=== PATIENT | male | born 1960 | race Caucasian/White ===

== ENCOUNTER 2022-05-08 17:37 | Outpatient (CLI) | payer BC, SELFPAY ==
[2022-05-08 18:30] LABS: Appearance Urine Clear (Clear); Bilirubin Urine Negative (Negative); Blood Urine Negative (Negative); Color Urine Yellow (Yellow); Glucose Urine Negative (Negative); Ketones Urine Negative (Negative); Leukocyte Esterase Urine 1+ (Negative); Nitrite Urine Negative (Negative); Protein Urine Trace (Negative); Specific Gravity Urine 1.025 (1.000-1.030); Urobilinogen Urine 0.2 (0.2-1.0)
[2022-05-08 18:32] LABS: RBC Urine 0-2 (0-2)
[2022-05-08 21:34] LABS: Creatinine Urine 243.5 mg/dL
[2022-05-08 21:37] LABS: Microalbumin Creatinine Ratio 20 mg/g (0-30); Microalbumin Urine 5 mg/dL
[2022-05-08 22:01] LABS: PSA Screen* 1.21 ng/mL (0.10-4.00)
== END 2022-05-08 17:38 | disposition home or self-care (01) ==
PROVIDERS: PCP Family Medicine; Visit Provider Family Medicine
DX: Z00.00 Encounter for general adult medical examination without abnormal findings (principal); R39.15 Urgency of urination; E11.9 Type 2 diabetes mellitus without complications; E78.00 Pure hypercholesterolemia, unspecified; G43.909 Migraine, unspecified, not intractable, without status migrainosus; Z12.5 Encounter for screening for malignant neoplasm of prostate; M54.50 Low back pain, unspecified
CPT/HCPCS: 81003; 81015; 82043; 82570; 84153; 87086

== ENCOUNTER 2022-09-26 08:36 | Outpatient (CLI) | payer BC, SELFPAY ==
--- OUTSIDE RECORDS SUMMARY | 2022-09-27 14:38 | XMS_ITS | Encounter Summary ---
:1960 Author Organization [facility] Address [address] [place] [address] Care Team Providers Name Role Phone Unavailable Primary Care Provider Unavailable Encounter Details Date Type Department Care Team Description 08/01/2018 Hospital Encounter Department of Serjio Morel Os teoporosis Laboratory Medicine M.B., B.Ch., B.A.O. and Pathology, [address] [phone] [address] [facility] [place] [address] Social History Tobacco Use Types Packs/Day Years Used Date Smoking Tobacco: Some Days Pipe Cigars Smokeless Tobacco: Never Alcohol Use Standard Drinks/Week Comments No 0 (1 standard drink = 0.6 oz pure alcoho l) Alcohol Habits Answer Date Recorded How often do you have a drink containing alcohol? Never 04/20/2022 How many drinks containing alcohol do you have on a typical Not asked day when you are drinking? How often do you have six or more drinks on one occasion? No t asked Social Isolation Answer Date Recorded In a typical week, how many times do you More than three tera es a week 04/20/2022 talk on the phone with family, friends, or neighbors? How often do you get together with friends Twice a week 04/20/2022 or relatives? How often do you attend yarsanism or Never 2021 taoist services? Do you belong to any clubs or Yes 04/20/2022 organizations such as yarsanism groups, unions, fraternal or athletic groups, or school groups? How often do you attend meetings of the More than 4 times pe r year 04/20/2022 clubs or organizations you belong to? Are you now , , , 04/20/2022 , never or living with a partner? Physical Activity Answer Date Recorded On average, how many days per week do you engage in moderate to 1 day 04/20/2022 strenuous exercise (like walking fast, running, jogging, dancing, swimming, biking, or other activities that cause a light or heavy sweat)? On average, how many minutes do you engage in exercise at th is 30 min 04/20/2022 level? Stress Answer Date Recorded Do you feel stress - tense, restless, nervous, or Only a lit tle 04/20/2022 anxious, or unable to sleep at night because your mind is troubled all the time - these days? Financial Resource Strain Answer Date Recorded How hard is it for you to pay for the very basics like Not h kayla at all 04/20/2022 food, housing, medical care, and heating? Intimate Partner Violence Answer Date Recorded Within the last year, have you been afraid of your partner o r No 04/20/2022 ex-partner? Within the last year, have you been humiliated or emotionall y No 04/20/2022 abused in other ways by your partner or ex-partner? Within the last year, have you been kicked, hit, slapped, or No 04/20/2022 otherwise physically hurt by your partner or ex-partner? Within the last year, have you been raped or forced to have any No 04/20/2022 kind of sexual activity by your partner or ex-partner? Food Insecurity Answer Date Recorded Within the past 12 months, you worried that your food would Never true 04/20/2022 run out before you got money to buy more. Within the past 12 months, the food you bought just didn't N ever true 04/20/2022 last and you didn't have money to get more. Transportation Needs Answer Date Recorded In the past 12 months, has lack of transportation kept you f rom No 04/20/2022 medical appointments or from getting medications? In the past 12 months, has lack of transportation kept you f rom No 04/20/2022 meetings, work, or getting things needed for daily living? Housing Stability Answer Date Recorded In the last 12 months, was there a time when you were not ab le No 04/20/2022 to pay the mortgage or rent on time? In the last 12 months, how many places have you lived? 1 04/20/2022 In the last 12 months, was there a time when you did not hav e a No 04/20/[address] or slept in a senior care (including now)? Sex Assigned at Date Recorded Male 06/24/2018 5:24 PM CDT documented as of this encounter Medications at Time of Discharge Medication Sig Dispensed Refills Start Date End Date atorvastatin (LIPITOR) 20 Take 0.5 tablets by 0 0 10/31/2016 mg tablet mouth daily. BUDESONIDE (RHINOCORT Rhinocort 0 02/21/2017 ALLERGY NASAL) celecoxib (CeleBREX) 200 Take 1 capsule by 0 10/22 mg capsule mouth daily. CIALIS 20 mg tablet 0 09/25/2017 clotrimazole-betamethason 0 05/23/2018 e (LOTRISONE) 1-0.05 % lotion divalproex (DEPAKOTE) 250 Take 1 tablet by 0 10/23 mg EC tablet mouth at bedtime. Take a bedtime/Migraine headaches DOCOSAHEXANOIC ACID/EPA Take 1 capsule by 0 11/18 (FISH OIL ORAL) mouth daily. DULoxetine (CYMBALTA) 30 Take 1 capsule ([address] capsule mg total) by mouth daily. fexofenadine Take 1 tablet by 0 06/30/2010 (for_ALLEGRA) 180 mg mouth daily. tablet gabapentin Take 1 tablet (600 270 tablet 3 12/31/2017 (for_NEURONTIN) 600 mg mg total) by mouth tablet 3 (three) times a day. montelukast (SINGULAIR) Take 1 tablet by 0 2016 10 mg tablet mouth every evening. multivitamin tablet Take 1 capsule by 0 0 mouth daily. pantoprazole (PROTONIX) Take 1 tablet by 0 2016 40 mg EC tablet mouth daily. propranolol (for_INDERAL 0 10/24/2017 LA) 80 mg 24 hr capsule SUMAtriptan (IMITREX) 100 Take 1 tablet by 0 10/23 mg tablet mouth once as needed. Take 1 tablet once for migraine headache, may repeat in one hour if needed. tiZANidine (for_ZANAFLEX) Take 1 tablet by 0 09/21 4 mg tablet mouth as needed. teriparatide (FORTEO) 20 Inject 0.08 mL (20 2.4 mL 11 02/201806/26/2019 mcg/dose - 600 mcg/2.4 mL mcg total) under injection the skin daily. teriparatide (FORTEO) 20 Inject 0.08 mL (20 2.4 mL 11 07/08/2019 mcg/dose - 600 mcg/2.4 mL mcg total) under injection the skin daily. ginseng 250 mg capsule Take by mouth 0 12/21/2017 06/21/2022 daily. vitamin E 400 unit Take 1 capsule by 0 11/18/2009 06/21/2022 capsule mouth daily. documented as of this encounter Plan of Treatment Not on filedocumented as of this encounter Procedures Procedure Name Priority Date/Time Associated Diagnosis Comme nts CALCIUM, TOT, S/P Routine 08/13/2018 3:35 PM Osteoporosis Resu lts for this CDT procedure are i n the results section. documented in this encounter Results Calcium, Total (08/13/2018 3:35 PM CDT) P athologist Signature Calcium, 9.7 8.8 - 10.2 08/15/2018 [facility] Total, S mg/dL 11:54 AM CDT LABORATORIES - [facility] Specimen Anatomical Collection Method Collection Time Receive d Time (Source) Location / / Volume Laterality Blood (Blood, 08/13/2018 3:35 PM 08/15/20 18 Venous) CDT 10:35 AM CDT Resulting Agency Comment Mailed In Specimen Serjio Currie, B.Gustabo., B.A.O. LAB BLOOD ADD-ON Performing Organization Address City/State/ZIP Code Phon e Number [facility] - [address] [place], [place] [address] [facility] documented in this encounter Visit Diagnoses Diagnosis Osteoporosis documented in this encounter
--- OUTSIDE RECORDS SUMMARY | 2022-09-27 14:38 | XMS_ITS | Encounter Summary ---
:1960 Author Organization [facility] Address [address] [place] [address] Care Team Providers Name Role Phone Unavailable Primary Care Provider Unavailable Encounter Details Date Type Department Care Team Description 04/20/2022 Ancillary Procedure Department of Neurology Social History Tobacco Use Types Packs/Day Years [...] or relatives? How often do you attend confucianist or Never 2021 catholic services? Do you belong to any clubs or Yes 04/20/2022 organizations such as confucianist groups, unions, fraternal or athletic groups, or [...] place to sleep or slept in a halfway (including now)? Education Answer Date Recorded What is the highest level of school Bachelor's degree (e.g., BA, AB, 04/20/2022 you have completed or the highest BS) degree you have received? Sex Assigned at Date Recorded Male 06/24/2018 5:24 PM CDT documented as of this encounter Plan of Treatment Not on filedocumented as of this encounter Procedures Procedure Name Priority Date/Time Associated Diagnosis Comme nts NEUROLOGY IMAGE Routine 04/20/2022 9:15 AM Result s for this EXAM CDT procedure are i n the results section. documented in this encounter Results Video-Full body-Neurology Image Exam (04/20/2022 9:15 AM CDT) Specimen (Source) Anatomical Collection Method Collection Time Re ceived Time Location / / Volume Laterality 04/20/2022 9:12 AM CDT Narrative [facility] - 04/20/2022 9:15 AM CDT This order has been created and auto-finalized to support the import of images acquired without order. The clini hilda documentation to support these images can be found on the encounter carlton t produced images. Provider Not In System IMG NON RAD IMAGING PROCEDUR ES Performing Organization Address City/State/ZIP Code Phon e Number [facility] NA documented in this encounter Visit Diagnoses Not on filedocumented in this encounter
--- OUTSIDE RECORDS SUMMARY | 2022-09-27 14:38 | XMS_ITS | Encounter Summary ---
:1960 Author Organization [facility] Address [address] [place] [address] Care Team Providers Name Role Phone Unavailable [...] or relatives? How often do you attend zoroastrian or Never 2021 sikh services? Do you belong to any clubs or Yes 04/20/2022 organizations such as zoroastrian groups, unions, fraternal or athletic groups, or [...] place to sleep or slept in a [facility] (including now)? Education Answer Date Recorded What [...] Diagnosis Comme nts NEUROLOGY IMAGE Routine 04/20/2022 9:34 AM Result s for this EXAM CDT procedure are i n the results section. documented in this encounter Results Video-Full body-Neurology Image Exam (04/20/2022 9:34 AM CDT) Specimen (Source) Anatomical Collection Method Collection Time Re ceived Time Location / / Volume Laterality 04/20/2022 9:31 AM CDT Narrative [facility] - 04/20/2022 9:34 AM CDT This order has been created [...]
--- OUTSIDE RECORDS SUMMARY | 2022-09-27 14:38 | XMS_ITS | Encounter Summary ---
:1960 Author Organization [facility] Address [address] [place] [address] Care Team Providers Name Role Phone Unavailable Primary Care Provider Unavailable Reason for Visit Reason Comments Ref. for P.T. Encounter Details Date Type Department Care Team Description 07/19/2022 Clinical Communication Department of Fernando Camargo Ref. for P.T. [place]rology [place] M[facility]P.H[facility] [address] [facility] [address] [place] [phone] Social History Tobacco Use Types Packs/Day Years [...] or relatives? How often do you attend samaritan or Never 2021 hoahaoism services? Do you belong to any clubs or Yes 04/20/2022 organizations such as samaritan groups, unions, fraternal or athletic groups, or [...] place to sleep or slept in a alf (including now)? Education Answer Date Recorded What is the highest level of school Bachelor's degree (e.g., BA, AB, 04/20/2022 you have completed or the highest BS) degree you have received? Sex Assigned at Date Recorded Male 06/24/2018 5:24 PM CDT documented as of this encounter Miscellaneous Notes Telephone Encounter - Ximena Cee, L.P.N. - 07/19/2022 2:35 PM CDT Ref. For PT. Faxed to [facility]. documented in this encounter Plan of Treatment Not on filedocumented as of this encounter Visit Diagnoses Not on filedocumented in this encounter
--- OUTSIDE RECORDS SUMMARY | 2022-09-27 14:38 | XMS_ITS | Encounter Summary ---
:1960 Author Organization [facility] Address [address] [place] [address] Care Team Providers Name Role Phone Unavailable Primary Care Provider Unavailable Reason for Referral Physical Therapy (Routine) - Authorized Specialty Diagnoses / Procedures Referred By Contact Refer red To Contact Diagnoses Abnormal Gait Non Orthopedic Fernando Camargo M.D., External, Referring M.P.H. Provider [address] [place] [address] Referral ID Status Reason Start Expiration Visits Visits Date Date Requested Authorized [id number] Authorized Service not 07/18/2022 07/18/2023 1 1 available at any [facility] site Reason for Visit Reason Comments Peripheral Neuropathy Follow up Outpatient (Routine) - Closed Specialty Diagnoses / Procedures Referred By Contact Refer red To Contact Neurology Fernando Camargo M.D ., M.P.H. [facility] [address] [place] [address] Referral ID Status Reason Start Date Expiration Date Visits Requ ested Visits Authorized [id number] Closed 04/20/2022 04/20/2023 1 1 Encounter Details Date Type Department Care Team Description 07/18/2022 Office Visit Department of Fernando Camargo Abnormal G ait Non Neurology in [place], M.P.H. Orthopedic (Primary Dx) [place], [place] [address] [place] [phone] Social History Tobacco Use Types Packs/Day Years Used Date Smoking Tobacco: Some Days Pipe Cigars Smokeless Tobacco: Never Tobacco Cessation: Ready to Quit: Not As ked; Counseling Given: Not Answered Alcohol Use Standard Drinks/Week Comments No 0 [...] or relatives? How often do you attend temple or Never 2021 tenriism services? Do you belong to any clubs or Yes 04/20/2022 organizations such as temple groups, unions, fraternal or athletic groups, or [...] place to sleep or slept in a residential (including now)? Education Answer Date Recorded What is the highest level of school Bachelor's degree (e.g., BA, AB, 04/20/2022 you have completed or the highest BS) degree you have received? Sex Assigned at Date Recorded Male 06/24/2018 5:24 PM CDT documented as of this encounter Last Filed Vital Signs Vital Sign Reading Time Taken Comments Blood Pressure 131/77 07/18/2022 3:13 PM CDT Pulse 59 07/18/2022 3:13 PM CDT Temperature - - Respiratory Rate - - Oxygen Saturation - - Inhaled Oxygen Concentration - - Weight 82.2 kg (181 lb 3.5 oz) 07/18/2022 3:13 PM CDT Height - - Body Mass Index 28.61 04/20/2022 8:32 AM CDT documented in this encounter Progress Notes Fernando Camargo M.D., M.P.H. - 07/18/2022 3:15 PM CDT Images from the original note were not included. CASSIDY Castellanos returns today for followup on his gait problems. His repeat EMG is consistent with that from 2018 and shows a right L5 chronic radiculopathy. I explained to him that that does not exceed Raoul difficulties have with walking. A we spent some time reviewing the anatomy of his nerve root dysfuncti on. The interested reader is directed to the video of his difficulty walking under the imaging section. REVIEW OF SYSTEMS No visits with results within 6 Month(s) from this visit. Latest known visit with results is: Hospital Outpatient Visit on 08/01/2018 Component Date Value Ref Range Status Calcium, Total, S 08/13/2018 9.7 8.8 - 10.2 mg/dL Final Narrative & Impression 21-Jun-2022 Electromyography Final Report Study Number: 2 EMG Tow Truck Dispatcher: Dell May Referred by: Fernando CAMARGO ([phone] or [phone]) Referred for: rule out PN Referral Code: 200 RX: 335 SUMMARY: Prior to starting the procedure, the patient's identity was verified, pertinent available records were reviewed, the nature of the procedure was explained, the appropriate sites of the exam were confirmed directly with the patient, and a pre-procedure pause was performed for final verification of all of the above. Nerve conduction studies in the right lower extremity revealed normal peroneal and tibial motor responses. Sural sensory response was normal. Needle EMG of the right lower extremity revealed high amplitude long duration motor units in L5 innervated muscles. No fibrillation potentials were seen. CLINICAL INTERPRETATION: Abnormal study. The electrodiagnostic evidence remains most consistent with a chronic right L5 radiculopathy without evidence of ongoing denervation on this study. There is no electrodiagnostic evidence of a large fiber peripheral neuropathy on this study. Since the 2017 study there has been interval reinnervation of the L5 myotome. Katy May () OBJECTIVE BP 131/77 (BP Location: Left arm, Patient Position: Sitting, Cuff Size: Regular) Pulse (!) 59 Wt82.2 kg BMI 28.61 kg/m?? Physical Exam COGNITION: Alert and oriented x 4. CRANIAL NERVES: bisque kiln drawer II-XII intact and symmetric. GAIT: While walking in and out. ASSESSMENT / PLAN #1 Abnormal Gait Non Orthopedic I have recommended gait and balance therapy for this patient and we will arrange for this. I do not think a chronic L5 radiculopathy explains his gait difficulties. I shared that with him. - External referral PT (non-[place]) Other orders - Neurology office visit (clinic) I personally spent over half of a total 25 minutes in counseling and discussion with the patient andcoordination of care as described above. documented in this encounter Plan of Treatment Not on filedocumented as of this encounter Visit Diagnoses Diagnosis Abnormal Gait Non Orthopedic - Primary documented in this encounter
--- OUTSIDE RECORDS SUMMARY | 2022-09-27 14:38 | XMS_ITS | Encounter Summary ---
:1960 Author Organization [facility] Address [address] [place] [address] Care Team Providers Name Role Phone Unavailable Primary Care Provider Unavailable Reason for Referral Outpatient (Routine) - Closed Specialty Diagnoses / Procedures Referred By Contact Refer red To Contact Neurology Fernando Camargo M.D ., M.P.H. [facility] [place] [address], [place] [address] Referral ID Status Reason Start Date Expiration Date Visits Requ ested Visits Authorized [id number] Closed 04/20/2022 04/20/2023 1 1 Outpatient (Routine) - Closed Specialty Diagnoses / Procedures Referred By Contact Refer red To Contact Diagnoses Neuropathy Fernando Camargo M.D., M.P.H. [facility] Region Procedures EMG [address], [place] [address] Referral ID Status Reason Start Date Expiration Date Visits Requ ested Visits Authorized [id number] Closed 04/20/2022 04/20/2023 1 1 Reason for Visit Reason Comments Imbalance Ref. Dakota Sanders [facility] Appointment Request (Routine) - Closed Specialty Diagnoses / Procedures Referred By Contact Refer red To Contact Neurology Referral ID Status Reason Start Date Expiration Date Visits Requ ested Visits Authorized [id number] Closed 02/28/2022 02/28/2023 1 Encounter Details Date Type Department Care Team Description 04/20/2022 Office Visit Department of Fernando Camargo, Neuropathy (Primary Dx); Neurology in [facility] [place], [place] [address] [place] [address] [place] [id number] Social History Tobacco Use Types Packs/Day Years [...] or relatives? How often do you attend mandaen or Never 2021 roman catholic services? Do you belong to any clubs or Yes 04/20/2022 organizations such as mandaen groups, unions, fraternal or athletic groups, or [...] minutes do you engage in exercise at is 30 min 04/20/2022 level? Stress Answer [...] place to sleep or slept in a chcf (including now)? Education Answer Date Recorded What is the highest level of school Bachelor's degree (e.g., BA, AB, 04/20/2022 you have completed or the highest BS) degree you have received? Sex Assigned at Date Recorded Male 06/24/2018 5:24 PM CDT documented as of this encounter Last Filed Vital Signs Vital Sign Reading Time Taken Comments Blood Pressure 113/66 04/20/2022 8:32 AM CDT Pulse 60 04/20/2022 8:32 AM CDT Temperature - - Respiratory Rate - - Oxygen Saturation - - Inhaled Oxygen Concentration - - Weight 80.3 kg (177 lb 0.5 oz) 04/20/2022 8:32 AM CDT Height 169.5 cm (5' 6.73) 04/20/2022 8:32 AM CDT Body Mass Index 27.95 04/20/2022 8:32 AM CDT documented in this encounter Consult Notes Fernando Camargo M.D., M.P.H. - 04/20/2022 8:45 AM CDT Images from the original note were not included. SUBJECTIVE CHIEF COMPLAINT / REASON FOR VISIT Emanuel Mcmahan is a 61 y.o. male who presents for evaluation of Imbalance (Ref. Dakota Law MD- [facility]). HISTORY OF PRESENT ILLNESS Patient has apparently referred to me for difficulty with gait and balance. He has a long and complicated history of back pain and leg pain. He also has apparently had difficulty walking with a fall recently. He has seen PMNR here and the health system, Dr. Lugo and the interested reader is directed to his notes. He also had some epidural steroid injections by Dr. Mcgee and Ani. He seems to have had a physical therapy for gait and balance and this has not been helpful. He has an EMG from 2018which shows only an old right L5 radiculopathy and no evidence of myopathy nor peripheral neuropathy. At today's visit he complains of not been able to walk well although he said he had a ???light?? fall when he was trying to run across the yd a few weeks ago. He does have some arthritic changes in his lumbar sacral spine and descriptions in the chart of neurogenic claudication but I did not elicit similar history at today's visit. He has not had any bowel or bladder changes. He is not very clear about whether he has weakness or not. He says he sometimes veers to the left when walking. EMG Roller Shop Utility Worker: Tamia Carpenter [phone] or [phone] Referred by: Susan Anton ([phone]) Referred for: Radiculopathy Lumbar 5 R~Pain Low Back (LBP) Referral Code: 330 335 SUMMARY: Prior to starting the procedure, the patient's identity was verified, pertinent available records were reviewed, the nature of the procedure was explained, the appropriate sites of the exam were confirmed directly with the patient, and a pre-procedure pause was performed for final verification of all of the above. Right-sided nerve conduction studies were normal. Needle examination showed long duration motor unit potentials in right L5 innervated muscles with mild fibrillation potentials. Left lower limb muscles and right upper limb muscles tested were normal. CLINICAL INTERPRETATION: There is EMG evidence for a chronic, active right L5 radiculopathy. There is no EMG evidence for a myopathic process affecting limb muscles or a left L5 radiculopathy. Mitchell Carpenter (127 or [phone])/[facility] NERVE CONDUCTIONS Temperature: upper: 33.1, lower: 29.4 ?C Record Rep Normal Normal Distal Normal F-Wave F-Wave Nerve Type Site Stim Side Amp Amp CV CV Lat Lat Lat Est ext digitorum Peroneal motor brevis R 6.0 (> 2.0) 48 (> 41) 5.1 (< 6.6) 0.0 abductor Tibial motor hallucis R 7.7 (> 4.0) 42 (> 40) 4.0 (< 6.1) 53.1 59.1 Sural sensory ankle R 19 (> 6.0) (> 40) 3.8 (< 4.5) abd digiti Ulnar motor minimi R 8.2 (> 6.0) 60 (> 51) 2.2 (< 3.6) 29.6 25.5 Median sensory index R 29 (> 15.0) 56 (> 56) 3.1 (< 3.6) NEEDLE EMG Ins Spont MUP Recruitment Duration Amplitude Phases Muscle Side Act Fib Fasc Normal Activ Reduced Rapid Long Short High Low % Turns First dorsal interosseous R Normal 0 0 Normal Deltoid R Normal 0 0 Normal Triceps brachii R Normal 0 0 Normal Tensor fasciae latae R Increased +/- 0 + + Iliopsoas R Normal 0 0 Normal Vastus medialis R Normal 0 0 Normal Gastrocnemius (Medial head) R Normal 0 0 Normal Tibialis anterior R Increased ++ 0 + +/- Tibialis anterior L Normal 0 0 Normal Past Medical History: Diagnosis Date ??? BenignProstatic Hyperplasia Localized 15+ years ago ??? Gallbladder Disorder 2014 ??? Gastroesophageal Reflux Disease NOS 15+ years ago ??? Hyperlipidemia 20+ year ago ??? Hypertension NOS 2016 ??? Migraine Headache 15+ years ago ??? Osteopenia May 2018 Past Surgical History: Procedure Laterality Date ??? GALLBLADDER SURGERY 2014 ??? PROSTATE SURGERY 15+ years ago ??? VASECTOMY 1985 MEDICATIONS: Current Outpatient Medications: ??? amitriptyline (ELAVIL) 10 mg tablet, at bedtime., Disp: , Rfl: ??? amLODIPine (NORVASC) 5 mg tablet, daily., Disp: , Rfl: ??? atorvastatin (LIPITOR) 20 mg tablet, Take 0.5 tablets by mouth daily., Disp: , Rfl: ??? busPIRone (BUSPAR) 7.5 mg tablet, Take 7.5 mg by mouth 2 (two) times a day., Disp: , Rfl: ??? calcium carbonate-vitamin D3 (Calcium 600 with Vitamin D3) 600 mg-10 mcg (400 unit) tablet,chewable, Chew daily., Disp: , Rfl: ??? divalproex (DEPAKOTE) 250 mg EC tablet, Take 1 tablet by mouth at bedtime. Take a bedtime/Migraine headaches, Disp: , Rfl: ??? DOCOSAHEXANOIC ACID/EPA (FISH OIL ORAL), Take 1 capsule by mouth daily., Disp: , Rfl: ??? DULoxetine (CYMBALTA) [address] capsule, Take 1 capsule (30 mg total) by mouth daily., Disp: 90 capsule, Rfl: 3 ??? fexofenadine (for_ALLEGRA) 180 mg tablet, Take 1 tablet by mouth daily., Disp: , Rfl: ??? gabapentin (NEURONTIN) 400 mg capsule, 2 (two) times a day., Disp: , Rfl: ??? metFORMIN XR (GLUCOPHAGE-XR) 500 mg 24 hr tablet, daily., Disp: , Rfl: ??? montelukast (SINGULAIR) 10 mg tablet, Take 1 tablet by mouth every evening., Disp: , Rfl: ??? multivitamin tablet, Take 1 capsule by mouth daily., Disp: , Rfl: ??? omega 3-gos-eut-fish oil 1,000 mg (120 mg-180 mg) capsule, Take 1 capsule by mouth 2 (two) timesa day., Disp: , Rfl: ??? pantoprazole (PROTONIX) 40 mg EC tablet, Take 1 tablet by mouth daily., Disp: , Rfl: ??? propranoloL (INDERAL LA) 60 mg 24 hr capsule, daily., Disp: , Rfl: ??? sildenafiL (VIAGRA) 100 mg tablet, TK 1 T PO D PRN, Disp: , Rfl: ??? SUMAtriptan (IMITREX) 100 mg tablet, Take 1 tablet by mouth once as needed. Take 1 tablet once for migraine headache, may repeat in one hour if needed., Disp: , Rfl: ??? tiZANidine (for_ZANAFLEX) 4 mg tablet, Take 1 tablet by mouth as needed., Disp: , Rfl: ??? BUDESONIDE (RHINOCORT ALLERGY NASAL), Rhinocort, Disp: , Rfl: ??? celecoxib (CeleBREX) 200 mg capsule, Take 1 capsule by mouth daily., Disp: , Rfl: ??? CIALIS 20 mg tablet, , Disp: , Rfl: ??? clotrimazole-betamethasone (LOTRISONE) 1-0.05 % lotion, , Disp: , Rfl: ??? gabapentin (for_NEURONTIN) 600 mg tablet, Take 1 tablet (600 mg total) by mouth 3 (three) times a day. (Patient taking differently: Take 600 mg by mouth 2 (two) times a day. Tablet in half ), Disp:270 tablet, Rfl: 3 ??? ginseng 250 mg capsule, Take by mouth daily., Disp: , Rfl: ??? propranolol (for_INDERAL LA) 80 mg 24 hr capsule, , Disp: , Rfl: ??? vitamin E 400 unit capsule, Take 1 capsule by mouth daily., Disp: , Rfl: ALLERGY: Allergies Allergen Reactions ??? Animal Dander Other (see comments) ??? House Dust Mite Other (see comments) ??? Mold Other (see comments) Family History Problem Relation Age of Onset ??? Heart attack Father ??? Coronary artery disease Father ??? Hyperlipidemia Father ??? Sleep apnea Father ??? Lung cancer Mother ??? Hyperlipidemia Mother Social History Socioeconomic History ??? Marital status: Single Spouse name: Not on file ??? Number of children: Not on file ??? Years of education: Not on file ??? Highest education level: Bachelor's degree (e.g., BA, AB, BS) Occupational History ??? Not on file Tobacco Use ??? Smoking status: Current Some Day Smoker Types: Cigars, Pipe ??? Smokeless tobacco: Never Used Substance and Sexual Activity ??? Alcohol use: No ??? Drug use: No ??? Sexual activity: Yes Partners: Female control/protection: Vasectomy Other Topics Concern ??? Not on file Social History Narrative ??? Not on file Social Determinants of Health Financial Resource Strain: Low Risk ??? Difficulty of Paying Living Expenses: Not hard at all Food Insecurity: No Food Insecurity ??? Worried About Running Out of Food in the Last Year: Never true ??? Ran Out of Food in the Last Year: Never true Transportation Needs: No Transportation Needs ??? Lack of Transportation (Medical): No ??? Lack of Transportation (Non-Medical): No Physical Activity: Insufficiently Active ??? Days of Exercise per Week: 1 day ??? Minutes of Exercise per Session: 30 min Stress: No Stress Concern Present ??? Feeling of Stress : Only a little Social Connections: Moderately Integrated ??? Frequency of Communication with Friends and Family: More than three times a week ??? Frequency of Social Gatherings with Friends and Family: Twice a week ??? Attends Religion Services: Never ??? Active Member of Clubs or Organizations: Yes ??? Attends Club or Organization Meetings: More than 4 times per year ??? Marital Status: Intimate Partner Violence: Not At Risk ??? Fear of Current or Ex-Partner: No ??? Emotionally Abused: No ??? Physically Abused: No ??? Sexually Abused: No Housing Stability: Low Risk ??? Unable to Pay for Housing in the Last Year: No ??? Number of Places Lived in the Last Year: 1 ??? Unstable Housing in the Last Year: No @ OBJECTIVE Vitals: 04/20/22 0832 BP: 113/66 BP Location: Left arm Patient Position: Sitting Cuff Size: Regular Pulse: 60 Weight: 80.3 kg Height: 169.5 cm PHYSICAL EXAM COGNITION: Alert and oriented x 4. CRANIAL NERVES: plumber supervisor II-XII intact and symmetric. MOTOR: Full strength throughout the upper and lower extremities bilaterally both proximally and distally. Normal tone. No pronator drift. No tremor. REFLEXES: Normal and symmetric at the biceps, triceps, brachioradialis, knees, and ankles. SENSORY: normal sensation to touch, decreased vibratory sensation in both great toes minus two but the apparently preserved position sense in both great toes. CEREBELLAR: ARMs-normal GAIT: astasia abasia ASSESSMENT / PLAN Impression: Encounter Diagnoses Name Primary? 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 The gait and standing with the eyes closed have exaggerated movements most consistent with Astasia abasia. I'm Going to get an EMG to evaluate apparent peripheral neuropathy. He has had physical therapy previously without benefit to his walking I anticipate that he may need more specialized therapy. I will see him back after his EMG. I personally spent 45 minutes in care of the patient today. Time includes both non face to face and face to face patient care. Fernando Camargo M.D., M.P.H. documented in this encounter Plan of Treatment Scheduled Referrals Name Type Priority Associated Diagnoses Order S [facility] Neurology office Outpatient Referral Routine Expe cted: visit (clinic) 07/21/2022 (Approximate), Expires: 07/21/2023 documented as of this encounter Results EMG (06/21/2022 3:18 PM CDT) Specimen (Source) Anatomical Collection Method Collection Time Re ceived Time Location / / Volume Laterality 06/21/2022 3:45 PM CDT Narrative [facility] EMG - 06/21/2022 3:50 PM CDT Table formatting from the original result was not included. 21-Jun-2022 ? Electromyo graphy ? Final Report Study Number: [id number] EMG Roller [employer] Utility Worker: Dell May Referred by: Fernando CAMARGO (127 or [phone]) Referred for: rule out PN Referral Code: ?200 RX: 335 SUMMARY: Prior to starting the procedure , the patient's identity was verified, pertinent available records were reviewed, the nature of the procedure was explained, the appropriate sites of the exam were confirmed directly with the pa tient, and a pre-procedure pause was performed for final verification of all of the above. ?? Nerve conduction studies in the right lo wer extremity revealed normal peroneal and tibial allie r responses. ??Sural sensory response was normal. ??Needle EMG of the right lower extremity reveale d high amplitude long duration motor units in L5 innervated muscles. ??No fibrillation po tentials were seen. CLINICAL INTERPRETATION: Abnormal study. ??The electrodiagnostic evidence remains most consistent with a chronic right L5 radiculopathy wi thout evidence of ongoing denervation on this study. ?? There is no electrodiagnostic evidence o f a large fiber peripheral neuropathy on this study. ?? Since the 2018 study there has been inte rval reinnervation of the L5 myotome. Katy May () NERVE CONDUCTIONS ??Record Rep ?? Normal ??Normal Distal Normal F-Wave F-Wave Temp Nerve Type Site Stim Side Amp Amp CV CV Lat Lat Lat Est (??C) Fibular Motor EDB ??R 3.8 (> 2.0) 43 (> 41) 4.2 (< 6.6) ?? 32.4 Tibial Motor AH ??R 8.2 (> 4.0) 43 (> 40 ) 3.5 (< 6.1) ?? 31.7 Sural Sensory Ankle ??R 12 (> 0.0) 47 (> 40) 3.3 (< 4.5) ?? 32.6 NEEDLE EMG ??Ins Spont MUP ??Recruitment Duration Amplitude Phases Muscle Side Act Fib Fasc Normal Activ Re duced Rapid Long Short High Low % Turns Gluteus medius R NL 0 0 ----- ?+ ??+ ? Vastus medialis R NL 0 0 NL ? Gastrocnemius (medial head) R NL 0 0 NL ? Tibialis anterior R NL 0 0 ----- ?+ ??+ ?? + Peroneus tertius R NL 0 0 ----- ?+ ? ?+ ?? + This interpretation has been electron ically signed: Dell May MD at 06/21/2022 3:49:40 PM CDT Fernando Camargo M.D., M.P.H. NEUROLOGY ORDERABLES Performing Organization Address City/State/ZIP Code Phon e Number [facility] documented in this encounter Visit Diagnoses Diagnosis Neuropathy - Primary Astasia Abasia Neuropathy documented in this encounter
--- OUTSIDE RECORDS SUMMARY | 2022-09-27 14:38 | XMS_ITS | Encounter Summary ---
:1960 Author Organization [facility] Address [address] [place] [address] Care Team Providers Name Role Phone Unavailable Primary Care Provider Unavailable Reason for Visit Reason Comments Emg Peripheral Neuropathy Right leg Outpatient (Routine) - Closed Specialty Diagnoses / Procedures Referred By Contact Refer red To Contact Diagnoses Neuropathy Fernando Camargo M.D., M.P.H. [facility] Region Procedures EMG [address] [place] [address] Referral ID Status Reason Start Date Expiration Date Visits Requ ested Visits Authorized [id number] Closed 04/20/2022 04/20/2023 1 1 Encounter Details Date Type Department Care Team Description 06/21/2022 Diagnostic Department of Neurology in [facility] tejal Pichardo, Neuropathy [place], [place] [address] [place] [address] [place] [address] [phone] (Wo rk) Social History Tobacco Use Types Packs/Day Years [...] or relatives? How often do you attend worship or Never 2021 congregation services? Do you belong to any clubs or Yes 04/20/2022 organizations such as worship groups, unions, fraternal or athletic groups, or [...] slept in a senior care (including now)? Education Answer Date Recorded What [...] Name Priority Date/Time Associated Diagnosis Comme nts EMG Routine 06/21/2022 3:18 PM Neuropathy Results f or this CDT procedure are i n the results section . documented in this encounter Results EMG (06/21/2022 3:18 PM CDT) Specimen (Source) Anatomical Collection Method Collection Time Re ceived Time Location / / Volume Laterality 06/21/2022 3:45 PM CDT Narrative [facility] - 06/21/2022 3:50 PM CDT Table formatting from the original result was not included. 21-Jun-2022 ? Electromyo graphy ? Final Report Study Number: 2 EMG Remediation Consultant: Dell May Referred by: eFrnando CAMARGO (127 or [phone]) Referred for: rule out PN Referral Code: [...] in this encounter Visit Diagnoses Diagnosis Neuropathy documented in this encounter
--- OUTSIDE RECORDS SUMMARY | 2022-09-27 14:38 | XMS_ITS | Clinical Summary ---
:1960 Author Organization [facility] Address [address] [place] [address] Care Team Providers Name Role Phone Unavailable Primary Care Provider Unavailable Source Comments Patient records contain information from all sites at [facility]. For routine questions regarding patient records, call [phone] during business hours, M-F 8:00 AM - 5:00 PM Central Time. Record requests for emergency care only can be directed to [phone] at any time.[facility] Allergies Active Allergy Reactions Severity Noted Date Comments Animal Dander Other (see comments) 12/21/2017 House Dust Mite Other (see comments) 12/21/2017 Mold Other (see comments) 12/21/2017 Medications Medication Sig Dispensed Refills Start Date End Date Status atorvastatin (LIPITOR) Take 0.5 tablets 0 10/31/2016 Active 20 mg tablet by mouth daily. BUDESONIDE (RHINOCORT Rhinocort 0 02/21/2017 Active ALLERGY NASAL) celecoxib (CeleBREX) Take 1 capsule by 0 11/09/2016 Active 200 mg capsule mouth daily. divalproex (DEPAKOTE) Take 1 tablet by 0 11/18/2009 Active 250 mg EC tablet mouth at bedtime. Take a bedtime/Migraine headaches fexofenadine Take 1 tablet by 0 06/30/2010 Active (for_ALLEGRA) 180 mg mouth daily. tablet montelukast Take 1 tablet by 0 10/31/2016 Active (SINGULAIR) 10 mg mouth every tablet evening. multivitamin tablet Take 1 capsule by 0 11/18/2009 Active mouth daily. DOCOSAHEXANOIC Take 1 capsule by 0 11/18/2009 Active ACID/EPA (FISH OIL mouth daily. ORAL) pantoprazole Take 1 tablet by 0 11/09/2016 Active (PROTONIX) 40 mg EC mouth daily. tablet SUMAtriptan (IMITREX) Take 1 tablet by 0 11/18/2009 Active 100 mg tablet mouth once as needed. Take 1 tablet once for migraine headache, may repeat in one hour if needed. tiZANidine Take 1 tablet by 0 10/01/2015 A ctive (for_ZANAFLEX) 4 mg mouth as needed. tablet propranolol 0 10/24/2017 Active (for_INDERAL LA) 80 mg 24 hr capsule CIALIS 20 mg tablet 0 09/25/2017 Active gabapentin Take 1 tablet 270 tablet 3 12/31/2017 Act meka (for_NEURONTIN) 600 mg (600 mg total) by tablet mouth 3 (three) times a day. Additional Information Patient taking differently: 600 mg oral 2 times daily, Tablet in half, Reported on 06/26/2018 DULoxetine (CYMBALTA) 30 mg Take 1 capsule (30 mg 90 capsule 3 02/05/[address] capsule total) by mouth daily. clotrimazole-betamethasone 0 05/23/2018 Active (LOTRISONE) 1-0.05 % lotion amitriptyline (ELAVIL) 10 mg at bedtime. 0 Active tablet amLODIPine (NORVASC) 5 mg daily. 0 04/19/2022 Active tablet busPIRone (BUSPAR) 7.5 mg Take 7.5 mg by mouth 2 0 Active tablet (two) times a day. metFORMIN XR (GLUCOPHAGE-XR) daily. 0 03/15/2022 Active 500 mg 24 hr tablet sildenafiL (VIAGRA) 100 mg TK 1 T PO D PRN 0 020 Active tablet omega 0-mzw-bgt-fish oil Take 1 capsule by mouth 0 Active 1,000 mg (120 mg-180 mg) 2 (two) times a day. capsule gabapentin (NEURONTIN) 400 mg 2 (two) times a day. 0 03/29/2022 Active capsule propranoloL (INDERAL LA) 60 daily. 0 Active mg 24 hr capsule calcium carbonate-vitamin D3 Chew daily. 0 Active (Calcium 600 with Vitamin D3) 600 mg-10 mcg (400 unit) tablet,chewable Active Problems No known active problems Encounters Date Type Specialty Care Team Description 07/19/2022 Clinical Communication Neurology Fernando Camargo R ef. for PMarie Sharma, M.P.H. 07/18/2022 Office Visit Neurology Fernando Camargo, Mayte Patel M.D., M.P.H. Orthopedic (Makayla Jeffrey) from Last 3 Months Immunizations Name Administration Dates Next Due Influenza, Unspecified 08/05/2015 Tdap 08/04/2013, 06/15/2003 Family History Medical History Relation Name Comments Coronary artery disease Father Pawel Heart attack Father Pawel Hyperlipidemia Father Pawel Sleep apnea Father Pawel Hyperlipidemia Mother Lisa Mcmahan Lung cancer Mother Lisa Mcmahan Relation Name Status Comments Father Pawel Mother Lisa Mcmahan Social History Tobacco Use Types Packs/Day Years [...] or relatives? How often do you attend cheondoism or Never 2021 synagogue services? Do you belong to any clubs or Yes 04/20/2022 organizations such as cheondoism groups, unions, fraternal or athletic groups, or [...] Date Recorded Male 06/24/2018 5:24 PM CDT Last Filed Vital Signs Vital Sign Reading Time Taken Comments Blood Pressure 131/77 07/18/2022 3:13 PM CDT Pulse 59 07/18/2022 3:13 PM CDT Temperature - - Respiratory Rate 20 05/24/2016 2:08 PM CDT Oxygen Saturation - - Inhaled Oxygen Concentration - - Weight 82.2 kg (181 lb 3.5 oz) 07/18/2022 3:13 PM CDT Height 169.5 cm (5' 6.73) 04/20/2022 8:32 AM CDT Body Mass Index 28.61 04/20/2022 8:32 AM CDT Plan of Treatment Health Maintenance Due Date Last Done Comments CT Colonography 1960 Cologuard 1960 FIT 1960 HIV Screening 1960 Hepatitis C Screening 1960 Tobacco Cessation counseling 1960 Zoster Vaccines (1 of 2) 2008 Lipid (Cholesterol) Screening 09/30/2020 09/30/2015, 2012, 02/01/2012 Colonoscopy 01/17/2021 01/17/2011 Colorectal Cancer Screening 01/17/2021 COVID-19 Vaccine (3 - Booster for 04/01/2021 02/04/2021, Moderna series) Depression Screening (Annual 10/22/2021 PHQ-2) Fasting Glucose for Diabetes 02/07/2022 02/07/2019, 015, Screening 08/01/2013, Additional history exists Influenza Vaccine (#1) 2022 08/29/2021, 08/05/2015, 10/03/2001, Additional history exists Pneumococcal vaccine (0-64 years) 01/19/2023 01/19/2022 (2 - PCV) DTaP,Tdap,and Td Vaccines (3 - Td 08/04/2023 08/04/2013, or Tdap) Insurance Payer Benefit Plan / Subscriber ID Effective Dates Phone Addre ss Type Group [employer] [place] [id number] 2016-Husam [phone] [address] [facility] [address] [place] [address] Advance Directives For more information, please contact: [phone] Documents on File Type Date Recorded 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 See document viewer.
--- OUTSIDE RECORDS SUMMARY | 2022-09-27 14:38 | XMS_ITS | Encounter Summary ---
:1960 Author Organization [facility] Address [address] [place] [address] Care Team Providers Name Role Phone Unavailable Primary Care Provider Unavailable Encounter Details Date Type Department Care Team Description 02/21/2022 Clinical Communication Department of Neurology Fernando Camargo, in [facility] elena Sharma, M.P.H. [address] [place] [address] [address], [place] [phone] Social History Tobacco Use Types Packs/Day Years [...] or relatives? How often do you attend roman catholic or Never 2021 temple services? Do you belong to any clubs or Yes 04/20/2022 organizations such as roman catholic groups, unions, fraternal or athletic groups, or school groups? How often do you attend meetings of the More than 4 times r year 04/20/2022 clubs or organizations you [...] place to sleep or slept in a nursing home (including now)? Sex Assigned at Date Recorded Male 06/24/2018 5:24 PM CDT documented as of this encounter Miscellaneous Notes Telephone Encounter - Ximena Cee L.P.N. - 03/01/2022 8:30 AM CDT Patient has been scheduled on 04/20/22. Telephone Encounter - Ximena Cee L.P.N. - 02/21/2022 11:56 AM CDT Instructed patient that I would place call to [facility] Medical records for more information from Dr. Law. Received referral only for imbalance. Telephone Encounter - Lindsey Martinez - 02/21/2022 11:06 AM CDT Reason for Communication: Patient called cause he said he dropped off a referral from Dr. Law [facility] on Sunday to see Dr. Camargo in Neurology and was asking when he might have a call back for an appointment Current Can Nursing/Provider leave a detailed message?: yes Did the patient refuse triage through Nurse line? (for symptom based concerns): na Action Needed: please advise if Dr. Camargo received the referral and the status for being contacted an appointment Name of Medication (if relevant): Please send all scheduling replies to scheduling pool. documented in this encounter Plan of Treatment Not on filedocumented as of this encounter Visit Diagnoses Not on filedocumented in this encounter
--- OUTSIDE RECORDS SUMMARY | 2022-09-27 14:39 | XMS_ITS | Encounter Summary ---
:1960 Author Organization [facility] Address [address] [place] [address] Care Team Providers Name Role Phone Unavailable Primary Care Provider Unavailable Reason for Visit Reason Onset Date Comments Prior Auth 11/09/2017 Encounter Details Date Type Department Care Team Description 11/09/2017 [facility], [facility], in [address] [phone] Social History Tobacco Use Types Packs/Day Years Used Date Smoking Tobacco: Never Smokeless Tobacco: Never Alcohol Habits Answer Date Recorded How often [...] or relatives? How often do you attend congregational or Never 2021 advent services? Do you belong to any clubs or Yes 04/20/2022 organizations such as congregational groups, unions, fraternal or athletic groups, or [...] place to sleep or slept in a penitentiary (including now)? Sex Assigned at Date Recorded Male 06/24/2018 5:24 PM CDT documented as of this encounter Miscellaneous Notes Telephone Encounter - Steffany Hwang - 11/11/2017 8:34 AM CST Referral sent [employer] documented in this encounter Plan of Treatment Not on filedocumented as of this encounter Visit Diagnoses Not on filedocumented in this encounter
--- OUTSIDE RECORDS SUMMARY | 2022-09-27 14:39 | XMS_ITS | Encounter Summary ---
:1960 Author Organization [facility] Address [address] [place] [address] Care Team Providers Name Role Phone Unavailable Primary Care Provider Unavailable Reason for Visit Reason Onset Date Comments [facility] switch pharmacies 07/05/2018 Encounter Details Date Type Department Care Team Description 07/05/2018 Clinical Communication Division of [facility] Endocrinology in [facility] [place], [place] [address] [facility] [id number] [place] [phone] Social History Tobacco Use Types Packs/Day Years [...] or relatives? How often do you attend pentecostalism or Never 2021 jew services? Do you belong to any clubs or Yes 04/20/2022 organizations such as pentecostalism groups, unions, fraternal or athletic groups, or school groups? How often do you attend meetings of the More than 4 times pe year 04/20/2022 clubs or organizations you belong [...] place to sleep or slept in a care home (including now)? Sex Assigned at Date Recorded Male 06/24/2018 5:24 PM CDT documented as of this encounter Miscellaneous Notes Telephone Encounter - Madhu Vyas M.D. - 07/08/2018 8:04 AM CDT Escript sent to [facility] Telephone Encounter - Melodie Faye - 07/05/2018 9:08 AM CDT Requesting refills for the following prescriptions-- Did the request come from a pharmacy or the patient? Pharmacy (patient had called yesterday letting us know the request was coming) Name of the pharmacy: [facility], [address] [place], [place] [id number] Preferred Pharmacy Correct in EPIC (yes or no): Yes, but [facility] needs to go to pharmacy above due toinsurance Medication(s) requested: Forteo (see 06/26 script) Last quantity issued: 2.4 mL pen Patient's Endocrine provider is: Dr. Madhu Vyas This is not a request for a refill. This is a request to send the Forteo prescription to another pharmacy. Patient's insurance is requesting that all specialty pharmacy medications be sent to [facility]. Patient had been in contact with [facility] to transfer the prescription, but [facility] wants a new script sent directly to them. Thank you, Melodie (medical records secretary float) documented in this encounter Plan of Treatment Not on filedocumented as of this encounter Visit Diagnoses Not on filedocumented in this encounter
--- OUTSIDE RECORDS SUMMARY | 2022-09-27 14:39 | XMS_ITS | Encounter Summary ---
:1960 Author Organization [facility] Address [address] [place] [address] Care Team Providers Name Role Phone Unavailable Primary Care Provider Unavailable Encounter Details Date Type Department Care Team Description 11/13/2016 Hospital Encounter HX [facility] Earl Culver M.D. [address] [place] [address], [address] [place] [address] (Wo rk) Social History Tobacco Use Types Packs/Day Years Used Date Smoking Tobacco: Never Alcohol Habits Answer Date Recorded [...] or relatives? How often do you attend hoahaoism or Never 2021 scientologist services? Do you belong to any clubs or Yes 04/20/2022 organizations such as hoahaoism groups, unions, fraternal or athletic groups, or [...] place to sleep or slept in a usp (including now)? Sex Assigned at Date Recorded Male 06/24/2018 5:24 PM CDT documented as of this encounter Last Filed Vital Signs Vital Sign Reading Time Taken Comments Blood Pressure 144/92 11/13/2016 10:01 AM PACKAGE WINDER Pulse - - Temperature - - Respiratory Rate - - Oxygen Saturation - - Inhaled Oxygen Concentration - - Weight 81.4 kg (179 lb 9 oz) 11/13/2016 9:13 AM PACKAGE WINDER Height 170 cm (5' 6.93) 11/13/2016 10:01 AM PACKAGE WINDER Body Mass Index 28.18 11/13/2016 9:13 AM PACKAGE WINDER documented in this encounter Medications at Time of Discharge Medication Sig Dispensed Refills Start Date End Date atorvastatin (LIPITOR) 20 Take 0.5 tablets by 0 0 10/31/2016 mg tablet mouth daily. celecoxib (CeleBREX) 200 Take 1 capsule by 0 10/22 mg capsule mouth daily. divalproex (DEPAKOTE) 250 Take 1 tablet by 0 10/23 mg EC tablet mouth at bedtime. Take a bedtime/Migraine headaches DOCOSAHEXANOIC ACID/EPA Take 1 capsule by 0 11/18 (FISH OIL ORAL) mouth daily. fexofenadine Take 1 tablet by 0 06/30/2010 (for_ALLEGRA) 180 mg mouth daily. tablet montelukast (SINGULAIR) Take 1 tablet by 0 2016 10 mg tablet mouth every evening. multivitamin tablet Take 1 capsule by 0 0 mouth daily. pantoprazole (PROTONIX) Take 1 tablet by 0 2016 40 mg EC tablet mouth daily. SUMAtriptan (IMITREX) 100 Take 1 tablet by 0 10/23 mg tablet mouth once as needed. Take 1 tablet once for migraine headache, may repeat in one hour if needed. tiZANidine (for_ZANAFLEX) Take 1 tablet by 0 09/21 4 mg tablet mouth as needed. vitamin E 400 unit Take 1 capsule by 0 11/18/2009 06/21/2022 capsule mouth daily. documented as of this encounter Progress Notes Edison Culver M.D. - 11/13/2016 9:04 AM CST [id number] CHIEF COMPLAINT/REASON FOR VISIT Follow up low back and right greater than left lower extremity pain and paresthesias. HISTORY OF PRESENT ILLNESS Mr. Mcmahan returns today in followup. 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 He had an MRI performed of his lumbar spine on November 08, 2016, in [place] and I reviewed the images with him in detail. Significant findings include that there is a transitional lumbosacral segment which appears to be a partially lumbarized S1. I will use the numbering system that the radiologist used for interpreting the MRI. At L5-S1 there addy posterior broad-based annular tear and disc herniation which results in impingement of both S1 nerve roots centrally with moderate central canal stenosis. There is a large lateral disc herniation to both neural foramina resulting in severe stenosis on the right with L5 ganglionic impingement on the right. There is moderate facet arthropathy and grade 1 anterolisthesis of L5 on S1. At L4-L5 there addy disc herniation resulting in impingement on the exiting left L4 nerve root. Mr. Mcmahan's symptoms have not changed since I saw him just previous to the imaging studies. PHYSICAL EXAMINATION None performed today. IMPRESSION/REPORT/PLAN 1. Chronic low back and right greater than left lower extremity pain and paresthesias. 2. Lumbar spinal stenosis. 3. Right L5 radiculopathy. 4. Lumbar spondylosis. 5. Migraine headaches. 6. Hypertension. Mr. Mcmahan's symptoms, previous examination and imaging all would correlate with a right L5 radiculopathy as being the cause of his symptoms. He does have moderate canal stenosis at L5-S1 as well as severe foraminal stenosis on the right at L5-S1. PLAN: 1. We spent several minutes today discussing various options for treatment for Mr. Mcmahan. I am going to place him on gabapentin 300 mg at bedtime progressing to a goal of 600 mg 3 times daily and went through the side effects of this medication in detail today. 2. I am going have Mr. Mcmahan initiate physical therapy and gave him a detailed prescription for this today. We will work on a comprehensive program including a core strength and stability program. 3. Depending on how Mr. Mcmahan is progressing we did discuss proceeding with a right L5 transforaminalepidural corticosteroid injection versus potentially having him meet with a spine surgeon. 4. I will see Mr. Mcmahan in 6 weeks to assess his progress or sooner if he notes any worsening or worrisome symptoms which we went over in detail today. Mr. Mcmahan voiced agreement and understanding of this plan. 5. Mr. Mcmahan did have a slightly elevated blood pressure today which has been persistent, he says, for the past several months. He has moved to [place] and will be seeing a primary care physician there soon and so will be addressing that with them at that time. Total time 25 minutes, counseling and coordination of care time greater than 15 minutes. Edison Culver M.D./gama Electronically Signed By: EDISON CULVER MD On: 11/14/2016 10:26 AM Modified by and Electronically Signed by: EDISON CULVER MD On: 11/14/2016 10:26 AM Source: [facility] MHSDOLBEYNONRADSYS Document Id: [id number] AGE WINDER documented in this encounter Miscellaneous Notes Miscellaneous - Daron Baker L.P.N. - 11/13/2016 10:01 AM CST Ambulatory Vitals Height Weight Ambulatory Vitals Height Weight Entered On: 11/13/2016 10:01 PACKAGE WINDER Performed On: 11/13/2016 10:01 PACKAGE WINDER by DARON BAKER LPN Vitals/Ht/Wt Systolic Blood Pressure : 144 mmHg (HI) Diastolic Blood Pressure : 92 mmHg (>HHI) NIBP Mean : 109 mmHg BP Location : Left upper extremity Blood Pressure Cuff Size : Regular Height : 170 cm(Converted to: 5 ft 7 inch(es), 67 inch(es)) DARON BAKER LPN - 11/13/2016 10:01 PACKAGE WINDER Source: [facility] POWERCHART Document Id: [id number] PACKAGE WINDER!6 AGE WINDER Miscellaneous - Edison Culver M.D. - 11/13/2016 9:53 AM CST Ambulatory Patient Summary [facility] [address] [place] [id number] Visit Information Name: EMANUEL MCMAHAN [facility] Number: [id number] Current Date: 11/13/2016 09:53:42 Physicians Attending Provider: EDISON CULVER MD Primary Care Provider: GOOD LOPEZ MD EMANUEL MCMAHAN has been given the following list of follow-up instructions, medication list, and patient education materials: Follow-up Instructions Your Medications Here is a list of your medications. It is important to take your medications as directed. Use a pillbox or chart to help remind you to take your medications. Please let your doctor or nurse know if you have problems taking your medications. Medication/Strength How to Take Indications/Special Instructions/Comments/Notes for Patient Medication Changes/Routing atorvastatin (Lipitor 20 mg oral tablet) 0.5 Tablet(s), Oral, once a day Hyperlipidemia. due for appt celecoxib (CeleBREX 200 mg oral capsule) 1 cap, Oral, once a day Patient due for yearly physical prior to further refills. divalproex sodium (Depakote 250 mg oral delayed release tablet) 1 Tablet(s), Oral, once a day Migraine Headaches. Taken at bedtime fexofenadine (fexofenadine 180 mg oral tablet) 1 Tablet(s), Oral, once a day hcl gabapentin (gabapentin 300 mg oral capsule) 1 cap, Oral, once a day (at bedtime) As directed to a goal of 600 mg po tid New Routed to [place] [address] [place], [place] [id number] montelukast (Singulair 10 mg oral tablet) 1 Tablet(s), Oral, every evening Asthma, seasonal allergies due for appt multivitamin (multivitamin) 1 cap, Oral, once a day omega-3 polyunsaturated fatty acids (Fish Oil oral capsule) 1 cap, Oral, once a day pantoprazole (Protonix 40 mg oral delayed release tablet) 1 Tablet(s), Oral, once a day Patient due for yearly physical prior to further refills. sumatriptan (Imitrex 100 mg oral tablet) 1 Tablet(s), Oral, once as needed for Migraine headache repeat after one hour if needed tiZANidine (tiZANidine 4 mg oral tablet) 1 Tablet(s), Oral, as needed Back spasm vitamin E (vitamin E 400 intl units oral capsule) 1 cap, Oral, once a day Stop Taking the Following Medications: Medication list as of 11-13-16 09:53 Attention: If you have any medications at home that are not on this list, DO NOT take them until youcontact your provider for clarification. Give a copy of your medication list to your primary care provider. Update your medication list any time medications or doses are changed and carry your medication list at all times in case of emergency. Electronically Signed By: EDISON CULVER MD Signed On:13-NOV-2016 09:53:07 Your Allergies & Intolerances Substance Reaction Symptoms Category Comments No Known Allergies Drug Your Problem List Problem Status Onset Comments Seasonal allergic rhinitis Active 08/04/2013 GERD [Gastroesophageal reflux disease] Active 08/04/2013 Hyperlipidemia NOS Active 08/04/2013 Pain Knee NOS Active Sprain Knee Medial Collateral Ligament (MCL) Subsequent L Active Your Upcoming Appointments Date Time Location Provider No Appointments found Attention: Contact your local Clinic if further appointment detail needed. Consider Using Patient Online Services Patient Online Services is a secure online and Mobile application that lets you: ?? View lab and test results ?? View portions of your medical record including clinical notes, immunizations and discharge summaries ?? Request an appointment or medication refill ?? Review your appointment schedule ?? Send secure messages to your care team Its easy to create an account if you dont have one. Go to [email or web address] and click on Create Your Account. Then, follow the directions to complete the online form. Youll be asked for your [facility] number which you can find at the top of this document. Your Goals/Additional instructions: Source: [facility] POWERCHART Document Id: [id number] AGE WINDER Miscellaneous - Edison Culver M.D. - 11/13/2016 9:53 AM CST Ambulatory Discharge Medication List [address] [id number] Visit Information Name: EMANUEL MCMAHAN [facility] Number: [id number] Current Date: 11/13/2016 09:53:41 Attending Provider: EDISON CULVER MD Primary Care Provider: GOOD LOPEZ MD EMANUEL MCMAHAN has been given the following list of medications: Your Medications It is important to take your medications as directed. Use a pill box or chart to help remind you to take your medications. Please let your doctor or nurse know if you have problems taking your medications. Medication/Strength How to Take Indications/Special Instructions/Comments/Notes for Patient Medication Changes/Routing atorvastatin (Lipitor 20 mg oral tablet) 0.5 Tablet(s), Oral, once a day Hyperlipidemia. due for appt celecoxib (CeleBREX 200 mg oral capsule) 1 cap, Oral, once a day Patient due for yearly physical prior to further refills. divalproex sodium (Depakote 250 mg oral delayed release tablet) 1 Tablet(s), Oral, once a day Migraine Headaches. Taken at bedtime fexofenadine (fexofenadine 180 mg oral tablet) 1 Tablet(s), Oral, once a day hcl gabapentin (gabapentin 300 mg oral capsule) 1 cap, Oral, once a day (at bedtime) As directed to a goal of 600 mg po tid New Routed to [address] [phone] montelukast (Singulair 10 mg oral tablet) 1 Tablet(s), Oral, every evening Asthma, seasonal allergies due for appt multivitamin (multivitamin) 1 cap, Oral, once a day omega-3 polyunsaturated fatty acids (Fish Oil oral capsule) 1 cap, Oral, once a day pantoprazole (Protonix 40 mg oral delayed release tablet) 1 Tablet(s), Oral, once a day Patient due for yearly physical prior to further refills. sumatriptan (Imitrex 100 mg oral tablet) 1 Tablet(s), Oral, once as needed for Migraine headache repeat after one hour if needed tiZANidine (tiZANidine 4 mg oral tablet) 1 Tablet(s), Oral, as needed Back spasm vitamin E (vitamin E 400 intl units oral capsule) 1 cap, Oral, once a day Stop Taking the Following Medications: Medication list as of 11-13-16 09:53 Attention: If you have any medications at home that are not on this list, DO NOT take them until youcontact your provider for clarification. Give a copy of your medication list to your primary care provider. Update your medication list any time medications or doses are changed and carry your medication list at all times in case of emergency. Electronically Signed By: EDISON CULVER MD Signed On:13-NOV-2016 09:53:07 Additional Information: Source: [facility] POWERCHART Document Id: [id number] AGE WINDER Miscellaneous - Daron Baker L.P.N. - 11/13/2016 9:13 AM CST Adult Window Shade Ring Coverer Intake/History Adult Window Shade Ring Coverer Intake/History Entered On: 11/13/2016 9:14 PACKAGE WINDER Performed On: 11/13/2016 9:13 PACKAGE WINDER by DARON BAKER LPN Intake Systolic Blood Pressure : 136 mmHg Diastolic Blood Pressure : 98 mmHg (>HHI) NIBP Mean : 111 mmHg BP Location : Left upper extremity Blood Pressure Cuff Size : Regular Height : 170 cm(Converted to: 5 ft 7 inch(es), 67 inch(es)) Actual Weight : 81.45 kg(Converted to: 179 lb 9 oz) Dosing Weight Clinic : 81.45 kg Clinic BSA : 1.96 Body Mass Index : 28.18 kg/m2 DARON BAKER LPN - 11/13/2016 9:13 PACKAGE WINDER General Info Information Given By : Patient Languages : Setswana Is Patient Female and 13-50 no hysterectomy : No DARON BAKER LPN - 11/13/2016 9:13 PACKAGE WINDER Subjective Pain Symptoms : No DARON BAKER LPN - 11/13/2016 9:13 PACKAGE WINDER Dependent Habits Exposure to Tobacco Smoke : Other: never Smoking Status : Never smoker Tobacco 2A : No Tobacco Use/Currently Using : No Tobacco Use/Last 30 Days : No Tobacco Use/Last 12 months : No Tobacco Last Use/Year : 1979 DARON BAKER WAQAS - 11/13/2016 9:13 PACKAGE WINDER Caffeine Use Grid Caffeine Use : Current Type : Soft drinks DARON BAKER WAQAS - 11/13/2016 9:13 PACKAGE WINDER Source: [facility] VTM Document Id: [id number] PACKAGE WINDER!28 AGE WINDER Miscellaneous - Gissel Boyd C.M.A. - 11/09/2016 11:31 AM CST Lucila - re route rxs Document Contains Addenda Addendum by SUMANTH MANLEY RN on November 09, 2016 12:31:28 PACKAGE WINDER Resent to ES. Message sent to [facility] asking them to cancel scripts they had. From: GISSEL BOYD ([facility] Nurse) To: SUMANTH MANLEY RN; Sent: 11/09/2016 11:31:55 PACKAGE WINDER Subject: Lucila - re route rxs Protonix and Celebrex need to be sent to [facility] not [facility]. Please re-route when able. THanks! Source: [facility] VTM Document Id: [id number] Electronically signed by [facility] Sling Operator [id number] at 04/03/2017 3:07 AM CDT documented in this encounter Plan of Treatment Not on filedocumented as of this encounter Visit Diagnoses Not on filedocumented in this encounter
--- OUTSIDE RECORDS SUMMARY | 2022-09-27 14:39 | XMS_ITS | Encounter Summary ---
:[address] [facility] Address [address] [place] [address] Care Team Providers Name Role Phone Unavailable Primary Care Provider Unavailable Encounter Details Date Type Department Care Team Description 05/07/2018 Hospital Encounter Department of Tanner Rizo History Of Laboratory Medicine Edith Sheriff Other Diseases Of in [address] Male Genital Organs [place], [place] [address] [address] [place], [place] [phone] (Work) [phone] Social History Tobacco Use Types Packs/Day Years Used Date Smoking Tobacco: Some Days Smokeless Tobacco: Never Alcohol Habits Answer Date [...] or relatives? How often do you attend yarsani or Never 2021 restorationist services? Do you belong to any clubs or Yes 04/20/2022 organizations such as yarsani groups, unions, fraternal or athletic groups, or [...] place to sleep or slept in a assisted (including now)? Sex Assigned at Date Recorded [...] daily. CIALIS 20 mg tablet 0 09/25/2017 divalproex (DEPAKOTE) 250 Take 1 tablet by [...] 09/21 4 mg tablet mouth as needed. divalproex (for_DEPAKOTE 0 10/24/2017 06/26/2018 ER) 500 mg 24 hr tablet DULoxetine (for_CYMBALTA) 0 09/25/2017 06/26/[address] capsule ginseng 250 mg capsule Take by mouth 0 12/21/2017 06/21/2022 daily. propranolol (for_INDERAL) Take 1 tablet by 0 04/201706/26/2018 60 mg tablet mouth 2 (two) times a day. tiZANidine (for_ZANAFLEX) 0 10/26/2017 06/26/2018 4 mg capsule VIAGRA 100 mg tablet 0 10/25/201702/2018 vitamin E 400 unit Take 1 capsule by 0 11/18/2009 06/21/2022 capsule mouth daily. documented as of this encounter Plan of Treatment Not on filedocumented as of this encounter Procedures Procedure Name Priority Date/Time Associated Diagnosis Comme nts TESTOSTERONE, TOTAL Routine 05/07/2018 3:59 PM Personal Histor y Of Results for this BY MASS CDT Other Diseases Of procedure are in SPECROMETRY, S Male Genital Organs the re sults section. PROSTATE-SPECIFIC Routine 05/07/2018 3:59 PM Personal History Of Results for this AG (PSA) CDT Other Diseases Of procedure are in DIAGNOSTIC, S Male Genital Organs the res ults section. documented in this encounter Results Testosterone, Total (05/07/2018 3:59 PM CDT) P athologist Signature Testosterone, 419 240 - 950 05/08/2018 ED [facility] Total by Mass ng/dL 11:08 PM CDT [facility] Spectrometry, [facility] Serum Comment: ----ADDITIONAL INFORMATION---- Testing performed by Liquid Chromatograp hy-Tandem Mass Spectrometry (LC-MS/MS). This test was developed and its performa nce characteristics determined by [facility] in a manner consistent with CLIA requirements. This test has not been cleared or approved by the [place] d and Drug Administration. Specimen Anatomical Collection Method Collection Time Receive d Time (Source) Location / / Volume Laterality Blood (Blood, 05/07/2018 3:59 PM 05/08/20 6:39 Venous) CDT AM CDT Tanner Rizo M.D. LAB BLOOD NON ADD-ON Performing Organization Address City/State/ZIP Code Phon e Number ED [facility] [address] [place], [place] [address] [facility] PSA (Prostate-Specific Antigen), Diagnostic (05/07/2018 3:59 PM CDT) P athologist Signature Prostate-Specif 3.5 <=3.5 05/07/2018 ED [facility] ic Ag ng/mL 5:29 PM CDT [facility] Comment: Biotin has been identified by the harish gaston as a potential interfering substance. ??Higher concentr ations of biotin may be found in multivitamins, hair/nail supple ments, and workout supplements. ??If the result does not [facility] clinical observations, repeat testing after patient refrains fr om the use of supplements for at least 12 hours. ----ADDITIONAL INFORMATION---- The testing method is an electrochemilum inescence assay manufactured by [employer] and performed on the Modular or Jossy system . Values obtained with different assay met hods or kits may be different and cannot be used inte rchangeably. Test results cannot be interpreted as ab solute evidence for the presence or absence of malignant disease. Specimen Anatomical Collection Method Collection Time Receive d Time (Source) Location / / Volume Laterality Blood (Blood, 05/07/2018 3:59 PM 05/07/20 18 4:01 Venous) CDT PM CDT Tanner Rizo M.D. LAB BLOOD ADD-ON Performing Organization Address City/State/ZIP Code Phon e Number [facility] [phone] [place] [address] LAB documented in this encounter Visit Diagnoses Diagnosis Personal History Of Other Diseases Of Ma le Genital Organs documented in this encounter
--- OUTSIDE RECORDS SUMMARY | 2022-09-27 14:39 | XMS_ITS | Encounter Summary ---
:[address] [facility] Address [address] [place] [address] Care Team Providers Name Role Phone Unavailable Primary Care Provider Unavailable Encounter Details Date Type Department Care Team Description 06/12/2017 Hospital Encounter HX [facility] PMTR Earl Culver M.D. [address] [place] [address], [address] [place] [address] (Wo rk) Social History Tobacco [...] or relatives? How often do you attend anabaptist or Never 2021 yazidism services? Do you belong to any clubs or Yes 04/20/2022 organizations such as anabaptist groups, unions, fraternal or athletic groups, or [...] or slept in a alf (including now)? Sex Assigned at Date Recorded Male 06/24/2018 5:24 PM CDT documented as of this encounter Last Filed Vital Signs Vital Sign Reading Time Taken Comments Blood Pressure 124/84 06/12/2017 4:15 PM CDT Pulse - - Temperature - - Respiratory Rate - - Oxygen Saturation - - Inhaled Oxygen Concentration - - Weight 83.7 kg (184 lb 10.2 oz) 06/12/2017 4:15 PM CDT Height 170 cm (5' 6.93) 06/12/2017 4:15 PM CDT Body Mass Index 28.98 06/12/2017 4:15 PM CDT documented in this encounter Medications at Time [...] 09/21 4 mg tablet mouth as needed. DULoxetine (CYMBALTA) 30 Take 1 capsule by 0 05/2302/05/[address] capsule mouth daily. gabapentin Take 1 tablet by 0 04/03/2017 12/29/19 18 (for_NEURONTIN) 600 mg mouth 3 (three) tablet times a day. propranolol (for_INDERAL) Take 1 tablet by 0 /04/201706/26/2018 60 mg tablet mouth 2 (two) times a day. vitamin E 400 unit Take 1 capsule by 0 11/18/2009 06/21/2022 capsule mouth daily. documented as of this encounter Progress Notes Edison Culver M.D. - 06/12/2017 3:58 PM CDT [id number] CHIEF COMPLAINT/REASON FOR VISIT Follow up low back pain and right greater than left lower extremity pain and paresthesias. HISTORY OF PRESENT ILLNESS Mr. Mcmahan returns today. He reports that overall he feels he has made good progress over the past month. He has been having decreased pain especially in his right lower extremity which he is very pleased with. He is able to ride his motorcycle up to [place] as well as take a trip to [place] without an exacerbation of his symptoms, which typically would cause a lot of discomfort for him so he is very pleased with that. He has found the Cymbalta 60 mg to be effective but he is noticing that it is causingsome issues with some sexual side effects primarily consisting of decreased sensation and so he mentioned the possibility of decreasing that, which I think is reasonable. He denies any new symptoms such as focal weakness in his lower extremities, change in bowel or bladder habits, or fevers or chills. PHYSICAL EXAMINATION GENERAL: A pleasant 57-year-old male in no acute distress. MUSCULOSKELETAL/SPINE: Preserved lumbar spine range of motion today. There is mild tenderness to palpation of the left greater than right lower lumbar paraspinals. STRENGTH: All major muscle groups of the bilateral lower extremities have normal and symmetric muscle strength, bulk and tone. IMPRESSION/REPORT/PLAN 1. Chronic low back and right greater than left lower extremity pain and paresthesias. 2. Lumbar spinal stenosis. 3. Right L5 radiculopathy. 4. Lumbar spondylosis. 5. Migraine headaches. Overall, Mr. Mcmahan has made very good progress with significant improvement in his pain including much less pain now into his right lower extremity. PLAN: 1. I am going to decrease Mr. Mcmahan's Cymbalta to 30 mg daily. He will continue his gabapentin 300 mg3 times daily. 2. Mr. Mcmahan will continue the exercises he was shown independently in physical therapy which he has found to be helpful. 3. Mr. Mcmahan will be in contact with me if he has any worsening or worrisome symptoms which we went over in detail today. Otherwise if he does not have any new symptoms I will plan on seeing him in 6 months to assess his progress with the use of Cymbalta and gabapentin. Mr. Mcmahan voiced agreement and understanding with this plan. Total time 30 minutes, counseling and coordination of care time greater than 15 minutes. Edison Culver M.D./gama Electronically Signed By: EDISON CULVER MD On: 06/13/2017 11:19 AM Modified by and Electronically Signed by: EDISON CULVER MD On: 06/13/2017 11:19 AM Source: [facility] MHSDOLBEYNONRADSYS Document Id: [id number] documented in this encounter Miscellaneous Notes Miscellaneous - Edison Culver M.D. - 06/12/2017 4:40 PM CDT Ambulatory Patient Summary [address] [id number] Visit Information Name: MUNAEMANUEL [facility] Number: [id number] Current Date: 06/12/2017 16:40:39 Physicians Attending Provider: EDISON CULVER MD Primary Care Provider: PCP, OLE GALLOUS NOLVIA has been given the following list of [...] once a day Hyperlipidemia. due for appt budesonide nasal (Rhinocort) celecoxib (CeleBREX 200 mg oral capsule) 1 cap, Oral, once a day Patient due for yearly physical prior to further refills. divalproex sodium (Depakote 250 mg oral delayed release tablet) 1 Tablet(s), Oral, once a day Migraine Headaches. Taken at bedtime DULoxetine (Cymbalta 30 mg oral delayed release capsule) 1 cap, Oral, once a day This is a CHANGE Routed to [address] [place] [address] fexofenadine (fexofenadine 180 mg oral tablet) 1 Tablet(s), Oral, once a day hcl *gabapentin (gabapentin 600 mg oral tablet) 1 Tablet(s), Oral, three times a day montelukast (Singulair 10 mg oral tablet) 1 Tablet(s), Oral, every evening Asthma, seasonal allergies due for appt multivitamin (multivitamin) 1 cap, Oral, once a day omega-3 polyunsaturated fatty acids (Fish Oil oral capsule) 1 cap, Oral, once a day pantoprazole (Protonix 40 mg oral delayed release tablet) 1 Tablet(s), Oral, once a day Patient due for yearly physical prior to further refills. propranolol (propranolol 60 mg oral tablet) 1 Tablet(s), Oral, two times a day sumatriptan (Imitrex 100 mg oral tablet) 1 Tablet(s), Oral, once as needed for Migraine headache repeat after one hour if needed tiZANidine (tiZANidine 4 mg oral tablet) 1 Tablet(s), Oral, as needed Back spasm vitamin E (vitamin E 400 intl units oral capsule) 1 cap, Oral, once a day * You have let us know that you are not taking this medication as listed. Please talk with your primary care provider or the health care provider who prescribed the medication as soon as possible. Stop Taking the Following Medications: Medication list as of 06-12-17 16:40 Attention: If you have any medications at [...] Electronically Signed By: EDISON CULVER MD Signed On:12-JUN-2017 16:40:02 Your Allergies & Intolerances Substance Reaction Symptoms [...] if you dont have one. Go to [email or web address] and click on Create Your Account. Then, follow the directions to complete the online form. Youll be asked for your [facility] number which you can find at the top of this document. Your Goals/Additional instructions: Source: [facility] POWERCHART Document Id: [id number] Miscellaneous - Edison Culver M.D. - 06/12/2017 4:40 PM CDT Ambulatory Discharge Medication List [address] [id number] Visit Information Name: EMANUEL MCMAHAN [facility] Number: [id number] Current Date: 06/12/2017 16:40:37 Attending Provider: EDISON CULVER MD Primary Care Provider: PCP, EMANUEL GALLO has been given the following list of [...] once a day Hyperlipidemia. due for appt budesonide nasal (Rhinocort) celecoxib (CeleBREX 200 mg oral capsule) 1 cap, Oral, once a day Patient due for yearly physical prior to further refills. divalproex sodium (Depakote 250 mg oral delayed release tablet) 1 Tablet(s), Oral, once a day Migraine Headaches. Taken at bedtime DULoxetine (Cymbalta 30 mg oral delayed release capsule) 1 cap, Oral, once a day This is a CHANGE Routed to [address] [address] fexofenadine (fexofenadine 180 mg oral tablet) 1 Tablet(s), Oral, once a day hcl *gabapentin (gabapentin 600 mg oral tablet) 1 Tablet(s), Oral, three times a day montelukast (Singulair 10 mg oral tablet) 1 Tablet(s), Oral, every evening Asthma, seasonal allergies due for appt multivitamin (multivitamin) 1 cap, Oral, once a day omega-3 polyunsaturated fatty acids (Fish Oil oral capsule) 1 cap, Oral, once a day pantoprazole (Protonix 40 mg oral delayed release tablet) 1 Tablet(s), Oral, once a day Patient due for yearly physical prior to further refills. propranolol (propranolol 60 mg oral tablet) 1 Tablet(s), Oral, two times a day sumatriptan (Imitrex 100 mg oral tablet) 1 Tablet(s), Oral, once as needed for Migraine headache repeat after one hour if needed tiZANidine (tiZANidine 4 mg oral tablet) 1 Tablet(s), Oral, as needed Back spasm vitamin E (vitamin E 400 intl units oral capsule) 1 cap, Oral, once a day * You have let us know that you are not taking this medication as listed. Please talk with your primary care provider or the health care provider who prescribed the medication as soon as possible. Stop Taking the Following Medications: Medication list as of 06-12-17 16:40 Attention: If you have any medications at [...] Electronically Signed By: EDISON CULVER MD Signed On:12-JUN-2017 16:40:02 Additional Information: [facility] Document Id: [id number] Miscellaneous - Halie Baker L.P.N. - 06/12/2017 4:15 PM CDT Adult Pocket Closer Intake/History Adult Pocket Closer Intake/History Entered On: 06/12/2017 16:16 CDT Performed On: 06/12/2017 16:15 CDT by HALIE BAKER LPN Intake Systolic Blood Pressure : 124 mmHg Diastolic Blood Pressure : 84 mmHg NIBP Mean : 97 mmHg BP Location : Left upper extremity Blood Pressure Cuff Size : Regular Height : 170 cm(Converted to: 5 ft 7 inch(es), 67 inch(es)) Actual Weight : 83.75 kg(Converted to: 184 lb 10 oz) Dosing Weight Clinic : 83.75 kg Clinic BSA : 1.99 Body Mass Index : 28.98 kg/m2 HALIE BAKER LPN - 06/12/2017 16:15 CDT General Info Information Given By : Patient Languages : Sao Tomean Is Patient Female and 13-50 no hysterectomy : No HALIE BAKER LPN - 06/12/2017 16:15 CDT Subjective Pain Symptoms : No HALIE BAKER LPN - 06/12/2017 16:15 CDT Dependent Habits Exposure to Tobacco Smoke : Other: never Smoking Status : Never smoker Tobacco 2A : No Tobacco Use/Currently Using : No Tobacco Use/Last 30 Days : No Tobacco Use/Last 12 months : No Tobacco Last Use/Year : 1979 HALIE BAKER LPN - 06/12/2017 16:15 CDT Caffeine Use Grid Caffeine Use : Current Type : Soft drinks HALIE BAKER LPN - 06/12/2017 16:15 CDT [facility] Document Id: [id number] CDT!30 documented in this encounter Plan of Treatment Not on filedocumented as of this encounter Visit Diagnoses Not on filedocumented in this encounter
--- OUTSIDE RECORDS SUMMARY | 2022-09-27 14:39 | XMS_ITS | Encounter Summary ---
:1960 Author Organization [facility] Address [address] [place] [address] Care Team Providers Name Role Phone Unavailable Primary Care Provider Unavailable Encounter Details Date Type Department Care Team Description 06/12/2018 Documentation Department of Orthopedic Joe Cuenca[facility] [place] [address] [place] [address] Social History Tobacco Use Types Packs/Day Years [...] or relatives? How often do you attend methodist or Never 2021 evangelical services? Do you belong to any clubs or Yes 04/20/2022 organizations such as methodist groups, unions, fraternal or athletic groups, or [...] for the very basics like Not h kyala at all 04/20/2022 food, housing, medical care, [...] place to sleep or slept in a custodial (including now)? Sex Assigned at Date Recorded Male 06/24/2018 5:24 PM CDT documented as of this encounter Progress Notes Joe Cuenca M.D. - 06/12/2018 3:59 PM CDT Mr. Mcmahan is a 57-year-old gentleman who was seen in consultation on December 21, 2017, by Dr. Olivares for lumbar back pain with right greater than left leg pain. At the visit, he was also noted to have an unusual gait pattern, and we obtained MRIs of the cervical, thoracic, and lumbar spine. MRI of the C-spine did demonstrate multilevel spondylosis with some cervical spinal canal stenosis. There was no abnormal cord signal found. The patient also did undergo an EMG which demonstrated chronic active L5 radiculopathy. In addition, a bone scan was performed. The lowest T-score was found at the L1 region at -2.5. He has continued to have some increasing back pain and pain in his leg. At this point, I have spokenwith the patient and ordered consultation with endocrinology. He would need to be on Forteo for at least 6 weeks prior to any surgical intervention. He would also likely need to be on Forteo for 1-2 years thereafter. Have also ordered a CT lumbar spine with pedicle morphologies. He will contact us after these appointments have been done and go from there. He was appreciative of the phone call. documented in this encounter Plan of Treatment Not on filedocumented as of this encounter Visit Diagnoses Not on filedocumented in this encounter
--- OUTSIDE RECORDS SUMMARY | 2022-09-27 14:39 | XMS_ITS | Encounter Summary ---
:1960 Author Organization [facility] Address [address] [place] [address] Care Team Providers Name Role Phone Unavailable Primary Care Provider Unavailable Encounter Details Date Type Department Care Team Description 06/26/2018 Hospital Encounter Department of Serjio Morel Os teoporosis Laboratory Medicine M.B., B.Ch., B.A.O. and Pathology, [address] [address] [address] [facility] [place] [address] Social History Tobacco Use Types [...] or relatives? How often do you attend buddhist or Never 2021 synagogue services? Do you belong to any clubs or Yes 04/20/2022 organizations such as buddhist groups, unions, fraternal or athletic groups, or [...] Name Priority Date/Time Associated Diagnosis Comme nts PARATHYROID HORMONE Routine 06/26/2018 3:13 PM Osteoporosis Re sults for this (PTH), S CDT procedure are i n the results section. documented in this encounter Results Parathyroid Hormone (PTH) (06/26/2018 3:13 PM CDT) [facility] gist Method Time Signature Parathyroid 40 15 - 65 06/26/2018 [facility] Hormone (PTH), S pg/mL 4:18 PM CDT LABORATORIE S - [facility] Specimen Anatomical Collection Method Collection Time Receive d Time (Source) Location / / Volume Laterality Blood (Blood, 06/26/2018 3:13 PM 06/26/20 18 3:35 Venous) CDT PM CDT Serjio Currie, B.Ch., B.A.O. LAB BLOOD ADD-ON Performing Organization Address City/State/ZIP Code Phon e Number [facility]ORATORIES - [address] [place], [place] [address] [facility] documented in this encounter Visit Diagnoses Diagnosis Osteoporosis documented in this encounter
--- OUTSIDE RECORDS SUMMARY | 2022-09-27 14:39 | XMS_ITS | Encounter Summary ---
:[address] [facility] Address [address] [place] [address] Care Team Providers Name Role Phone Unavailable Primary Care Provider Unavailable Reason for Visit Reason Comments Communication Encounter Details Date Type Department Care Team Description 11/13/2017 Clinical Communication Department of Pradeep Culver, Communication Internal Medicine in [place], [place] [address] [facility] [address] [place] [phone] Social History Tobacco Use Types Packs/Day Years [...] or relatives? How often do you attend yazidism or Never 2021 judaism services? Do you belong to any clubs or Yes 04/20/2022 organizations such as yazidism groups, unions, fraternal or athletic groups, or [...] or slept in a chcf (including now)? Sex Assigned at Date Recorded Male 06/24/2018 5:24 PM CDT documented as of this encounter Miscellaneous Notes Telephone Encounter - Halie Blackburn L.PMikN. - 11/13/2017 10:42 AM [facility] Left message to notify patient that waiting on insurance approval. ER [facility] Telephone Encounter - Anny Bishop - 11/13/2017 10:07 AM CST Amaris nixon from [facility]. States patient showed up today for an MRI, but they have not yet received the order for this. Please fax to [phone] [facility] documented in this encounter Plan of Treatment Not on filedocumented as of this encounter Visit Diagnoses Not on filedocumented in this encounter
--- OUTSIDE RECORDS SUMMARY | 2022-09-27 14:39 | XMS_ITS | Encounter Summary ---
:1960 Author Organization [facility] Address [address] [place] [address] Care Team Providers Name Role Phone Unavailable Primary Care Provider Unavailable Encounter Details Date Type Department Care Team Description 06/26/2018 Orders Only Division of Endocrinology in [facility] Madhu rosas M.D. [place], [place] [address] [facility] [address] [place] [address] [phone] (Wo rk) Social History Tobacco Use Types [...] or relatives? How often do you attend baptism or Never 2021 yazidism services? Do you belong to any clubs or Yes 04/20/2022 organizations such as baptism groups, unions, fraternal or athletic groups, or [...] place to sleep or slept in a fdc (including now)? Sex Assigned at Date Recorded Male 06/24/2018 5:24 PM CDT documented as of this encounter Plan of Treatment Not on filedocumented as of this encounter Visit Diagnoses Not on filedocumented in this encounter
--- OUTSIDE RECORDS SUMMARY | 2022-09-27 14:39 | XMS_ITS | Encounter Summary ---
:1960 Author Organization [facility] Address [address] [place] [address] Care Team Providers Name Role Phone Unavailable Primary Care Provider Unavailable Encounter Details Date Type Department Care Team Description 10/30/2016 Hospital Encounter HX [facility] Earl Culver M.D. [address] [place] [address], [address] [place] [address] (Wo rk) Social History Tobacco [...] or relatives? How often do you attend confucianism or Never 2021 anglican services? Do you belong to any clubs or Yes 04/20/2022 organizations such as confucianism groups, unions, fraternal or athletic groups, or [...] place to sleep or slept in a retirement (including now)? Sex Assigned at Date Recorded Male 06/24/2018 5:24 PM CDT documented as of this encounter Last Filed Vital Signs Vital Sign Reading Time Taken Comments Blood Pressure 138/94 10/30/2016 9:03 AM SENIOR TERADATA DEVELOPER Pulse - - Temperature - - Respiratory Rate - - Oxygen Saturation - - Inhaled Oxygen Concentration - - Weight 81.4 kg (179 lb 9 oz) 10/30/2016 8:17 AM SENIOR TERADATA DEVELOPER Height 170 cm (5' 6.93) 10/30/2016 9:03 AM SENIOR TERADATA DEVELOPER Body Mass Index 28.18 10/30/2016 8:17 AM SENIOR TERADATA DEVELOPER documented in this encounter Medications at Time of Discharge Medication Sig Dispensed Refills Start Date End Date divalproex (DEPAKOTE) 250 Take 1 tablet by 0 10/23 mg EC tablet mouth at bedtime. Take a bedtime/Migraine headaches DOCOSAHEXANOIC ACID/EPA Take 1 capsule by 0 11/18 (FISH OIL ORAL) mouth daily. fexofenadine Take 1 tablet by 0 06/30/2010 (for_ALLEGRA) 180 mg mouth daily. tablet multivitamin tablet Take 1 capsule by 0 0 mouth daily. SUMAtriptan (IMITREX) 100 Take 1 [...] mouth daily. documented as of this encounter Consult Notes Edison Culver M.D. - 10/30/2016 8:02 AM CST [id number] CHIEF COMPLAINT/REASON FOR VISIT Low back and right greater than left lower extremity pain and paresthesias. REFERRAL SOURCE Darrius Camargo MD. HISTORY OF PRESENT ILLNESS Mr. Mcmahan is a very pleasant 56-year-old male with a past medical history significant for migraine headaches who has had low back pain for at least the past 10 years as well as right lower extremity pain for the past 5 years, both of which have been progressively worsening over the past year. He describes pain that is located across his low back. He describes this as an achy discomfort. He then describes a throbbing achy discomfort that occurs in the right greater than left gluteal region and then pain that will radiate into the posterior and posterolateral right thigh and posterior right lateral leg to just above the ankle. He then can experience numbness throughout the toes of the right foot. He can experience similar symptoms in the left lower extremity although it is much less intense and muchless frequent than the right lower extremity. He rates this pain at its worst as a 7 out of 10, its best as a 2 out of 10. He would estimate that 70% of the pain is in his low back and 30% in his lowerextremities. He denies any focal weakness in his lower extremities but just reports that his legs feel weaker to him overall secondary to the pain. He denies any change in bowel or bladder habits, fevers or chills, or recent unintentional weight loss. Positions that tend to exacerbate the pain includebending forward and lifting. The best position performed tends to be walking but only if he does notwalk for an extended period of time. He typically has the most pain the first thing when awakening from sleep as well as after a day when he has been sitting for a prolonged period of time. He has had imaging studies performed previously in [place] which I do not have for review. He has also had 2 EMGs performed. I do have Dr. Camargo's report of those EMGs which show bilateral L4-L5 radiculopathies, although I do not have the actual EMG to review. Mr. Mcmahan has been involved in physical therapy most recently approximately 1 year ago in [place], which he did find to be helpful. He still uses a lumbar traction unit at home that provides him short-term benefit. He has also tried heat as well as massage therapy and [facility] day [facility]. He typically takes a hot shower which will help relieve his pain. He also uses Celebrex 200 mg daily as well as tizanidine 4 mg typically 2 to 3 times daily as needed for muscle spasms. MEDICATIONS Reviewed as per EMR on medication list tab on 10/30/2016. ALLERGIES No known medication allergies. PAST MEDICAL/SURGICAL HISTORY Reviewed as on diagnosis problem tab in the EMR 10/30/2016. SOCIAL HISTORY Mr. Mcmahan lives in [place]. 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 He does not use any tobacco products other than smoking a cigar very occasionally. 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 FAMILY HISTORY There is no family history of any neurological or spinal disorders in Mr. Mcmahan's family. PHYSICAL EXAMINATION GENERAL: Pleasant 56-year-old male in no acute distress. NEUROLOGICAL: Oriented to person, place and time. Appropriate mood and affect. GAIT: Normal meño and stride. Toe and heel walking are normal. STRENGTH: All major muscle groups of the bilateral upper and lower extremities have normal and symmetric muscle strength, bulk and tone. REFLEXES: Bilateral upper and lower extremity muscle stretch reflexes are physiologic and symmetric.Plantar responses downgoing bilaterally. SENSATION: Normal light touch sensation through upper and lower extremities. STRAIGHT LEG RAISE: Straight leg raise on the right causes reproduction of his right lower extremitypain at approximately 50 degrees. Straight leg raise on the left is negative. MUSCULOSKELETAL: Spine: -1 lumbar flexion. Preserved lumbar extension. PALPATION: There is tenderness to palpation of the right lower lumbar paraspinals. IMPRESSION/REPORT/PLAN 1. Chronic low back and primarily right lower extremity pain and paresthesias. 2. Lumbar spondylosis. 3. Migraine headaches. Mr. Mcmahan has a normal neurologic examination today. The symptoms he is experiencing in his right lower extremity are suspicious for a right L5 radiculopathy. This pain has been progressively worsening for him and is affecting him on a daily basis. PLAN: 1. With the length of time this pain has persisted for Mr. Mcmahan we are going to proceed with imagingof his lumbar spine including x-rays as well as an MRI of his lumbar spine. 2. We did discuss potential options depending on Mr. Mcmahan's imaging studies including the possibility of having him return to physical therapy, starting a neuromodulating medication, potentially proceeding with an epidural corticosteroid injection and even a potential surgical referral, but will discus s all this in greater detail after I have had a chance to review Mr. Mcmahan's imaging studies with him. Mr. Mcmahan knows to be in contact with me prior to that time if he notes any worsening or worrisome symptoms which we went over in detail today. Mr. Mcmahan voiced agreement and understanding with this plan. Edison Culver M.D./gama cc: Darrius Camargo M.D. [facility] in [address] [address] Electronically Signed By: EDISON CULVER MD On: 10/31/2016 08:41 AM Modified by and Electronically Signed by: EDISON CULVER MD On: 10/31/2016 08:41 AM Source: [facility] MHSDOLBEYNONRADSYS Document Id: [id number] OR TERADATA DEVELOPER documented in this encounter Miscellaneous Notes Miscellaneous - Daron Baker L.P.N. - 10/30/2016 9:04 AM CST *General Message Document Contains Addenda Addendum by DARON BAKER LPN on November 02, 2016 11:01:53 SENIOR TERADATA DEVELOPER Order faxed Addendum by ASTER NOBLE on November 02, 2016 10:41:46 SENIOR TERADATA DEVELOPER From: ASTER NOBLE ([facility]) To: Physical Medicine and Rehabilitation Staff; Sent: 11/02/2016 10:41:46 SENIOR TERADATA DEVELOPER Subject: RE: *General Message No auth needed for MRI of L-spine From: DARON BAKER LPN ( Physical Medicine and Rehabilitation Staff) To: [facility]; Sent: 10/30/2016 09:04:06 SENIOR TERADATA DEVELOPER Subject: *General Message Patient Referred to Provider or Facility: _[facility] Ordering Provider: Emmanuel AppointmentDate (if known): _ Imaging Service Ordered: (list CPT code or body part to be scanned) L spine_ _ W/Contrast _x W/O Contrast _ W/O Contrast followed by with _ _ CT/CTA _x MRI _ MRA _ PET _Nuclear Cardiology Study _ Other: (list): _ Diagnosis (CPT code if Known): _ Injury Related _ Yes _x No If yes, date and type of injury: _ Source: [facility] [employer] Document Id: [id number] Miscellaneous - Daron Baker L.P.N. - 10/30/2016 9:03 AM CST Ambulatory Vitals Height Weight Ambulatory Vitals Height Weight Entered On: 10/30/2016 9:03 SENIOR TERADATA DEVELOPER Performed On: 10/30/2016 9:03 SENIOR TERADATA DEVELOPER by DARON BAKER LPN Vitals/Ht/Wt Systolic Blood Pressure : 138 mmHg Diastolic Blood Pressure : 94 mmHg (>HHI) NIBP Mean : 109 mmHg BP Location : Left upper extremity Blood Pressure Cuff Size : Regular Height : 170 cm(Converted to: 5 ft 7 inch(es), 67 inch(es)) DARON BAKER LPN - 10/30/2016 9:03 SENIOR TERADATA DEVELOPER Source: [facility] [employer] Document Id: [id number] SENIOR TERADATA DEVELOPER!8 OR TERADATA DEVELOPER Miscellaneous - Edison Culver M.D. - 10/30/2016 8:46 AM CST Ambulatory Patient Summary [facility] [address] [place] [id number] Visit Information Name: MUNA EMANUEL NOLVIA [facility] Number: [id number] Current Date: 10/30/2016 08:46:26 Physicians Attending Provider: EDISON CULVER MD Primary [...] 0.5 Tablet(s), Oral, once a day Hyperlipidemia. celecoxib (CeleBREX 200 mg oral capsule) 1 cap, Oral, once a day Patient due for yearly physical prior to further refills. divalproex sodium (Depakote 250 mg oral delayed release tablet) 1 Tablet(s), Oral, once a day Migraine Headaches. Taken at bedtime fexofenadine (fexofenadine 180 mg oral tablet) 1 Tablet(s), Oral, once a day hcl montelukast (Singulair 10 mg oral tablet) 1 Tablet(s), Oral, every evening Asthma, seasonal allergies multivitamin (multivitamin) 1 cap, Oral, once a [...] the Following Medications: Medication list as of 10-30-16 08:46 Attention: If you have any medications at [...] Electronically Signed By: EDISON CULVER MD Signed On:30-OCT-2016 08:46:07 Your Allergies & Intolerances Substance Reaction Symptoms [...] if you dont have one. Go to [email or web address] and click on Create Your Account. Then, follow the directions to complete the online form. Youll be asked for your [facility] number which you can find at the top of this document. Your Goals/Additional instructions: Source: [facility] POWERCHART Document Id: [id number] OR TERADATA DEVELOPER Miscellaneous - Edison Culver M.D. - 10/30/2016 8:46 AM CST Ambulatory Discharge Medication List [address] [id number] Visit Information Name: EMANUEL MCMAHAN [facility] Number: [id number] Current Date: 10/30/2016 08:46:25 Attending Provider: EDISON CULVER MD Primary Care [...] 0.5 Tablet(s), Oral, once a day Hyperlipidemia. celecoxib (CeleBREX 200 mg oral capsule) 1 cap, Oral, once a day Patient due for yearly physical prior to further refills. divalproex sodium (Depakote 250 mg oral delayed release tablet) 1 Tablet(s), Oral, once a day Migraine Headaches. Taken at bedtime fexofenadine (fexofenadine 180 mg oral tablet) 1 Tablet(s), Oral, once a day hcl montelukast (Singulair 10 mg oral tablet) 1 Tablet(s), Oral, every evening Asthma, seasonal allergies multivitamin (multivitamin) 1 cap, Oral, once a [...] the Following Medications: Medication list as of 10-30-16 08:46 Attention: If you have any medications at [...] Electronically Signed By: EDISON CULVER MD Signed On:30-OCT-2016 08:46:07 Additional Information: Source: [facility] POWERCHART Document Id: [id number] OR TERADATA DEVELOPER Miscellaneous - Daron Baker LMikP.N. - 10/30/2016 8:17 AM CST Adult Mailing Specialist Intake/History Adult Mailing Specialist Intake/History Entered On: 10/30/2016 8:19 SENIOR TERADATA DEVELOPER Performed On: 10/30/2016 8:17 SENIOR TERADATA DEVELOPER by DARON BAKER LPN Intake Systolic Blood Pressure : 146 mmHg (HI) Diastolic Blood Pressure : 92 mmHg (>HHI) NIBP Mean : 110 mmHg BP Location : Left upper extremity Blood Pressure Cuff Size : Regular Height : 170 cm(Converted to: 5 ft 7 inch(es), 67 inch(es)) Actual Weight : 81.45 kg(Converted to: 179 lb 9 oz) Dosing Weight Clinic : 81.45 kg Clinic BSA : 1.96 Body Mass Index : 28.18 kg/m2 DARON BAKER WAQAS - 10/30/2016 8:17 SENIOR TERADATA DEVELOPER General Info Information Given By : Patient Languages : Ghanaian Is Patient Female and 13-50 no hysterectomy : No DARON BAKERЮлия ALAN - 10/30/2016 8:17 SENIOR TERADATA DEVELOPER Subjective Pain Symptoms : No DARON BAKER WAQAS - 10/30/2016 8:17 SENIOR TERADATA DEVELOPER Dependent Habits Exposure to Tobacco Smoke : Other: never Smoking Status : Former smoker Tobacco 2A : Yes Tobacco Use/Currently Using : No Tobacco Use/Last 30 Days : No Tobacco Use/Last 12 months : No Tobacco Last Use/Year : 1979 DARON BAKERЮлия ALAN - 10/30/2016 8:17 SENIOR TERADATA DEVELOPER Caffeine Use Grid Caffeine Use : Current Type : Soft drinks DARON BAKERЮлия ALAN - 10/30/2016 8:17 SENIOR TERADATA DEVELOPER Source: [employer] Document Id: [id number] SENIOR TERADATA DEVELOPER!30 OR TERADATA DEVELOPER documented in this encounter Plan of Treatment Not on filedocumented as of this encounter Procedures Procedure Name Priority Date/Time Associated Diagnosis Comme nts DX LUMBAR SPINE 2-3 Routine 10/30/2016 8:57 AM Re sults for this VIEWS SENIOR TERADATA DEVELOPER procedure are i n the results section. documented in this encounter Results DX Lumbar Spine 2-3 Views (10/30/2016 8:57 AM SENIOR TERADATA DEVELOPER) Anatomical Region Laterality Modality Lumbar Spine N/A Radiographic Imaging Specimen (Source) Anatomical Collection Method Collection Time Re ceived Time Location / / Volume Laterality 10/30/2016 8:57 AM SENIOR TERADATA DEVELOPER Addenda Addendum by Provider, Edith Parker 10/30/2016 8:57 AM SENIOR TERADATA DEVELOPER RAD^^^OW XR Lumbar Spine 2 or 3 views 10/30/2016 08:57:29 Impressions 10/30/2016 9:17 AM SENIOR TERADATA DEVELOPER 1. ??Scattered degenerative changes of t he lumbar spine, both hips. Narrative 10/30/2016 9:17 AM SENIOR TERADATA DEVELOPER EXAM: ??XR Lumbar Spine 2 or 3 views. DEMOGRAPHICS: ??56 years Male. INDICATION: ??low back pain. ??Not other griffith specified. COMPARISON: FINDINGS: ??6 lumbar type vertebral bodi es. Slight mid lumbar curve convex left. Spina bifida occulta of the L6 type vert ebral body level. Mild/moderate facet arthropathy mid and lower lumbar spine respectively. Multilevel disc desiccation more pronoun cristina at the L5 and L6 type vertebral body levels. Degenerative changes both partially visu alized hips (more pronounced on the left). Postop changes prior cholecystectomy. Scattered arterial calcifications. Procedure Note Vignesh Driver M.D. / ProviderShan M.D. - 04/09/2017 EXAM: XR Lumbar Spine 2 or 3 views. DEMOGRAPHICS: 56 years Male. INDICATION: low back pain. Not otherwise specified. COMPARISON: FINDINGS: 6 lumbar type vertebral bodies . Slight mid lumbar curve convex left. Spina bifida occulta of the L6 type vert ebral body level. Mild/moderate facet arthropathy mid and lower lumbar spine respectively. Multilevel disc desiccation more pronoun cristina at the L5 and L6 type vertebral body levels. Degenerative changes both partially visu alized hips (more pronounced on the left). Postop changes prior cholecystectomy. Scattered arterial calcifications. IMPRESSION: 1. Scattered degenerative changes of the lumbar spine, both hips. Ruthie Yin(R)(CT), RMikTMik(R) IMG DIAGNOSTIC IMAG ING PROCEDURES documented in this encounter Visit Diagnoses Not on filedocumented in this encounter
--- OUTSIDE RECORDS SUMMARY | 2022-09-27 14:39 | XMS_ITS | Encounter Summary ---
:1960 Author Organization [facility] Address [address] [place] [address] Care Team Providers Name Role Phone Unavailable Primary Care Provider Unavailable Reason for Referral MRI/CAT/PET Scan (Routine) - Closed Specialty Diagnoses / Procedures Referred By Contact Refer red To Contact Radiology Diagnoses Pain Low Back Unspecified Adelina Olivares M.D. [facility] Procedures CT Lumbar Spine without IV Contrast MD CT LUMBAR SPINE WO CNTRST HC CT LUMBAR SPINE WO CNTRST MD CT LUMBAR SPINE WO CNTRST [address] [place], [place] [phone] Referral ID Status Reason Start Date Expiration Date Visits Requ ested Visits Authorized [id number] Closed 06/12/2018 06/12/2019 1 1 Reason for Visit MRI/CAT/PET Scan (Routine) - Closed Specialty Diagnoses / Procedures Referred By Contact Refer red To Contact Radiology Diagnoses Pain Low Back Unspecified Adelina Olivares M.D. [facility] Procedures CT Lumbar Spine without IV Contrast MD CT LUMBAR SPINE WO CNTRST HC CT LUMBAR SPINE WO CNTRST MD CT LUMBAR SPINE WO CNTRST [address] [place] [address] Referral ID Status Reason Start Date Expiration Date Visits Requ ested Visits Authorized [id number] Closed 06/12/2018 06/12/2019 1 1 Encounter Details Date Type Department Care Team Description 06/26/2018 Hospital Encounter Department of Radiology, Kristi Olivares, Pain Low Back Shakir Rucker in [place], [place] [address] [facility] [address] [place] [phone] Social History Tobacco Use Types Packs/Day Years [...] or relatives? How often do you attend moravian or Never 2021 anabaptist services? Do you belong to any clubs or Yes 04/20/2022 organizations such as moravian groups, unions, fraternal or athletic groups, or [...] place to sleep or slept in a detention (including now)? Sex Assigned at Date Recorded [...] 09/21 4 mg tablet mouth as needed. ginseng 250 mg capsule Take by mouth 0 12/21/2017 06/21/2022 daily. vitamin E 400 unit Take 1 capsule by 0 11/18/2009 06/21/2022 capsule mouth daily. documented as of this encounter Plan of Treatment Not on filedocumented as of this encounter Procedures Procedure Name Priority Date/Time Associated Comments Diagnosis CT LUMBAR SPINE RAD - Routine 06/26/2018 10:24 Pain Low Back Result s for this WITHOUT IV (most inpatients AM CDT procedure a re in CONTRAST and all the results outpatients) section. documented in this encounter Results CT Lumbar Spine without IV Contrast (06/26/2018 10:24 AM CDT) Anatomical Region Laterality Modality Lumbar Spine, Neuroradiology RST LOS N/A Com puted Tomography Specimen (Source) Anatomical Collection Method Collection Time Re ceived Time Location / / Volume Laterality 06/26/2018 11:08 AM CDT Impressions 06/26/2018 11:19 AM CDT IMPRESSION: 1. 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 2. Degenerative changes at the L5-transi tional segment result in moderate central canal stenosis, narrowing of the neural foramen bilaterally, right greater than left, and narrowing of the lateral recesses. Narrative 06/26/2018 11:19 AM CDT EXAM: CT LUMBAR SPINE WITHOUT IV CONTRAST including pedicle morphology reformatted images COMPARISON: MRI of the lumbar spine 2017. Plain film of the lumbar spine 12/21/2017. FINDINGS: Transitional lumbosacral segme nt with 5 lumbar type vertebral bodies plus partial lumbarization of S1. Modera te central canal stenosis at L5-transitional segment caused by a broa d-based disc protrusion, hypertrophy of the facet joints, and thickening of the ligamentum flavum. These changes also result in lateral recess stenosis bilate rally and narrowing of the neural foramina, right greater than left. Sligh t degenerative anterior subluxation of L5 with respect to the transitional segm ent. Gas within the L5-transitional facet joints bilaterally, right greater than left. No appreciable change between the standing radiograph and the recumben t CT scan. Congenitally narrow central canal. No other areas of significant yesi nosis. Procedure Note Sheri Salinas M.D. - 06/26/2018F ormatting of this note might be different from the original. EXAM: CT LUMBAR SPINE WITHOUT IV CONTRAS T including pedicle morphology reformatted images COMPARISON: MRI of the lumbar spine 2017. Plain film of the lumbar spine 12/21/2017. FINDINGS: Transitional lumbosacral segme nt with 5 lumbar type vertebral bodies plus partial lumbarization of S1. Modera te central canal stenosis at L5-transitional segment caused by a broa d-based disc protrusion, hypertrophy of the facet joints, and thickening of the ligamentum flavum. These changes also result in lateral recess stenosis bilate rally and narrowing of the neural foramina, right greater than left. Sligh t degenerative anterior subluxation of L5 with respect to the transitional segm ent. Gas within the L5-transitional facet joints bilaterally, right greater than left. No appreciable change between the standing radiograph and the recumben t CT scan. Congenitally narrow central canal. No other areas of significant yesi nosis. IMPRESSION: 1. 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 2. Degenerative changes at the L5-transi tional segment result in moderate central canal stenosis, narrowing of the neural foramen bilaterally, right greater than left, and narrowing of the lateral recesses. Adelina SANCHES CT PROCEDURES documented in this encounter Visit Diagnoses Diagnosis Pain Low Back Unspecified documented in this encounter
--- OUTSIDE RECORDS SUMMARY | 2022-09-27 14:39 | XMS_ITS | Encounter Summary ---
:1960 Author Organization [facility] Address [address] [place] [address] Care Team Providers Name Role Phone Unavailable Primary Care Provider Unavailable Reason for Visit Reason Comments Med Refill Encounter Details Date Type Department Care Team Description 12/28/2017 Refill Department of Physical Medicine Pradeep Culver M.D. [facility] in [address] [place], [place] [address] [place] [address] [place] [address] [phone] Social History Tobacco Use Types Packs/Day Years [...] do you attend mandaen or Never 2021 faith services? Do you belong to any clubs [...] to sleep or slept in a senior living (including now)? Sex Assigned at Date Recorded Male 06/24/2018 5:24 PM CDT documented as of this encounter Plan of Treatment Not on filedocumented as of this encounter Visit Diagnoses Not on filedocumented in this encounter
--- OUTSIDE RECORDS SUMMARY | 2022-09-27 14:39 | XMS_ITS | Encounter Summary ---
:1960 Author Organization [facility] Address [address] [place] [address] Care Team Providers Name Role Phone Unavailable Primary Care Provider Unavailable Encounter Details Date Type Department Care Team Description 12/26/2016 Hospital Encounter HX [facility] Earl Culver M.D. [address] [place] [address], [address] [place] [address] (Wo rk) Social History Tobacco [...] or relatives? How often do you attend voodoo or Never 2021 tenriism services? Do you belong to any clubs or Yes 04/20/2022 organizations such as voodoo groups, unions, fraternal or athletic groups, or [...] Sign Reading Time Taken Comments Blood Pressure 124/72 12/26/2016 8:34 AM [employer]ISTANT COUNTY ENG[employer] Pulse - - Temperature - - Respiratory Rate - - Oxygen Saturation - - Inhaled Oxygen Concentration - - Weight 83 kg (182 lb 14 oz) 12/26/2016 8:34 AM [employer]ANT COUNTY ENGINEER Height 170 cm (5' 6.93) 12/26/2016 8:34 AM [employer]ANT COUNTY [employer]ER Body Mass Index 28.7 12/26/2016 8:34 AM [employer]ANT COUNTY ENGINEER documented in this encounter Medications at Time [...] 09/21 4 mg tablet mouth as needed. propranolol (for_INDERAL) Take 1 tablet by 0 03/0 04/201706/26/2018 60 mg tablet mouth 2 (two) times a day. vitamin E 400 unit Take 1 capsule by 0 11/18/2009 06/21/2022 capsule mouth daily. documented as of this encounter Progress Notes Edison Culver M.D. - 12/26/2016 8:00 AM CST [id number] CHIEF COMPLAINT/REASON FOR VISIT Follow up low back and right greater than left lower extremity pain and paresthesias. HISTORY OF PRESENT ILLNESS Mr. Mcmahan returns today in followup. Since I last saw him he initiated gabapentin and is currently using that 600 mg 3 times daily. He finds that to be helpful for his symptoms. He is not having any side effects that he has noticed with the gabapentin. In addition to working in physical therapy at [facility] in [place] he feels the combination of gabapentin and physical therapy has improved his symptoms at least 30%. He reports that he has also been cautious of what he has been doing including trying to avoid any significant lifting and bending and he gives an example of trying to avoid lifting 40 pounds bags of solar salt which can exacerbate his symptoms. He continues to describe most of his pain as being located in the right lower extremity but with pain in the right side of his low back aswell. The pain is in the exact same distribution as previously. He does feel that the paresthesias are occurring less frequently which he is pleased with. PHYSICAL EXAMINATION GENERAL: Pleasant 56-year-old male in no acute distress. GAIT: Nonantalgic. MUSCULOSKELETAL: Spine: -1 lumbar flexion. There is tenderness to palpation of the right lower lumbar paraspinals. NEUROLOGIC: Strength:All major muscle groups of the bilateral upper and lower extremities have normal and symmetric muscle strength, bulk and tone. IMPRESSION/REPORT/PLAN 1. Chronic low back and right greater than left lower extremity pain and paresthesias. 2. Lumbar spinal stenosis. 3. Right L5 radiculopathy. 4. Lumbar spondylosis. 5. Migraine headaches. Mr. Mcmahan's symptoms, examination, and imaging all would again correlate with a right L5 radiculopathy as being the cause of his symptoms. PLAN: 1. I am going to have Mr. Mcmahan continue to advance his current program in physical therapy as he hasbeen making progress and we will start to decrease the frequency of the sessions for the next several visits. 2. Mr. Mcmahan will continue to use his gabapentin 600 mg 3 times daily. 3. We did discuss the possibility of proceeding with a right L5 transforaminal epidural corticosteroid injection. As Mr. Mcmahan has been making progress we are going to defer that currently and see how things continue to progress with what is mentioned above. 4. I will plan on seeing Mr. Mcmahan in 2 months to assess his progress or sooner if he notes any worsening or worrisome symptoms which we went over in detail today. Mr. Mcmahan voiced agreement and understanding with this plan. Total time 25 minutes, counseling and coordination of care time greater than 15 minutes. Edison Culver M.D./gama Electronically Signed By: EDISON CULVER MD On: 12/28/2016 10:49 AM Modified by and Electronically Signed by: EDISON CULVER MD On: 12/28/2016 10:49 AM Source: [facility] MHSDOLBEYNONRADSYS Document Id: [id number] [employer] documented in this encounter Miscellaneous Notes Miscellaneous - Edison Culver M.D. - 12/26/2016 9:06 AM CST Ambulatory Patient Summary [facility] [address] [place] [id number] Visit Information Name: MUNA EMANUEL DE SOUZA [facility] Number: [id number] Current Date: 12/26/2016 09:06:24 Physicians Attending Provider: EDISON CULVER MD Primary Care Provider: PCP, UNASSIGNED - OW EMANUEL MCMAHAN has been given the following [...] Oral, once a day hcl gabapentin (gabapentin 600 mg oral tablet) 1 Tablet(s), Oral, three times a day New Routed to [facility] [address] [place], [place] [id number] montelukast (Singulair 10 mg oral tablet) 1 [...] the Following Medications: Medication list as of 12-26-16 09:06 Attention: If you have any medications at [...] Electronically Signed By: EDISON CULVER MD Signed On:26-DEC-2016 09:05:54 Your Allergies & Intolerances Substance Reaction Symptoms [...] if you dont have one. Go to [email or web address] and click on Create Your Account. Then, follow the directions to complete the online form. Youll be asked for your [facility] number which you can find at the top of this document. Your Goals/Additional instructions: Source: [facility] POWERCHART Document Id: [id number] [employer] Miscellaneous - Edison Culver M.D. - 12/26/2016 9:06 AM CST Ambulatory Discharge Medication List [address] [id number] Visit Information Name: EMANUEL MCMAHAN [facility] Number: [id number] Current Date: 12/26/2016 09:06:23 Attending Provider: EDISON CULVER MD Primary Care Provider: PCP, UNASSIGNED - OW EMANUEL MCMAHAN has been given the following [...] Oral, once a day hcl gabapentin (gabapentin 600 mg oral tablet) 1 Tablet(s), Oral, three times a day New Routed to [facility] [address] [place], [place] [id number] montelukast (Singulair 10 mg oral tablet) 1 [...] the Following Medications: Medication list as of 12-26-16 09:06 Attention: If you have any medications at [...] Electronically Signed By: EDISON CULVER MD Signed On:26-DEC-2016 09:05:54 Additional Information: Source: [facility] POWERCHART Document Id: [id number] [employer] Miscellaneous - Damaris Umana L.P.N. 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 Intake/History Adult Cake Froster Intake/History Entered On: 12/26/2016 8:37 [employer] COUNTY [employer]ER Performed On: 12/26/2016 8:34 [employer] COUNTY ENG[employer] by DAMARIS UMANA LPN Intake Systolic Blood Pressure : 124 mmHg Diastolic Blood Pressure : 72 mmHg NIBP Mean : 89 mmHg BP Location : Left upper extremity Blood Pressure Cuff Size : Regular Height : 170 cm(Converted to: 5 ft 7 inch(es), 67 inch(es)) Actual Weight : 82.95 kg(Converted to: 182 lb 14 oz) Dosing Weight Clinic : 82.95 kg Clinic BSA : 1.98 Body Mass Index : 28.7 kg/m2 DAMARIS UMANA LPN - 12/26/2016 8:34 [employer]ISTANT COUNTY ENG[employer]ER General Info Information Given By : Patient Languages : Greek Is Patient Female and 13-50 no hysterectomy : DAMARIS Fernandez LPN - 12/26/2016 8:34 [employer] COUNTY [employer] Subjective Pain Symptoms : DAMARIS Fernandez LPN - 12/26/2016 8:34 [employer] Dependent Habits Exposure to Tobacco Smoke : Other: never Smoking Status : Never smoker Tobacco 2A : No Tobacco Use/Currently Using : No Tobacco Use/Last 30 Days : No Tobacco Use/Last 12 months : No Tobacco Last Use/Year : 1979 DAMARIS UMANA LPN - 12/26/2016 8:34 [employer] COUNTY [employer]ER Caffeine Use Grid Caffeine Use : Current Type : Soft drinks DAMARIS UMANA LPN - 12/26/2016 8:34 ASSISTANT COUNTY ENGINEER Source: [facility] POWERCHART Document Id: [id number] ASSISTANT COUNTY ENGINEER!30 [employer] documented in this encounter Plan of Treatment Not on filedocumented as of this encounter Visit Diagnoses Not on filedocumented in this encounter
--- OUTSIDE RECORDS SUMMARY | 2022-09-27 14:39 | XMS_ITS | Encounter Summary ---
:1960 Author Organization [facility] Address [address] [place] [address] Care Team Providers Name Role Phone Unavailable Primary Care Provider Unavailable Reason for Visit Reason Onset Date Comments Prior Auth 11/13/2017 [facility] is wondering if they needed a prior authorization for th e patient? Please call and let them know. [phone] Encounter Details Date Type Department Care Team Description 11/13/2017 [facility] ([facility], is wonderi ng if they in [place], needed a prior [place] authorization for the [address] patient? Please call [place], [place] and let them k now. [phone] Social History Tobacco Use Types Packs/Day Years [...] or relatives? How often do you attend gnosticism or Never 2021 mormonism services? Do you belong to any clubs or Yes 04/20/2022 organizations such as gnosticism groups, unions, fraternal or athletic groups, or [...] this encounter Miscellaneous Notes Telephone Encounter - Karen Ocampo - 11/13/2017 1:33 PM DATA POWER CONSULTANT [facility] is wondering if they needed a prior authorization for the patient? Please call and let them know. [phone] POWER CONSULTANT documented in this encounter Plan of Treatment Not on filedocumented as of this encounter Visit Diagnoses Not on filedocumented in this encounter
--- OUTSIDE RECORDS SUMMARY | 2022-09-27 14:39 | XMS_ITS | Encounter Summary ---
:1960 Author Organization [facility] Address [address] [place] [id number] Care Team Providers Name Role Phone Unavailable Primary Care Provider Unavailable Reason for Visit Outpatient (Routine) - Closed Specialty Diagnoses / Referred By Contact Referred To Contact Procedures Reproductive Diagnoses Osteoporosis Adelina Olivares M.D. [facility] Endocrinology and [address] [place] [address] Infertility / [place], [place] Endocrinology [phone] Referral ID Status Reason Start Date Expiration Date Visits Requ ested Visits Authorized [id number] Closed 06/12/2018 06/12/2019 1 1 Encounter Details Date Type Department Care Team Description 06/26/2018 Comprehensive Visit Division of Adelina Olivares M.D. [address] [place] [address] [phone] Osteoporosis Endocrinology in Madhu Vyas M.D. [address] [place] [address] [phone] [place], [place] Serjio Morel M.B., B.Ch., B.A.O. [address] [place] [address] [place] [phone] Social History Tobacco Use Types Packs/Day Years [...] or relatives? How often do you attend catholic or Never 2021 yazidi services? Do you belong to any clubs or Yes 04/20/2022 organizations such as catholic groups, unions, fraternal or athletic groups, [...] place to sleep or slept in a correction (including now)? Sex Assigned at Date Recorded Male 06/24/2018 5:24 PM CDT documented as of this encounter Last Filed Vital Signs Vital Sign Reading Time Taken Comments Blood Pressure 139/84 06/26/2018 1:17 PM CDT Pulse 57 06/26/2018 1:17 PM CDT Temperature - - Respiratory Rate - - Oxygen Saturation - - Inhaled Oxygen Concentration - - Weight 82.9 kg (182 lb 12.2 oz) 06/26/2018 1:13 PM CDT Height 170.2 cm (5' 7.01) 06/26/2018 1:13 PM CDT Body Mass Index 28.62 06/26/2018 1:13 PM CDT documented in this encounter Consult Notes Serjio Morel M.B., B.Ch., JL - 06/26/2018 1:30 PM CDT Endocrinology [facility] New Consultation Note Chief Complaint: Osteopenia HISTORY OF PRESENT ILLNESS Emanuel Mcmahan is a 58 y.o. year old male with history of osteopenia, back pain secondary to multilevel spondylosis with some cervical spinal canal and chronic active L5 radiculopathy, being evaluatedby orthopedics, found to have osteopenia on recent BMD scan. Mr. Mcmahan has been suffering from back pain for many years. He states he has failed physical therapy and other treatments such as steroid injections, pain medication, etc. He is now pursing the opition of lumbar spine fusion surgery. In this work up a BMD scan was done which showed T score of -2.3 at lumbar spine. He has been followed by Dr. Adelina Olivares in the Department of Orthopedic Surgery with plans for surgery in about 6 weeks. The patient was advised that he would need Forteo for 6 weeks prior to surgical intervention. He likely would need to be on Forteo for 1 to 2 years after this. In regards to his bone health history, he denies any history of clinical fractures. He admits to a history of a rib fracture after a fall off a ladder about 15 years ago. He has a history of intermittent use of steroids for allergies, however he reports it is very brief and infrequent. He smokes cigars on weekends. He doesn't drink any alcohol. He has never been on anti epileptic drugs. He denies anyfamily history of osteoporosis. Unfortunately, he doesn't have good sources of dietary or vitamin D intake. He doesn't drink milk, except an occasional glass of chocolate milk and he avoids leafy green vegetables. He is not on any supplementation. He does have a history of GERD for which he is on PPI. He denies history of kidney stones. He has not had dental work done recently. He has minimal activity. He does admit to doing some yard work. He doesn't do any exercise. He feelssteady on his feet and denies any balance issues. PAST MEDICAL HISTORY Past Medical History: Diagnosis Date ??? BenignProstatic Hyperplasia Localized 15+ years ago ??? Gallbladder Disorder 2014 ??? Gastroesophageal Reflux Disease NOS 15+ years ago ??? Hyperlipidemia 20+ year ago ??? Hypertension NOS 2016 ??? Migraine Headache 15+ years ago ??? Osteopenia May 2018 ALLERGIES Allergies Allergen Reactions ??? Animal Dander Other (see comments) ??? House Dust Mite Other (see comments) ??? Mold Other (see comments) MEDICATIONS Current Outpatient Prescriptions Medication Sig Dispense Refill ??? atorvastatin (LIPITOR) 20 mg tablet Take 0.5 tablets by mouth daily. ??? celecoxib (CeleBREX) 200 mg capsule Take 1 capsule by mouth daily. ??? CIALIS 20 mg tablet ??? clotrimazole-betamethasone (LOTRISONE) 1-0.05 % lotion ??? divalproex (DEPAKOTE) 250 mg EC tablet Take 1 tablet by mouth at bedtime. Take a bedtime/Migraine headaches ??? DOCOSAHEXANOIC ACID/EPA (FISH OIL ORAL) Take 1 capsule by mouth daily. ??? DULoxetine (CYMBALTA) [address] capsule Take 1 capsule (30 mg total) by mouth daily. 90 capsule 3 ??? fexofenadine (for_ALLEGRA) 180 mg tablet Take 1 tablet by mouth daily. ??? gabapentin (for_NEURONTIN) 600 mg tablet Take 1 tablet (600 mg total) by mouth 3 (three) times aday. (Patient taking differently: Take 600 mg by mouth 2 (two) times a day. Tablet in half ) 270 tablet 3 ??? ginseng 250 mg capsule Take by mouth daily. ??? montelukast (SINGULAIR) 10 mg tablet Take 1 tablet by mouth every evening. ??? multivitamin tablet Take 1 capsule by mouth daily. ??? pantoprazole (PROTONIX) 40 mg EC tablet Take 1 tablet by mouth daily. ??? propranolol (for_INDERAL LA) 80 mg 24 hr capsule ??? SUMAtriptan (IMITREX) 100 mg tablet Take 1 tablet by mouth once as needed. Take 1 tablet once for migraine headache, may repeat in one hour if needed. ??? tiZANidine (for_ZANAFLEX) 4 mg tablet Take 1 tablet by mouth as needed. ??? vitamin E 400 unit capsule Take 1 capsule by mouth daily. ??? BUDESONIDE (RHINOCORT ALLERGY NASAL) Rhinocort No current facility-administered medications for this visit. SOCIAL HISTORY Mr. Mcmahan lives in [place], [place]. He is a current smoker of cigars daily. He doesn't drink any alcohol. He works in [employer]. FAMILY HISTORY Family History Problem Relation Age of Onset ??? Heart attack Father ??? Coronary artery disease Father ??? Hyperlipidemia Father ??? Sleep apnea Father ??? Lung cancer Mother ??? Hyperlipidemia Mother REVIEW OF SYSTEMS 10 point ROS completed and negative unless otherwise stated in HPI. PHYSICAL EXAM Blood Pressure: 139/84 (06/26/2018 1:17 PM) Pulse Rate: 57 (06/26/2018 1:17 PM) BMI (Calculated): 28.6 kg/m?? (06/26/2018 1:13 PM) Height: 170.2 cm (06/26/2018 1:13 PM) Weight: 82.9 kg (06/26/2018 1:13 PM) Physical Examination General: Alert and oriented. No acute distress. HEENT: Conjunctiva normal. No oral lesions. Teeth in good repair. Neck: No lymphadenopathy. Thyroid: Without goiter or nodularity. Vascular: Without carotid bruit. Lungs: Clear to auscultation. Heart: Regular rate and rhythm without click or murmur. Abdomen: Nontender and nondistended. Bowel sounds active. Without palpable hepatosplenomegaly. Spine: Spine is upright posture. Spine is nontender to palpation and percussion. Musculoskeletal: Muscle mass appropriate for age and gender. 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 Neuro: Balance normal. Able to walk on toes and stand on one foot without imbalance. Deep tendon reflexes equal and symmetric. Skin: Non cushingoid in appearance. No worrisome lesions. Psych: Normal mood, affect and mental status. LABS Lab Results Component Value Date NA 142 09/30/2015 K 4.4 09/30/2015 CL 102 09/30/2015 CREATININE 0.92 06/26/2018 EGFR >90 06/26/2018 BUN 14 09/30/2015 ANIONGAP 11 09/30/2015 GLUCOSE 94 08/01/2013 CALCIUM 9.4 06/26/2018 Lab Results Component Value Date HGBA1C 5.9 08/01/2013 CHOL 174 09/30/2015 HDL 29 (L) 09/30/2015 LDLCALC 107 09/30/2015 TRIG 189 (H) 09/30/2015 TTLCHOLHDLRT 6.6 08/01/2013 IMAGING 21-Dec-2017 11:01:00 Exam: NM BMD Spine and/or Hip(s) Indications: Pain Low Back (LBP);Radiculopathy Lumbar 5 R ORIGINAL REPORT - 21-Dec-2017 13:08:00 NM BMD Spine and/or Hip(s): EXAM: NM BMD Spine and/or Hip(s) IMPRESSION: Osteopenia FINDINGS: Based on the bone density results, and on the patient's answers to the Fracture Risk Assessment questionnaire (please refer to appropriate image stored in the BMD study in [employer]), the calculated ten year probability of fracture is: Major Osteoporotic: 4.4% Hip Fracture: 0.2% Degenerative changes are present which may spuriously elevate the spine BMD measurement. Left Hip [single scan]: Femur Neck: BMD = 1.053 g/cm (sq) T-score = -0.1 Z-score = 0.7 Total Hip: BMD = 1.086 g/cm (sq) T-score = -0.1 Z-score = 0.3 Right Hip [single scan]: Femur Neck: BMD = 1.070 g/cm (sq) T-score = 0.0 Z-score = 0.8 Total Hip: BMD = 1.051 g/cm (sq) T-score = -0.3 Z-score = 0.0 Lumbar Spine [single scan]: L1: BMD = 0.859 g/cm (sq), T-score =-2.5, Z-score =-2.4 L2: BMD = 0.997 g/cm (sq), T-score =-2.1, Z-score =-1.9 Total Lumbar Spine: BMD = 0.927 g/cm (sq) T-score = -2.3 Z-score = -2.2 Trabecular Bone Scores: L1 : TBS = 1.248 L2 : TBS = 1.258 L3 : TBS = 1.189 L4 : TBS = 1.259 L1-L2 : TBS = 1.253 L1-L3 (L2) : TBS = 1.218 L2-L3 : TBS = 1.224 L1-L3 : TBS = 1.232 L1-L4 (L2,L3): TBS = 1.253 L2-L4 (L3) : TBS = 1.259 L1-L4 (L3) : TBS = 1.255 L3-L4 : TBS = 1.224 L1-L4 (L2) : TBS = 1.232 L2-L4 : TBS = 1.235 L1-L4 : TBS = 1.238 Please note: A more comprehensive DXA report, including images and graphs, is available in [employer]. In the absence of other causes of low BMD or demonstrated skeletal fragility, osteoporosis may be diagnosed in post-menopausal women when the T-score is at or below -2.5 as defined by the WHO. Osteopenia is present at T-scores between -1 and -2.5 and normal BMD when T-score is at or above -1.0. The diagnosis in pre-menopausal women and men can be based on low bone mass or evidence of skeletal fragility in the appropriate clinical setting. ASSESSMENT AND PLAN #1 Osteopenia We discussed with Mr. Mcmahan his BMD scan results and counseled him on the diagnosis of osteopenia. Wediscussed lifestyle and diet measures and recommended calcium citrate and vitamin-D supplementation. Current laboratory studies show normal serum calcium, phosphorus, albumin, and creatinine. Serum 25-hydroxy vitamin D was excellent at 30 ng/mL on December 21, 2017, (optimal 20 to 50). His FRAX score is 4.4% risk of major osteoporotic fracture, and 0.2% risk of hip fracture. We explained that under normal circumstances, this would not be a threshold for pharmacological treatment. However, as spinal surgery is planned within 6 weeks, we explained the rationale for increasing bonemineral density which has been shown to improve healing outcomes. Thus we discussed treatment with Forteo for the upcoming 6 weeks and to continue after surgery for up to 2 years. We will check a baseline PTH prior to initiating treatment. He currently has no contraindications for Forteo and his serum calcium is normal. If PTH is normal, we will send a prescription of Forteo to specialty pharmacy to assess for insurance coverage. I will follow up with him in 1 year at which point he will have a repeat BMD scan done and we can re-assess treatment. In the meantime, I have recommended repeat calcium in 1 month after starting treatment to ensure it remains stable which can be done my mail order labs. We have answered all the questions Emanuel Mcmahan had. Dr. Vyas agrees with the assessment and plan. Orders Placed This Encounter Procedures ??? BMD Bone Density Spine Hips ??? Parathyroid Hormone (PTH) ??? Calcium, Total ??? Endocrinology office visit (clinic) Rosey Cerna, B.Ch., [facility] Endocrinology Fellow Madhu Vyas M.D. - 06/26/2018 12:00 AM CDT SUBJECTIVE REASON FOR CONSULT This is a supervisory note for Dr. Serjio Soto, the Internal Medicine resident. This very pleasant 58-year-old male is referred for evaluation and management of moderate osteopenia, with a prior history of a rib fracture. HISTORY OF PRESENT ILLNESS The patient anticipates undergoing a lumbar spine fusion surgery with Dr. Adelina Olivares in the Department of Orthopedic Surgery in about 6 weeks. The patient has had a long-standing low back pain with more recent worsening with bilateral lower extremity pain, right greater than left, with symptoms involving his right buttock, with radiation to the posterior thigh down to the level of the knee/calf, andthen a deep ache into his right foot and ankle and right big toe. Physical Therapy, epidural steroidinjection, and neuropathic pain medication including gabapentin did not work for him. The patient also takes Tylenol and ibuprofen. His symptoms have been present for about 10 years, but worsening over the past 2 years. The patient saw Dr. Adelina Olivares on December 21, 2017, and was advised that he had likely L5 radiculopathy with a combination of back and leg pain, with possible spasticity and upper motor neuron findings, as well as iliopsoas weakness. The patient was advised that he would need Forteo for 6 weeks prior tosurgical intervention. He likely would need to be on Forteo for 1 to 2 years after surgery. The patient has no contraindications to Forteo therapy. No previous history of radiation therapy, active cancer or cancer likely to recur, Paget's disease of bone, hypercalcemia, or increased alkaline phosphatase level. The patient's current laboratory studies show normal serum calcium, phosphorus, albumin, and creatinine. His serum 25-hydroxyvitamin D was excellent at 30 ng/mL (optimal, 20 to 50) on December 21, 2017. His serum parathyroid hormone level is normal at 40 pg/mL (normal, 15 to 65). The patient is advised to consider Forteo 20 mcg by subcutaneous injection once a day for up to two years. A [facility] prescription is sent this afternoon given his parathyroid hormone level. He is advised to maintain total daily calcium intake of 1000 mg of elemental calcium, with vitamin Dintake of at least 600 International Units each day. He plans to use calcium citrate, given that he currently takes Protonix for gastric acid suppression. Dietary calcium intake is estimated at 500 to 600 mg of elemental calcium. Calcium citrate 600 mg one tablet each day would be sufficient for his bone density purposes. He is advised to continue to use care in situations likely to provoke falls. He will be cautious when lifting more than 15 to 20 pounds. Walking for exercise 3 to 4 days each week for 30 to 45 minutes each day should help protect his skeletal integrity. His bone density test should normally be rechecked in one year. Advised him I would be happy to see him back in one year with his results. These issues were discussed in detail with the patient, his girlfriend, and Dr. Teddy Soto, and a variety of questions answered during his office visit today. I reviewed Dr. Teddy Soto's note dated June 26, 2018, and agree with his findings and recommendations. CT CT Job ID: [id number] documented in this encounter Plan of Treatment Not on filedocumented as of this encounter Results Calcium, Total (08/13/2018 3:35 PM CDT) athologist Signature Calcium, 9.7 8.8 - 10.2 08/15/2018 [facility] Total, S mg/dL 11:54 AM CDT LABORATORIES - [facility] Specimen Anatomical Collection Method Collection Time Receive d Time (Source) Location / / Volume Laterality Blood (Blood, 08/13/2018 3:35 PM 08/15/20 18 Venous) CDT 10:35 AM CDT Resulting Agency Comment Mailed In Specimen Wendy DukesCh., B.A.O. LAB BLOOD ADD-ON Performing Organization Address City/[facility] Phon e Number [facility] LABORATORIES - [address] [place], [place] [address] [facility] Parathyroid Hormone (PTH) (06/26/2018 3:13 PM CDT) Patholo gist Method Time Signature Parathyroid 40 15 - 65 06/26/2018 [facility] Hormone (PTH), S pg/mL 4:18 PM CDT LABORATORIE S - [facility] Specimen Anatomical Collection Method Collection Time Receive d Time (Source) Location / / Volume Laterality Blood (Blood, 06/26/2018 3:13 PM 06/26/20 18 3:35 Venous) CDT PM CDT Wendy DukesCh., B.A.O. LAB BLOOD ADD-ON Performing Organization Address City/State/[facility] Code Phon e Number [facility] LABORATORIES - [address] [place], [place] [address] [facility] documented in this encounter Visit Diagnoses Diagnosis Osteoporosis documented in this encounter
--- OUTSIDE RECORDS SUMMARY | 2022-09-27 14:39 | XMS_ITS | Encounter Summary ---
:1960 Author Organization [facility] Address [address] [place] [address] Care Team Providers Name Role Phone Unavailable Primary Care Provider Unavailable Reason for Referral MRI/CAT/PET Scan (Routine) - Closed Specialty Diagnoses / Procedures Referred By Contact Refer red To Contact Radiology Diagnoses Pain Low Back Unspecified Adelina Olivares M.D. [facility] Procedures CT Lumbar Spine without IV Contrast NE CT LUMBAR SPINE WO CNTRST HC CT LUMBAR SPINE WO CNTRST NE CT LUMBAR SPINE WO CNTRST [address] [place] [phone] Referral ID Status Reason Start Date Expiration Date Visits Requ ested Visits Authorized [id number] Closed 06/12/2018 06/12/2019 1 1 utpatient (Routine) - Closed Specialty Diagnoses / Referred By Contact Referred To Contact Procedures Reproductive Diagnoses Osteoporosis Adelina Olivares M.D. [facility] Endocrinology and [address] [facility] Infertility / [place], [place] Endocrinology [phone] Referral ID Status Reason Start Date Expiration Date Visits Requ ested Visits Authorized [id number] Closed 06/12/2018 06/12/2019 1 1 Encounter Details Date Type Department Care Team Description 06/12/2018 Orders Only Department of Joe Cuenca Osteoporosis (Primary Dx); Orthopedic Surgery in [facility] [address] [place] [phone] Social History Tobacco Use Types Packs/Day Years [...] or relatives? How often do you attend tenriism or Never 2021 taoist services? Do you belong to any clubs or Yes 04/20/2022 organizations such as tenriism groups, unions, fraternal or athletic groups, or [...] place to sleep or slept in a mcc (including now)? Sex Assigned at Date Recorded Male 06/24/2018 5:24 PM CDT documented as of this encounter Plan of Treatment Scheduled Referrals Name Type Priority Associated Diagnoses Order S meenakshi Endocrinology - Outpatient Routine Osteoporosis Expected: Osteoporosis / Referral 06/12/2018 metabolic bone (Approximate) , disorders consult Expires: (clinic) 06/12/2021 documented as of this encounter Results Albumin (06/26/2018 10:40 AM CDT) P athologist Signature Albumin, S 4.7 3.5 - 5.0 06/26/2018 [facility] g/dL 11:59 AM CDT LABORATORIES - [facility] Specimen Anatomical Collection Method Collection Time Receive d Time (Source) Location / / Volume Laterality Blood (Blood, 06/26/2018 10:40 06/26/2018 Venous) AM CDT 11:18 AM CDT Adelina Olivares M.D. LAB BLOOD ADD-ON Performing Organization Address City/[facility] Phon e Number [facility] [address] [place] [id number] [facility] 25-Hydroxyvitamin D2 and D3 (06/26/2018 10:40 AM CDT) athologist Signature 25-Hydroxy D2 <4.0 ng/mL 06/28/2018 [facility] 10:29 AM CDT [facility] 25-Hydroxy D3 31 ng/mL 06/28/2018 [facility] 10:29 AM CDT [facility] 25-Hydroxy D 31 ng/mL 06/28/2018 [facility] Total 10:29 AM CDT [facility] Comment: ----REFERENCE VALUE---- 25-HYDROXY D TOTAL (D2+D3) Optimum level s in the healthy population are 20-50, patients with bone disease may benefit from higher levels within this r cindy. ----ADDITIONAL INFORMATION---- This test was developed and its performa nce characteristics determined by [facility] in a manner consistent with CLIA requirements. This test has not been cleared or approved by the [place] d and Drug Administration. Specimen Anatomical Collection Method Collection Time Receive d Time (Source) Location / / Volume Laterality Blood (Blood, 06/26/2018 10:40 06/26/2018 2:42 Venous) AM CDT PM CDT Adelina Olivares M.D. LAB BLOOD ADD-ON Performing Organization Address City/State/ZIP Code Phon e Number [facility] [address] [place], [place] [address] [facility] Calcium, Total (06/26/2018 10:40 AM CDT) P athologist Signature Calcium, 9.4 8.8 - 10.2 06/26/2018 [facility] Total, S mg/dL 11:59 AM CDT LABORATORIES [facility] Specimen Anatomical Collection Method Collection Time Receive d Time (Source) Location / / Volume Laterality Blood (Blood, 06/26/2018 10:40 06/26/2018 Venous) AM CDT 11:18 AM CDT Ahmad Nassr M.D. LAB BLOOD ADD-ON Performing Organization Address City/[facility]/ZIP Code Phon e Number [facility] LABORATORIES - [address] Phosphorus Inorganic (06/26/2018 10:40 AM CDT) Analysis Performed At Path logis Time Signature Phosphorus 3.8 2.5 - 4.5 06/26/2018 [facility] (Inorganic), S mg/dL 11:59 AM CDT LABORATORIES [facility] Specimen Anatomical Collection Method Collection Time Receive d Time (Source) Location / / Volume Laterality Blood (Blood, 06/26/2018 10:40 06/26/2018 Venous) AM CDT 11:18 AM CDT Adelina Olivares M.D. LAB BLOOD ADD-ON Performing Organization Address [facility] Phon e Number [facility] LABORATORIES - [address] Creatinine with Estimated GFR (06/26/2018 10:40 AM CDT) Analysis Performed At [facility] Time Signature Creatinine 0.92 0.74 - 06/26/2018 [facility] 1.35 mg/dL 11:59 AM CDT LABORATORIES [facility] eGFR-Non >90 >=60 06/26/2018 [facility] Black/ mL/min/BSA 11:59 AM CDT LABORATORIES [facility] Comment: ----ADDITIONAL INFORMATION---- Estimated GFR calculated using the 2009 CKD_EPI creatinine equation. eGFR-Black/ >90 >=60 mL/min/BSA 06/26/2018 11:5 9 [facility] Spanish AM CDT LABORATORIES [facility] Comment: ----ADDITIONAL INFORMATION---- Estimated GFR calculated using the 2009 CKD_EPI creatinine equation. Specimen Anatomical Collection Method Collection Time Receive d Time (Source) Location / / Volume Laterality Blood (Blood, 06/26/2018 10:40 06/26/2018 Venous) AM CDT 11:18 AM CDT Adelina Olivares M.D. LAB BLOOD ADD-ON Performing Organization Address City/[facility] Phon e Number [facility] LABORATORIES - [address] Lumbar Spine without IV Contrast (06/26/2018 [...] in this encounter Visit Diagnoses Diagnosis Osteoporosis - Primary Pain Low Back Unspecified Pain Low Back Unspecified documented in this encounter
--- OUTSIDE RECORDS SUMMARY | 2022-09-27 14:39 | XMS_ITS | Encounter Summary ---
:1960 Author Organization [facility] Address [address] [place] [address] Care Team Providers Name Role Phone Unavailable Primary Care Provider Unavailable Reason for Referral Outpatient (Routine) - Closed Specialty Diagnoses / Procedures Referred By Contact Refer red To Contact Orthopedic Surgery Diagnoses Radiculopathy Lumbar Pradeep Culver M.D. [facility] [address] [place], [place] [address] Referral ID Status Reason Start Date Expiration Date Visits Requ ested Visits Authorized [id number] Closed 12/24/2017 06/22/2018 1 1 Scheduling Instructions Please schedule with Dr. Olivares. [place] IMPLEMENTATION MANAGER Encounter Details Date Type Department Care Team Description 12/04/2017 Orders Only Department of Physical Pradeep Culver, Radiculopathy Lumbar Medicine and Edith (Primary Dx) Rehabilitation in [address] [place] [address] [address] [place] [phone] Social History Tobacco Use Types Packs/Day Years [...] or relatives? How often do you attend christian or Never 2021 bahai services? Do you belong to any clubs or Yes 04/20/2022 organizations such as christian groups, unions, fraternal or athletic groups, or [...] or slept in a [facility] (including now)? Sex Assigned at Date Recorded Male 06/24/2018 5:24 PM CDT documented as of this encounter Miscellaneous Notes Telephone Encounter - Pradeep Culver M.D. - 12/04/2017 12:00 AM CST I spoke to Mr. Mcmahan on the phone today following the MRI that he had performed of his lumbar spine. The MRI results overall are very similar to the study from November 08, 2016. Significant findings include at L5-S1 there is moderate to marked facet arthropathy with 3 mm degenerative L5 anterolisthesisand this in combination with circumferential disc bulge with slight extrusion superiorly into the right neural foramen results in marked right and moderate left foraminal stenosis. There is also markedright and moderate left subarticular recess stenosis with right greater than left S1 nerve root compression. There is moderate to marked central canal stenosis and a right facet joint effusion. At L4-L5 there is a left foraminal disc protrusion which results in mild to moderate left foraminal stenosis. I discussed my findings in detail with Mr. Mcmahan. I do feel that his symptoms again correlate very well with a right L5 radiculopathy which would be consistent with his imaging findings. He has been involved in a comprehensive program including physical therapy, right L5 transforaminal epidural corticos teroid injections and trial of neuromodulating medications. With his persistent symptoms, I am goingto refer him to Orthopedic Spine surgery for their opinion as to whether he would be a surgical candidate at this point. Mr. Mcmahan voiced agreement this plan. Job ID: [id number] [place] IMPLEMENTATION MANAGER documented in this encounter Plan of Treatment Not on filedocumented as of this encounter Visit Diagnoses Diagnosis Radiculopathy Lumbar - Primary documented in this encounter
--- OUTSIDE RECORDS SUMMARY | 2022-09-27 14:39 | XMS_ITS | Encounter Summary ---
:1960 Author Organization [facility] Address [address] [place] [address] Care Team Providers Name Role Phone Unavailable Primary Care Provider Unavailable Encounter Details Date Type Department Care Team Description 10/02/2017 Abstract Department of Family Medicine, Provider, Historical [facility], in [place], [place] [address] [place] [address] [facility] [phone] Social History Tobacco Use Types Packs/Day Years [...] or relatives? How often do you attend scientologist or Never 2021 christian services? Do you belong to any clubs or Yes 04/20/2022 organizations such as scientologist groups, unions, fraternal or athletic groups, or [...]
--- OUTSIDE RECORDS SUMMARY | 2022-09-27 14:39 | XMS_ITS | Encounter Summary ---
:1960 Author Organization [facility] Address [address] [place] [address] Care Team Providers Name Role Phone Unavailable Primary Care Provider Unavailable Reason for Visit Reason Comments Back Pain follow up Encounter Details Date Type Department Care Team Description 11/08/2017 Office Visit Department of Physical Pradeep Culver, Radiculopathy Lumbar Fifth Right (Primary Dx); Medicine and M.D. Pain Low Back; Rehabilitation in [address] [facility], Steno sis Spinal Lumbar With Neurogenic Claudication [place], [place] [address] [place] [phone] Social History Tobacco Use Types Packs/Day Years [...] do you attend confucianism or Never 2021 christian services? Do you [...] Sign Reading Time Taken Comments Blood Pressure 138/88 11/08/2017 4:40 PM RN SANE Pulse - - Temperature - - Respiratory Rate - - Oxygen Saturation - - Inhaled Oxygen Concentration - - Weight 82.8 kg (182 lb 8.7 oz) 11/08/2017 4:40 PM RN SANE Height - - Body Mass Index 28.65 06/12/2017 4:15 PM CDT documented in this encounter Progress Notes Pradeep Culver M.D. - 11/08/2017 12:00 AM CST SUBJECTIVE CHIEF COMPLAINT/REASON FOR VISIT Follow up low back and right greater than left lower extremity pain and paresthesias. HISTORY OF PRESENT ILLNESS Mr. Mcmahan returns today. Unfortunately, he has not had much progress since I saw him on June 12. He reports that, if anything, he is actually having more pain in his right lower extremity as of late. This typically involves pain that is in his low back, although that has improved somewhat, but the right lower extremity pain is still very limiting for him. The pain radiates into the right gluteal region, right posterior lateral thigh and posterior lateral leg to the level of the ankle. Sometimes, the worst pain is from the lateral leg to the ankle, but at other times, it can be present lateral inthe posterior lateral thigh. He describes paresthesias that can occur in the same distribution. He de nies any focal weakness in his lower extremities, change in bowel or bladder habits, fevers or chills. OBJECTIVE PHYSICAL EXAMINATION General: Pleasant 57-year-old male in no acute distress. Spine: -1 lumbar extension. There is tenderness to palpation over the right lower lumbar paraspinals. Strength: All major muscle groups of the bilateral upper and lower extremities have normal and symmetric muscle strength, bulk and tone. Lower Extremities: Straight leg raise on the right causes reproduction of his symptoms in the right lower extremity at approximately 45 degrees. ASSESSMENT / PLAN 1. Chronic low back and right greater than left lower extremity pain and paresthesias. 2. Lumbar spinal stenosis. 3. Right L5 radiculopathy. 4. Lumbar spondylosis. 5. Migraine headaches. Unfortunately, Mr. Mcmahan has continued to have pain that has been more pronounced as of late into theright lower extremity which would be in primarily in an L5 distribution. PLAN: 1. With Mr. Mcmahan's persistent symptoms that are limiting for him, we will proceed with an MRI of thelumbar spine. This is in anticipation of him likely meeting with a spine surgeon with his persistentsymptoms despite a variety of different interventions to this point. We as well potentially discussed the possibility of repeating the right L5 transforaminal epidural corticosteroid injection as well,but Mr. Mcmahan is most interested at the current time in potentially meeting with a surgeon, which I think is reasonable. 2. I will plan on contacting Mr. Mcmahan following the lumbar spine MRI. He knows to be in contact withus prior to that time if he notes any worsening or worrisome symptoms, which we went over in detail today. Mr. Mcmahan voiced agreement and understanding with this plan. Job ID: [id number] SANE documented in this encounter Plan of Treatment Not on filedocumented as of this encounter Visit Diagnoses Diagnosis Radiculopathy Lumbar Fifth Right - Prima ry Pain Low Back Unspecified Stenosis Spinal Lumbar With Neurogenic C laudication documented in this encounter
--- OUTSIDE RECORDS SUMMARY | 2022-09-27 14:39 | XMS_ITS | Encounter Summary ---
:1960 Author Organization [facility] Address [address] [place] [address] Care Team Providers Name Role Phone Unavailable Primary Care Provider Unavailable Encounter Details Date Type Department Care Team Description 04/03/2017 Hospital Encounter HX [facility] Earl Culver M.D. [address] [place] [address], [address] [place] [address] (Wo rk) Social History Tobacco [...] do you attend hoahaoism or Never 2021 judaism services? Do you [...] place to sleep or slept in a longterm (including now)? Sex Assigned at Date Recorded Male 06/24/2018 5:24 PM CDT documented as of this encounter Last Filed Vital Signs Vital Sign Reading Time Taken Comments Blood Pressure 132/84 04/03/2017 3:44 PM CDT Pulse - - Temperature - - Respiratory Rate - - Oxygen Saturation - - Inhaled Oxygen Concentration - - Weight 83.7 kg (184 lb 10.2 oz) 04/03/2017 3:44 PM CDT Height 170 cm (5' 6.93) 04/03/2017 3:44 PM CDT Body Mass Index 28.98 04/03/2017 3:44 PM CDT documented in this encounter Medications [...] 09/21 4 mg tablet mouth as needed. gabapentin Take 1 tablet by 0 04/03/2017 12/29/19 18 (for_NEURONTIN) 600 mg mouth 3 (three) tablet times a day. propranolol (for_INDERAL) Take 1 tablet by 0 04/201706/26/2018 60 mg tablet mouth 2 (two) times a day. vitamin E 400 unit Take 1 capsule by 0 11/18/2009 06/21/2022 capsule mouth daily. documented as of this encounter Progress Notes Edison Culver M.D. - 04/03/2017 3:27 PM CDT [id number] CHIEF COMPLAINT/REASON FOR VISIT Follow up low back pain and right greater than left lower extremity pain and paresthesias. HISTORY OF PRESENT ILLNESS Mr. Mcmahan returns today in followup. He did have a right L5 transforaminal epidural corticosteroid injection performed on February 27, 2017. He reports he did feel this was helpful for him but he has been continuing to have pain primarily in his lower extremities again primarily in the posterior lateral thigh and posterior lateral leg in the right and left lower extremities. He actually reports that more recently the pain has been more pronounced on the left. He rates it today is a 3 out of 10. He would describe 50% of the pain is in his low back and 50% in his bilateral lower extremities. He denies any new symptoms such as focal weakness in his lower extremities. He continues to use his gabapentin 600 mg 3 times daily but he is not sure how effective that is at this point. PHYSICAL EXAMINATION GENERAL: Pleasant 56-year-old male in no acute distress. GAIT: Nonantalgic. MUSCULOSKELETAL: Spine: -1 lumbar flexion. Preserved lumbar extension. There is mild tenderness to palpation over the bilateral low lumbar paraspinals. NEUROLOGIC: Straight leg raise on the left causes a pulling sensation in the left posterior thigh atapproximately 45 degrees without any reproduction of his left calf pain. IMPRESSION/REPORT/PLAN 1. Chronic low back and right greater than left lower extremity pain and paresthesias. 2. Lumbar spinal stenosis. 3. Right L5 radiculopathy. 4. Lumbar spondylosis. 5. Migraine headaches. This is a difficult situation for Mr. Mcmahan. He is having intermittent symptoms radiating to the bilateral lower extremities. The right L5 transforaminal epidural corticosteroid injection did help the symptoms he was experiencing in his right lower extremity to a mild extent. PLAN: 1. Mr. Mcmahan will continue to perform the exercises he was shown independently in physical therapy. 2. I am going have him decrease his gabapentin slowly over the course of the next week to 300 mg 3 times daily as he is not sure that is helpful for him at this point. 3. I am going to initiate Cymbalta 30 mg daily and, after 1 month, he will increase that to 60 mg daily. We went over the side effects of this medication in detail today. 4. I will plan on seeing Mr. Mcmahan in 2 months to assess his progress. If he has not improved at thattime we will likely have him meet with a spine surgeon to obtain their opinion as to whether or not there they feel he would be a candidate for operative intervention. Mr. Mcmahan knows to be in contact with me prior to that time if he notes any worsening symptoms which we went over in detail today. He voiced agreement and understanding with this plan. Total time 25 minutes, counseling and coordination of care time greater than 15 minutes. Edison Culver M.D./gama Electronically Signed By: EDISON CULVER MD On: 04/10/2017 04:42 PM Modified by and Electronically Signed by: EDISON CULVER MD On: 04/10/2017 04:42 PM Source: [facility] MHSDOLBEYNONRADSYS Document Id: [id number] documented in this encounter Miscellaneous Notes Miscellaneous - Edison Culver M.D. - 04/03/2017 4:04 PM CDT Ambulatory Patient Summary [address] [id number] Visit Information Name: MUNAEMANUEL [facility] Number: [id number] Current Date: 04/03/2017 16:04:58 Physicians Attending Provider: EDISON CULVER MD Primary Care Provider: PCP, ELSEWHERE MUNA EMANUEL DE SOUZA has been given the following list of [...] capsule) 1 cap, Oral, once a day New Routed to [address] [id number] fexofenadine (fexofenadine 180 mg oral tablet) 1 [...] the Following Medications: Medication list as of 04-03-17 16:04 Attention: If you have any medications at [...] Electronically Signed By: EDISON CULVER MD Signed On:03-APR-2017 16:04:20 Your Allergies & Intolerances Substance Reaction Symptoms [...] if you dont have one. Go to [email or web address] and click on Create Your Account. Then, follow the directions to complete the online form. Youll be asked for your [facility] number which you can find at the top of this document. Your Goals/Additional instructions: Source: [facility] POWERCHART Document Id: [id number] Miscellaneous - Edison Culver M.D. - 04/03/2017 4:04 PM CDT Ambulatory Discharge Medication List [address] [id number] Visit Information Name: EMANUEL MCMAHAN [facility] Number: [id number] Current Date: 04/03/2017 16:04:57 Attending Provider: EDISON CULVER MD Primary Care [...] capsule) 1 cap, Oral, once a day New Routed to [address] [id number] fexofenadine (fexofenadine 180 mg oral tablet) 1 [...] the Following Medications: Medication list as of 04-03-17 16:04 Attention: If you have any medications at [...] Electronically Signed By: EDISON CULVER MD Signed On:03-APR-2017 16:04:20 Additional Information: Source: [facility] [employer] Document Id: [id number] Miscellaneous - Halie Baker L.PMikN. - 04/03/2017 3:44 PM CDT Adult Crab Butcher Intake/History Adult Crab [place]cher Intake/History Entered On: 04/03/2017 15:45 CDT Performed On: 04/03/2017 15:44 CDT by HALIE BAKER LPN Intake Systolic Blood Pressure : 132 mmHg Diastolic Blood Pressure : 84 mmHg NIBP Mean : 100 mmHg BP Location : Left upper extremity Blood Pressure Cuff Size : Regular Height : 170 cm(Converted to: 5 ft 7 inch(es), 67 inch(es)) Actual Weight : 83.75 kg(Converted to: 184 lb 10 oz) Dosing Weight Clinic : 83.75 kg Clinic BSA : 1.99 Body Mass Index : 28.98 kg/m2 HALIE BAKER LPN - 04/03/2017 15:44 CDT General Info Information Given By : Patient Languages : Danish Is Patient Female and 13-50 no hysterectomy : No HALIE BAKER LPN - 04/03/2017 15:44 CDT Subjective Pain Symptoms : No HALIE BAKER LPN - 04/03/2017 15:44 CDT Dependent Habits Exposure to Tobacco Smoke : Other: never Smoking Status : Never smoker Tobacco 2A : No Tobacco Use/Currently Using : No Tobacco Use/Last 30 Days : No Tobacco Use/Last 12 months : No Tobacco Last Use/Year : 1979 HALIE BAKER LPN - 04/03/2017 15:44 CDT Caffeine Use Grid Caffeine Use : Current Type : Soft drinks HALIE BAKER LPN - 04/03/2017 15:44 CDT Source: [facility] [employer] Document Id: [id number] CDT!30 documented in this encounter Plan of Treatment Not on filedocumented as of this encounter Visit Diagnoses Not on filedocumented in this encounter
--- OUTSIDE RECORDS SUMMARY | 2022-09-27 14:39 | XMS_ITS | Encounter Summary ---
:1960 Author Organization [facility] Address [address] [place] [address] Care Team Providers Name Role Phone Unavailable Primary Care Provider Unavailable Encounter Details Date Type Department Care Team Description 02/21/2017 Hospital Encounter HX [facility] Earl Culver M.D. [address] [place] [address], [address] [place] [address] (Wo rk) Social History Tobacco [...] or relatives? How often do you attend muslim or Never 2021 restorationist services? Do you belong to any clubs or Yes 04/20/2022 organizations such as muslim groups, unions, fraternal or athletic groups, or [...] place to sleep or slept in a jail (including now)? Sex Assigned at Date Recorded Male 06/24/2018 5:24 PM CDT documented as of this encounter Last Filed Vital Signs Vital Sign Reading Time Taken Comments Blood Pressure 128/88 02/21/2017 4:41 PM CDT Pulse - - Temperature - - Respiratory Rate - - Oxygen Saturation - - Inhaled Oxygen Concentration - - Weight 83.8 kg (184 lb 13.7 oz) 02/21/2017 4:41 PM CDT Height 170 cm (5' 6.93) 02/21/2017 4:41 PM CDT Body Mass Index 29.01 02/21/2017 4:41 PM CDT documented in this encounter Medications [...] encounter Progress Notes Edison Culver M.D. - 02/21/2017 3:29 PM CDT [id number] CHIEF COMPLAINT/REASON FOR VISIT Follow up low back and right greater than left lower extremity pain and paresthesias. HISTORY OF PRESENT ILLNESS Mr. Mcmahan returns today in followup. Unfortunately he has not noted significant improvement in his symptoms following initiation of gabapentin 600 mg 3 times daily as well as being involved in physical therapy. He reports his symptoms are very similar to when I saw him previously. He again describes pain that is located across his low back pain and primarily paresthesias but pain as well that will radiate into the right greater than left lower extremity primarily in an L5 distribution. He denies any new symptoms or change in his bowel bladder habits, fevers or chills, or recent unintentional weight loss. PHYSICAL EXAMINATION GENERAL: Pleasant 56-year-old male in no acute distress. MUSCULOSKELETAL: Spine: -1 lumbar flexion. There is tenderness to palpation of the right greater than left lower lumbar paraspinals. IMPRESSION/REPORT/PLAN 1. Chronic low back and right greater than left lower extremity pain and paresthesias. 2. Lumbar spinal stenosis. 3. Right L5 radiculopathy. 4. Lumbar spondylosis. 5. Migraine headaches. PLAN: 1. With Mr. Mcmahan's persistent symptoms now despite a variety of interventions, we are going to proceed with a right L5 transforaminal epidural corticosteroid injection. 2. Mr. Mcmahan will continue to use gabapentin 600 mg 3 times daily. 3. Mr. Mcmahan will continue with the exercises he was shown independently in physical therapy. 4. I will plan on seeing Mr. Mcmahan in 6 weeks to assess his progress or sooner if he notes any worsening or worrisome symptoms which we went over in detail today. Edison Culver M.D./gama Electronically Signed By: EDISON CULVER MD On: 03/06/2017 11:35 AM Modified by and Electronically Signed by: EDISON CULVER MD On: 03/06/2017 11:35 AM Source: [facility] MHSDOLBEYNONRADSYS Document Id: [id number] documented in this encounter Miscellaneous Notes Miscellaneous - Edison Cuvler M.D. - 02/21/2017 5:20 PM CDT Ambulatory Patient Summary [address] [id number] Visit Information Name: MUNAEMANUEL [facility] Number: [id number] Current Date: 02/21/2017 17:20:40 Physicians Attending Provider: EDISON CULVER MD Primary [...] for yearly physical prior to further refills. predniSONE (predniSONE 20 mg oral tablet) 1 Tablet(s), Oral, once a day for 10 days propranolol (propranolol 60 mg oral tablet) 1 [...] the Following Medications: Medication list as of 02-21-17 17:20 Attention: If you have any medications at [...] Electronically Signed By: EDISON CULVER MD Signed On:21-FEB-2017 17:20:23 Your Allergies & Intolerances Substance Reaction Symptoms Category Comments No Known Allergies Drug Your Problem List Problem Status Onset Comments Seasonal allergic rhinitis Active 08/04/2013 GERD [Gastroesophageal reflux disease] Active 08/04/2013 Hyperlipidemia NOS Active 08/04/2013 Pain Knee NOS Active Sprain Knee Medial Collateral Ligament (MCL) Subsequent L Active Your Upcoming Appointments Date Time Location Provider 04/03/2017 15:30 [facility] PM&R Edison Culver MD Attention: Contact your local Clinic if further [...] if you dont have one. Go to [email or web address] and click on Create Your Account. Then, follow the directions to complete the online form. Youll be asked for your [facility] number which you can find at the top of this document. Your Goals/Additional instructions: Source: [facility] POWERCHART Document Id: [id number] Miscellaneous - Edison Culver M.D. - 02/21/2017 5:20 PM CDT Ambulatory Discharge Medication List [address] [id number] Visit Information Name: EMANUEL MCMAHAN [facility] Number: [id number] Current Date: 02/21/2017 17:20:39 Attending Provider: EDISON CULVER MD Primary Care [...] for yearly physical prior to further refills. predniSONE (predniSONE 20 mg oral tablet) 1 Tablet(s), Oral, once a day for 10 days propranolol (propranolol 60 mg oral tablet) 1 [...] the Following Medications: Medication list as of 02-21-17 17:20 Attention: If you have any medications at [...] Electronically Signed By: EDISON CULVER MD Signed On:21-FEB-2017 17:20:23 Additional Information: Source: [facility] POWERCHART Document Id: [id number] Miscellaneous - Halie Baker L.P.N. - 02/21/2017 5:[address] Culver Document Contains Addenda Addendum by HALIE BAKER LPN on February 22, 2017 11:59:58 CDT Order faxed Addendum by ASTER NOBLE on February 22, 2017 09:22:19 CDT From: ASTER NOBLE ([facility] Hospital Administrator/Radiology [facility]) To: Physical Medicine and Rehabilitation Staff; Sent: 02/22/2017 09:22:19 CDT Subject: RE: Dr. Culver No auth needed for outpatient From: HALIE BAKER LPN ( Physical Medicine and Rehabilitation Staff) To: [facility] Hospital Administrator/Radiology [facility]; Sent: 02/21/2017 17:10:32 CDT Subject: Dr. Culver Patient Referred to Provider or Facility: _CDI Ordering Provider: Emmanuel Appointment Date (if known): _ Imaging Service Ordered: (list CPT code or body part to be scanned) _ _ W/ Contrast _ W/O Contrast _ W/O Contrast followed by with _ _ CT/CTA _ MRI _ MRA _ PET _Nuclear Cardiology Study _x Other: (list): _Right L5 transforaminal injection. Diagnosis (CPT code if Known): _ Injury Related _ Yes _x NoIf yes, date and type of injury: _ Source: [facility] POWERCHART Document Id: [id number] Electronically signed by Conversion, [facility] Telephone Operator [id number] at 04/03/2017 4:22 AM CDT Miscellaneous - Halie Baker L.PMikNMik - 02/21/2017 4:41 PM CDT Adult University Professor Intake/History Adult University Professor Intake/History Entered On: 02/21/2017 16:42 CDT Performed On: 02/21/2017 16:41 CDT by HALIE BAKER LPN Intake Systolic Blood Pressure : 128 mmHg Diastolic Blood Pressure : 88 mmHg NIBP Mean : 101 mmHg BP Location : Left upper extremity Blood Pressure Cuff Size : Regular Height : 170 cm(Converted to: 5 ft 7 inch(es), 67 inch(es)) Actual Weight : 83.85 kg(Converted to: 184 lb 14 oz) Dosing Weight Clinic : 83.85 kg Clinic BSA : 1.99 Body Mass Index : 29.01 kg/m2 HALIE BAKER LPN - 02/21/2017 16:41 CDT General Info Information Given By : Patient Languages : Surinamese Is Patient Female and 13-50 no hysterectomy : No HALIE BAKER LPN - 02/21/2017 16:41 CDT Subjective Pain Symptoms : No HALIE BAKER LPN - 02/21/2017 16:41 CDT Dependent Habits Exposure to Tobacco Smoke : Other: never Smoking Status : Never smoker Tobacco 2A : No Tobacco Use/Currently Using : No Tobacco Use/Last 30 Days : No Tobacco Use/Last 12 months : No Tobacco Last Use/Year : 1979 HALIE BAKER LPN - 02/21/2017 16:41 CDT Caffeine Use Grid Caffeine Use : Current Type : Soft drinks HALIE BAKER LPN - 02/21/2017 16:41 CDT [facility] Document Id: [id number] CDT!30 documented in this encounter Plan of Treatment Not on filedocumented as of this encounter Visit Diagnoses Not on filedocumented in this encounter
--- OUTSIDE RECORDS SUMMARY | 2022-09-27 14:39 | XMS_ITS | Encounter Summary ---
:1960 Author Organization [facility] Address [address] [place] [address] Care Team Providers Name Role Phone Unavailable Primary Care Provider Unavailable Encounter Details Date Type Department Care Team Description 06/25/2018 Orders Only Division of Endocrinology in [facility] [place], [place] [address] [place] [address] Social History Tobacco Use Types Packs/Day Years [...] or relatives? How often do you attend lutheran or Never 2021 jewish services? Do you belong to any clubs or Yes 04/20/2022 organizations such as lutheran groups, unions, fraternal or athletic groups, or [...]
--- OUTSIDE RECORDS SUMMARY | 2022-09-27 14:39 | XMS_ITS | Encounter Summary ---
:[address] [facility] Address [address] [place] [address] Care Team Providers Name Role Phone Unavailable Primary Care Provider Unavailable Encounter Details Date Type Department Care Team Description 07/08/2018 Orders Only Division of Endocrinology in [facility] Madhu rosas M.D. [place], [place] [address] [facility] [address] [place] [id number] [phone] (Wo rk) Social History Tobacco Use Types [...] do you attend muslim or Never 2021 alevism services? Do you belong to any clubs [...] place to sleep or slept in a skilled nursing (including now)? Sex Assigned at Date Recorded Male 06/24/2018 5:24 PM CDT documented as of this encounter Plan of Treatment Not on filedocumented as of this encounter Visit Diagnoses Not on filedocumented in this encounter
--- OUTSIDE RECORDS SUMMARY | 2022-09-27 14:39 | XMS_ITS | Encounter Summary ---
:1960 Author Organization [facility] Address [address] [place] [address] Care Team Providers Name Role Phone Unavailable Primary Care Provider Unavailable Reason for Visit Reason Comments Med Refill Encounter Details Date Type Department Care Team Description 02/05/2018 Refill Department of Physical Medicine Pradeep Culver M.D. Med Refill and Rehabilitation in [address] [place], [place] [address] [place] [address] [place] [address] [phone] Social History Tobacco Use Types Packs/Day Years [...] or relatives? How often do you attend uatsdin or Never 2021 catholic services? Do you belong to any clubs or Yes 04/20/2022 organizations such as uatsdin groups, unions, fraternal or athletic groups, or [...]
--- OUTSIDE RECORDS SUMMARY | 2022-09-27 14:40 | XMS_ITS | Encounter Summary ---
:[address] [facility] Address [address] [place] [address] Care Team Providers Name Role Phone Unavailable Primary Care Provider Unavailable Encounter Details Date Type Department Care Team Description 10/01/2015 Hospital Encounter HX [facility] Arjun Rice M.D. [address] [place] [address] (Wo rk) Social History Tobacco Use Types Packs/Day Years Used Date Smoking Tobacco: Never Assessed Alcohol Habits Answer Date Recorded How often [...] or relatives? How often do you attend pentecostal or Never 2021 sabianist services? Do you belong to any clubs or Yes 04/20/2022 organizations such as pentecostal groups, unions, fraternal or athletic groups, or [...] place to sleep or slept in a prison (including now)? Sex Assigned at Date Recorded Male 06/24/2018 5:24 PM CDT documented as of this encounter Last Filed Vital Signs Vital Sign Reading Time Taken Comments Blood Pressure 132/88 10/01/2015 3:53 PM RES HABILITATION ASSISTANT Pulse 80 10/01/2015 3:48 PM RES HABILITATION ASSISTANT Temperature - - Respiratory Rate 16 10/01/2015 3:48 PM RES HABILITATION ASSISTANT Oxygen Saturation - - Inhaled Oxygen Concentration - - Weight 78.5 kg (173 lb 1 oz) 10/01/2015 3:48 PM RES HABILITATION ASSISTANT Height 170 cm (5' 6.93) 10/01/2015 3:48 PM RES HABILITATION ASSISTANT Body Mass Index 27.16 10/01/2015 3:48 PM RES HABILITATION ASSISTANT documented in this encounter Medications at Time [...] mouth daily. documented as of this encounter H&P Notes Arjun Lopez M.D. - 10/01/2015 3:42 PM CST [id number] CHIEF COMPLAINT/REASON FOR VISIT This 55-year-old gentleman in for a physical and followup on his medical issues and need of refills.It has been about a year since our last visit. He is offering a couple of concerns. One is some changes to his toenails he wants looked at. PAST MEDICAL/SURGICAL HISTORY Mild reactive airway disease with seasonal/environmental allergies. Reflux disease on proton pump inhibitor. Joint and hip pain. Celecoxib. Hyperlipidemia on statin. Benign prostatic hyperplasia followed by urology. Mild erectile dysfunction. Migraine headaches, followed by neurology. MEDICATIONS Celecoxib 200 mg daily. Depakote 250 mg. Fexofenadine 180 mg daily. Fish oil. Sumatriptan as need be for headaches. Atorvastatin 10 mg daily. Multivitamins. Pantoprazole 40 mg daily. Montelukast 10 mg daily. Zanaflex, which is new, 4 mg as need be for back pain. Vitamin E. ALLERGIES No drug allergies. SOCIAL HISTORY He is , currently with a significant other. Enjoys riding motorcycle. Works for [employer]. Nonsmoker. He gets minimal exercise due to leg discomfort and weakness. His diet is horrible. FAMILY HISTORY Father had a heart attack and hyperlipidemia. Mother has lung cancer. SYSTEMS REVIEW No trouble with seizures. Does have occasional headaches. He is feeling that his blood pressure has been a bit higher. His headaches are better. No trouble with speech, hearing, swallowing. No chest pain, shortness of breath. Has occasional heartburn if he misses his proton pump inhibitor. No trouble bowel with function. Appears stream is doing relatively well. Occasional numbness to his fingers. Sleep is doing well. Mood is tough during the winter months. PREVENTATIVE: Colonoscopy was December 2010. He has a 10 year followup due in 2020. Flu shot was received at work. Tetanus diphtheria acellular pertussis was given July 2013. VITAL SIGNS Blood pressure 144/90, repeat was 132/88, pulse 80, respirations 16, temperature 36.2, weight 78.5 kg, height 170 cm. BMI of 27.2 kg/m2. PHYSICAL EXAMINATION GENERAL: He is in no acute distress. NECK: Without adenopathy or supraclavicular adenopathy. Thyroid is not enlarged. CHEST: Clear to auscultation without wheeze or crackles. CARDIOVASCULAR: Regular rate and rhythm without murmurs, rubs or gallops. Radial pulse, dorsalis pedis pulse present ands strong bilaterally. EXTREMITIES: Without pretibial edema. SKIN: Warm and dry. He has multiple tattoos. MENTAL STATUS: Alert and orient x3. Mood is congruent and appropriate. Excellent normal affect. IMPRESSION/REPORT/PLAN 1. Chronic joint pain. He has been doing very well with the celecoxib. We talked about coming off ofthis, as it is certainly exacerbating his reflux. He finds relief only with celecoxib, ibuprofen or naproxen. Not really any good relief with acetaminophen. 2. Reflux disease. We will continue proton pump inhibitor. If we can get him off the anti-inflammatories, this will certainly help his reflux symptoms. 3. Hyperlipidemia. Cholesterol came back at 174 with an LDL of 107. These numbers are great. We can just recheck them annually. 4. Other screening, blood sugar came back at 97, pointing away from diabetes. We will just follow this annually and as need be. Triglycerides are a bit elevated at which points him at-risk, so encouraged eating healthful foods and staying active to prevent developing diabetes. 5. Mood. His mood is doing well. Does have some seasonal affective components. I think using a 10,000 lux light box may be of benefit for him. He will consider this option. 6. Elevated blood pressure. He has had some high blood pressure in the past. It is currently in a good range. I think we will take a watch and wait attitude. We should make sure he is getting less [id number] mg of sodium in his diet on a daily basis. This end of anticipated 7. Seasonal allergies. We will continue with the montelukast. Arjun Lopez M.D., M.P.H./pos Electronically Signed By: ARJUN LOPEZ MD On: 10/06/2015 09:19 AM Source: [facility] MHSDOLBEYNONRADSYS Document Id: [id number] HABILITATION ASSISTANT documented in this encounter Miscellaneous Notes Miscellaneous - Arjun Lopez M.D. - 10/01/2015 4:26 PM CST Ambulatory Patient Summary [address] [place] [id number] Visit Information Name: EMANUEL MCMAHAN [facility] Number: [id number] Current Date: 10/01/2015 16:26:06 Physicians Attending Provider: ARJUN LOPEZ MD Primary Care Provider: ARJUN LOPEZ MD EMANUEL MCMAHAN NOLVIA has been given the following list [...] 0.5 Tablet(s), Oral, once a day Hyperlipidemia. This is a CHANGE Routed to [address] [address] celecoxib (Celebrex 200 mg oral capsule) 1 cap, Oral, once a day Osteoarthritis Routed to [address] [address] divalproex sodium (Depakote 250 mg oral delayed release tablet) 1 Tablet(s), Oral, once a day Migraine Headaches. Taken at bedtime fexofenadine (fexofenadine 180 mg oral tablet) 1 Tablet(s), Oral, once a day hcl montelukast (Singulair 10 mg oral tablet) 1 Tablet(s), Oral, every evening Asthma, seasonal allergies This is a CHANGE Routed to [address] [address] multivitamin (multivitamin) 1 cap, Oral, once a day omega-3 polyunsaturated fatty acids (Fish Oil oral capsule) 1 cap, Oral, once a day pantoprazole (Protonix 40 mg oral enteric coated tablet) 1 Tablet(s), Oral, once a day GERD Routed to [address] [address] sumatriptan (Imitrex 100 mg oral tablet) 1 Tablet(s), Oral, once as needed for Migraine headache repeat after one hour if needed tiZANidine (tiZANidine 4 mg oral tablet) 1 Tablet(s), Oral, as needed Back spasm This is a CHANGE vitamin E (vitamin E 400 intl units oral capsule) 1 cap, Oral, once a day Stop Taking the Following Medications: Medication list as of 10-01-15 16:26 Attention: If you have any medications at home that are not on this list, DO NOT take them until youcontact your provider for clarification. Give a copy of your medication list to your primary care provider. Update your medication list any time medications or doses are changed and carry your medication list at all times in case of emergency. Electronically Signed By: ARJUN LOPEZ MD Signed On:01-OCT-2015 16:13:32 Your Allergies & Intolerances Substance Reaction Symptoms Category Comments No Known Allergies Drug Your Problem List Problem Status Onset Comments Seasonal allergic rhinitis Active 08/04/2013 GERD [Gastroesophageal reflux disease] Active 08/04/2013 Hyperlipidemia NOS Active 08/04/2013 Your Upcoming Appointments Date Time Location Provider [...] if you dont have one. Go to [email or web address] and click on Create Your Account. Then, follow the directions to complete the online form. Youll be asked for your [facility] number which you can find at the top of this document. Your Goals/Additional instructions: -Watch your salt intake, the goal being less than 2,000 mg daily. Consider a light for Seasonal Affective Disorder, 10,000 lux is the power that is needed. Source: [facility] POWERCHART Document Id: [id number] HABILITATION ASSISTANT Miscellaneous - Arjun Lopez M.D. - 10/01/2015 4:26 PM CST Ambulatory Discharge Medication List [facility] [address] [place] [address] [place] [id number] Visit Information Name: EMANUEL MCMAHAN [facility] Number: [id number] Visit Date: 10/01/2015 16:26:04 Attending Provider: ARJUN LOPEZ MD Primary Care Provider: ARJUN LOPEZ MD EMANUEL MCMAHAN has been given [...] 0.5 Tablet(s), Oral, once a day Hyperlipidemia. This is a CHANGE Routed to [address] [address] celecoxib (Celebrex 200 mg oral capsule) 1 cap, Oral, once a day Osteoarthritis Routed to [address] [address] divalproex sodium (Depakote 250 mg oral delayed release tablet) 1 Tablet(s), Oral, once a day Migraine Headaches. Taken at bedtime fexofenadine (fexofenadine 180 mg oral tablet) 1 Tablet(s), Oral, once a day hcl montelukast (Singulair 10 mg oral tablet) 1 Tablet(s), Oral, every evening Asthma, seasonal allergies This is a CHANGE Routed to [address] [address] multivitamin (multivitamin) 1 cap, Oral, once a day omega-3 polyunsaturated fatty acids (Fish Oil oral capsule) 1 cap, Oral, once a day pantoprazole (Protonix 40 mg oral enteric coated tablet) 1 Tablet(s), Oral, once a day GERD Routed to [address] [address] sumatriptan (Imitrex 100 mg oral tablet) 1 Tablet(s), Oral, once as needed for Migraine headache repeat after one hour if needed tiZANidine (tiZANidine 4 mg oral tablet) 1 Tablet(s), Oral, as needed Back spasm This is a CHANGE vitamin E (vitamin E 400 intl units oral capsule) 1 cap, Oral, once a day Stop Taking the Following Medications: Medication list as of 10-01-15 16:26 Attention: If you have any medications at home that are not on this list, DO NOT take them until youcontact your provider for clarification. Give a copy of your medication list to your primary care provider. Update your medication list any time medications or doses are changed and carry your medication list at all times in case of emergency. Electronically Signed By: ARJUN LOPEZ MD Signed On:01-OCT-2015 16:13:32 Additional Information: Source: [facility] fflap Document Id: [id number] HABILITATION ASSISTANT Miscellaneous - Maricruz Fernandez, L.P.N. - 10/01/2015 3:53 PM CST Quality Measures Quality Measures Entered On: 10/01/2015 15:55 RES HABILITATION ASSISTANT Performed On: 10/01/2015 15:53 RES HABILITATION ASSISTANT by MARICRUZ FERNANDEZ LPN BP/Tobacco/Misc Systolic Blood Pressure : 132 mmHg Diastolic Blood Pressure : 88 mmHg MARICRUZ FERNANDEZ LPN - 10/01/2015 15:53 RES HABILITATION ASSISTANT Source: [facility] fflap Document Id: [id number] RES HABILITATION ASSISTANT!4 HABILITATION ASSISTANT Miscellaneous - Maricruz Fernandez L.P.N. - 10/01/2015 3:48 PM CST Adult Camouflage Specialist Intake/History Adult Camouflage Specialist Intake/History Entered On: 10/01/2015 15:53 RES HABILITATION ASSISTANT Performed On: 10/01/2015 15:48 RES HABILITATION ASSISTANT by MARICRUZ FERNANDEZ LPN Intake Chief Complaint : Med Check/Refills Ambulatory Intake Additional Information : Labs done yesterday Temperature Core : 36.2 DegC(Converted to: 97.2 DegF) (LOW) Peripheral Pulse Rate : 80 /min Respiratory Rate : 16 /min Heart Rhythm : Regular Systolic Blood Pressure : 144 mmHg (HI) Diastolic Blood Pressure : 90 mmHg (HI) NIBP Mean : 108 mmHg BP Location : Right upper extremity Blood Pressure Cuff Size : Regular Oxygen Therapy : Room air Height : 170 cm(Converted to: 5 ft 7 inch(es), 67 inch(es)) Actual Weight : 78.5 kg(Converted to: 173 lb 1 oz) Weight Source : Standing scale Dosing Weight Clinic : 78.5 kg Clinic BSA : 1.93 Body Mass Index : 27.16 kg/m2 MARICRUZ FERNANDEZ [facility] 10/01/2015 15:48 RES HABILITATION ASSISTANT General Info Information Given By : Patient Preferred Communication Mode : Verbal Languages : [place] Is Patient Female and 13-50 no hysterectomy : No MARICRUZ FERNANDEZ [facility] 10/01/2015 15:48 RES HABILITATION ASSISTANT Subjective Pain Symptoms : Yes MARICRUZ FERNANDEZ [facility] - 10/01/2015 15:48 RES HABILITATION ASSISTANT Pain Scale Pain Scale Verbal 0-10 : Open MARICRUZ FERNANDEZ [facility] 10/01/2015 15:48 RES HABILITATION ASSISTANT Pain Pain Assessment Grid Pain 1 Pain 2 Pain 3 Location : Shoulder Lower back Hip Laterality : Left Bilateral Right Intensity : 3 4 5 MARICRUZ FERNANDEZ [facility] - 10/01/2015 15:48 RES HABILITATION ASSISTANT MARICRUZ FERNANDEZ [facility] 10/01/2015 15:48 RES HABILITATION ASSISTANT MARICRUZ FERNANDEZ [facility] 10/01/2015 15:48 RES HABILITATION ASSISTANT Dependent Habits Exposure to Tobacco Smoke : Other: never Smoking Status : Never smoker Tobacco 2A : No Alcohol Use : No MARICRUZ FERNANDEZ [facility] 10/01/2015 15:48 RES HABILITATION ASSISTANT Caffeine Use Grid Caffeine Use : Current Type : Soft drinks MARICRUZ FERNANDEZ [facility] 10/01/2015 15:48 RES HABILITATION ASSISTANT Source: [employer] POWERCHART Document Id: [id number] RES HABILITATION ASSISTANT!52 HABILITATION ASSISTANT documented in this encounter Plan of Treatment Not on filedocumented as of this encounter Visit Diagnoses Not on filedocumented in this encounter
--- OUTSIDE RECORDS SUMMARY | 2022-09-27 14:40 | XMS_ITS | Encounter Summary ---
:1960 Author Organization [facility] Address [address] [place] [address] Care Team Providers Name Role Phone Unavailable Primary Care Provider Unavailable Encounter Details Date Type Department Care Team Description 08/04/2013 Hospital Encounter HX [facility] Arjun Rice M.D. [address] [place] [address] (Wo rk) Social History Tobacco Use Types [...] or relatives? How often do you attend protestant or Never 2021 judaism services? Do you belong to any clubs or Yes 04/20/2022 organizations such as protestant groups, unions, fraternal or athletic groups, or [...] Sign Reading Time Taken Comments Blood Pressure 132/96 08/04/2013 3:55 PM CDT Pulse 76 08/04/2013 3:50 PM CDT Temperature - - Respiratory Rate 16 08/04/2013 3:50 PM CDT Oxygen Saturation - - Inhaled Oxygen Concentration - - Weight 79.7 kg (175 lb 11.3 oz) 08/04/2013 3:50 PM CDT Height 170 cm (5' 6.93) 08/04/2013 3:50 PM CDT Body Mass Index 27.58 08/04/2013 3:50 PM CDT documented in this encounter Medications [...] may repeat in one hour if needed. vitamin E 400 unit Take 1 capsule by 0 11/18/2009 06/21/2022 capsule mouth daily. documented as of this encounter H&P Notes Arjun Lopez M.D. - 08/04/2013 3:39 PM CDT [id number] HISTORY OF PRESENT ILLNESS A 53-year-old gentleman in for followup on his routine issues. It has been more than a year since she was last seen. He has been doing relatively well. His allergies have been under relatively good control with his medications; does need refill. PAST MEDICAL/SURGICAL HISTORY Benign prostatic hyperplasia followed by Dr. Rizo, following routine testosterone and PSA levels, migraines followed by Neurology, seasonal and environmental allergies, reflux disease, myalgias with joint pain from arthritis, hyperlipidemia. MEDICATIONS Montelukast 10 mg (Singulair) daily. Atorvastatin 10 mg daily. Celecoxib 200 mg daily. Pantoprazole 40 mg daily. Fexofenadine 180 mg daily. Vitamin E. Fish oil. Multivitamins. Sumatriptan as need be. Depakote 250 mg daily. ALLERGIES No known drug allergies. SYSTEMS REVIEW No other issue as far as headaches, vision, hearing, speech, swallowing. No chest pain, shortness ofbreath. No heartburn, except when he stops taking medications. No belly pain, back pain, trouble with bowels or bladder. No numbness or tingling. 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 Gets very little exercise. Tries to eat good healthful foods. Has occasional wheezing but no realshortness of breath. When his allergies act up, he has a lot of watery eyes, notices a lot of throatissues with harvest time and other times throughout the season. PREVENTIVE: He gets a flu shot at work. He had a colonoscopy in 2010; this will be due in 2020. He is due for a tetanus booster. VITAL SIGNS Blood pressure 136/86, repeat was 140/88, pulse 76, respirations 16, temperature 36.6, weight 79.7 kg. PHYSICAL EXAMINATION GENERAL: He is in no acute distress. NECK: Without adenopathy. CHEST: Clear to auscultation without wheeze or crackles. CARDIOVASCULAR: Regular rhythm without murmurs, rubs or gallops. ABDOMEN: Soft. EXTREMITIES: Without edema. Radial pulse present and strong. IMPRESSION/REPORT/PLAN 1. Seasonal allergies. Looks like things are doing very well. We will continue the montelukast and the [id number] fexofenadine. He has not had real relief with inhalers. Will just continue with the oral medications. 2. Hyperlipidemia. Cholesterol was looked at on the showing his total cholesterol was slightly at 223 with LDL 135, triglycerides are 270. Continue the low-dose statin for the time being. Recheck this in a year. 3. Other screening. Looked his blood sugar which came back at 94 with an A1c at 5.9%. Will just check this annually. 4. Osteoarthritis. Refilled the celecoxib for the year. He appears to be doing well. 5. Elevated blood pressure. His pressure is a bit behind today, unclear as to why. He has had good numbers in the past. I would like to have him follow back up and recheck blood pressure in about a week and bring his cuff with him. If this is elevated, we may need to do a different medication. He was boosted with the tetanus diphtheria acellular pertussis today. Arjun Lopez M.D., M.P.H./pos Electronically Signed By: ARJUN LOPEZ MD On: 08/15/2013 04:56 PM Source: [facility] [id number] Document Id: [id number] documented in this encounter Miscellaneous Notes Miscellaneous - Arjun Lopez M.D. - 08/04/2013 4:24 PM CDT Ambulatory Patient Summary [address] [address] Visit Information Name: EMANUEL MCMAHAN [facility] Number: [id number] Current Date: 08/04/2013 16:24:45 Physicians Attending Provider: ARJUN LOPEZ MD Primary Care Provider: ARJUN LOPEZ MD Your Medications Here is a list of your medications. It is important to take your medications as directed. Use a pillbox or chart to help remind you to take your medications. Please let your doctor or nurse know if you have problems taking your medications. Medication/Strength Dose Route Frequency Indications/Special Instructions/Comments/Notes montelukast (Singulair 10 mg oral tablet) 1 tab(s) Oral every evening Asthma, seasonal allergies atorvastatin (Lipitor 20 mg oral tablet) 10 mg Oral once a day Hyperlipidemia. celecoxib (Celebrex 200 mg oral capsule) 200 mg Oral once a day Osteoarthritis pantoprazole (Protonix 40 mg oral enteric coated tablet) 40 mg Oral once a day GERD fexofenadine (fexofenadine 180 mg oral tablet) 180 mg Oral once a day hcl vitamin E (vitamin E 400 intl units oral capsule) 400 IntU Oral once a day omega-3 polyunsaturated fatty acids (Fish Oil oral capsule) 1 cap(s) Oral once a day multivitamin (multivitamin) 1 cap(s) Oral once a day sumatriptan (Imitrex 100 mg oral tablet) 1 tab(s) Oral once as needed for Migraine headache repeat after one hour if needed divalproex sodium (Depakote 250 mg oral delayed release tablet) 250 mg Oral once a day taken at bedtime Attention: If you have any medications at home that are not on this list, DO NOT take them until youcontact your provider for clarification. Your Allergies & Intolerances Substance Reaction Symptoms Category Comments No Known Allergies Drug Your Problem List Problem Status Onset Comments No Problems found Your Upcoming Appointments Date Time Location Reason Provider No Appointments found Your Goals/Additional instructions: -Stop back in a week or so and have your blood pressure checked again. The goal is to see it less than 140/85. Bring your cuff with you. Source: [facility] POWERCHART Document Id: [id number] Miscellaneous - Arjun Lopez M.D. - 08/04/2013 4:24 PM CDT Ambulatory Depart Summary [address] [address] Visit Information Name: EMANUEL MCMAHAN [facility] Number: [id number] Visit Date: 08/04/2013 16:24:44 Attending Provider: ARJUN LOPEZ MD Primary Care Provider: ARJUN LOPEZ MD EMANUEL MCMAHAN has been given the following list of medications: Your Medications It is important to take your medications as directed. Use a pill box or chart to help remind you to take your medications. Please let your doctor or nurse know if you have problems taking your medications. Medication/Strength Dose Route Frequency Indications/Special Instructions/Comments/Notes montelukast (Singulair 10 mg oral tablet) 1 tab(s) Oral every evening Asthma, seasonal allergies atorvastatin (Lipitor 20 mg oral tablet) 10 mg Oral once a day Hyperlipidemia. celecoxib (Celebrex 200 mg oral capsule) 200 mg Oral once a day Osteoarthritis pantoprazole (Protonix 40 mg oral enteric coated tablet) 40 mg Oral once a day GERD fexofenadine (fexofenadine 180 mg oral tablet) 180 mg Oral once a day hcl vitamin E (vitamin E 400 intl units oral capsule) 400 IntU Oral once a day omega-3 polyunsaturated fatty acids (Fish Oil oral capsule) 1 cap(s) Oral once a day multivitamin (multivitamin) 1 cap(s) Oral once a day sumatriptan (Imitrex 100 mg oral tablet) 1 tab(s) Oral once as needed for Migraine headache repeat after one hour if needed divalproex sodium (Depakote 250 mg oral delayed release tablet) 250 mg Oral once a day taken at bedtime Attention: If you have any medications at home that are not on this list, DO NOT take them until youcontact your provider for clarification. Additional Information: Source: [facility] POWERCHART Document Id: [id number] Miscellaneous - Pam Gardiner, L.P.N. - 08/04/2013 4:19 PM CDT Health Assessment Health Assessment Entered On: 08/04/2013 16:20 CDT Performed On: 08/04/2013 16:19 CDT by PAM GARDINER LPN Health Assessment Complete Health Assessment Complete or Modified : Annual Health Assessment Annual Health Assessment Completed : Yes PAM GARDINER LPN - 08/04/2013 16:19 CDT Nutrition Nutrition Risk Factors by History Adult : None PAM GARDINER LPN - 08/04/2013 16:19 CDT Functional Current Daily Living Assistance : None PAM GARDINER LPN - 08/04/2013 16:19 CDT Dependent Habits Tobacco Use/Currently Using : No Exposure to Tobacco Smoke : Other: never Smoking Status : Never smoker PAM GARDINER LPN - 08/04/2013 16:19 CDT Tobacco Use Grid Last Use : never PAM GARDINER LPN - 08/04/2013 16:19 CDT Caffeine Use Grid Caffeine Use : Current Type : Soft drinks PAM GARDINER LPN - 08/04/2013 16:19 CDT Psychosocial Domestic Abuse Concerns : None PAM GARDINER LPN - 08/04/2013 16:19 CDT Advance Directive Advanced Directives : Yes PAM GARDINER LPN - 08/04/2013 16:19 CDT Educ Needs Learning Style Preference Adult Grid Patient : Printed materials, Verbal explanation Family : None PAM GARDINER LPN - 08/04/2013 16:19 CDT Source: [employer] Document Id: [id number] CDT!27 Miscellaneous - Pam Gardiner L.P.N. - 08/04/2013 3:55 PM CDT Quality Measures Quality Measures Entered On: 08/04/2013 15:57 CDT Performed On: 08/04/2013 15:55 CDT by PAM GARDINER LPN BP/Tobacco/Misc Systolic Blood Pressure : 132 mmHg Diastolic Blood Pressure : 96 mmHg (>HHI) PAM GARDINER LPN - 08/04/2013 15:55 CDT Source: [employer] Document Id: [id number] CDT!4 Miscellaneous - Pam Gardiner L.P.N. - 08/04/2013 3:50 PM CDT Adult Trailer Assembler Intake/History Adult Trailer Assembler Intake/History Entered On: 08/04/2013 15:55 CDT Performed On: 08/04/2013 15:50 CDT by PAM GARDINER LPN Intake Chief Complaint : f/u lab results med refills Temperature Core : 36.6 DegC(Converted to: 97.9 DegF) Peripheral Pulse Rate : 76 /min Respiratory Rate : 16 /min Systolic Blood Pressure : 136 mmHg Diastolic Blood Pressure : 96 mmHg (>HHI) NIBP Mean : 109 mmHg BP Location : Right upper extremity Height : 170 cm(Converted to: 5 ft 7 inch(es), 66.93 inch(es)) Actual Weight : 79.7 kg(Converted to: 175 lb 11 oz) Dosing Weight Clinic : 79.7 kg Clinic BSA : 1.94 Body Mass Index : 27.58 kg/m2 PAM GARDINER [facility] 08/04/2013 15:50 CDT General Info Information Given By : Patient Languages : Mohawk PAM GARDINER [facility] 08/04/2013 15:50 CDT Subjective Pain Symptoms : Yes PAM GARDINER [facility] 08/04/2013 15:50 CDT Pain Pain Assessment Grid Pain 1 Location : Shoulder (Comment: spasms like [PAM GARDINER [facility] - 08/04/2013 15:50 CDT] ) Laterality : Right PAM GARDINER [facility] 08/04/2013 15:50 CDT Dependent Habits Tobacco Use/Currently Using : No Exposure to Tobacco Smoke : Other: never Smoking Status : Never smoker PAM GARDINER [facility] 08/04/2013 15:50 CDT Tobacco Use Grid Last Use : never PAM GARDINER [facility] 08/04/2013 15:50 CDT Caffeine Use Grid Caffeine Use : Current Type : Soft drinks PAM GARDINER [facility] 08/04/2013 15:50 CDT Source: [employer] Document Id: [id number] CDT!36 documented in this encounter Plan of Treatment Not on filedocumented as of this encounter Visit Diagnoses Not on filedocumented in this encounter
--- OUTSIDE RECORDS SUMMARY | 2022-09-27 14:40 | XMS_ITS | Encounter Summary ---
:1960 Author Organization [facility] Address [address] [place] [address] Care Team Providers Name Role Phone Unavailable Primary Care Provider Unavailable Encounter Details Date Type Department Care Team Description 11/18/2015 Hospital Encounter [facility]X [facility] Arjun Rice M.D. [address] [place] [address] (Wo rk) Social History Tobacco Use Types [...] do you attend samaritan or Never 2021 baptist services? Do you belong to any clubs [...] place to sleep or slept in a intermediate (including now)? Sex Assigned at Date Recorded Male 06/24/2018 5:24 PM CDT documented as of this encounter Last Filed Vital Signs Vital Sign Reading Time Taken Comments Blood Pressure 130/80 11/18/2015 3:36 PM COREMAKER SUPERVISOR Pulse 72 11/18/2015 3:36 PM COREMAKER SUPERVISOR Temperature - - Respiratory Rate 20 11/18/2015 3:36 PM COREMAKER SUPERVISOR Oxygen Saturation - - Inhaled Oxygen Concentration - - Weight 79.2 kg (174 lb 9.7 oz) 11/18/2015 3:36 PM COREMAKER SUPERVISOR Height 170 cm (5' 6.93) 11/18/2015 3:36 PM COREMAKER SUPERVISOR Body Mass Index 27.4 11/18/2015 3:36 PM COREMAKER SUPERVISOR documented in this encounter Medications at Time [...] documented as of this encounter Progress Notes Arjun Lopez M.D. - 11/18/2015 3:27 PM CST [id number] CHIEF COMPLAINT/REASON FOR VISIT This is a 55-year-old gentleman for followup on his knee pain. HISTORY OF PRESENT ILLNESS At work on November 01, had a valgus stress injury to the left knee. Sudden pain at that time. He wasseen the next day over in [place]. At that time, he had negative radiographs. Pain has been waxing and waning, a little bit better. He has been icing and using ibuprofen. He did take 1 dose of oxycodone which did give him some relief. He is about 50% better. He has been walking without difficulty. Itis hard to go up and down stairs. Does get somewhat stiff if he sits for too long. Notes occasional clicking in some walking. 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 He does notice that if he does push with his foot on the medial aspect that valgus type stress does give him increasedpain at the medial aspect of the knee, he has been wearing a brace. PAST MEDICAL/SURGICAL HISTORY PAST/ONGOING MEDICAL ISSUES: Reactive airway disease. Reflux disease. Hyperlipidemia. Joint pains. Benign prostatic hyperplasia followed by urology. Migraine headaches. MEDICATIONS CURRENT MEDICATIONS Celecoxib 200 mg daily. Depakote 250 mg daily for his headaches. Fexofenadine 180 mg daily. Imitrex as need be. Atorvastatin 10 mg daily. Multivitamins. Pantoprazole 40 mg daily. Singulair 10 mg daily. Tizanidine 4 mg as need be. Vitamin E. ALLERGIES No drug allergies. VITAL SIGNS Blood pressure 130/80, pulse 72, respirations 20, temperature 35.9, weight 79.2 kg. PHYSICAL EXAMINATION GENERAL: He is in no acute distress but walking is uncomfortable for him. EXTREMITIES: Very tender to the medial aspect of the left knee. There is some obvious swelling. Ligaments are difficult to assess because of spasm. Patellae is non-ballotable. Ligaments appear to be intact although he has a lot of spasm. Decreased range of motion. He has good flexion and extension of the knee. Dorsalis pedis pulse present and strong bilaterally. IMPRESSION/REPORT/PLAN Medial joint space pain after fall. He has continued to have pain. Things have improved but not as much as I would like to see him. I think the next step is he probably has a meniscal tear versus a medial collateral ligament strain. We should follow up with an MRI. We will talk about this once MRI is completed. Work restrictions were amended for him for another 2 weeks. Arjun Lopez M.D., M.P.H./pos Electronically Signed By: ARJUN LOPEZ MD On: 11/26/2015 09:37 AM Modified by and Electronically Signed by: ARJUN LOPEZ MD On: 11/26/2015 09:37 AM Source: [facility] [employer] Document Id: [id number] MAKER SUPERVISOR documented in this encounter Miscellaneous Notes Miscellaneous - Jocelynn Alexander L.P.NMik - 11/18/2015 4:10 PM CST MRI Screening Questionnaire MRI Screening Questionnaire Entered On: 11/18/2015 16:12 COREMAKER SUPERVISOR Performed On: 11/18/2015 16:10 COREMAKER SUPERVISOR by JOCELYNN ALEXANDER LPN MRI Questionnaire Previous MRI, CT, or X-rays Done : Yes JOCELYNN ALEXANDER LPN - 11/18/2015 16:10 COREMAKER SUPERVISOR MRI Cannot be Done Grid Automated Internal Cardiac Defibrillator : No Brain aneurysm clips : No Cochlear implant : No History of pacemaker : No Implants with a magnet : No Internal electrodes/wires : No Neurostimulator/Biostimulator : No [place] makenna catheter : No JOCELYNN ALEXANDER LPN - 11/18/2015 16:10 COREMAKER SUPERVISOR Patient Weight > 350 lbs : No JOCELYNN ALEXANDER LPN - 11/18/2015 16:10 COREMAKER SUPERVISOR MRI Risk Factors Grid Patient is greater than 69 years old : No Diabetes (document medication) : No History of Kidney/Liver Transplant : No History of Renal Disease : No Hypertension : No Receiving Dialysis : No JOCELYNN ALEXANDER LPN - 11/18/2015 16:10 COREMAKER SUPERVISOR Creatinine/GFR Results Completed : No JOCELYNN ALEXANDER LPN - 11/18/2015 16:10 COREMAKER SUPERVISOR MRI Implants, Devices, Conditions Grid Aneurysm clip : No Control Implants (IUD, diaphragm) : No Intravascular Coil, Filter or Stent : No Drug Infusion Pump : No External Pain Control Device : No Intravascular Catheter/Port : No Magnetic/Elec/Mech Activated Implant : No Prosthesis/Metal Implanted Surgical : Yes (Comment: gallbladder 2014 [JOCELYNN ALEXANDER LPN - 11/18/2015 16:10 COREMAKER SUPERVISOR] ) Metal Fragments in Body : No Bullets/BB's/Shrapnel in Body : No Tattoos/Perm Make-Up/Body Jewelry : Yes Hearing Aids/Dentures/Partial Plates : No History of cancer : No Eye Surgery/Implant : No Inner Ear Surgery/Implant : No Transdermal Med or EKG Patches : No Shunt : No Penile Implant : No Breast Tissue Orthotic Practitioner/Implant : No : No (document number of weeks in Comment) : No Surgery : No JOCELYNN ALEXANDER LPN - 11/18/2015 16:10 COREMAKER SUPERVISOR Claustrophobic : No Pain/Unable to Lay Still : Yes Metal In or Removed from Eyes Ever : No Form Completed : Yes Education Materials Provided : Yes JOCELYNN ALEXANDER LPN - 11/18/2015 16:10 COREMAKER SUPERVISOR Source: [facility] [employer] Document Id: [id number] COREMAKER SUPERVISOR!49 MAKER SUPERVISOR Arjun Quezada M.D. - 11/18/2015 4:08 PM CST Work Excuse 18 November 2015 EMANUEL MCMAHAN [id number] [address] [phone] Dear EMANUEL MCMAHAN, You were examined in my office on: 18 November 2015 Date of injury: 01 November 2015 Employer: [employer] Reason for work excuse: Medical Illness ( _ ) Yes ( x ) No Injury ( x ) Yes ( _ ) No Is excused from all work: ( _ ) Yes ( x ) No Has work limitations: No lifting greater than 20 pounds No work while kneeling on ground Limit amount of stair work Limitations apply until: 2 weeks Return to Work date: 19 November 2015 Sincerely, ARJUN LOPEZ [address] [place] [id number] Electronic Signature Electronically Signed By: ARJUN LOPEZ MD On: 18 November 2015 This document has images extracted. Source: [facility] [employer] Document Id: [id number] Arjun Quezada M.D. - 11/18/2015 4:03 PM CST Ambulatory Patient Summary [address] [place] [id number] Visit Information Name: EMANUEL MCMAHAN [facility] Number: [id number] Current Date: 11/18/2015 16:03:56 Physicians Attending Provider: ARJUN LOPEZ MD Primary [...] Tablet(s), Oral, once a day Hyperlipidemia. celecoxib (Celebrex 200 mg oral capsule) 1 cap, Oral, once a day Osteoarthritis divalproex sodium (Depakote 250 mg oral delayed [...] 1 Tablet(s), Oral, once a day GERD sumatriptan (Imitrex 100 mg oral tablet) 1 Tablet(s), Oral, once as needed for Migraine headache repeat after one hour if needed tiZANidine (tiZANidine 4 mg oral tablet) 1 Tablet(s), Oral, as needed Back spasm vitamin E (vitamin E 400 intl units oral capsule) 1 cap, Oral, once a day Stop Taking the Following Medications: Medication list as of 11-18-15 16:03 Attention: If you have any medications at [...] Electronically Signed By: ARJUN LOPEZ MD Signed On:18-NOV-2015 16:03:44 Your Allergies & Intolerances Substance Reaction Symptoms [...] if you dont have one. Go to [email or web address] and click on Create Your Account. Then, follow the directions to complete the online form. Youll be asked for your [facility] number which you can find at the top of this document. Your Goals/Additional instructions: Source: [facility] POWERCHART Document Id: [id number] MAKER SUPERVISOR Miscellaneous - Arjun Lopez M.D. - 11/18/2015 4:03 PM CST Ambulatory Discharge Medication List [facility] [address] [place] [id number] Visit Information Name: EMANUEL MCMAHAN [facility] Number: [id number] Visit Date: 11/18/2015 16:03:55 Attending Provider: ARJUN LOPEZ MD Primary Care [...] Tablet(s), Oral, once a day Hyperlipidemia. celecoxib (Celebrex 200 mg oral capsule) 1 cap, Oral, once a day Osteoarthritis divalproex sodium (Depakote 250 mg oral delayed [...] 1 Tablet(s), Oral, once a day GERD sumatriptan (Imitrex 100 mg oral tablet) 1 Tablet(s), Oral, once as needed for Migraine headache repeat after one hour if needed tiZANidine (tiZANidine 4 mg oral tablet) 1 Tablet(s), Oral, as needed Back spasm vitamin E (vitamin E 400 intl units oral capsule) 1 cap, Oral, once a day Stop Taking the Following Medications: Medication list as of 11-18-15 16:03 Attention: If you have any medications at [...] Electronically Signed By: ARJUN LOPEZ MD Signed On:18-NOV-2015 16:03:44 Additional Information: Source: [facility] POWERCHART Document Id: [id number] MAKER SUPERVISOR Miscellaneous - Jocelynn Alexander L.P.N. - 11/18/2015 3:36 PM CST Adult Barber Intake/History Adult Barber Intake/History Entered On: 11/18/2015 15:38 COREMAKER SUPERVISOR Performed On: 11/18/2015 15:36 COREMAKER SUPERVISOR by JOCELYNN ALEXANDER LPN Intake Chief Complaint : pain in left knee//WC injury date 11/01/15 Temperature Core : 35.9 DegC(Converted to: 96.6 DegF) (LOW) Peripheral Pulse Rate : 72 /min Respiratory Rate : 20 /min Systolic Blood Pressure : 130 mmHg Diastolic Blood Pressure : 80 mmHg NIBP Mean : 97 mmHg Height : 170 cm(Converted to: 5 ft 7 inch(es), 67 inch(es)) Actual Weight : 79.2 kg(Converted to: 174 lb 10 oz) Dosing Weight Clinic : 79.2 kg Clinic BSA : 1.93 Body Mass Index : 27.4 kg/m2 JOCELYNN ALEXANDER LPN - 11/18/2015 15:36 COREMAKER SUPERVISOR General Info Languages : Estonian Is Patient Female and 13-50 no hysterectomy : No JOCELYNN ALEXANDER LPN - 11/18/2015 15:36 COREMAKER SUPERVISOR Subjective Pain Symptoms : Yes Injury : Work related JOCELYNN ALEXANDER LPN - 11/18/2015 15:36 COREMAKER SUPERVISOR Pain Scale Pain Scale Verbal 0-10 : Open JOCELYNN ALEXANDER LPN - 11/18/2015 15:36 COREMAKER SUPERVISOR Pain Pain Assessment Grid Pain 1 Location : Knee Laterality : Left Intensity : 4 JOCELYNN ALEXANDER LPN - 11/18/2015 15:36 COREMAKER SUPERVISOR Dependent Habits Exposure to Tobacco Smoke : Other: never Smoking Status : Never smoker Tobacco 2A : No Tobacco Use/Currently Using : No Tobacco Use/Last 30 Days : No Tobacco Use/Last 12 months : No JOCELYNN ALEXANDER LPN - 11/18/2015 15:36 COREMAKER SUPERVISOR Caffeine Use Grid Caffeine Use : Current Type : Soft drinks JOCELYNN ALEXANDER LPN - 11/18/2015 15:36 COREMAKER SUPERVISOR Source: [employer] POWERCHART Document Id: [id number] COREMAKER SUPERVISOR!39 MAKER SUPERVISOR Miscellaneous - Jocelynn Alexander L.P.N. - 11/18/2015 3:34 PM CST Health Assessment Health Assessment Entered On: 11/18/2015 15:35 COREMAKER SUPERVISOR Performed On: 11/18/2015 15:34 COREMAKER SUPERVISOR by JOCELYNN ALEXANDER LPN Health Assessment Complete Health Assessment Complete or Modified : Annual Health Assessment Annual Health Assessment Completed : Yes JOCELYNN ALEXANDER [facility] - 11/18/2015 15:34 COREMAKER SUPERVISOR Nutrition Nutrition Risk Factors by History Adult : None JOCELYNN ALEXANDER [facility] 11/18/2015 15:34 COREMAKER SUPERVISOR Functional Current Daily Living Assistance : None JOCELYNN ALEXANDER [facility] 11/18/2015 15:34 COREMAKER SUPERVISOR Dependent Habits Exposure to Tobacco Smoke : Other: never Smoking Status : Never smoker Tobacco 2A : No Tobacco Use/Currently Using : No Tobacco Use/Last 30 Days : No Tobacco Use/Last 12 months : No JOCELYNN ALEXANDER [facility] 11/18/2015 15:34 COREMAKER SUPERVISOR Caffeine Use Grid Caffeine Use : Current Type : Soft drinks JOCELYNN ALEXANDER [facility] 11/18/2015 15:34 COREMAKER SUPERVISOR Alcohol Use : No JOCELYNN ALEXANDER [facility] 11/18/2015 15:34 COREMAKER SUPERVISOR Psychosocial Domestic Abuse Concerns : None Behavioral Health Screen/Safety Assmt : No Taoist Preference : Unknown JOCELYNN ALEXANDER [facility] - 11/18/2015 15:34 COREMAKER SUPERVISOR Advance Directive Advanced Directives : No Advance Directive Additional Information : No JOCELYNN ALEXANDER [facility] 11/18/2015 15:34 COREMAKER SUPERVISOR Educ Needs Learning Style Preference Adult Grid Patient : None Family : None JOCELYNN ALEXANDER [facility] - 11/18/2015 15:34 COREMAKER SUPERVISOR Source: [facility] [employer] Document Id: [id number] COREMAKER SUPERVISOR!31 MAKER SUPERVISOR documented in this encounter Plan of Treatment Not on filedocumented as of this encounter Visit Diagnoses Not on filedocumented in this encounter
--- OUTSIDE RECORDS SUMMARY | 2022-09-27 14:40 | XMS_ITS | Encounter Summary ---
:1960 Author Organization [facility] Address [address] [place] [address] Care Team Providers Name Role Phone Unavailable Primary Care Provider Unavailable Encounter Details Date Type Department Care Team Description 04/19/2016 Hospital Encounter HX [facility] Satinder Rizo M.D. [address] [place] [address] (Wo rk) Social History Tobacco Use Types [...] Sign Reading Time Taken Comments Blood Pressure - - Pulse - - Temperature - - Respiratory Rate - - Oxygen Saturation - - Inhaled Oxygen Concentration - - Weight - - Height 170 cm (5' 6.93) 04/19/2016 3:59 PM CDT Body Mass Index - - documented in this encounter Medications at Time [...] mouth daily. documented as of this encounter Miscellaneous Notes Miscellaneous - Conversion, Historical Provider Ser - 04/19/2016 11:59 PM CDT Coding Summary-Paper Based CODING DATE: 04/25/2016 FINAL [facility] STATUS: * Discharged to Home or Self Care PAYOR: [employer] ADMIT DX: REASON FOR VISIT DX: FINAL DX: PRINCIPAL: N52.9 Male erectile dysfunction, unspecified SECONDARY: PROCEDURES DOCTOR NAME DATE NOTE: The code number assigned matches the documented diagnosis and / or procedure in the patient's chart. However, the narrative phrase printed from the coding software may appear abbreviated, or result in slightly different terminology. Coded By: DELLA, JAQUELINE L Date Saved: 04/25/2016 03:04 pm Source: [facility] POWERCHART Document Id: [id number] documented in this encounter Plan of Treatment Not on filedocumented as of this encounter Procedures Procedure Name Priority Date/Time Associated Diagnosis Comme nts TESTOSTERONE, TOTAL Routine 04/19/2016 4:15 PM Re sults for this BY MASS CDT procedure are i n SPECROMETRY, S the results section. PROSTATE-SPECIFIC Routine 04/19/2016 4:15 PM Resu lts for this AG (PSA) CDT procedure are i n DIAGNOSTIC, S the results section. documented in this encounter Results Testosterone, Total (04/19/2016 4:15 PM CDT) athologist Signature Testosterone, 379 240 - 950 POWERCHART Total NGDL Comment: ADDITIONAL INFORMATIO N Testing performed by Liquid Chromatograp hy-Tandem Mass Spectrometry (LC-MS/MS). Test Performed by: [place] [address] Adult Nurse Practitioner: Joni Vasques II, M.D., Ph.D. Specimen (Source) Anatomical Collection Method Collection Time Re ceived Time Location / / Volume Laterality Blood 04/19/2016 4:15 PM CDT Tanner Rizo M.D. LAB BLOOD NON ADD-ON Performing Organization Address City/State/[facility] Code Phon e Number POWERCHART PSA (Prostate-Specific Antigen), Diagnostic (04/19/2016 4:15 PM CDT) athologist Signature Prostate-Specif 1.0 <=3.5 NGML POWERCHART ic Ag Specimen (Source) Anatomical Collection Method Collection Time Re ceived Time Location / / Volume Laterality Blood 04/19/2016 4:15 PM CDT Tanner Rizo M.D. LAB BLOOD ADD-ON Performing Organization Address City/[facility]/ZIP Code Phon e Number POWERCHART documented in this encounter Visit Diagnoses Not on filedocumented in this encounter
--- OUTSIDE RECORDS SUMMARY | 2022-09-27 14:40 | XMS_ITS | Encounter Summary ---
:1960 Author Organization [facility] Address [address] [place] [address] Care Team Providers Name Role Phone Unavailable Primary Care Provider Unavailable Encounter Details Date Type Department Care Team Description 08/01/2013 Hospital Encounter HX [facility] Brett Gaytan M.D. [address] [place] [address] (Wo rk) Social History Tobacco Use Types [...] do you attend confucianist or Never 2021 anabaptism services? Do you belong to any clubs [...] Procedure Name Priority Date/Time Associated Comments Diagnosis LIPID PANEL, S Routine 08/01/2013 4:10 PM Results for this CDT procedure are i n the results section. GLUCOSE, P Routine 08/01/2013 4:10 PM Results f or this CDT procedure are i n the results section. HEMOGLOBIN A1C, B Routine 08/01/2013 4:10 PM Resu lts for this CDT procedure are i n the results section. CREATININE WITH Routine 08/01/2013 4:10 PM Result s for this EGFR, S/P CDT procedure are i n the results section. documented in this encounter Results Creatinine with eGFR (08/01/2013 4:10 PM CDT) P athologist Signature Creatinine 0.8 0.8 - 1.3 POWERCHART MGDL HXeGFR (MDRD) >60.0 >=60.0 POWERCHART Comment: Results are in mL/min/1.73m squared CKD Stage I: GFR > 90 CKD Stage II: GFR 60 to 89 CKD Stage III: GFR 30 to 59 CKD Stage IV: GFR 15 to 29 CKD Stage V: GFR < 15 or Dialysis eGFR Black/ >60 >=60 PO WERCHART Specimen (Source) Anatomical Collection Method Collection Time Re ceived Time Location / / Volume Laterality Blood 08/01/2013 4:10 PM CDT Arjun Gaytan M.D. LAB BLOOD ADD-ON Performing Organization Address City/State/ZIP Code Phon e Number POWERCHART Hemoglobin A1c (08/01/2013 4:10 PM CDT) P athologist Signature Hemoglobin A1c, 5.9 4.0 - 6.0 POWERCHART B Specimen (Source) Anatomical Collection Method Collection Time Re ceived Time Location / / Volume Laterality Blood 08/01/2013 4:10 PM CDT Arjun Gaytan M.D. LAB BLOOD ADD-ON Performing Organization Address City/[facility] Code Phon e Number POWERCHART Glucose (08/01/2013 4:10 PM CDT) P athologist Signature Glucose 94 70 - 139 POWERCHART MGDL Specimen (Source) Anatomical Collection Method Collection Time Re ceived Time Location / / Volume Laterality Blood 08/01/2013 4:10 PM CDT Arjun Gaytan M.D. LAB BLOOD ADD-ON Performing Organization Address City/State/ZIP Code Phon e Number POWERCHART (ABNORMAL) Lipid Panel (08/01/2013 4:10 PM CDT) [facility] gist Method Time Signature Cholesterol, 223.0 (H) 120.0 - POWERCHART Total 200.0 MGDL HX HDL 34 (L) >=40 MGDL POWERCHART Triglycerides 270 (H) 35 - 185 POWERCHART MGDL Calculated LDL 135 (H) 60 - 130 POWERCHART MGDL Total 6.6 POWERCHART Cholesterol/HDL Ratio HXLDL/HDL 4 POWERCHART Specimen (Source) Anatomical Collection Method Collection Time Re ceived Time Location / / Volume Laterality Blood 08/01/2013 4:10 PM CDT Arjun Gaytan M.D. LAB BLOOD ADD-ON Performing Organization Address City/State/ZIP Code Phon e Number POWERCHART documented in this encounter Visit Diagnoses Not on filedocumented in this encounter
--- OUTSIDE RECORDS SUMMARY | 2022-09-27 14:40 | XMS_ITS | Encounter Summary ---
:1960 Author Organization [facility] Address [address] [place] [address] Care Team Providers Name Role Phone Unavailable Primary Care Provider Unavailable Encounter Details Date Type Department Care Team Description 08/12/2013 Hospital Encounter HX [facility] Renato Tejeda M.D . [address] [place] [phone] (Wo rk) Social History Tobacco Use Types [...] or relatives? How often do you attend mu-ism or Never 2021 hindu services? Do you belong to any clubs or Yes 04/20/2022 organizations such as mu-ism groups, unions, fraternal or athletic groups, or [...] Sign Reading Time Taken Comments Blood Pressure 130/88 08/12/2013 4:34 PM CDT Pulse - - Temperature - - Respiratory Rate - - Oxygen Saturation - - Inhaled Oxygen Concentration - - Weight - - Height - - Body Mass Index - - documented in [...] of this encounter Miscellaneous Notes Miscellaneous - Homero Gerard L.P.N. - 08/12/2013 4:34 PM CDT Ambulatory Vitals Height Weight Ambulatory Vitals Height Weight Entered On: 08/12/2013 16:34 CDT Performed On: 08/12/2013 16:34 CDT by HOMERO GERARD LPN Vitals/Ht/Wt Systolic Blood Pressure : 130 mmHg Diastolic Blood Pressure : 88 mmHg NIBP Mean : 102 mmHg BP Location : Right upper extremity Blood Pressure Cuff Size : Regular HOMERO GERARD LPN - 08/12/2013 16:34 CDT [facility] [employer] POWERCHART Document Id: [id number] CDT!7 Miscellaneous - Homero Gerard L.P.N. - 08/12/2013 4:34 PM CDT Ambulatory Vitals Height Weight Ambulatory Vitals Height Weight Entered On: 08/12/2013 16:34 CDT Performed On: 08/12/2013 16:34 CDT by HOMERO GERARD LPN Vitals/Ht/Wt Systolic Blood Pressure : 138 mmHg Diastolic Blood Pressure : 90 mmHg (HI) NIBP Mean : 106 mmHg BP Location : Right upper extremity Blood Pressure Cuff Size : Regular HOMERO GERARD LPN - 08/12/2013 16:34 CDT Source: [employer] Document Id: [id number] CDT!7 Miscellaneous - Homero Gerard L.P.N. - 08/12/2013 4:33 PM CDT Ambulatory Vitals Height Weight Ambulatory Vitals Height Weight Entered On: 08/12/2013 16:33 CDT Performed On: 08/12/2013 16:33 CDT by HOMERO GERARD LPN Vitals/Ht/Wt Systolic Blood Pressure : 132 mmHg Diastolic Blood Pressure : 68 mmHg NIBP Mean : 89 mmHg BP Location : Right upper extremity Blood Pressure Cuff Size : Regular HOMERO GERARD LPN - 08/12/2013 16:33 CDT Source: [employer] Document Id: [id number] CDT!7 Miscellaneous - Homero Gerard L.P.N. - 08/12/2013 4:32 PM CDT Ambulatory Vitals Height Weight Ambulatory Vitals Height Weight Entered On: 08/12/2013 16:32 CDT Performed On: 08/12/2013 16:32 CDT by HOMERO GERARD LPN Vitals/Ht/Wt Systolic Blood Pressure : 142 mmHg (HI) Diastolic Blood Pressure : 90 mmHg (HI) NIBP Mean : 107 mmHg BP Location : Right upper extremity Blood Pressure Cuff Size : Regular HOMERO GERARD LPN - 08/12/2013 16:32 CDT Source: [employer] Document Id: [id number] CDT!7 documented in this encounter Plan of Treatment Not on filedocumented as of this encounter Visit Diagnoses Not on filedocumented in this encounter
--- OUTSIDE RECORDS SUMMARY | 2022-09-27 14:40 | XMS_ITS | Encounter Summary ---
:1960 Author Organization [facility] Address [address] [place] [address] Care Team Providers Name Role Phone Unavailable Primary Care Provider Unavailable Encounter Details Date Type Department Care Team Description 11/02/2015 Hospital Encounter HX [facility] Den Correa M.D. [address] [place] [address] (Wo gilbert) Social History Tobacco Use Types Packs/Day Years [...] or relatives? How often do you attend sabianist or Never 2021 oriental orthodox services? Do you belong to any clubs or Yes 04/20/2022 organizations such as sabianist groups, unions, fraternal or athletic groups, or [...] Sign Reading Time Taken Comments Blood Pressure 120/88 11/02/2015 10:25 AM JAVA SOFTWARE ARCHITECT Pulse 86 11/02/2015 10:25 AM JAVA SOFTWARE ARCHITECT Temperature - - Respiratory Rate 15 11/02/2015 10:25 AM JAVA SOFTWARE ARCHITECT Oxygen Saturation - - Inhaled Oxygen Concentration - - Weight 79.9 kg (176 lb 2.4 oz) 11/02/2015 10:25 AM JAVA SOFTWARE ARCHITECT Height 170 cm (5' 6.93) 11/02/2015 10:25 AM JAVA SOFTWARE ARCHITECT Body Mass Index 27.65 11/02/2015 10:25 AM JAVA SOFTWARE ARCHITECT documented in this encounter Medications at Time [...] documented as of this encounter Progress Notes Florencio Correa M.D. - 11/02/2015 9:40 AM CST [id number] Patient was at work yesterday moving some file cabinets. There were some empty carts and he accidentally stepped on one after losing his balance and his left knee was twisted as it flew out from underneath him. He sort of did the splits. He has not had significant swelling, which surprised him, and nopopping or unusual noises. No history of any knee problems or surgery. He said it is worse going down steps than it is going up steps, but it is uncomfortable doing steps. He does take ibuprofen on occasion and he has been taking that for the pain and swelling. We reviewed his medication. We reviewed his allergies. VITAL SIGNS Per EMR. PHYSICAL EXAMINATION Today, there does appear to be some tenderness mostly of the medial component of his left knee in the medial collateral. There is some mild joint line tenderness. Drawer sign is negative. Darrell's is negative. No significant tenderness with compression of the patella. No laxity is noted of the joint.I feel no unusual masses. DIAGNOSTICS X-ray reveals some fluid but no bony defects. IMPRESSION/REPORT/PLAN Left knee pain secondary to strain. PLAN: Recommended restrictions for the time being. Follow up with his primary in the next week if this seems to worsen or not improve and would consider further evaluation if it continues to bother him. Would use a Neoprene sleeve as a knee brace and continue with the ibuprofen. Could consider physical therapy, as I have had some good success with that. Florencio Correa M.D./gama Electronically Signed By: FLORENCIO CORREA MD On: 11/03/2015 12:22 PM Source: [facility] MHSDOLBEYNONRADSYS Document Id: [id number] SOFTWARE ARCHITECT documented in this encounter Miscellaneous Notes Miscellaneous - Florencio Correa M.D. - 11/02/2015 11:32 AM CST Normal Results Letter 02 November 2015 EMANUEL MCMAHAN [id number] [facility] [id number] Dear EMANUEL MCMAHAN, Seen in clinic today for injury. No repetitive kneeling, squatting, climbing for one week. Sincerely, FLORENCIO CORREA [address] [place] [id number] Electronic Signature Electronically Signed By: FLORENCIO CORREA MD On: 02 November 2015 This document has images extracted. Source: [facility] POWERCHART Document Id: [id number] Electronically signed by Conversion, [facility] Marketing Senior Recruiter [id number] at 03/17/2017 10:59 AM CDT Miscellaneous - Za Lockett L.P.N. - 11/02/2015 10:25 AM CST Adult Early Years Teacher Intake/History Adult Early Years Teacher Intake/History Entered On: 11/02/2015 10:29 JAVA SOFTWARE ARCHITECT Performed On: 11/02/2015 10:25 JAVA SOFTWARE ARCHITECT by ZA LOCKETT INSPECTOR MATERIALS AND PROCESSES Intake Chief Complaint : fell at work yesaterday, twisted left knee, Ambulatory Intake Additional Information : Workers comp Temperature Oral : 36.9 DegC(Converted to: 98.4 DegF) Peripheral Pulse Rate : 86 /min Respiratory Rate : 15 /min Heart Rhythm : Regular Systolic Blood Pressure : 120 mmHg Diastolic Blood Pressure : 88 mmHg NIBP Mean : 99 mmHg BP Location : Right upper extremity Blood Pressure Cuff Size : Large Height : 170 cm(Converted to: 5 ft 7 inch(es), 67 inch(es)) Actual Weight : 79.9 kg(Converted to: 176 lb 2 oz) Dosing Weight Clinic : 79.9 kg Clinic BSA : 1.94 Body Mass Index : 27.65 kg/m2 ZA LOCKETT LPN - 11/02/2015 10:25 JAVA SOFTWARE ARCHITECT General Info Information Given By : Patient Preferred Communication Mode : Verbal Languages : Mohawk Is Patient Female and 13-50 no hysterectomy : No ZA LOCKETT LPN - 11/02/2015 10:25 JAVA SOFTWARE ARCHITECT Subjective Pain Symptoms : Yes ZA LOCKETT LPN - 11/02/2015 10:25 JAVA SOFTWARE ARCHITECT Pain Scale Pain Scale Verbal 0-10 : Open ZA LOCKETT LPN - 11/02/2015 10:25 JAVA SOFTWARE ARCHITECT Pain Pain Assessment Grid Pain 1 Location : Knee Laterality : Left Intensity : 3 ZA LOCKETT LPN - 11/02/2015 10:25 JAVA SOFTWARE ARCHITECT Dependent Habits Exposure to Tobacco Smoke : Other: never Smoking Status : Never smoker Tobacco 2A : No Tobacco Use/Currently Using : No Tobacco Use/Last 30 Days : No Tobacco Use/Last 12 months : No ZA LOCKETT LPN - 11/02/2015 10:25 JAVA SOFTWARE ARCHITECT Caffeine Use Grid Caffeine Use : Current Type : Soft drinks ZA LOCKETT INSPECTOR MATERIALS AND PROCESSES - 11/02/2015 10:25 JAVA SOFTWARE ARCHITECT [facility] POWER[facility] Document Id: [id number] JAVA SOFTWARE ARCHITECT!44 SOFTWARE ARCHITECT documented in this encounter Plan of Treatment Not on filedocumented as of this encounter Procedures Procedure Name Priority Date/Time Associated Diagnosis Comme nts DX KNEE LEFT 3 Routine 11/02/2015 11:09 AM Result s for this VIEWS JAVA SOFTWARE ARCHITECT procedure are i n the results section. documented in this encounter Results DX Knee Left 3 Views (11/02/2015 11:09 AM JAVA SOFTWARE ARCHITECT) Anatomical Region Laterality Modality Lower Extremity, Knee Left Radiographic Imagi ng Specimen (Source) Anatomical Collection Method Collection Time Re ceived Time Location / / Volume Laterality 11/02/2015 11:09 AM JAVA SOFTWARE ARCHITECT Addenda Addendum by Provider, Edith Parker 11/02/2015 11:09 AM JAVA SOFTWARE ARCHITECT RAD^^^OW XR Knee Left 3 views 11/02/2015 11:09:32 Impressions 11/02/2015 11:23 AM JAVA SOFTWARE ARCHITECT ??Left knee joint effusion. Narrative 11/02/2015 11:23 AM JAVA SOFTWARE ARCHITECT EXAM: ??XR Knee Left 3 views AGE: ??55 years old. GENDER: ??Male. INDICATION: ??twisted knee yesterday at work; location of pain not otherwise specified. COMPARISON: ??None. FINDINGS: ??Small left knee joint effusi on/synovitis. No appreciable acute osseous injury of t he left knee. Normal alignment. Normal mineralization. If pain persists consider follow-up imag ing. Procedure Note Vignesh Driver M.D. / Provider, Shan miller M.D. - 02/23/2017 EXAM: XR Knee Left 3 views AGE: [age] years old. GENDER: Male. INDICATION: twisted knee yesterday at wo rk; location of pain not otherwise specified. COMPARISON: None. FINDINGS: Small left knee joint effusion /synovitis. No appreciable acute osseous injury of t he left knee. Normal alignment. Normal mineralization. If pain persists consider follow-up imag ing. IMPRESSION: Left knee joint effusion. Ruthie Yin(R)(CT), R.T.(R) IMG DIAGNOSTIC IMAG ING PROCEDURES documented in this encounter Visit Diagnoses Not on filedocumented in this encounter
--- OUTSIDE RECORDS SUMMARY | 2022-09-27 14:40 | XMS_ITS | Encounter Summary ---
:1960 Author Organization [facility] Address [address] [place] [address] Care Team Providers Name Role Phone Unavailable Primary Care Provider Unavailable Encounter Details Date Type Department Care Team Description 09/04/2016 Hospital Encounter HX [facility] Luigi Cummings P.ALiaCMik [address] [place], [place] [address] (Wo rk) Social History Tobacco Use Types [...] do you attend pentecostal or Never 2021 baptist services? Do you [...] - - Height 170 cm (5' 6.93) 09/04/2016 3:35 PM MOTEL MAID Body Mass Index - - documented in [...] documented as of this encounter Progress Notes Luigi Anders - 09/04/2016 3:29 PM CST [id number] WORKER'S COMPENSATION VISIT Employer: [employer] Date of Injury: 11/01/2015 PRIMARY CARE PROVIDER Arjun Lopez MD CHIEF COMPLAINT/REASON FOR VISIT Followup after physical therapy. HISTORY OF PRESENT ILLNESS Emanuel is a 56-year-old male who presents today for continued followup of a left MCL sprain with date of injury being November 01, 2015. He is currently 10 months out from his ligament injury. Review ofhis MRI shows no other significant findings. No significant arthritis or meniscal injuries. Emanuel reports that he has completed physical therapy and states that he is not sure if it helped or not. He feels that he has more functional ability but still has an achy type pain on the medial aspect of hisknee over the medial femoral condyle. He denies any feelings of instability, any locking, catching or giving out. He states that he feels that around the house and in his garage he does well without carrying heavy loads. He does feel increased pain if he tries to carry too much. He reports that he does not feel a brace would be beneficial as this would be putting pressure on the medial aspect of his knee where is already sore. He has been working with restrictions. He states that at this point he feels that he is ready to try returning without restrictions. Patient denies any fever, chills, night sweats, nausea, or vomiting. PHYSICAL EXAMINATION GENERAL: This is a well-nourished, well-developed, male. He is alert and oriented x3, in no acute distress. He is cooperative and responds appropriately to all questions. MUSCULOSKELETAL: Examination of the left knee reveals minimal tenderness with palpation along the medial collateral ligament and just anterior to this. Reports soreness with valgus stressing. No increased laxity is felt. He demonstrates full range of motion. He is neurovascularly intact distally. Capil dago refill less than 2 seconds. IMPRESSION/REPORT/PLAN Ten months status post left medial collateral ligament sprain. PLAN: Emanuel is doing fairly well. Unfortunately, he continues to report some discomfort. I really have nothing left to offer him other than returning him to full work without restrictions to see how he performs. It is possible that some of the residual pain he has could linger for a while. Other thanthe stiffness that he gets from sitting for a while, I feel he will do well with return to work. We will plan on following up with him on an as-needed basis. All questions were answered to his satisfaction. 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 Total time of the visit 25 minutes, 20 minutes spent on counseling and coordination of care. Luigi Anders P.A.-C./gama Electronically Signed By: LUIGI ANDERS On: 09/06/2016 08:04 AM Source: [facility] MHSDOLBEYNONRADSYS Document Id: [id number] L MAID documented in this encounter Miscellaneous Notes Miscellaneous - Luigi Anders - 09/04/2016 4:45 PM CST Ambulatory Patient Summary [facility] [address] [place], [place] [address], [place] [id number] Visit Information Name: EMANUEL MCMAHAN [facility] Number: [id number] Current Date: 09/04/2016 16:45:26 Physicians Attending Provider: LUIGI ANDERS Primary Care Provider: ARJUN LOPEZ MD EMANUEL [...] the Following Medications: Medication list as of 09-04-16 16:45 Attention: If you have any medications at home that are not on this list, DO NOT take them until youcontact your provider for clarification. Give a copy of your medication list to your primary care provider. Update your medication list any time medications or doses are changed and carry your medication list at all times in case of emergency. Electronically Signed By: LUIGI ANDERS Signed On:04-SEP-2016 16:45:16 Your Allergies & Intolerances Substance Reaction Symptoms Category Comments No Known Allergies Drug Your Problem List Problem Status Onset Comments Seasonal allergic rhinitis Active 08/04/2013 GERD [Gastroesophageal reflux disease] Active 08/04/2013 Hyperlipidemia NOS Active 08/04/2013 Pain Knee NOS Active Sprain Knee Medial Collateral Ligament (MCL) Subsequent L Active Your Upcoming Appointments Date Time Location Provider 10/30/2016 08:30 [facility] Palomo LIN, Pradeep Mon Attention: Contact your local Clinic if further [...] if you dont have one. Go to [email or web address] and click on Create Your Account. Then, follow the directions to complete the online form. Youll be asked for your [facility] number which you can find at the top of this document. Your Goals/Additional instructions: Source: [facility] POWERCHART Document Id: [id number] L MAID Miscellaneous - Luigi Anders - 09/04/2016 4:45 PM CST Ambulatory Discharge Medication List [facility] [address] [place] [phone] Visit Information Name: EMANUEL MCMAHAN [facility] Number: [id number] Current Date: 09/04/2016 16:45:26 Attending Provider: LUIGI ANDERS Primary Care Provider: ARJUN LOPEZ MD EMANUEL [...] the Following Medications: Medication list as of 09-04-16 16:45 Attention: If you have any medications at home that are not on this list, DO NOT take them until youcontact your provider for clarification. Give a copy of your medication list to your primary care provider. Update your medication list any time medications or doses are changed and carry your medication list at all times in case of emergency. Electronically Signed By: LIUGI ANDERS PA Signed On:04-SEP-2016 16:45:16 Additional Information: Source: [employer] Document Id: [id number] L MAID Miscellaneous - Roula Gibson L.P.N. - 09/04/2016 3:35 PM CST Adult Nail Expert Intake/History Adult Nail Expert Intake/History Entered On: 09/04/2016 15:39 MOTEL MAID Performed On: 09/04/2016 15:35 MOTEL MAID by ROULA GIBSON LPN Intake Chief Complaint : here for f/u after PT L knee MCL sprain, W/C [employer] DOI 11-01-15.Physical therapist was suggesting a Brace, patient cant say if PT helped or not. Thinks everything has been done now, what is the next step in care. Height : 170 cm(Converted to: 5 ft 7 inch(es), 67 inch(es)) ROULA GIBSON LPN - 09/04/2016 15:35 MOTEL MAID General Info Information Given By : Patient Preferred Communication Mode : Verbal Languages : Niuean Is Patient Female and 13-50 no hysterectomy : No ROULA GIBSON LPN - 09/04/2016 15:35 MOTEL MAID Subjective Pain Symptoms : Yes ROULA GIBSON LPN - 09/04/2016 15:35 MOTEL MAID Pain Scale Pain Scale Verbal 0-10 : Open ROULA GIBSON LPN - 09/04/2016 15:35 MOTEL MAID Pain Pain Assessment Grid Pain 1 Location : Knee Laterality : Left Intensity : 4 Acceptable Intensity : 2 Time Pattern : Intermittent ROULA GIBSON LPN - 09/04/2016 15:35 MOTEL MAID Dependent Habits Exposure to Tobacco Smoke : Other: never Smoking Status : Never smoker Tobacco 2A : No Tobacco Use/Currently Using : No Tobacco Use/Last 30 Days : No Tobacco Use/Last 12 months : No ROULA GIBSON LPN - 09/04/2016 15:35 MOTEL MAID Caffeine Use Grid Caffeine Use : Current Type : Soft drinks ROULA GIBSON LPN - 09/04/2016 15:35 MOTEL MAID Source: [facility] POWERCHART Document Id: [id number] MOTEL MAID!32 L MAID documented in this encounter Plan of Treatment Not on filedocumented as of this encounter Visit Diagnoses Not on filedocumented in this encounter
--- OUTSIDE RECORDS SUMMARY | 2022-09-27 14:40 | XMS_ITS | Encounter Summary ---
:1960 Author Organization [facility] Address [address] [place] [address] Care Team Providers Name Role Phone Unavailable Primary Care Provider Unavailable Encounter Details Date Type Department Care Team Description 04/15/[address] [facility] Satinder Rizo M.D. [address] [place] [address] (Wo rk) Social History Tobacco [...] or relatives? How often do you attend baptist or Never 2021 samaritan services? Do you belong to any clubs or Yes 04/20/2022 organizations such as baptist groups, unions, fraternal or athletic groups, or [...] - - Height 170 cm (5' 6.93) 04/15/2014 4:04 PM CDT Body Mass Index - - [...] Associated Diagnosis Comme nts TESTOSTERONE, TOTAL Routine 04/15/2014 4:26 PM Re sults for this BY MASS CDT procedure are i n SPECROMETRY, S the results section. PROSTATE-SPECIFIC Routine 04/15/2014 4:26 PM Resu lts for this AG (PSA) CDT procedure are i n DIAGNOSTIC, S the results section. documented in this encounter Results Testosterone, Total (04/15/2014 4:26 PM CDT) P athologist Signature Testosterone, 371 240 - 950 POWERCHART Total NGDL Comment: Testing performed by Liquid Chromatograp hy-Tandem Mass Spectrometry (LC-MS/MS). Test Performed by: [address] [address] [employer]oe [employer] Molder: Jake martinez III, M.D. Specimen Anatomical Collection Method Collection Time Receive d Time (Source) Location / / Volume Laterality Blood 04/15/2014 4:26 PM 4 4:27 CDT PM CDT Tanner Rizo M.D. LAB BLOOD NON ADD-ON Performing Organization Address City/State/ZIP Code Phon e Number POWERCHART PSA (Prostate-Specific Antigen), Diagnostic (04/15/2014 4:26 PM CDT) P athologist Signature Prostate-Specif 1.1 <=3.5 NGML POWERCHART ic Ag Specimen Anatomical Collection Method Collection Time Receive d Time (Source) Location / / Volume Laterality Blood 04/15/2014 4:26 PM 4 4:26 CDT PM CDT Tanner Rizo M.D. LAB BLOOD ADD-ON Performing Organization Address City/State/ZIP Code Phon e Number POWERCHART documented in this encounter Visit Diagnoses Not on filedocumented in this encounter
--- OUTSIDE RECORDS SUMMARY | 2022-09-27 14:40 | XMS_ITS | Encounter Summary ---
:1960 Author Organization [facility] Address [address] [place] [address] Care Team Providers Name Role Phone Unavailable Primary Care Provider Unavailable Encounter Details Date Type Department Care Team Description 09/28/2014 Hospital Encounter HX [facility] Arjun Rice M.D. [address] [place] [address] (Wo rk) Social History Tobacco Use Types [...] or relatives? How often do you attend episcopal or Never 2021 denominational services? Do you belong to any clubs or Yes 04/20/2022 organizations such as episcopal groups, unions, fraternal or athletic groups, or [...] Reading Time Taken Comments Blood Pressure 132/84 09/28/2014 3:18 PM CLINICAL TECH Pulse 64 09/28/2014 3:18 PM CLINICAL TECH Temperature - - Respiratory Rate 20 09/28/2014 3:18 PM CLINICAL TECH Oxygen Saturation - - Inhaled Oxygen Concentration - - Weight 78.7 kg (173 lb 8 oz) 09/28/2014 3:18 PM CLINICAL TECH Height 170 cm (5' 6.93) 09/28/2014 3:18 PM CLINICAL TECH Body Mass Index 27.23 09/28/2014 3:18 PM CLINICAL TECH documented in this encounter Medications at Time [...] encounter Progress Notes Arjun Lopez M.D. - 09/28/2014 3:12 PM CST [id number] CHIEF COMPLAINT/REASON FOR VISIT This 54-year-old gentleman in for followup on his medications. HISTORY OF PRESENT ILLNESS It has been about a year since we last visited. He is doing well. Offering no specific concerns since last year. PAST MEDICAL/SURGICAL HISTORY MEDICAL: Benign prostatic hyperplasia followed by Dr. Rizo of urology. Migraine headaches followed by Dr. Cindy Kelly and Dianna Umanzor. Seasonal and environmental allergies. Reflux disease, on proton pump inhibitor. Myalgias with joint pain. Arthritis. Hyperlipidemia. MEDICATIONS Celecoxib 200 mg daily. Depakote 250 mg daily. Fexofenadine 180 mg daily. Fish oil. Sumatriptan. Atorvastatin 10 mg daily. Multivitamins. Pantoprazole 40 mg daily. Montelukast 10 mg daily. Vitamin E. ALLERGIES No known drug allergies. SOCIAL HISTORY He is staying active working at [employer] in [place]. Enjoys motorcycling. He wishes to feel less stiff. This is his only major issue. SYSTEMS REVIEW No chest pain, shortness of breath. Does have occasional heartburn when he does some foods. No trouble with bowel or bladder function other than occasional constipation. He sleeps well. He does hate murillo, but mood is doing well. Does have a color change in his left leg he wants looked at. VITAL SIGNS Blood pressure 132/84, pulse 84, respirations 20, temperature 36.1, weight 78.7 kg, height 170 cm, BMI of 27.2 kg/m2. PHYSICAL EXAMINATION GENERAL: He is in no acute distress. CHEST: Clear to auscultation. CARDIOVASCULAR: Regular rate and rhythm. EXTREMITIES: Without edema. Radial pulse and dorsalis pedis pulse present and strong bilaterally. There is a hemosiderin patch on the left leg with no obvious skin change around it. IMPRESSION/REPORT/PLAN 1. Hyperlipidemia. His cholesterol looked good last year. He is hoping to postpone until next year to have this test done, which I felt was fine. Will continue with the atorvastatin for the next year. 2. Hypertension. Blood pressure looks good. Will continue with current medications. He hopes to avoid any blood testing. I think we can avoid it until next year, order is in the queue, and will look atthe creatinine, blood sugar, sodium, and potassium at that point. 3. Benign prostatic hypertrophy (BPH). Appreciate Dr. Rizo' involvement. Will continue with his cares. 4. Reflux disease. Will continue with the PPI. 5. Blood pressure. Has been a little elevated in the past. It is actually doing well right now. He will continue to follow this at home. He was also encouraged to cut back on his sodium to see if it will help with his blood pressure. If numbers are rising, will talk further and consider medication change for him. 6. Osteoarthritis. He has a lot of pain at times. We talked about the risks and benefits of the Celebrex, that this has worked better than his other anti- inflammatories. Will continue for the time being. Arjun Lopez M.D., M.P.H./pos Electronically Signed By: ARJUN LOPEZ MD On: 10/03/2014 08:56 AM Source: [facility] MHSDOLBEYNONRADSYS Document Id: [id number] ICAL TECH documented in this encounter Miscellaneous Notes Miscellaneous - Arjun Lopez M.D. - 09/28/2014 3:51 PM CST Ambulatory Patient Summary [address] [id number] Visit Information Name: EMANUEL MCMAHAN [facility] Number: [id number] Current Date: 09/28/2014 15:51:33 Physicians Attending Provider: ARJUN LOPEZ MD Primary [...] 0.5 Tablet(s), Oral, once a day Hyper[facility]. [facility] [address] celecoxib (Celebrex 200 mg oral capsule) 1 cap, Oral, once a day Osteoarthritis This is a CHANGE Routed to [facility] [address] divalproex sodium (Depakote 250 mg oral delayed release tablet) 1 Tablet(s), Oral, once a day taken at bedtime fexofenadine (fexofenadine 180 mg oral tablet) 1 Tablet(s), Oral, once a day hcl montelukast (Singulair 10 mg oral tablet) 1 Tablet(s), Oral, every evening Asthma, seasonal allergies Routed to [address] [address] multivitamin (multivitamin) 1 cap, Oral, once a day omega-3 polyunsaturated fatty acids (Fish Oil oral capsule) 1 cap, Oral, once a day pantoprazole (Protonix 40 mg oral enteric coated tablet) 1 Tablet(s), Oral, once a day GERD This is a CHANGE Routed to [address] [address] sumatriptan (Imitrex 100 mg oral tablet) 1 Tablet(s), Oral, once as needed for Migraine headache repeat after one hour if needed vitamin E (vitamin E 400 intl units oral capsule) 1 cap, Oral, once a day Stop Taking the Following Medications: Medication list as of 09-28-14 15:51 Attention: If you have any medications at [...] Electronically Signed By: ARJUN LOPEZ MD Signed On:28-SEP-2014 15:42:45 Your Allergies & Intolerances Substance Reaction Symptoms Category Comments No Known Allergies Drug Your Problem List Problem Status Onset Comments Seasonal allergic rhinitis Active 08/04/2013 GERD [Gastroesophageal reflux disease] Active 08/04/2013 Hyperlipidemia NOS Active 08/04/2013 Your Upcoming Appointments Date Time Location Provider No Appointments found Attention: Contact your local Clinic if further appointment detail needed. Your Goals/Additional instructions: -Continue to watch your salt intake (goal is less than 2000 mg daily) to help your blood pressure. If you note numbers climbing above 140/90 on a consistent basis, let me know. Have a blood pressure check in 6 months and follow up yearly for the blood work then visit. Source: [facility] POWERCHART Document Id: [id number] ICAL TECH Miscellaneous - Arjun Lopez M.D. - 09/28/2014 3:51 PM CST Ambulatory Discharge Medication List [place] - [address] [id number] Visit Information Name: MUNA EMANUEL NOLVIA [facility] Number: [id number] Visit Date: 09/28/2014 15:51:32 Attending Provider: ARJUN LOPEZ MD Primary Care [...] 0.5 Tablet(s), Oral, once a day Hyperlipidemia. Routed to [address] [address] celecoxib (Celebrex 200 mg oral capsule) 1 cap, Oral, once a day Osteoarthritis This is a CHANGE Routed to [address] [address] divalproex sodium (Depakote 250 mg oral delayed release tablet) 1 Tablet(s), Oral, once a day taken at bedtime fexofenadine (fexofenadine 180 mg oral tablet) 1 Tablet(s), Oral, once a day hcl montelukast (Singulair 10 mg oral tablet) 1 Tablet(s), Oral, every evening Asthma, seasonal allergies Routed to [address] [address] multivitamin (multivitamin) 1 cap, Oral, once a day omega-3 polyunsaturated fatty acids (Fish Oil oral capsule) 1 cap, Oral, once a day pantoprazole (Protonix 40 mg oral enteric coated tablet) 1 Tablet(s), Oral, once a day GERD This is a CHANGE Routed to [address] [id number] sumatriptan (Imitrex 100 mg oral tablet) 1 Tablet(s), Oral, once as needed for Migraine headache repeat after one hour if needed vitamin E (vitamin E 400 intl units oral capsule) 1 cap, Oral, once a day Stop Taking the Following Medications: Medication list as of 09-28-14 15:51 Attention: If you have any medications at [...] Electronically Signed By: ARJUN LOPEZ MD Signed On:28-SEP-2014 15:42:45 Additional Information: Source: [facility] POWERCHART Document Id: [id number] ICAL TECH Miscellaneous - Desiree Calderon, JasonPMikN. - 09/28/2014 3:21 PM CST Health Assessment Health Assessment Entered On: 09/28/2014 15:22 CLINICAL TECH Performed On: 09/28/2014 15:21 CLINICAL TECH by DESIREE CALDERON LPN Health Assessment Complete Health Assessment Complete or Modified : Annual Health Assessment Annual Health Assessment Completed : Yes DESIREE CALDERON LPN - 09/28/2014 15:21 CLINICAL TECH Nutrition Nutrition Risk Factors by History Adult : None DESIREE CALDERON LPN - 09/28/2014 15:21 CLINICAL TECH Functional Current Daily Living Assistance : None DESIREE CALDERON LPN - 09/28/2014 15:21 CLINICAL TECH Dependent Habits Tobacco Use/Currently Using : No Exposure to Tobacco Smoke : Other: never Smoking Status : Never smoker DESIREE CALDERON LPN - 09/28/2014 15:21 CLINICAL TECH Tobacco Use Grid Last Use : never DESIREE CALDERON LPN - 09/28/2014 15:21 CLINICAL TECH Caffeine Use Grid Caffeine Use : Current Type : Soft drinks DESIREE CALDERON SCIENCE EDUCATION PROFESSOR - 09/28/2014 15:21 CLINICAL TECH Psychosocial Domestic Abuse Concerns : None Confucianism Preference : Unknown DESIREE CALDERON LPN - 09/28/2014 15:21 CLINICAL TECH Advance Directive Advanced Directives : Yes Advance Directive Type : Living will Advance Directive Location : Copy placed on paper chart DESIREE CALDERON LPN - 09/28/2014 15:21 CLINICAL TECH Educ Needs Learning Style Preference Adult Grid Patient : None Family : None DESIREE CALDERON LPN - 09/28/2014 15:21 CLINICAL TECH Source: [facility] RecogniaCHART Document Id: [id number] CLINICAL TECH!30 ICAL TECH Miscellaneous - Desiree Calderon L.P.N. - 09/28/2014 3:18 PM CST Adult Decorating Equipment Setter Intake/History Adult Decorating Equipment Setter Intake/History Entered On: 09/28/2014 15:21 CLINICAL TECH Performed On: 09/28/2014 15:18 CLINICAL TECH by DESIREE CALDERON SCIENCE EDUCATION PROFESSOR Intake Chief Complaint : patient is here because he needs refills on medications Temperature Core : 36.1 DegC(Converted to: 97.0 DegF) (LOW) Peripheral Pulse Rate : 64 /min Respiratory Rate : 20 /min Systolic Blood Pressure : 132 mmHg Diastolic Blood Pressure : 84 mmHg NIBP Mean : 100 mmHg BP Location : Left upper extremity Blood Pressure Cuff Size : Regular Oxygen Therapy : Room air Height : 170 cm(Converted to: 5 ft 7 inch(es), 67 inch(es)) Actual Weight : 78.7 kg(Converted to: 173 lb 8 oz) Weight Source : Standing scale Dosing Weight Clinic : 78.7 kg Clinic BSA : 1.93 Body Mass Index : 27.23 kg/m2 DESIREE CALDERON SCIENCE EDUCATION PROFESSOR - 09/28/2014 15:18 CLINICAL TECH General Info Information Given By : Patient Languages : Wolof Is Patient Female and 13-50 no hysterectomy : No DESIREE CALDERON LPN - 09/28/2014 15:18 CLINICAL TECH Subjective Pain Symptoms : Yes DESIREE CALDERON LPN - 09/28/2014 15:18 CLINICAL TECH Pain Pain Assessment Grid Pain 1 Location : Hip Laterality : Right Intensity : 3 DESIREE CALDERON [facility] - 09/28/2014 15:18 CLINICAL TECH Dependent Habits Tobacco Use/Currently Using : No Exposure to Tobacco Smoke : Other: never Smoking Status : Never smoker DESIREE CALDERON [facility] - 09/28/2014 15:18 CLINICAL TECH Tobacco Use Grid Last Use : never DESIREE CALDERON [facility] - 09/28/2014 15:18 CLINICAL TECH Caffeine Use Grid Caffeine Use : Current Type : Soft drinks DESIREE CALDERON [facility] - 09/28/2014 15:18 CLINICAL TECH ID Screen Drug Resistant Organism : No Travel Within Last 21 Days : No DESIREE CALDERON [facility] - 09/28/2014 15:18 CLINICAL TECH [facility] Document Id: [id number] CLINICAL TECH!44 ICAL TECH documented in this encounter Plan of Treatment Not on filedocumented as of this encounter Visit Diagnoses Not on filedocumented in this encounter
--- OUTSIDE RECORDS SUMMARY | 2022-09-27 14:40 | XMS_ITS | Encounter Summary ---
:1960 Author Organization [facility] Address [address] [place] [address] Care Team Providers Name Role Phone Unavailable Primary Care Provider Unavailable Encounter Details Date Type Department Care Team Description 12/07/2015 Hospital Encounter HX [facility] Anabel Loredo P.AMik-C. [address] [place], [place] [phone] (Wo rk) Social History [...] do you attend worship or Never 2021 jehovah's witness services? Do you belong to any clubs [...] place to sleep or slept in a fci (including now)? Sex Assigned at Date Recorded Male 06/24/2018 5:24 PM CDT documented as of this encounter Last Filed Vital Signs Vital Sign Reading Time Taken Comments Blood Pressure - - Pulse - - Temperature - - Respiratory Rate 13 12/07/2015 2:41 PM DIRECT SALES REPRESENTATIVE Oxygen Saturation - - Inhaled Oxygen Concentration - - Weight 79.4 kg (175 lb 0.7 oz) 12/07/2015 2:41 PM DIRECT SALES REPRESENTATIVE Height 170 cm (5' 6.93) 12/07/2015 2:41 PM DIRECT SALES REPRESENTATIVE Body Mass Index 27.47 12/07/2015 2:41 PM DIRECT SALES REPRESENTATIVE documented in this encounter Medications at Time [...] this encounter Miscellaneous Notes Telephone Encounter - Yonny Calderon, CMikMMikA. - 12/08/2015 1:24 PM DIRECT SALES REPRESENTATIVE Work Comp Approval - Ortho Consult Document Contains Addenda Addendum by YONNY CALDERON CMA on 09 December 2015 11:08:49 DIRECT SALES REPRESENTATIVE Patient has scheduled an appointment with Ortho Addendum by YONNY CALDERON CMA on 09 December 2015 10:40:16 DIRECT SALES REPRESENTATIVE Left message for patient to call back From: YONNY CALDERON CMA ( Orthopedic Nurse) To: OW Orthopedic Nurse; ERMIAS ALARCON; Sent: 12/08/2015 13:24:14 DIRECT SALES REPRESENTATIVE Subject: Work Comp Approval - Ortho Consult Work comp approval received via fax today from Jayshree Bey at [facility] for an orthopedics consult forthe knee. A message has been left for the patient to call back. Source: [facility] POWERCHART Document Id: [id number] Electronically signed by Janell [facility] Anatomic Pathology Assistant [id number] at 03/17/2017 8:40 AM CDT Miscellaneous - Yonny Calderon, C.M.A. - 12/07/2015 2:41 PM CST Adult Information Systems Consultant Intake/History Adult Information Systems Consultant Intake/History Entered On: 12/07/2015 14:45 DIRECT SALES REPRESENTATIVE Performed On: 12/07/2015 14:41 DIRECT SALES REPRESENTATIVE by YONNY CALDERON CMA Intake Chief Complaint : WC - Yasmin, DOI - 11/01/[address] Gaytan Referral, MRI done 11/29/15 pain is on the inside of the knee. Stairs, twisting motion causes pain Respiratory Rate : 13 /min (LOW) Height : 170 cm(Converted to: 5 ft 7 inch(es), 67 inch(es)) Actual Weight : 79.4 kg(Converted to: 175 lb 1 oz) Dosing Weight Clinic : 79.4 kg Clinic BSA : 1.94 Body Mass Index : 27.47 kg/m2 YONNY CALDERON CMA - 12/07/2015 14:41 DIRECT SALES REPRESENTATIVE General Info Information Given By : Patient Preferred Communication Mode : Verbal Languages : Estonian Is Patient Female and 13-50 no hysterectomy : No YONNY CALDERON CMA - 12/07/2015 14:41 DIRECT SALES REPRESENTATIVE Subjective Pain Symptoms : Yes YONNY CALDERON CMA - 12/07/2015 14:41 DIRECT SALES REPRESENTATIVE Pain Scale Pain Scale Verbal 0-10 : Open YONNY CALDERON CMA - 12/07/2015 14:41 DIRECT SALES REPRESENTATIVE Pain Pain Assessment Grid Pain 1 Location : Knee Laterality : Left Intensity : 2 YONNY CALDERON CMA - 12/07/2015 14:41 DIRECT SALES REPRESENTATIVE Dependent Habits Exposure to Tobacco Smoke : Other: never Smoking Status : Never smoker Tobacco 2A : No Tobacco Use/Currently Using : No Tobacco Use/Last 30 Days : No Tobacco Use/Last 12 months : No YONNY CALDERON [facility] - 12/07/2015 14:41 DIRECT SALES REPRESENTATIVE Caffeine Use Grid Caffeine Use : Current Type : Soft drinks YONNY CALDERON [facility] - 12/07/2015 14:41 DIRECT SALES REPRESENTATIVE Source: [facility] [employer] Document Id: [id number] DIRECT SALES REPRESENTATIVE!35 CT SALES REPRESENTATIVE documented in this encounter Plan of Treatment Not on filedocumented as of this encounter Visit Diagnoses Not on filedocumented in this encounter
--- OUTSIDE RECORDS SUMMARY | 2022-09-27 14:40 | XMS_ITS | Encounter Summary ---
:1960 Author Organization [facility] Address [address] [place] [address] Care Team Providers Name Role Phone Unavailable Primary Care Provider Unavailable Encounter Details Date Type Department Care Team Description 04/19/2016 Hospital Encounter HX [facility] Luigi Cummings P.ALiaCMik [address] [place], [place] [phone] (Wo rk) Social History [...] or relatives? How often do you attend restoration or Never 2021 sabianist services? Do you belong to any clubs or Yes 04/20/2022 organizations such as restoration groups, unions, fraternal or athletic groups, or [...] Sign Reading Time Taken Comments Blood Pressure 138/82 04/19/2016 1:36 PM CDT Pulse - - Temperature - - Respiratory Rate - - Oxygen Saturation - - Inhaled Oxygen Concentration - - Weight - - Height 170 cm (5' 6.93) 04/19/2016 1:36 PM CDT Body Mass Index - - [...] this encounter Progress Notes Luigi Anders - 04/19/2016 1:30 PM CDT [id number] WORKER'S COMPENSATION VISIT Employer: [employer] Date of Injury: 11/01/2015 PRIMARY CARE PROVIDER Arjun Lopez MD, MPH CHIEF COMPLAINT/REASON FOR VISIT Recheck of a left knee MCL sprain. HISTORY OF PRESENT ILLNESS Emanuel is a 55-year-old male who presents today for continued followup of a left knee sprain. This is a work comp injury. He has been slow to heal and get back to full return to work. We did try a cortisone injection. He states that this felt great for a couple weeks but feels that he is seeing some increased achiness now. He has noticed an increased ability to perform his activities of daily living and denies any significant problems with returning to work. He states that he has been in several different job positions at work without an increase in his knee pain. PHYSICAL EXAMINATION GENERAL: This is a well-nourished, well-developed, male. He is alert and oriented x3. In no acute distress. He is cooperative and responds appropriately to all questions. MUSCULOSKELETAL: Emanuel demonstrates full range of motion of his knee. No pain with valgus stress ofthe knee. He is neurovascularly intact distally. Capillary refill less than 2 seconds. IMPRESSION/REPORT/PLAN Fourteen weeks status post left medial collateral ligament sprain. PLAN: Emanuel has seen improvement in his knee pain. At this point, we will progress his work restrictions. Really the only restrictions at this point are related to kneeling, squatting, and carrying. The patient is in agreement with this. We will plan on seeing him back in approximately 1 month. All questions were answered to his satisfaction. Total time of visit 15 minutes, 10 minutes spent on counseling and coordination of care. Luigi Anders P.A.-C./gama cc: Arjun Lopez M.D., M.P.H. [facility] [place] [place] [address] Electronically Signed By: LUIGI ANDERS PA On: 05/03/2016 01:42 PM Source: [facility] MHSDOLBEYNONRADSYS Document Id: [id number] documented in this encounter Miscellaneous Notes Telephone Encounter - Conversion, Historical Provider Ser - 07/02/2017 1:45 PM CDT *Phone Message- Dr. Culver Document Contains Addenda Addendum by DARON BAKER LPN on July 02, 2017 16:14:25 CDT Called in to [facility] Addendum by DARON BAKER LPN on July 02, 2017 14:15:22 CDT Med called in to [facility] From: ROBIN CALDERON To: Physical Medicine and Rehabilitation Staff; Sent: 07/02/2017 13:45:42 CDT Subject: *Phone Message- Dr. Culver Caller is: (x ) Patient ( ) Mother ( ) Father ( ) Spouse ( ) Daughter ( ) Son ( ) Pharmacy ( ) Other: Physician: Dr. Culver Patient MRN #: Reason for Call: Message: S: Pt called clinic to talk to nurse B: was seen 06/12 was given Duloxetine 30 mg, pharmacy never received rx. Theresa Brown A: R: Please call pt at [phone] Advice/Action: Source used: ( ) Verbalizes understanding of instructions ( ) Instructed to call back if symptoms worsen or do not resolve ( ) Refused to see provider ( ) Appointment Scheduled ( ) OK to leave message on voice mail ( ) Patient told to expect return call: ( ) today ( ) tomorrow ( ) next work day ( ) Patient's email ( ) Patient told physician out of office, will call upon return call on ( ) ( ) Patient told physician out of office, routed to other physician ( ) Other ( ) Call back telephone number ( ) Call back cell phone number ( ) Source: [facility] POWERCHART Document Id: [id number] Telephone Encounter - Conversion, Historical Provider Ser - 05/25/2016 11:10 AM CDT *Phone Message/ Martita Document Contains Addenda Addendum by RAY ROSAS LPN on May 25, 2016 16:38:10 CDT Patient called and paperwork faxed to below number. Addendum by LUIGI ANDERS on May 25, 2016 15:29:38 CDT From: LUIGI ANDERS To: OW Orthopedic Nurse; Sent: 05/25/2016 15:29:38 CDT Subject: RE: *Phone Message/ Martita Completed. Luigi Addendum by RAY ROSAS LPN on May 25, 2016 11:31:22 CDT From: RAY ROSAS LPN ( Orthopedic Nurse) To: LUIGI ANDERS; Sent: 05/25/2016 11:31:22 CDT Subject: FW: *Phone Message/ Martita Return to work slip needs to be corrected in the dispostion area on form. See form. When completed please fax to [phone] attn Shameka Miller at [facility]. Addendum by BETTE GREGORY on May 25, 2016 11:20:36 CDT Patient called back, please call Addendum by RAY ROSAS LPN on May 25, 2016 11:17:36 CDT Left message to call back. From: BETTE GREGORY ([address] Structures Engineer) To: Orthopedic Nurse; Sent: 05/25/2016 11:10:55 CDT Subject: *Phone Message/ Martita Caller is: ( ) Patient ( ) Mother ( ) Father ( ) Spouse ( ) Daughter ( ) Son ( ) Pharmacy ( ) Other: Physician: Patient MRN #: Reason for Call: Message: Work restrictions form is not complete and needs more information. Please call back at [phone] or [phone] Advice/Action: Source used: ( ) Verbalizes understanding of instructions ( ) Instructed to call back if symptoms worsen or do not resolve ( ) Refused to see provider ( ) Appointment Scheduled ( ) OK to leave message on voice mail ( ) Patient told to expect return call: ( ) today ( ) tomorrow ( ) next work day ( ) Patient's email ( ) Patient told physician out of office, will call upon return call on ( ) ( ) Patient told physician out of office, routed to other physician ( ) Other ( ) Call back telephone number ( ) Call back cell phone number ( ) Source: [facility] POWERCHART Document Id: [id number] Miscellaneous - Luigi Anders - 04/19/2016 2:12 PM CDT Ambulatory Discharge Medication List [facility] [address] [place], [place] [address], [place] [id number] Visit Information Name: EMANUEL MCMAHAN [facility] Number: [id number] Visit Date: 04/19/2016 14:12:33 Attending Provider: LUIGI ANDERS Primary Care Provider: [...] the Following Medications: Medication list as of 06-29-16 14:12 Attention: If you have any medications at [...] emergency. Electronically Signed By: LUIGI ANDERS Signed On:19-APR-2016 14:12:31 Additional Information: Source: [facility] POWERCHART Document Id: [id number] Miscellaneous - Luigi Anders - 04/19/2016 2:12 PM CDT Ambulatory Patient Summary [facility] [address] [place] [id number] Visit Information Name: EMANUEL MCMAHAN [facility] Number: [id number] Current Date: 04/19/2016 14:12:34 Physicians Attending Provider: LUIGI ANDERS Primary Care [...] the Following Medications: Medication list as of 04-19-16 14:12 Attention: If you have any medications at [...] emergency. Electronically Signed By: LUIGI ANDERS Signed On:19-APR-2016 14:12:31 Your Allergies & Intolerances Substance Reaction Symptoms [...] if you dont have one. Go to [email or web address] and click on Create Your Account. Then, follow the directions to complete the online form. Youll be asked for your [facility] number which you can find at the top of this document. Your Goals/Additional instructions: Source: [facility] POWERCHART Document Id: [id number] Miscellaneous - Danielle Rojas LMikP.NMik - 04/19/2016 1:36 PM CDT Adult Digital Solution Architect Intake/History Adult Digital Solution Architect Intake/History Entered On: 04/19/2016 13:38 CDT Performed On: 04/19/2016 13:36 CDT by DANIELLE ROJAS CONVERTIBLE SOFA BEDSPRING TESTER Intake Systolic Blood Pressure : 138 mmHg Diastolic Blood Pressure : 82 mmHg NIBP Mean : 101 mmHg BP Location : Right upper extremity Blood Pressure Cuff Size : Regular DANIELLE ROJAS [facility] - 04/19/2016 13:40 CDT Chief Complaint : WC: sprained MCL DOI:11/01/15, 14 weeks post injury, injection on 03/15/2016, helpedfor a little bit but is it achy now Height : 170 cm(Converted to: 5 ft 7 inch(es), 67 inch(es)) DANIELLE ROJAS [facility] - 04/19/2016 13:36 CDT General Info Information Given By : Patient Languages : Bahraini Is Patient Female and 13-50 no hysterectomy : No DANIELLE ROJAS [facility] - 04/19/2016 13:36 CDT Subjective Pain Symptoms : Yes DANIELLE ROJAS [facility] - 04/19/2016 13:36 CDT Pain Scale Pain Scale Verbal 0-10 : Open DANIELLE ROJAS [facility] - 04/19/2016 13:36 CDT Pain Pain Assessment Grid Pain 1 Location : Knee Laterality : Left Intensity : 2 DANIELLE ROJAS [facility] - 04/19/2016 13:36 CDT Dependent Habits Exposure to Tobacco Smoke : Other: never Smoking Status : Never smoker Tobacco 2A : No Tobacco Use/Currently Using : No Tobacco Use/Last 30 Days : No Tobacco Use/Last 12 months : No DANIELLE ROJAS [facility] - 04/19/2016 13:36 CDT Caffeine Use Grid Caffeine Use : Current Type : Soft drinks DANIELLE ROJAS [facility] - 04/19/2016 13:36 CDT Source: [employer] Document Id: [id number] CDT!7 documented in this encounter Plan of Treatment Not on filedocumented as of this encounter Visit Diagnoses Not on filedocumented in this encounter
--- OUTSIDE RECORDS SUMMARY | 2022-09-27 14:40 | XMS_ITS | Encounter Summary ---
:1960 Author Organization [facility] Address [address] [place] [address] Care Team Providers Name Role Phone Unavailable Primary Care Provider Unavailable Encounter Details Date Type Department Care Team Description 03/15/2016 Hospital Encounter HX [facility] Luigi Cummings P.ALiaCMik [address] [place], [place] [phone] (Wo rk) Social History [...] or relatives? How often do you attend buddhism or Never 2021 samaritan services? Do you belong to any clubs or Yes 04/20/2022 organizations such as buddhism groups, unions, fraternal or athletic groups, or [...] place to sleep or slept in a long term (including now)? Sex Assigned at Date Recorded Male 06/24/2018 5:24 PM CDT documented as of this encounter Last Filed Vital Signs Vital Sign Reading Time Taken Comments Blood Pressure 138/84 03/15/2016 2:13 PM CDT Pulse - - Temperature - - Respiratory Rate - - Oxygen Saturation - - Inhaled Oxygen Concentration - - Weight 81.1 kg (178 lb 12.7 oz) 03/15/2016 2:13 PM CDT Height 170 cm (5' 6.93) 03/15/2016 2:13 PM CDT Body Mass Index 28.06 03/15/2016 2:13 PM CDT documented in this encounter Medications [...] this encounter Progress Notes Luigi Anders - 03/15/2016 1:29 PM CDT [id number] WORKER'S COMPENSATION VISIT Employer: [employer] Date of Injury: 11/01/2015 PRIMARY CARE PROVIDER Arjun Lopez MD, MPH CHIEF COMPLAINT/REASON FOR VISIT MCL sprain and medial plica. HISTORY OF PRESENT ILLNESS Mr. Mcmahan is a pleasant 55-year-old male who is continuing to be followed for an MCL sprain which he sustained at work. He was last seen on 03/08/2016 at which time we agreed on a cortisone injection; however, the patient was traveling that weekend by motorcycle and did not want to risk having increased knee pain. Therefore, we deferred the injection until a later date. He is here today for that injection. He states there has been no significant change in his knee pain. He denies any fever, chills, night sweats, nausea, vomiting, lightheadedness, dizziness, chest pain, pressure, diabetes, glaucoma or recent infections. PROCEDURE Safe site universal protocol was used. No less than 2 patient identifiers were used to identify the patient. Patient was able to correctly identify the procedure. The left knee was marked, cleansed with ChloraPrep and a final time- out was taken prior to injection of 8 mL of 1% lidocaine and 9 mg of Celestone using a 21-gauge needle. Patient tolerated the procedure well without any complications. We will plan on following up with him in 1 month for re- evaluation of his knee and hopefully return to work. All questions were answered to the patient's satisfaction. Total time of the visit 15 minutes, 10 minutes spent on counseling and coordination of care. Luigi Anders P.A.-C./gama cc: Arjun Lopez M.D., M.P.H. [facility] [place] [address] Electronically Signed By: LUIGI ANDERS PA On: 03/27/2016 08:13 AM Source: [facility] MHSDOLBEYNONRADSYS Document Id: [id number] documented in this encounter Miscellaneous Notes Miscellaneous - Cindy Rosas L.P.N. - 03/22/2016 3:26 PM CDT *General Message From: CINDY ROSAS LPN ( Orthopedic Nurse) To: Orthopedic Nurse; Sent: 03/22/2016 15:26:11 CDT Subject: *General Message s Courtsey call Left knee cortisone injection B Left knee cortison injection 03/15/2016 A Courtsey call R Left message to call back. Source: [facility] POWERCHART Document Id: [id number] Electronically signed by Janell [facility] Furnace Loader [id number] at 03/17/2017 2:34 PM CDT Miscellaneous - Luigi Anders - 03/15/2016 4:19 PM CDT Ambulatory Patient Summary [facility] [address] [place], [place] [id number] Visit Information Name: EMANUEL MCMAHAN [facility] Number: [id number] Current Date: 03/15/2016 16:19:36 Physicians Attending Provider: LUIGI ANDERS Primary Care [...] the Following Medications: Medication list as of 03-15-16 16:19 Attention: If you have any medications at [...] emergency. Electronically Signed By: LUIGI ANDERS Signed On:15-MAR-2016 16:19:32 Your Allergies & Intolerances Substance Reaction Symptoms Category Comments No Known Allergies Drug Your Problem List Problem Status Onset Comments Seasonal allergic rhinitis Active 08/04/2013 GERD [Gastroesophageal reflux disease] Active 08/04/2013 Hyperlipidemia NOS Active 08/04/2013 Pain Knee NOS Active Sprain Knee Medial Collateral Ligament (MCL) Subsequent L Active Your Upcoming Appointments Date Time Location Provider 04/17/2016 15:30 [facility] Ortho Luigi Finn Attention: Contact your local Clinic if further [...] you dont have one. Go to [email or web address] and click on Create Your Account. Then, follow the directions to complete the online form. Youll be asked for your [facility] number which you can find at the top of this document. Your Goals/Additional instructions: Source: [facility] POWERCHART Document Id: [id number] Miscellaneous - Luigi Anders - 03/15/2016 4:19 PM CDT Ambulatory Discharge Medication List [facility] [address] [place], [place] [address] [place] [id number] Visit Information Name: EMANUEL MCMAHAN [facility] Number: [id number] Visit Date: 03/15/2016 16:19:35 Attending Provider: LUIGI ANDERS Primary Care Provider: [...] the Following Medications: Medication list as of 03-15-16 16:19 Attention: If you have any medications at [...] of emergency. Electronically Signed By: LUIGI ANDERS PA Signed On:15-MAR-2016 16:19:32 Additional Information: Source: [facility] POWERCHART Document Id: [id number] Miscellaneous - Gissel Bello L.PMikNMik - 03/15/2016 2:13 PM CDT Adult Luster Repairer Intake/History Adult Luster Repairer Intake/History Entered On: 03/15/2016 14:17 CDT Performed On: 03/15/2016 14:13 CDT by GISSEL BELLO Intake Chief Complaint : MCL sprain, medial plica, pt want cortisone injection, worker's comp--[employer], DOI 09/01/16, pt reports a pain level of 3/10 Systolic Blood Pressure : 138 mmHg Diastolic Blood Pressure : 84 mmHg NIBP Mean : 102 mmHg BP Location : Left upper extremity Blood Pressure Cuff Size : Large Height : 170 cm(Converted to: 5 ft 7 inch(es), 67 inch(es)) Actual Weight : 81.1 kg(Converted to: 178 lb 13 oz) Weight Source : Standing scale Dosing Weight Clinic : 81.1 kg Clinic BSA : 1.96 Body Mass Index : 28.06 kg/m2 GISSEL BELLO - 03/15/2016 14:13 CDT General Info Information Given By : Patient Languages : Czech Is Patient Female and 13-50 no hysterectomy : No GISSEL BELLO - 03/15/2016 14:13 CDT Subjective Pain Symptoms : Yes GISSEL BELLO - 03/15/2016 14:13 CDT Pain Scale Pain Scale Verbal 0-10 : Open GISSEL BELLO - 03/15/2016 14:13 CDT Pain Pain Assessment Grid Pain 1 Location : Knee Laterality : Left Intensity : 3 GISSEL BELLO - 03/15/2016 14:13 CDT Dependent Habits Exposure to Tobacco Smoke : Other: never Smoking Status : Never smoker Tobacco 2A : No Tobacco Use/Currently Using : No Tobacco Use/Last 30 Days : No Tobacco Use/Last 12 months : No GISSEL BELLO - 03/15/2016 14:13 CDT Caffeine Use Grid Caffeine Use : Current Type : Soft drinks GISSEL BELLO - 03/15/2016 14:13 CDT Source: [employer] Document Id: [id number] CDT!39 documented in this encounter Plan of Treatment Not on filedocumented as of this encounter Visit Diagnoses Not on filedocumented in this encounter
--- OUTSIDE RECORDS SUMMARY | 2022-09-27 14:40 | XMS_ITS | Encounter Summary ---
:1960 Author Organization [facility] Address [address] [place] [address] Care Team Providers Name Role Phone Unavailable Primary Care Provider Unavailable Encounter Details Date Type Department Care Team Description 09/30/2015 Hospital Encounter HX [facility] Brett Gaytan M.D. [address] [place] [address] (Wo rk) Social History Tobacco Use Types [...] or relatives? How often do you attend oriental orthodox or Never 2021 adventism services? Do you belong to any clubs or Yes 04/20/2022 organizations such as oriental orthodox groups, unions, fraternal or athletic groups, or [...] - - Height 170 cm (5' 6.93) 09/30/2015 4:00 PM HEALTH COUNSELOR Body Mass Index - - documented in [...] Miscellaneous - Conversion, Historical Provider Ser - 10/01/2015 6:04 AM HEALTH COUNSELOR Coding Summary-Paper Based CODING DATE: 10/01/2015 FINAL MA [place] [facility] STATUS: * Discharged to Home or Self Care PAYOR: [employer] ADMIT DX: REASON FOR VISIT DX: FINAL DX: PRINCIPAL: E78.5 Hyperlipidemia, unspecified SECONDARY: J30.2 Other seasonal allergic rhinitis M15.9 Polyosteoarthritis, unspecified PROCEDURES DOCTOR NAME DATE NOTE: The code number assigned matches the documented diagnosis and / or procedure in the patient's chart. However, the narrative phrase printed from the coding software may appear abbreviated, or result in slightly different terminology. Coded By: JAQUELINE HULL Date Saved: 10/01/2015 06:04 am Source: [facility] POWERCHART Document Id: [id number] documented in this encounter Plan of Treatment Not on filedocumented as of this encounter Procedures Procedure Name Priority Date/Time Associated Comments Diagnosis LIPID PANEL, S Routine 09/30/2015 4:05 Results fo r this PM HEALTH COUNSELOR procedure are i n the results section. ALANINE AMINOTRANSFERASE Routine 09/30/2015 4:05 Results for this (ALT), S/P PM HEALTH COUNSELOR procedure are i n the results section. BASIC METABOLIC PANEL, Routine 09/30/2015 4:05 Re sults for this S/P PM HEALTH COUNSELOR procedure are i n the results section. documented in this encounter Results ALT (Alanine Aminotransferase) (09/30/2015 4:05 PM HEALTH COUNSELOR) athologist Signature Alanine 46 7 - 55 UL POWERCHART Amniotransferas e, LD Specimen (Source) Anatomical Collection Method Collection Time Re ceived Time Location / / Volume Laterality Blood 09/30/2015 4:05 PM HEALTH COUNSELOR Arjun Gaytan M.D. LAB BLOOD ADD-ON Performing Organization Address City/State/ZIP Code Phon e Number POWERCHART (ABNORMAL) Lipid Panel (09/30/2015 4:05 PM HEALTH COUNSELOR) athologist Signature Cholesterol, 174 <=199 MGDL POWERCHART Total Comment: 2013 National Lipid Association recommen dations for Total Cholesterol in adults ages 18 and up: Desirable <200 mg/dL Borderline high 200-239 mg/dL High 240 mg/dL 2014 National Lipid Association recommen dations for Total Cholesterol in children ages 2 to 17. Acceptable <170 mg/dL Borderline High 170-199 mg/dL High 200 mg/dL HX HDL 29 (L) >=40 MGDL POWERCHART Comment: 2014 National Lipid Association recommen dations for HDL-C in adults ages 18 and up: Low <40 mg/dL (Men) Low <50 mg/dL (Women) 2014 National Lipid Association recommen dations for HDL-C in children ages 2 to 17. Low <40 mg/dL Borderline Low 40-45 mg/dL Acceptable >45 mg/dL Triglycerides 189 (H) <=149 MGDL POWERCHART Comment: 2014 National Lipid Association recommen dations for Triglycerides in adults ages 18 and up: Normal <150 mg/dL Borderline High 150-199 mg/dL High 200-499 mg/dL Very High 500 mg/dL 2014 National Lipid Association recommen dations for Triglycerides in children ages 2 to 9. Acceptable <75 mg/dL Borderline High 75-99 mg/dL High 100 mg/dL 2014 National Lipid Association recommen dations for Triglycerides in children ages 10 to 17. Acceptable <90 mg/dL Borderline High 90-129 mg/dL High 130 mg/dL Trigs >400mg/dL: Triglycerides >400 mg/ dL. Calculated LDL cholesterol is not valid. Non-HDL cholesterol may be used for risk assessment when triglycerides are >400mg/dL. Calculated LDL 107 <=129 MGDL POWERCHART Comment: 2014 National Lipid Association recommen dations for LDL-C in adults ages 18 and up: Desirable <100 mg/dL Above desirable 100-129 mg/dL Borderline high 130-159 mg/dL High 160-189 mg/dL Very High 190 mg/dL 2014 National Lipid Association recommen dations for LDL-C in children ages 2 to 17. Acceptable <110 mg/dL Borderline High 110-129mg/dL High 130 mg/dL LDL-C >190mg/dL: The markedly elevated LDL level is suggestive of a genetic condition such as familial hypercholesterolemia(FH) or familial defective apolipoprotein B-100 (FDB). Molecular genetic t esting for FH and FDB is available quocu [facility]: FH/ADH Genetic Reflex Willett el (test ADHP). Acquired (non-genetic) causes of markedly increased LDL cholesterol include cholestatic liver disease due to the presence of LpX. If a genetic form of hypercholesterolemia is suspected, family studies including biochemical testing fo r lipids (total cholesterol,triglycerides, LDL cholesterol and HDL cholesterol) are recommended. ??Please contact the laboratory at or the on-line test catalog at Listen [employer] for information about how to order these tricia ts or to speak with a genetic counselor. Further interpretation would require clinical information. Specimen (Source) Anatomical Collection Method Collection Time Re ceived Time Location / / Volume Laterality Blood 09/30/2015 4:05 PM HEALTH COUNSELOR Arjun Gaytan M.D. LAB BLOOD ADD-ON Performing Organization Address City/State/ZIP Code Phon e Number POWERCHART BMP (Basic Metabolic Panel) (09/30/2015 4:05 PM HEALTH COUNSELOR) P athologist Signature Sodium, S 142 135 - 145 POWERCHART MMOLL Potassium, S 4.4 3.5 - 5.1 POWERCHART MMOLL Chloride, S 102 98 - 107 POWERCHART MMOLL CO2 Total 29 22 - 29 POWERCHART MMOLL Glucose, 97 70 - 99 MGDL POWERCHART Fasting, S BUN (Blood Urea 14 6 - 24 MGDL POWERCHART Nitrogen), S Creatinine 0.9 0.8 - 1.3 POWERCHART MGDL Calcium, Total, 9.7 8.6 - 10.3 POWERCHART S MGDL Anion Gap 11 7 - 15 MMOLL POWERCHART eGFR >60 >=60 MLMINSA POWERCHART Black/ HXeGFR (MDRD) >60 >=60 MLMINSA POWERCHART Comment: Results are in mL/min/1.73m squared CKD Stage I: ? GFR > 90 CKD Stage II: ?GFR 60 to 89 CKD Stage III: ? GFR 30 to 59 CKD Stage IV: ? GFR 15 to 29 CKD Stage V: ?GFR < 15 or Dialysi s Specimen (Source) Anatomical Collection Method Collection Time Re ceived Time Location / / Volume Laterality Blood 09/30/2015 4:05 PM HEALTH COUNSELOR Arjun Gaytan M.D. LAB BLOOD ADD-ON Performing Organization Address City/State/ZIP Code Phon e Number POWERCHART documented in this encounter Visit Diagnoses Not on filedocumented in this encounter
--- OUTSIDE RECORDS SUMMARY | 2022-09-27 14:40 | XMS_ITS | Encounter Summary ---
:1960 Author Organization [facility] Address [address] [place] [address] Care Team Providers Name Role Phone Unavailable Primary Care Provider Unavailable Encounter Details Date Type Department Care Team Description 01/26/2016 Hospital Encounter HX [facility] Joey Cummings P.ALiaCMik [address] [place], [place] [phone] (Wo rk) Social History [...] or relatives? How often do you attend jew or Never 2021 anglican services? Do you belong to any clubs or Yes 04/20/2022 organizations such as jew groups, unions, fraternal or athletic groups, or [...] Sign Reading Time Taken Comments Blood Pressure 144/96 01/26/2016 3:07 PM CDT Pulse - - Temperature - - Respiratory Rate - - Oxygen Saturation - - Inhaled Oxygen Concentration - - Weight 80.4 kg (177 lb 4 oz) 01/26/2016 2:19 PM CDT Height 170.5 cm (5' 7.13) 01/26/2016 3:07 PM CDT Body Mass Index 27.66 01/26/2016 2:19 PM CDT documented in this encounter Medications [...] documented as of this encounter Progress Notes Joey Anders - 01/26/2016 2:14 PM CDT [id number] WORKER'S COMPENSATION VISIT Employer: [employer] Date of Injury: 11/01/2015 PRIMARY CARE PROVIDER Arjun Lopez MD, MPH CHIEF COMPLAINT/REASON FOR VISIT Recheck of left knee MCL sprain. HISTORY OF PRESENT ILLNESS Mr. Mcmahan is a pleasant 55-year-old male who presents today for recheck of a left knee MCL sprain. Heinitially injured this at work when he slipped and fell resulting in valgus stressing of the knee. He has been seen in physical therapy and has attended 9 of his 12 approved sessions. He states that things are getting better. However, he continues to have some soreness with open-chain lateral movements of the knee as well as tenderness with palpation over the MCL. He also reports a clicking in his knee that is occasionally painful. He states that he notices this most when he is starting to ambulate up stairs. He otherwise has no complaints at this time. He is able to continue working within his restrictions. He feels that these restrictions are very beneficial to helping him heal properly. Patient denies fever, chills, night sweats, nausea, or vomiting. PHYSICAL EXAMINATION GENERAL: This is a well-nourished, well-developed, male. He is alert and oriented x3. No acute distress. He is cooperative and responds appropriately to all questions. VITAL SIGNS: Height 170.5 cm. Weight 80.4 kg. BMI 27.66. Blood pressure 144/96. MUSCULOSKELETAL: Left knee reveals a palpable medial synovial plica that is tender to touch. He has pain with palpation over the medial collateral ligament. Pain with valgus stressing. The remainder ofthe exam was negative. IMPRESSION/REPORT/PLAN Left knee medial collateral ligament sprain. PLAN: Emanuel is a pleasant 55-year-old male with a work comp injury to his left knee including medial collateral ligament sprain. This seems to have aggravated a medial joint plica. Hopefully this willcalm down as the medial collateral ligament heals. It is possible that this may require a cortisone injection to aid in the healing. I have recommended the continued use of ice or heat as he feels is comfortable. I have recommended that he finish out his 3 physical therapy sessions. It is likely that he will continue to have some soreness and pain in this area until the medial collateral ligament is completely healed. Patient is in understanding of this. We did renew his work restrictions with some advancements. We will plan on seeing him back in clinic in 6 weeks' time for recheck. All questions were answered to patient's satisfaction. Total time of visit 15 minutes, 10 minutes spent on counseling and coordination of care. Joey Anders P.A.-C./gama cc: Arjun Lopez M.D., M.P.[facility] in [address] [address] Electronically Signed By: JOEY ANDERS On: 01/28/2016 09:53 AM Source: [facility] MHSDOLBEYNONRADSYS Document Id: [id number] documented in this encounter Miscellaneous Notes Miscellaneous - Lashae Bello, L.P.N. - 01/26/2016 3:07 PM CDT Ambulatory Vitals Height Weight Ambulatory Vitals Height Weight Entered On: 01/26/2016 15:07 CDT Performed On: 01/26/2016 15:07 CDT by LASHAE BELLO Vitals/Ht/Wt Systolic Blood Pressure : 144 mmHg (HI) Diastolic Blood Pressure : 96 mmHg (>HHI) NIBP Mean : 112 mmHg Height : 170.5 cm(Converted to: 5 ft 7 inch(es), 67 inch(es)) LASHAE BELLO - 01/26/2016 15:07 CDT Source: [facility] POWERCHART Document Id: [id number] CDT!6 Miscellaneous - Joey Anders - 01/26/2016 2:54 PM CDT Ambulatory Patient Summary [facility] [address] [place], [place] [id number] Visit Information Name: EMANUEL MCMAHAN [facility] Number: [id number] Current Date: 01/26/2016 14:54:10 Physicians Attending Provider: JOEY ANDERS Primary Care Provider: ARJUN LOPEZ MD [...] the Following Medications: Medication list as of 01-26-16 14:54 Attention: If you have any medications at home that are not on this list, DO NOT take them until youcontact your provider for clarification. Give a copy of your medication list to your primary care provider. Update your medication list any time medications or doses are changed and carry your medication list at all times in case of emergency. Electronically Signed By: JOEY ANDERS Signed On:26-JAN-2016 14:54:02 Your Allergies & Intolerances Substance Reaction Symptoms Category Comments No Known Allergies Drug Your Problem List Problem Status Onset Comments Seasonal allergic rhinitis Active 08/04/2013 GERD [Gastroesophageal reflux disease] Active 08/04/2013 Hyperlipidemia NOS Active 08/04/2013 Pain Knee NOS Active Your Upcoming Appointments Date Time Location [...] dont have one. Go to [email or web address] and click on Create Your Account. Then, follow the directions to complete the online form. Youll be asked for your [facility] number which you can find at the top of this document. Your Goals/Additional instructions: Source: [facility] POWERCHART Document Id: [id number] Miscellaneous - Joey Anders - 01/26/2016 2:54 PM CDT Ambulatory Discharge Medication List [place] [id number] [place] [phone] Visit Information Name: EMANUEL MCMAHAN [facility] Number: [id number] Visit Date: 01/26/2016 14:54:09 Attending Provider: JOEY ANDERS Primary Care Provider: ARJUN LOPEZ MD [...] the Following Medications: Medication list as of 01-26-16 14:54 Attention: If you have any medications at home that are not on this list, DO NOT take them until youcontact your provider for clarification. Give a copy of your medication list to your primary care provider. Update your medication list any time medications or doses are changed and carry your medication list at all times in case of emergency. Electronically Signed By: JOEY ANDERS PA Signed On:26-JAN-2016 14:54:02 Additional Information: Source: [facility] POWERCHART Document Id: [id number] Miscellaneous - Lashae Bello, L.P.N. - 01/26/2016 2:19 PM CDT Adult Business Project Manager Intake/History Document Has Been Updated Adult Business Project Manager Intake/History Entered On: 01/26/2016 14:24 CDT Performed On: 01/26/2016 14:19 CDT by LASHAE BELLO Intake Systolic Blood Pressure : 146 mmHg (HI) Diastolic Blood Pressure : 100 mmHg (>HHI) NIBP Mean : 115 mmHg BP Location : Right upper extremity Blood Pressure Cuff Size : Large Chief Complaint : MCL L knee re-check, WC, DOI 11/01/15 Yasmin, LV 12/13/15, pt. reports left knee painand weakness, and a 2/10 on pain scale LASHAE BELLO M - 01/26/2016 14:25 CDT Height : 170.5 cm(Converted to: 5 ft 7 inch(es), 67 inch(es)) Actual Weight : 80.4 kg(Converted to: 177 lb 4 oz) Weight Source : Standing scale Dosing Weight Clinic : 80.4 kg Clinic BSA : 1.95 Body Mass Index : 27.66 kg/m2 LASHAE BELLO M - 01/26/2016 14:19 CDT General Info Information Given By : Patient Languages : Divehi Is Patient Female and 13-50 no hysterectomy : No LASHAE BELLO M - 01/26/2016 14:19 CDT Subjective Pain Symptoms : Yes LASHAE BELLO M - 01/26/2016 14:19 CDT Pain Scale Pain Scale Verbal 0-10 : Open LASHAE BELLO M - 01/26/2016 14:19 CDT Pain Pain Assessment Grid Pain 1 Location : Knee Laterality : Left Intensity : 2 LASHAE BELLO M - 01/26/2016 14:19 CDT Dependent Habits Exposure to Tobacco Smoke : Other: never Smoking Status : Never smoker Tobacco 2A : No Tobacco Use/Currently Using : No Tobacco Use/Last 30 Days : No Tobacco Use/Last 12 months : No LASHAE BELLO M - 01/26/2016 14:19 CDT Caffeine Use Grid Caffeine Use : Current Type : Soft drinks LASHAE BELLO - 01/26/2016 14:19 CDT Source: [employer] Document Id: [id number] CDT!8 documented in this encounter Plan of Treatment Not on filedocumented as of this encounter Visit Diagnoses Not on filedocumented in this encounter
--- OUTSIDE RECORDS SUMMARY | 2022-09-27 14:40 | XMS_ITS | Encounter Summary ---
:1960 Author Organization [facility] Address [address] [place] [address] Care Team Providers Name Role Phone Unavailable Primary Care Provider Unavailable Encounter Details Date Type Department Care Team Description 12/13/2015 Hospital Encounter HX [facility] Luigi Cummings P.ALiaCMik [address] [place], [place] [phone] (Wo rk) Social History [...] or relatives? How often do you attend hinduism or Never 2021 anabaptist services? Do you belong to any clubs or Yes 04/20/2022 organizations such as hinduism groups, unions, fraternal or athletic groups, or [...] Sign Reading Time Taken Comments Blood Pressure 132/86 12/13/2015 1:24 PM CAN CARRIER Pulse - - Temperature - - Respiratory Rate - - Oxygen Saturation - - Inhaled Oxygen Concentration - - Weight 79.1 kg (174 lb 6.1 oz) 12/13/2015 1:24 PM CAN CARRIER Height 171.9 cm (5' 7.68) 12/13/2015 1:24 PM CAN CARRIER Body Mass Index 26.77 12/13/2015 1:24 PM CAN CARRIER documented in this encounter Medications at Time [...] documented as of this encounter Consult Notes Luigi Anders - 12/13/2015 1:19 PM CST [id number] WORKER'S COMPENSATION VISIT Employer: [employer]. Date of Injury: 11/01/2015. PRIMARY CARE PROVIDER Arjun Lopez MD, MPH. CHIEF COMPLAINT/REASON FOR VISIT Evaluation of left knee pain. HISTORY OF PRESENT ILLNESS Emanuel is a pleasant 55-year-old male who presents today for evaluation of left knee pain. He reports that he fell and twisted his knee on 11/01/2015. He states that this placed his knee into a valgus stress. He reports that he initially had some significant pain that decreased after a couple weeks. However, it did not return to normal, and he feels that the pain relief plateaued. He therefore was seen again by Dr. Arjun Lopez who ordered an MRI of the left knee. This showed a partial tear of the medial collateral ligament with regional periligamentous edema. No meniscal tears or cruciate ligamenttears. He also had a incidentally noted multilobulated posterior medial ganglion cyst. The patient reports that he has been occasionally using a knee brace. He also reports that he has been working, doing all of his duties at work, but limiting his squatting, kneeling, and carrying of heavy objects. Patient denies any fever, chills, night sweats, nausea, or vomiting. PAST MEDICAL/SURGICAL HISTORY Significant for gastroesophageal reflux disease, hyperlipidemia, renal insufficiency, migraine headaches, and seasonal allergies. MEDICATIONS Celebrex. Depakote. Fexofenadine. Fish oil. Imitrex. Lipitor. Multivitamin. Protonix. Singulair. Tizanidine. Vitamin E. ALLERGIES No known drug allergies. SYSTEMS REVIEW As per HPI. All other systems are negative. VITAL SIGNS Height 171.9 cm. Weight 79.1 kg. BMI 26.77. Blood pressure 132/76. PHYSICAL EXAMINATION GENERAL: This is a well-nourished, well-developed male. He is alert and oriented x3. In noacute distress. He is cooperative and responds appropriately to all questions. MUSCULOSKELETAL: The left knee reveals pain with palpation over the medial collateral ligament. He has pain with valgus stress. No pain with anterior or posterior drawer, Darrell's, modified Jonah's, or varus stressing. He demonstrates full range of motion. He is neurovascularly intact distally. Cap illary refill less than 2 seconds. DIAGNOSTICS MRI of the left knee was reviewed from 11/29/2015 with details as described above. IMPRESSION/REPORT/PLAN Grade 2 medial collateral ligament sprain of the left knee. PLAN: Emanuel is doing fairly well with his medial collateral ligament sprain. I do believe that he would improve with a little bit of physical therapy and continued use of his knee sleeve as well as modifying his work. Therefore, I have provided him a prescription for physical therapy. As this is a workmen's compensation injury, we will seek worker's compensation approval before he starts attending this. We will also plan on modifying his work. I have recommended that he may stand or walk frequently, unlimited sitting. No kneeling, squatting, or climbing. Unlimited twisting, bending, driving. He may carry 1 to 20 pounds unlimited, may carry 21 to 50 pounds frequently, and should not carry over 50 pounds. He may do reaching over his head without restriction. No restriction on upper body activities. He will need to attend physical therapy 1 to 3 times per week. We will plan on following up with Emanuel in approximately 1 month for a recheck of his left knee. All questions were answered to patient's satisfaction. Total time of the visit 40 minutes, 30 minutes spent on counseling and coordination of care. Luigi Anders P.A.-C./gama cc: Arjun Lopez M.D., M.P.H. [facility] [place] [address] Electronically Signed By: LUIGI ANDERS PA On: 12/15/2015 05:23 PM Source: [facility] MHSDOLBEYNONRADSYS Document Id: [id number] CARRIER documented in this encounter Miscellaneous Notes Miscellaneous - Dada Levin, LMikP.N. - 12/20/2015 12:49 PM CST *General Message Document Contains Addenda Addendum by DADA LEVIN LPN on 20 December 2015 13:40:47 CAN CARRIER Patient returned phone call and notified of message below. From: DADA LEVIN LPN ( Orthopedic Nurse) To: Orthopedic Nurse; Sent: 12/20/2015 12:49:50 CAN CARRIER Subject: *General Message s- work comp approval b- received work comp approval for physical therapy 12 visits. a- work comp approval r- rx faxed to [facility]. Left message for patient to call clinic back. Source: [facility] POWERCHART Document Id: [id number] Miscellaneous - Luigi Anders - 12/13/2015 5:07 PM CST Ambulatory Patient Summary [facility] [address] [place], [place] [id number] Visit Information Name: EMANUEL MCMAHAN [facility] Number: [id number] Current Date: 12/13/2015 17:07:57 Physicians Attending Provider: LUIGI ANDERS Primary Care [...] the Following Medications: Medication list as of 12-13-15 17:07 Attention: If you have any medications at home that are not on this list, DO NOT take them until youcontact your provider for clarification. Give a copy of your medication list to your primary care provider. Update your medication list any time medications or doses are changed and carry your medication list at all times in case of emergency. Electronically Signed By: LUIGI ANDESR PA Signed On:13-DEC-2015 17:07:47 Your Allergies & Intolerances Substance Reaction Symptoms [...] if you dont have one. Go to [email or web address] and click on Create Your Account. Then, follow the directions to complete the online form. Youll be asked for your [facility] number which you can find at the top of this document. Your Goals/Additional instructions: Source: [facility] POWERCHART Document Id: [id number] CARRIER Miscellaneous - Luigi Anders - 12/13/2015 5:07 PM CST Ambulatory Discharge Medication List [address] [id number] Visit Information Name: EMANUEL MCMAHAN [facility] Number: [id number] Visit Date: 12/13/2015 17:07:55 Attending Provider: LUIGI ANDERS Primary Care Provider: [...] the Following Medications: Medication list as of 12-13-15 17:07 Attention: If you have any medications at [...] Electronically Signed By: LUIGI ANDERS PA Signed On:13-DEC-2015 17:07:47 Additional Information: Source: [facility] POWERCHART Document Id: [id number] CARRIER Miscellaneous - Chica Forte C.M.A. - 12/13/2015 1:24 PM CST Adult Marine Resource Economist Intake/History Adult Marine Resource Economist Intake/History Entered On: 12/13/2015 13:26 CAN CARRIER Performed On: 12/13/2015 13:24 CAN CARRIER by [facility] Intake Chief Complaint : W/C Yasmin DOI:11/01/15 left knee pain-fell and twisted knee on the ground Systolic Blood Pressure : 132 mmHg Diastolic Blood Pressure : 86 mmHg NIBP Mean : 101 mmHg BP Location : Right upper extremity Blood Pressure Cuff Size : Large Height : 171.9 cm(Converted to: 5 ft 8 inch(es), 68 inch(es)) Actual Weight : 79.1 kg(Converted to: 174 lb 6 oz) Weight Source : Standing scale Dosing Weight Clinic : 79.1 kg Clinic BSA : 1.94 Body Mass Index : 26.77 kg/m2 [facility] - 12/13/2015 13:24 CAN CARRIER General Info Information Given By : Patient Preferred Communication Mode : Verbal Languages : Kiswahili Is Patient Female and 13-50 no hysterectomy : No [facility] - 12/13/2015 13:24 CAN CARRIER Subjective Pain Symptoms : Yes [facility] - 12/13/2015 13:24 CAN CARRIER Pain Scale Pain Scale Verbal 0-10 : Open [facility] - 12/13/2015 13:24 CAN CARRIER Pain Pain Assessment Grid Pain 1 Location : Knee Laterality : Left Intensity : 3 [facility] - 12/13/2015 13:24 CAN CARRIER Dependent Habits Exposure to Tobacco Smoke : Other: never Smoking Status : Never smoker Tobacco 2A : No Tobacco Use/Currently Using : No Tobacco Use/Last 30 Days : No Tobacco Use/Last 12 months : No [facility] - 12/13/2015 13:24 CAN CARRIER Caffeine Use Grid Caffeine Use : Current Type : Soft drinks [facility] - 12/13/2015 13:24 CAN CARRIER Source: [facility] FetchmobCHART Document Id: [id number] CAN CARRIER!40 CARRIER documented in this encounter Plan of Treatment Not on filedocumented as of this encounter Visit Diagnoses Not on filedocumented in this encounter
--- OUTSIDE RECORDS SUMMARY | 2022-09-27 14:40 | XMS_ITS | Encounter Summary ---
:1960 Author Organization [facility] Address [address] [place] [address] Care Team Providers Name Role Phone Unavailable Primary Care Provider Unavailable Encounter Details Date Type Department Care Team Description 04/20/2015 Hospital Encounter HX [facility] Satinder Rizo M.D. [address] [place], [place] [address] (Wo rk) Social History Tobacco [...] or relatives? How often do you attend denominational or Never 2021 tenriism services? Do you belong to any clubs or Yes 04/20/2022 organizations such as denominational groups, unions, fraternal or athletic groups, or [...] - - Height 170 cm (5' 6.93) 04/20/2015 4:07 PM CDT Body Mass Index - - [...] Miscellaneous - Conversion, Historical Provider Ser - 04/21/2015 12:42 PM CDT Coding Summary-Paper Based CODING DATE: 04/21/2015 FINAL MA [place] [facility] STATUS: * Discharged to Home or Self Care PAYOR: [employer] ADMIT DX: REASON FOR VISIT DX: FINAL DX: PRINCIPAL: 600.00 Benign prostatic hypertrophy NOS SECONDARY: PROCEDURES DOCTOR NAME DATE NOTE: The code number assigned matches the documented diagnosis and / or procedure in the patient's chart. However, the narrative phrase printed from the coding software may appear abbreviated, or result in slightly different terminology. Coded By: ABHI WORTHY Date Saved: 04/21/2015 12:42 pm Source: [facility] Document Id: [id number] documented in this encounter Plan of Treatment Not on filedocumented as of this encounter Procedures Procedure Name Priority Date/Time Associated Diagnosis Comme nts PROSTATE-SPECIFIC Routine 04/20/2015 4:12 PM Resu lts for this AG (PSA) SCRN, S CDT procedure a re in the results section. TESTOSTERONE, TOTAL Routine 04/20/2015 4:12 PM Re sults for this BY MASS CDT procedure are i n SPECROMETRY, S the results section. documented in this encounter Results Testosterone, Total (04/20/2015 4:12 PM CDT) athologist Signature Testosterone, 442 240 - 950 POWERCHART Total NGDL Comment: ADDITIONAL INFORMATIO N Testing performed by Liquid Chromatograp hy-Tandem Mass Spectrometry (LC-MS/MS). Test Performed by: [place] [address] Lithographic Etcher: Joni Vasques II, M.D., Ph.D. Specimen (Source) Anatomical Collection Method Collection Time Re ceived Time Location / / Volume Laterality Blood 04/20/2015 4:12 PM CDT Tanner Rizo M.D. LAB BLOOD NON ADD-ON Performing Organization Address City/[facility] Code Phon e Number POWERCHART PSA (Prostate-Specific Antigen) Screen (04/20/2015 4:12 PM CDT) athologist Signature Prostate-Specif 1.2 <=3.5 NGML POWERCHART ic Ag Specimen (Source) Anatomical Collection Method Collection Time Re ceived Time Location / / Volume Laterality Blood 04/20/2015 4:12 PM CDT Tanner Rizo M.D. LAB BLOOD ADD-ON Performing Organization Address City/[facility]/ZIP Code Phon e Number POWERCHART documented in this encounter Visit Diagnoses Not on filedocumented in this encounter
--- OUTSIDE RECORDS SUMMARY | 2022-09-27 14:40 | XMS_ITS | Encounter Summary ---
:1960 Author Organization [facility] Address [address] [place] [address] Care Team Providers Name Role Phone Unavailable Primary Care Provider Unavailable Encounter Details Date Type Department Care Team Description 11/29/2015 Hospital Encounter [facility]X [facility] MRI Brett Lopez M.D. [address] [place] [address] (Wo rk) Social History Tobacco Use Types [...] do you attend mandaen or Never 2021 oriental orthodox services? Do [...] - - Height 170 cm (5' 6.93) 11/29/2015 7:17 AM PUBLIC RELATIONS ACCOUNT EXECUTIVE Body Mass Index - - documented in [...] of this encounter Miscellaneous Notes Miscellaneous - Arjun Lopez M.D. - 12/02/2015 10:56 AM CST Normal Results Letter 02 December 2015 EMANUEL MCMAHAN [address] [facility] [id number] Dear EMANUEL MCMAHAN, I was not successful contacting you by phone. The MRI shows some changes to the Inner supporting knee ligament. The meniscus looks good. THe next step is to follow up with the neonatal specialist andsee if any further intervention is needed besides Physical Therapy. If you have questions or concerns, please do not hesitate to call our office. Result Name Current Result MR Knee Left w/o contrast 11/29/2015 Sincerely, ARJUN LOPEZ [address] [place] [id number] Electronic Signature Electronically Signed By: ARJUN LOPEZ MD On: 02 December 2015 This document has images extracted. Source: [facility] Document Id: [id number] Electronically signed by Conversion, [facility] Production Welder [id number] at 03/17/2017 9:51 AM CDT Miscellaneous - Conversion, Historical Provider Ser - 11/30/2015 7:43 AM PUBLIC RELATIONS ACCOUNT EXECUTIVE Coding Summary-Paper Based CODING DATE: 11/30/2015 FINAL MA [place] [facility] STATUS: * Discharged to Home or Self Care PAYOR: Workers Compensation ADMIT DX: REASON FOR VISIT DX: FINAL DX: PRINCIPAL: M25.562 Pain in left knee SECONDARY: S83.412D Sprain of medial collateral ligament of left knee, subsequent encounter R60.0 Localized edema M67.462 Ganglion, left knee Y99.0 Civilian activity done for income or pay PROCEDURES DOCTOR NAME DATE NOTE: The code number assigned matches the documented diagnosis and / or procedure in the patient's chart. However, the narrative phrase printed from the coding software may appear abbreviated, or result in slightly different terminology. Coded By: JAQUELINE HULL Date Saved: 11/30/2015 07:43 am Source: [facility] Document Id: [id number] Miscellaneous - Conversion, Historical Provider Ser - 11/26/2015 10:45 AM PUBLIC RELATIONS ACCOUNT EXECUTIVE *General Message From: TIFFANY MCKEON (MA Prior Auth) Sent: 11/26/2015 10:45:15 PUBLIC RELATIONS ACCOUNT EXECUTIVE Subject: *General Message MRI has been APPROVED by [facility]: [facility] Document Id: [id number] documented in this encounter Plan of Treatment Not on filedocumented as of this encounter Procedures Procedure Name Priority Date/Time Associated Diagnosis Comme nts MR KNEE LEFT Routine 11/29/2015 7:30 AM Results f or this WITHOUT IV CONTRAST PUBLIC RELATIONS ACCOUNT EXECUTIVE procedur e are in the results section. documented in this encounter Results MR Knee Left without IV Contrast (11/29/2015 7:30 AM PUBLIC RELATIONS ACCOUNT EXECUTIVE) Anatomical Region Laterality Modality Lower Extremity, Knee Left Magnetic Resonance Specimen (Source) Anatomical Collection Method Collection Time Re ceived Time Location / / Volume Laterality 11/29/2015 7:30 AM PUBLIC RELATIONS ACCOUNT EXECUTIVE Addenda Addendum by Provider, Elena, Edith o n 11/29/2015 7:30 AM PUBLIC RELATIONS ACCOUNT EXECUTIVE RAD^^^MA MR Knee Left w/o contrast 11/29/2015 07:30:00 Addendum by Provider, Elena, Edith o n 11/29/2015 7:34 AM PUBLIC RELATIONS ACCOUNT EXECUTIVE RAD^^^MA MR Knee Left w/o contrast 11/29/2015 07:34:44 Impressions 11/29/2015 9:06 AM PUBLIC RELATIONS ACCOUNT EXECUTIVE 1. Partial tear of the medial collateral ligament with regional periligamentous edema. 2. No evidence of meniscal tear or cruci ate ligament tear. 3. Multilobulated posteromedial ganglion cyst. No joint effusion. 4. No osseous or articular pathology jim ntified. Narrative 11/29/2015 9:06 AM PUBLIC RELATIONS ACCOUNT EXECUTIVE COMPARISON: None. Technique: Long-TR axial and sagittal, c oronal short and long TR MR images of the left knee were acquired. FINDINGS: Menisci: ??The medial and lateral menisc i are intact. Ligaments: ??The anterior and posterior cruciate ligaments are intact. Partial tear of the medial collateral li gament spanning a craniocaudal distance of approximately 2 cm as demonstrated on coronal images 11 through 13 series 7, a xial images 10 through 13 series 8. Regional periligamentous edema without loculation. Lateral collateral ligament and remainder of the posterolateral corner structures appear intact. Extensor mechanism: ??Quadriceps and pat ellar tendons are intact. ??No evidence of retinacular disruption. Fluid: ??No joint effusion or Raygoza's cy st. Multilobulated posteromedial ganglion cyst measuring ap proximately 3 x 1 x 1 cm as measured on image 20 series 5, image 5 s eries 8. Osseous structures/articular structures: ??No fractures or regions of abnormal bone marrow signal intensity ar e present. ??No hyaline cartilage lesions involving the medial, lateral or patellofemoral compartments. Procedure Note Gaurav Catalan M.D. / Provider, His madi M.D. - 02/23/2017 COMPARISON: None. Technique: Long-TR axial and sagittal, c oronal short and long TR MR images of the left knee were acquired. FINDINGS: Menisci: The medial and lateral menisci are intact. Ligaments: The anterior and posterior cr uciate ligaments are intact. Partial tear of the medial collateral li gament spanning a craniocaudal distance of approximately 2 cm as demonstrated on coronal images 11 through 13 series 7, a xial images 10 through 13 series 8. Regional periligamentous edema without loculation. Lateral collateral ligament and remainder of the posterolateral corner structures appear intact. Extensor mechanism: Quadriceps and kincaid lar tendons are intact. No evidence of retinacular disruption. Fluid: No joint effusion or Raygoza's cyst . Multilobulated posteromedial ganglion cyst measuring ap proximately 3 x 1 x 1 cm as measured on image 20 series 5, image 5 s eries 8. Osseous structures/articular structures: No fractures or regions of abnormal bone marrow signal intensity ar e present. No hyaline cartilage lesions involving the medial, lateral or patellofemoral compartments. IMPRESSION: 1. Partial tear of the medial collateral ligament with regional periligamentous edema. 2. No evidence of meniscal tear or cruci ate ligament tear. 3. Multilobulated posteromedial ganglion cyst. No joint effusion. 4. No osseous or articular pathology jim ntified. Historical Provider IMG MRI PROCEDURES documented in this encounter Visit Diagnoses Not on filedocumented in this encounter
--- OUTSIDE RECORDS SUMMARY | 2022-09-27 14:40 | XMS_ITS | Encounter Summary ---
:1960 Author Organization [facility] Address [address] [place] [address] Care Team Providers Name Role Phone Unavailable Primary Care Provider Unavailable Encounter Details Date Type Department Care Team Description 05/24/2016 Hospital Encounter HX [facility] Luigi Cummings P.[address]CM[facility] [address] [place], [place] [phone] (Wo rk) Social History [...] or relatives? How often do you attend evangelical or Never 2021 denominational services? Do you belong to any clubs or Yes 04/20/2022 organizations such as evangelical groups, unions, fraternal or athletic groups, or [...] Sign Reading Time Taken Comments Blood Pressure 126/76 05/24/2016 2:08 PM CDT Pulse 76 05/24/2016 2:08 PM CDT Temperature - - Respiratory Rate 20 05/24/2016 2:08 PM CDT Oxygen Saturation - - Inhaled Oxygen Concentration - - Weight - - Height 170 cm (5' 6.93) 05/24/2016 2:08 PM CDT Body Mass Index - - [...] this encounter Progress Notes Luigi Anders - 05/24/2016 1:41 PM CDT [id number] WORKER'S COMPENSATION VISIT Employer: [employer] Date of Injury: 11/01/2015 PRIMARY CARE PROVIDER Arjun Lopez MD, MPH CHIEF COMPLAINT/REASON FOR VISIT Recheck left MCL sprain. HISTORY OF PRESENT ILLNESS Emanuel is a 56-year-old male who presents today for continued recheck of a left knee MCL sprain. Thepatient feels that he is at about 75% of his functional level. He states that he is not able to do full squats, run up stairs and states that he continues to walk with a limp and continues to have an achy pain that is nearly continuous. He does feel he is able to do most of the activities of his job with some modification. 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 He states at this point he is sitting crisscross and this seems to relieve his pain. He finds that walking is less painful than sitting for prolonged periods of time. He feels that he has plateaued on his home exercises. He denies any re-injury. He continues to state that he has no strength if he were to push something with his foot causing a valgus stress on his knee. Patient denies any fever, chills, night sweats, nausea, vomiting, lightheadedness, dizziness, chest pain, or pressure. PHYSICAL EXAMINATION GENERAL: This is a well-nourished, well-developed, male. He is alert and oriented x3. No acute distress. He is cooperative and responds appropriately to all questions. MUSCULOSKELETAL: Examination of the left knee reveals no pain with palpation. No pain with valgus orvarus stressing. No significant edema. He demonstrates full range of motion. He is neurovascularly intact distally. Capillary refill less than 2 seconds. IMPRESSION/REPORT/PLAN Left knee medial collateral ligament sprain. Date of injury 11/01/2015. PLAN: I did review Emanuel' MRI and there does not appear to be anything that was missed on MRI. I believe that he is nearly fully recovered with just some residual strengthening that needs to be done. Therefore, I have recommended returning to physical therapy for additional strengthening and functional activities. Patient is in agreement. We will get work comp approval and hopefully get him started with this soon. All questions were answered to patient's satisfaction. I do give him a return to worknote stating his only limitation is full squatting. All questions were answered to his satisfaction. Total time of visit 15 minutes, 10 minutes spent on counseling and coordination of care. Luigi Anders P.A.-C./gama cc: Arjun Lopez M.D., M.P.H. [facility] in [address] [address] Electronically Signed By: LUIGI ANDERS On: 06/07/2016 04:49 PM Source: [facility] MHSDOLBEYNONRADSYS Document Id: [id number] documented in this encounter Miscellaneous Notes Miscellaneous - Dada Levin L.P.N. - 08/28/2016 10:28 AM CST *General Message Document Contains Addenda Addendum by ERMIAS ALARCON on August 28, 2016 15:06:17 COMMERCIAL ANNOUNCER Patient scheduled to see Luigi on 09/04 - will talk about getting his knee brace at that time Addendum by DADA LEVIN LPN on August 28, 2016 14:51:05 COMMERCIAL ANNOUNCER Left message to call clinic back. Addendum by KELLY VOGEL on August 28, 2016 14:10:00 COMMERCIAL ANNOUNCER Called back. Call Emanuel at [phone] Addendum by DADA LEVIN LPN on August 28, 2016 10:45:18 COMMERCIAL ANNOUNCER Left message to call clinic back. Patient may be fitted with a hinged knee brace this week but needs to make a final appointment next week with provider for MMI rating. Addendum by LUIGI ANDERS on August 28, 2016 10:32:05 COMMERCIAL ANNOUNCER From: LUIGI ANDERS To: Orthopedic Nurse; Sent: 08/28/2016 10:32:05 COMMERCIAL ANNOUNCER Subject: RE: *General Message Pt can be seen for a nurse-only visit for a hinged knee brace fitting. Luigi From: DADA LEVIN LPN ( Orthopedic Nurse) To: LUIGI ANDERS; Sent: 08/28/2016 10:28:05 COMMERCIAL ANNOUNCER Subject: *General Message s- update from physical therapist raj Ferris from [facility] called to inform provider Emanuel has completed his 12 visits ofPT. Has good ROM and strength as far as the MCL injury is concerned. Patient does have some neuro deficits which he is following up with neurologist in regards to back issues. Patient is requesting a hinged knee brace for work. This is a work comp injury through [employer] with a date of injury of 11/01/15.Last seen 05/24/16. Therapist states patient does not need any further PT and they do not have a knee brace for the patient at their facility. a- patient is requesting a knee brace r- Message forwarded to provider. Source: [facility] Portal Profes Document Id: [id number] Electronically signed by Conversion, [facility] Ent Physician [id number] at 03/18/2017 2:50 AM CDT Telephone Encounter - Conversion, Historical Provider Ser - 06/06/2016 9:22 AM CDT *Phone Message/ Martita Document Contains Addenda Addendum by YONNY CALDERON CMA on June 06, 2016 17:00:34 CDT Faxed order and approval to [facility]. Patient informed Addendum by LUIGI ANDERS on June 06, 2016 16:39:41 CDT From: LUIGI ANDERS To: Orthopedic Nurse; Sent: 06/06/2016 16:39:41 CDT Subject: RE: *Phone Message/ Martita Orders were completed on 05/29/2016. Pt was given one copy. Thanks. Addendum by YONNY CALDERON CMA on June 06, 2016 10:23:53 CDT From: YONNY CALDERON CMA ( Orthopedic Nurse) To: LUIGI ANDERS; Sent: 06/06/2016 10:23:53 CDT Subject: FW: *Phone Message/ Martita WC approval received for physical therapy. Were orders completed for this patient? If not, please complete. Thank you Addendum by YONNY CALDERON CMA on June 06, 2016 09:45:39 CDT Left message for patient to call back From: BETTE GREGORY ([address] Sign Board Erector) To: OCTAVIA Orthopedic Nurse; Sent: 06/06/2016 09:22:43 CDT Subject: *Phone Message/ Martita Caller is: ( X ) Patient ( ) Mother ( ) Father ( ) Spouse ( ) Daughter ( ) Son ( ) Pharmacy ( ) Other: Physician: Patient MRN #: Reason for Call: Message: Patient would like PT order sent to [facility]. Please call back at [phone] with any questions. Advice/Action: Source used: ( ) Verbalizes understanding [...] back cell phone number ( ) Source: [facility] Portal Profes Document Id: [id number] Miscellaneous - Luigi Anders - 05/24/2016 3:41 PM CDT Ambulatory Patient Summary [address] [id number] Visit Information Name: EMANUEL MCMAHAN [facility] Number: [id number] Current Date: 05/24/2016 15:41:10 Physicians Attending Provider: LUIGI ANDERS Primary Care [...] the Following Medications: Medication list as of 05-24-16 15:41 Attention: If you have any medications at [...] emergency. Electronically Signed By: LUIGI ANDERS Signed On:24-MAY-2016 15:41:07 Your Allergies & Intolerances Substance Reaction Symptoms [...] form. Youll be asked for your [facility] number which you can find at the top of this document. Your Goals/Additional instructions: Source: [facility] POWERCHART Document Id: [id number] Miscellaneous - Luigi Anders - 05/24/2016 3:41 PM CDT Ambulatory Discharge Medication List [address] [id number] Visit Information Name: EMANUEL MCMAHAN [facility] Number: [id number] Visit Date: 05/24/2016 15:41:09 Attending Provider: LUIGI ANDERS Primary Care Provider: [...] the Following Medications: Medication list as of 05-24-16 15:41 Attention: If you have any medications at [...] Electronically Signed By: LUIGI ANDERS PA Signed On:24-MAY-2016 15:41:07 Additional Information: Source: [facility] POWERCHART Document Id: [id number] Miscellaneous - Judy Fatima, C.M.A. - 05/24/2016 2:08 PM CDT Adult Engineer Second Assistant Intake/History Adult Engineer Second Assistant Intake/History Entered On: 05/24/2016 14:11 CDT Performed On: 05/24/2016 14:08 CDT by JUDY FATIMA C.M.A. Intake Chief Complaint : - Work Comp / [employer] - left MCL sprain - throbbing pain continuous pain - walking seems to improve pain level Peripheral Pulse Rate : 76 /min Respiratory Rate : 20 /min Systolic Blood Pressure : 126 mmHg Diastolic Blood Pressure : 76 mmHg NIBP Mean : 93 mmHg BP Location : Right upper extremity Blood Pressure Cuff Size : Large Height : 170 cm(Converted to: 5 ft 7 inch(es), 67 inch(es)) JUDY FATIMA C.M.A. - 05/24/2016 14:08 CDT General Info Information Given By : Patient Preferred Communication Mode : Verbal Languages : S[place]omean Is Patient Female and 13-50 no hysterectomy : No JUDY FATIMA C.M.A. - 05/24/2016 14:08 CDT Subjective Pain Symptoms : Yes JUDY FATIMA C.M.A. - 05/24/2016 14:08 CDT Pain Scale Pain Scale Verbal 0-10 : Open JUDY FATIMA C.M.A. - 05/24/2016 14:08 CDT Pain Pain Assessment Grid Pain 1 Location : Ankle Laterality : Left Intensity : 2 JUDY FATIMA C.M.A. - 05/24/2016 14:08 CDT Dependent Habits Exposure to Tobacco Smoke : Other: never Smoking Status : Never smoker Tobacco 2A : No Tobacco Use/Currently Using : No Tobacco Use/Last 30 Days : No Tobacco Use/Last 12 months : No JUDY FATIMA C.M.A. - 05/24/2016 14:08 CDT Caffeine Use Grid Caffeine Use : Current Type : Soft drinks JUDY FATIMA C.M.A. - 05/24/2016 14:08 CDT Source: [employer] Document Id: [id number] CDT!37 documented in this encounter Plan of Treatment Not on filedocumented as of this encounter Visit Diagnoses Not on filedocumented in this encounter
--- OUTSIDE RECORDS SUMMARY | 2022-09-27 14:40 | XMS_ITS | Encounter Summary ---
:1960 Author Organization [facility] Address [address] [place] [address] Care Team Providers Name Role Phone Unavailable Primary Care Provider Unavailable Encounter Details Date Type Department Care Team Description 03/08/2016 Hospital Encounter HX [facility] Luigi Cummings P[employer] [address] [place], [place] [phone] (Wo rk) Social History [...] or relatives? How often do you attend presybeterian or Never 2021 quaker services? Do you belong to any clubs or Yes 04/20/2022 organizations such as presybeterian groups, unions, fraternal or athletic groups, or [...] Sign Reading Time Taken Comments Blood Pressure 140/82 03/08/2016 2:37 PM CDT Pulse - - Temperature - - Respiratory Rate - - Oxygen Saturation - - Inhaled Oxygen Concentration - - Weight 81.6 kg (179 lb 14.3 oz) 03/08/2016 2:37 PM CDT Height 170 cm (5' 6.93) 03/08/2016 2:37 PM CDT Body Mass Index 28.24 03/08/2016 2:37 PM CDT documented in this encounter Medications [...] this encounter Progress Notes Luigi Anders - 03/08/2016 2:28 PM CDT [id number] WORKER'S COMPENSATION VISIT Employer: [employer] Date of Injury: 11/01/2015 PRIMARY CARE PROVIDER Arjun Lopez MD, MPH CHIEF COMPLAINT/REASON FOR VISIT Recheck left MCL sprain. HISTORY OF PRESENT ILLNESS Mr. Mcmahan is a pleasant 55-year-old male who presents today for recheck of a left MCL sprain. He continues to state that he has pain with moving the knee sideways. He also reports pain when walking on uneven surfaces. He states that when he is walking on level ground he is fine but feels like he has minimal stability on the medial side of his knee. He also reports that the area continues to be painfulto palpation. He reports he is doing his home exercises with therapy. He reports that he is happy with the way his current work restrictions are and does not feel like he is ready to advance any of them. He otherwise has no complaints at this time. PHYSICAL EXAMINATION VITAL SIGNS: Height 172 cm, weight 81.6 kg, BMI 28.24, blood pressure 140/82. GENERAL: This is a well-nourished, well-developed, male. He is alert and oriented x3, in no acute distress. He is cooperative and responds appropriately to all questions. MUSCULOSKELETAL: Examination of the left knee reveals pain with palpation over the anterior border of the MCL. No pain with passive motion of the knee. No pain with valgus stressing. He is neurovascularly intact distally. Capillary refill less than 2 seconds. IMPRESSION/REPORT/PLAN Ten weeks status post left medial collateral ligament sprain. Emanuel is doing fairly well. He is continuing to advance his exercises. He continues to have soreness especially with lateral movement of the knee. He is also having pain with walking on uneven ground. At this point, I have recommended a cortisone injection to relieve the last of the inflammatory process. Patient is in agreement with this;however, he states that he is concerned that this would cause more pain over the weekend here. He isgoing to be riding a motorcycle out to [place] this weekend and is concerned that with increased pain he may not be able to do this. Therefore, we will plan on seeing him back on Sunday of nextweek for a cortisone injection. Patient is in agreement with this. We will then plan on seeing him 1month after that. We will leave his work restrictions the same as what they are currently. The patient is in agreement with this. All questions were answered to his satisfaction. Total time of the visit 15 minutes, 10 minutes spent on counseling and coordination of care. Luigi Anders P.A.-C./gama cc: Arjun Lopez M.D., M.P.[facility]. [facility] [address] Electronically Signed By: LUIGI ANDERS On: 03/13/2016 02:33 PM Source: [facility] MHSDOLBEYNJOSUERADSYS Document Id: [id number] documented in this encounter Miscellaneous Notes Telephone Encounter - Conversion, Historical Provider Ser - 03/09/2016 12:05 PM CDT *Phone Message / Martita Document Contains Addenda Addendum by ERMIAS ALARCON on March 13, 2016 12:37:35 CDT Left message on both phones to notify patient of below. Thanks. Addendum by ERMIAS ALARCON on March 13, 2016 12:13:12 CDT Patient wondering if cortisone inj. was approved or not for Sunday appt. This is work comp. and he doesn't want to waste a trip in for an appt. if he can't get the injection. Please call him at work direct line [phone] or try his cell at [phone]. Addendum by DADA HILL LPN on March 09, 2016 16:47:03 CDT Called and spoke with [employer]il in work comp office. She will fax records as noted below tomorrowto Krystal at [facility]. From: DADA ORTEGA ([address] Refinery Operator) To: Orthopedic Nurse; Sent: 03/09/2016 12:05:36 CDT Subject: *Phone Message / Martita Caller is: ( ) Patient ( ) Mother ( ) Father ( ) Spouse ( ) Daughter ( ) Son ( ) Pharmacy ( x - Krystal with [facility] ) Other: Physician: Martita Patient MRN #: Reason for Call: Message: Krystal Tapia called in with [facility] [employer] re: pt getting a cortisone injection. She would like medical records and also gave verbal approval for the injection. Krystal can be reached at [phone]. - that is her direct line. She would also like the medical records faxed form 03/08/2016apt. - Her fax number is [phone].- reference # [id number] Advice/Action: Source used: ( ) Verbalizes understanding [...] back cell phone number ( ) Source: [facility] [employer] Document Id: [id number] Miscellaneous - Luigi Anders - 03/08/2016 3:58 PM CDT Ambulatory Patient Summary [address] [id number] Visit Information Name: EMANUEL MCMAHAN [facility] Number: [id number] Current Date: 03/08/2016 15:58:29 Physicians Attending Provider: LUIGI ANDERS Primary Care [...] the Following Medications: Medication list as of 03-08-16 15:58 Attention: If you have any medications at [...] emergency. Electronically Signed By: LUIGI ANDERS Signed On:08-MAR-2016 15:58:25 Your Allergies & Intolerances Substance Reaction Symptoms Category Comments No Known Allergies Drug Your Problem List Problem Status Onset Comments Seasonal allergic rhinitis Active 08/04/2013 GERD [Gastroesophageal reflux disease] Active 08/04/2013 Hyperlipidemia NOS Active 08/04/2013 Pain Knee NOS Active Sprain Knee Medial Collateral Ligament (MCL) Subsequent L Active Your Upcoming Appointments Date Time Location Provider 03/15/2016 13:30 Luigi Quick 04/17/2016 15:30 Luigi Quick Attention: Contact your local Clinic if further [...] if you dont have one. Go to [email or web address] and click on Create Your Account. Then, follow the directions to complete the online form. Youll be asked for your [facility] number which you can find at the top of this document. Your Goals/Additional instructions: Source: [facility] POWERCHART Document Id: [id number] Miscellaneous - Luigi Anders - 03/08/2016 3:58 PM CDT Ambulatory Discharge Medication List [address] [id number] Visit Information Name: EMANUEL MCMAHAN [facility] Number: [id number] Visit Date: 03/08/2016 15:58:28 Attending Provider: LUIGI ANDERS Primary Care Provider: [...] the Following Medications: Medication list as of 03-08-16 15:58 Attention: If you have any medications at [...] Electronically Signed By: LUIGI ANDERS PA Signed On:08-MAR-2016 15:58:25 Additional Information: Source: [facility] POWERCHART Document Id: [id number] Miscellaneous - Gissel Bello, L.P.N. - 03/08/2016 2:37 PM CDT Adult Coding Technician Intake/History Adult Coding Technician Intake/History Entered On: 03/08/2016 14:42 CDT Performed On: 03/08/2016 14:37 CDT by GISSEL BELLO Intake Chief Complaint : Recheck L MCL sprain, workers comp, 10 weeks, pt reports a pain level of anywhere from a 1-5/10, depending on activity, bending the knee is still painful Systolic Blood Pressure : 140 mmHg Diastolic Blood Pressure : 82 mmHg NIBP Mean : 101 mmHg BP Location : Left upper extremity Blood Pressure Cuff Size : Large Height : 170 cm(Converted to: 5 ft 7 inch(es), 67 inch(es)) Actual Weight : 81.6 kg(Converted to: 179 lb 14 oz) Weight Source : Standing scale Dosing Weight Clinic : 81.6 kg Clinic BSA : 1.96 Body Mass Index : 28.24 kg/m2 GISSEL BELLO M - 03/08/2016 14:37 CDT General Info Information Given By : Patient Languages : Kyrgyz Is Patient Female and 13-50 no hysterectomy : No GISSEL BELLO M - 03/08/2016 14:37 CDT Subjective Pain Symptoms : Yes GISSEL BELLO M - 03/08/2016 14:37 CDT Pain Scale Pain Scale Verbal 0-10 : Open GISSEL BELLO M - 03/08/2016 14:37 CDT Pain Pain Assessment Grid Pain 1 Location : Knee Laterality : Left Intensity : 2 GISSEL BELLO M - 03/08/2016 14:37 CDT Dependent Habits Exposure to Tobacco Smoke : Other: never Smoking Status : Never smoker Tobacco 2A : No Tobacco Use/Currently Using : No Tobacco Use/Last 30 Days : No Tobacco Use/Last 12 months : No GISSEL BELLO M - 03/08/2016 14:37 CDT Caffeine Use Grid Caffeine Use : Current Type : Soft drinks GISSEL BELLO - 03/08/2016 14:37 CDT Source: [email or web address] Document Id: [id number] CDT!39 documented in this encounter Plan of Treatment Not on filedocumented as of this encounter Visit Diagnoses Not on filedocumented in this encounter
--- OUTSIDE RECORDS SUMMARY | 2022-09-27 14:41 | XMS_ITS | Encounter Summary ---
:1960 Author Organization [facility] Address [address] [place] [address] Care Team Providers Name Role Phone Unavailable Primary Care Provider Unavailable Encounter Details Date Type Department Care Team Description 12/19/2010 Hospital Encounter HX [facility] Arjun Rice M.D. [address] [place] [address] (Wo rk) Social History Tobacco Use Types [...] do you attend mu-ism or Never 2021 mandaen services? Do you belong to any clubs [...] encounter Progress Notes Arjun Lopez M.D. - 12/19/2010 2:30 PM CST FAMILY MEDICINE DATE OF SERVICE: 12/19/2010 HISTORY OF PRESENT ILLNESS This is a 50-year-old gentleman in for follow up on his issues. It has been about six months since his last visit. He has been doing otherwise very well. He is getting very minimal exercise. A lot of his job is sitting and he does that 10-12 hours during the day, 6-7 days during the week. He denies chest pain or shortness of breath except with his allergies. No claudication. PAST MEDICAL, FAMILY, AND SOCIAL HISTORY Medical: 1. Migraine headaches, followed by neurology. 2. GERD. 3. BPH, followed by Dr. Rizo. 4. Hyperlipidemia. 5. Hypertriglyceridemia. 6. Seasonal allergies. Family: His dad had a heart attack at age 65. There is no diabetes. MEDICATIONS 1. Montelukast 10 mg daily. 2. Atorvastatin 10 mg daily. 3. Fexofenadine 180 mg daily. 4. Celecoxib 200 mg daily. 5. Pantoprazole 40 mg daily. 6. Fenofibrate 145 mg daily. 7. Vitamin E. 8. Fish oil. 9. Multivitamin. 10. Sumatriptan. 11. Depakote 500 mg nightly. ALLERGIES No drug allergies. REVIEW OF SYSTEMS He has occasional back pain which has been helped with massage. Emanuel has been trying to improve his diet in the hopes of getting off some of his medications or cut back. EXAMINATION Blood pressure 118/76, pulse 78, respirations 18, temperature 36.3. Weight 78.2 kilograms. He is in no acute distress. Chest is clear to auscultation without wheezes or crackles. Cardiovascular shows regular rate and rhythm without murmur, rub, or gallop. Abdomen is soft, nontender. Extremities are without edema. Pulses are present in all four extremities. DIAGNOSTIC DATA Cholesterol is 190 with an LDL of 125. This is consistent with where he has been over the last 7 years. Triglycerides are good at 202. IMPRESSION/REPORT/PLAN Hyperlipidemia, stable. Will give a trial of niacin with no flush, 500 mg, starting once daily and tapering up to 1000 mg twice daily if tolerated. Once he is at that dose, we should have him there about two months and then follow back up for a fasting lipid panel, orders left in the clinic lab [facility]. Will also look at ALT at that time. If his cholesterol is coming down and he is tolerating the niacin, will try him back off the TriCor. Currently continuing with atorvastatin for the time being. Will also consider a colonoscopy. This will be sent over to [facility] as he is hoping to have the study done on Sunday. Questionnaire was filled out. DustinEVELINA was sent over to [facility] as well. Tetanus was taken care of in 2002. No interest in a flu shot. DRS:justine/kellen Doc#: [id number] cc: MD Lalitha Li M.D. Electronically Signed By: ARJUN LOPEZ MD On: 12/23/2010 03:53 Source: [facility] ISJDICTAPHONESYS Document Id: [id number] CTOR INDUSTRIAL RELATIONS documented in this encounter Miscellaneous Notes Miscellaneous - Arjun Lpoez M.D. - 12/19/2010 3:16 PM CST Ambulatory Patient Summary [address] [address] Visit Information Name: EMANUEL MCMAHAN Current Date: 12/19/2010 15:16:10 Primary Care Provider: ARJUN LOPEZ MD Your Medications Here is a list of your medications. It is important to take your medications as directed. Use a pillbox or chart to help remind you to take your medications. Please let your doctor or nurse know if you have problems taking your medications. Medication/Strength Dose Route Frequency Indications/Special Instructions/Comments montelukast (Singulair 10 mg oral tablet) 1 tab(s) Oral every evening atorvastatin (Lipitor 20 mg oral tablet) 10 mg Oral once a day Time for follow up. fexofenadine (fexofenadine 180 mg oral tablet) 180 mg Oral once a day hcl celecoxib (Celebrex 200 mg oral capsule) 200 mg Oral once a day pantoprazole (Protonix 40 mg oral enteric coated tablet) 40 mg Oral once a day fenofibrate (TriCor 145 mg oral tablet) 145 mg Oral once a day vitamin E (vitamin E 400 intl units [...] (Depakote 250 mg oral delayed release tablet) 500 mg Oral once a day taken at bedtime Your Allergies & Intolerances Substance Reaction Symptoms Category Comments NKA Drug Your Problem List Problem Status Onset Comments No Problems found Your Recommendations We want to make sure you get the tests, immunizations, and guidance you need to stay healthy. Here is a customized list of recommendations, based on information we have in your medical record. Your doctor may have additional recommendations for you, based on your personal medical history and risk factors. You can help us by calling us to make an appointment when you are due for your tests. Additional information regarding recommendations: Test/Treatment Last Done Next Due Additional Information Screening Colonoscopy or Flex Sig or Barium Enema or Occult Blood X3 12/19/2010 Checks for signs of cancer of the colon. Lipid Panel every 5 years Age 20-75 12/14/2010 12/13/2015 Checks blood for good (HDL) and bad (LDL) cholesterol. Know your numbers, they are one indicator of your risk for heart attack and stroke. Vaccine: Flu every 1 year 12/19/2010 Immunization to help prevent you from getting the flu strain expected to be a problem for that year's flu season. Vaccine: Tetanus every 10 years 06/15/2003 06/12/2013 Immunization to help prevent you from getting the serious disease Tetanus (Lockjaw). Your Upcoming Appointments Date Time Location Reason Provider No Appointments found Your Goals/Additional instructions: Source: [facility] POWERCHART Document Id: [id number] Miscellaneous - Arjun Lopez M.D. - 12/19/2010 3:16 PM CST Ambulatory Depart Summary [facility] - [address] [address] Visit Information Name: EMANUEL MCMAHAN Current Date: 12/19/2010 15:16:09 Primary Care Provider: ARJUN LOPEZ MD EMANUEL MCMAHAN has been given the following list of medications: Your Medications It is important to take your medications as directed. Use a pill box or chart to help remind you to take your medications. Please let your doctor or nurse know if you have problems taking your medications. Medication/Strength Dose Route Frequency Indications/Special Instructions/Comments montelukast (Singulair 10 mg oral tablet) 1 tab(s) Oral every evening atorvastatin (Lipitor 20 mg oral tablet) 10 mg Oral once a day Time for follow up. fexofenadine (fexofenadine 180 mg oral tablet) 180 mg Oral once a day hcl celecoxib (Celebrex 200 mg oral capsule) 200 mg Oral once a day pantoprazole (Protonix 40 mg oral enteric coated tablet) 40 mg Oral once a day fenofibrate (TriCor 145 mg oral tablet) 145 mg Oral once a day vitamin E (vitamin E 400 intl units [...] (Depakote 250 mg oral delayed release tablet) 500 mg Oral once a day taken at bedtime Additional Information: -Give a trial of Niacin (no flush) 500 mg. Start once daily and taper up to 1000 mg twice daily if tolerated. If tolerating, we could re check the lipid panel and consider stopping the Tricor. Yes - Current list of reconciled medications is provided and explained to the patient and/or family, guardian/caregiver. Source: [facility] POWERCHART Document Id: [id number] Miscellaneous - Desiree Calderon, L.P.N. - 12/19/2010 2:34 PM CST Adult Storekeeper Engineering Intake/History Adult Storekeeper Engineering Intake/History Entered On: 12/19/2010 14:37 DIRECTOR INDUSTRIAL RELATIONS Performed On: 12/19/2010 14:34 DIRECTOR INDUSTRIAL RELATIONS by DESIREE CALDERON LPN Intake Chief Complaint: had lab work done last week here for results needs medication refills Temperature Core: 36.3C(Converted to: 97.3DegF) (LOW) Peripheral Pulse Rate: 78/min Respiratory Rate: 18/min Systolic Blood Pressure: 118mmHg Diastolic Blood Pressure: 76mmHg NIBP Mean: 90mmHg BP Location: Right upper extremity Actual Weight: 78.200kg(Converted to: 172lb 6oz) Dosing Weight Clinic: 78.20kg DESIREE CALDERON LPN - 12/19/2010 14:34 DIRECTOR INDUSTRIAL RELATIONS Subjective Pain Symptoms: Yes DESIREE CALDERON LPN - 12/19/2010 14:34 DIRECTOR INDUSTRIAL RELATIONS Pain Pain Assessment Grid Pain 1 Location: Head Laterality: Bilateral Intensity: 5 DESIREE CALDERON LPN - 12/19/2010 14:34 DIRECTOR INDUSTRIAL RELATIONS Dependent Habits Tobacco Use/Currently Using: No DESIREE CALDERON LPN - 12/19/2010 14:34 DIRECTOR INDUSTRIAL RELATIONS Caffeine Use Grid Caffeine Use: Current Type: Soft drinks DESIREE CALDERON LPN - 12/19/2010 14:34 DIRECTOR INDUSTRIAL RELATIONS Allergies Allergies (Active) NKA Estimated Onset Date: Unspecified ; Created By: HOMERO GAN LPN; Reaction Status: Active ; Category: Drug ; Substance: NKA ; Type: Allergy ; Updated By: HOMERO GAN LPN; Reviewed Date: 12/19/2010 14:34 DIRECTOR INDUSTRIAL RELATIONS Source: [facility] Ink361CHART Document Id: [id number] DIRECTOR INDUSTRIAL RELATIONS!26 CTOR INDUSTRIAL RELATIONS documented in this encounter Plan of Treatment Not on filedocumented as of this encounter Visit Diagnoses Not on filedocumented in this encounter
--- OUTSIDE RECORDS SUMMARY | 2022-09-27 14:41 | XMS_ITS | Encounter Summary ---
:1960 Author Organization [facility] Address [address] [place] [address] Care Team Providers Name Role Phone Unavailable Primary Care Provider Unavailable Encounter Details Date Type Department Care Team Description 11/18/2009 Hospital Encounter HX [facility] Arjun Rice M.D. [address] [place] [address] (Wo rk) Social History Tobacco Use Types [...] do you attend zoroastrian or Never 2021 baptist services? Do you [...] 0 11/18 (FISH OIL ORAL) mouth daily. multivitamin tablet Take 1 capsule by 0 [...] encounter Progress Notes Arjun Lopez M.D. - 11/18/2009 1:50 PM CST CN DATE OF SERVICE: 11/18/2009 REASON FOR VISIT A 49-year-old gentleman in for medication refill. HISTORY OF PRESENT ILLNESS He has been fasting today. It has been more than a year since he was seen. Things have been going very well. No specific concerns. PAST, FAMILY, AND SOCIAL HISTORY Past: Migraine headaches followed by neurology, gastroesophageal reflux disease, BPH followed by , hyperlipidemia with hypertriglyceridemia, seasonal allergies. He is happy with how the fexofenadine is doing, as well as the occasional and seasonal montelukast. Preventative: Smoke detectors, diet, exercise were discussed along with dental visits. Tetanus boosted in 2002. He has not gotten the flu shot as far as I can tell. MEDICATIONS Atorvastatin 20 mg half tablet; celecoxib 200 mg daily; fenofibrate 145 mg daily; fexofenadine 180 mg; montelukast 10 mg; Depakote 250 mg two of these daily; meclizine 12.5; multivitamin; fish oil; pantoprazole 40 mg; sumatriptan 100 mg; vitamin E. ALLERGIES No known drug allergies. REVIEW OF SYSTEMS No trouble with seizures, headaches, vision, hearing, speech, swallowing. No chest pain or shortnessof breath. Bowels and bladder are fine. He sleeps well. Occasional shortness of breath typically with significant exertion. He was recently . EXAMINATION Blood pressure 110/78. Pulse 72. Respirations 16. Temperature 36.4. Weight 78.5 kg. He is in no acute distress. Chest: Clear to auscultation without wheezes or crackles. Cardiovascular: Regular rate and rhythm without murmurs, rubs or gallops. Abdomen: Soft. Extremities: Without edema. Radial pulse present and strong bilaterally. I could barely find his femoral pulses. Difficult to find dorsalis pedis bilaterally. DIAGNOSTIC DATA Potassium 4.7. Blood sugar 94. Cholesterol is slightly up at 203 with an LDL of 129. Triglycerides 212. I will let him know via phone. IMPRESSION/REPORT/PLAN Migraine headaches, followed by Neurology GERD Hyperlipidemia/hypertriglyceridemia Seasonal allergies We will continue with current medications. These were faxed over to [facility]. Preventative maintenance discussed. DRS:mariaa Doc#: [id number] Electronically Signed By:ARJUN LOPEZ MD On 11/25/2009 12:38 pm Modified by:ARJUN LOPEZ MD On 11/25/2009 12:38 pm Source: [facility] ISJDICTAPHONESYS Document Id: [id number] WARE SUPPORT REPRESENTATIVE documented in this encounter Miscellaneous Notes Miscellaneous - Arjun Lopez M.D. - 11/18/2009 2:31 PM CST Ambulatory Depart Summary [facility] [place] [address] Visit Information Name: EMANUEL MCMAHAN Current Date: 11/18/2009 14:31:31 Primary Care Provider: EMANUEL MCMAHAN has been given the following [...] tablet) 10 mg Oral once a day fenofibrate (TriCor 145 mg oral tablet) 145 mg Oral once a day vitamin E (vitamin E 400 intl units oral capsule) 400 IntU Oral once a day omega-3 polyunsaturated fatty acids (Fish Oil oral capsule) 1 cap(s) Oral once a day multivitamin (multivitamin) 1 cap(s) Oral once a day meclizine (meclizine 12.5 mg oral tablet) 1 tab(s) Oral three times a day as needed for Dizziness pantoprazole (Protonix 40 mg oral enteric coated tablet) 1 tab(s) Oral once a day sumatriptan (Imitrex 100 mg oral tablet) 1 tab(s) Oral once as needed for Migraine headache repeat after one hour if needed divalproex sodium (Depakote 250 mg oral delayed release tablet) 500 mg Oral once a day taken at bedtime fexofenadine (fexofenadine 180 mg oral tablet) 180 mg Oral once a day hcl celecoxib (Celebrex 200 mg oral capsule) 200 mg Oral once a day Additional Information: Yes - Medication list reviewed, patient verbalizes understanding of current medications, and list given to patient. Source: [facility] POWERCHART Document Id: [id number] Electronically signed by [facility] Disease Physician [id number] at 03/25/2017 11:11 PM CDT Miscellaneous - Desiree Calderon, L.P.N. - 11/18/2009 2:04 PM CST Adult Excavating Machine Operator Intake/History Adult Excavating Machine Operator Intake/History Entered On: 11/18/2009 14:08 SOFTWARE SUPPORT REPRESENTATIVE Performed On: 11/18/2009 14:04 SOFTWARE SUPPORT REPRESENTATIVE by DESIREE CALDERON GRAIN RECEIVER Intake Chief Complaint: needs medication refills also wants lab work patient is fasting Temperature Core: 36.4DegC(Converted to: 97.5DegF) (LOW) Peripheral Pulse Rate: 72bpm Respiratory Rate: 16br/min Systolic Blood Pressure: 110mmHg Diastolic Blood Pressure: 78mmHg NIBP Mean: 89mmHg BP Location: Left upper extremity Height: 170.00cm(Converted to: 5ft 7in, 5.58ft, 66.93in) Clinic BSA: 1.93 Body Mass Index: 27kg/m2 Actual Weight: 78.500kg(Converted to: 173.063lb) Dosing Weight Clinic: 78.50kg DESIREE CALDERON Reba ALAN - 11/18/2009 14:04 SOFTWARE SUPPORT REPRESENTATIVE Subjective Pain Symptoms: Yes CALDERON DESIREE Britton LPN - 11/18/2009 14:04 SOFTWARE SUPPORT REPRESENTATIVE Pain Pain Assessment Grid Pain 1 Location: Lower back (Comment: also legs [DESIREE CALDERON LPN - 11/18/2009 14:04 SOFTWARE SUPPORT REPRESENTATIVE] ) Laterality: Bilateral Intensity: 4 DESIREE CALDERON GRAIN RECEIVER - 11/18/2009 14:04 SOFTWARE SUPPORT REPRESENTATIVE Dependent Habits Tobacco Use/Currently Using: No DESIREE CALDERON LPN - 11/18/2009 14:04 SOFTWARE SUPPORT REPRESENTATIVE Alcohol Use Grid Alcohol Use: None DESIREE CALDERON LPN - 11/18/2009 14:04 SOFTWARE SUPPORT REPRESENTATIVE Allergies Allergies (Active) NKA Estimated Onset Date: Unspecified ; Created By: HOMERO GAN LPN; Reaction Status: Active ; Category: Drug ; Substance: NKA ; Type: Allergy ; Updated By: HOMERO GAN LPN; Reviewed Date: 11/18/2009 13:56 SOFTWARE SUPPORT REPRESENTATIVE Source: [facility] [employer] [employer] AmericaCHART Document Id: [id number] SOFTWARE SUPPORT REPRESENTATIVE!28 WARE SUPPORT REPRESENTATIVE Miscellaneous - Arjun Lopez M.D. - 11/18/2009 1:50 PM CST CL November 18, 2009 EMANUEL Hernandez [address] [place] [address] [facility] Patient Number: [id number] Dear Mr. Mcmahan: I received your laboratory studies from today showing that your cholesterol is just slightly up at 203, with an LDL of 129. These numbers are actually good. We will recheck them in a year. Your triglycerides are 212. Again, we will recheck that in a year. Your creatinine and potassium are excellent, as well as the liver study. I think we may have neglected to cover some of the screening issues such as a colonoscopy which would probably be a good idea if you have not done so. If you have other concerns or questions, please do not hesitate to contact me. Sincerely, Arjun Lopez MD [facility] DRS:juan Doc#: [id number] Source: [facility] ISJDICTAPHONESYS Document Id: [id number] WARE SUPPORT REPRESENTATIVE documented in this encounter Plan of Treatment Not on filedocumented as of this encounter Visit Diagnoses Not on filedocumented in this encounter
--- OUTSIDE RECORDS SUMMARY | 2022-09-27 14:41 | XMS_ITS | Encounter Summary ---
:1960 Author Organization [facility] Address [address] [place] [address] Care Team Providers Name Role Phone Unavailable Primary Care Provider Unavailable Encounter Details Date Type Department Care Team Description 02/01/2012 Hospital Encounter HX [facility] Brett Gaytan M.D. [address] [place] [address] (Wo rk) Social History Tobacco Use Types [...] or relatives? How often do you attend episcopalian or Never 2021 jew services? Do you belong to any clubs or Yes 04/20/2022 organizations such as episcopalian groups, unions, fraternal or athletic groups, or [...] or slept in a halfway (including now)? Sex Assigned at Date Recorded [...] Associated Comments Diagnosis LIPID PANEL, S Routine 02/01/2012 8:32 Results fo r this AM CDT procedure are i n the results section. ALANINE AMINOTRANSFERASE Routine 02/01/2012 8:32 Results for this (ALT), S/P AM CDT procedure are i n the results section. GLUCOSE, FASTING, S/P Routine 02/01/2012 8:32 Res ults for this AM CDT procedure are i n the results section. documented in this encounter Results (ABNORMAL) Glucose, Fasting (02/01/2012 8:32 AM CDT) P athologist Signature Glucose, 117 (H) 70 - 99 POWERCHART Fasting, S MGDL Specimen (Source) Anatomical Collection Method Collection Time Re ceived Time Location / / Volume Laterality Blood 02/01/2012 8:32 AM CDT Ariadna Jones D.O. LAB BLOOD NON ADD-ON Performing Organization Address City/State/ZIP Code Phon e Number POWERCHART (ABNORMAL) Lipid Panel (02/01/2012 8:32 AM CDT) Patholo gist Method Time Signature Cholesterol, 246.0 (H) 120.0 - POWERCHART Total 200.0 MGDL HX HDL 28.0 (L) 40.0 - POWERCHART 85.0 MGDL Triglycerides 334 (H) 35 - 185 POWERCHART MGDL Calculated LDL 151 (H) 60 - 130 POWERCHART MGDL Total 8.8 POWERCHART Cholesterol/HDL Ratio HXLDL/HDL 5 POWERCHART Specimen (Source) Anatomical Collection Method Collection Time Re ceived Time Location / / Volume Laterality Blood 02/01/2012 8:32 AM CDT Ariadna Jones D.O. LAB BLOOD ADD-ON Performing Organization Address City/State/ZIP Code Phon e Number POWERCHART ALT (Alanine Aminotransferase) (02/01/2012 8:32 AM CDT) P athologist Signature Alanine 49 6 - 50 POWERCHART Amniotransferas UNITL e, LD Specimen (Source) Anatomical Collection Method Collection Time Re ceived Time Location / / Volume Laterality Blood 02/01/2012 8:32 AM CDT Ariadna Jones D.O. LAB BLOOD ADD-ON Performing Organization Address City/State/ZIP Code Phon e Number POWERCHART documented in this encounter Visit Diagnoses Not on filedocumented in this encounter
--- OUTSIDE RECORDS SUMMARY | 2022-09-27 14:41 | XMS_ITS | Encounter Summary ---
:1960 Author Organization [facility] Address [address] [place] [address] Care Team Providers Name Role Phone Unavailable Primary Care Provider Unavailable Encounter Details Date Type Department Care Team Description 09/10/2007 Hospital Encounter HX NO MAPPING Malini Cannon M.D. [address] [address] [place], [place] [address] (Wo rk) Social History Tobacco Use Types [...] or relatives? How often do you attend spiritism or Never 2021 congregational services? Do you belong to any clubs or Yes 04/20/2022 organizations such as spiritism groups, unions, fraternal or athletic groups, or [...] CDT documented as of this encounter Progress Latanya Fischer M.D. - 09/10/2007 12:00 [place] [address] Name: EMANUEL MCMAHAN MR#: [id number] : 56 Dictating Provider: Latanya Arzola MD Serv Date: 09/10/07 CLINIC NOTE S: This 47-year-old male comes today because for the past two weeks he thought that he might be having allergy symptoms when he was coming down from vacation. He was taking his Stephanie to try to keep up with the symptoms. The patient says that this has no helped at all and now he feels that his throat is scratchy and that he has been coughing a lot. He said that his breathing feels tight and he is bringing up some yellow phlegm. She does not have any history of asthma. He has tried rqli-qvt-ckjvxmt medications without relief. O: Vital signs - Weight 80.3 kg, temperature 36.2, pulse 72, respiratory rate 20, blood pressure 120/90. In general, the patient is alert and in no respiratory distress, very cooperative. ENT shows normal tympanic membranes. Pharynx is just mildly erythematous. Tonsils are not enlarged and I do not see any exudates. Chest without retractions. Heart is regular with clear S1 and S2. Lungs with decreased air entry but at this moment no rales, rhonchi, or wheezes. A: BRONCHITIS. P: Zithromax Z-Evin to take as directed, dispensed #1 and no refills. Also, codeine/guaifenesin 5/10/100, to take one or two teaspoons every four to six hours p.r.n. cough, dispensed 120 mL and no refills. Emanuel was instructed to come back if his symptoms worsen or if he does not improve. Latanya Arzola MD /justine/cp Authenticated by Latanya Arzola MD on 09/26/2007 07:49:49 Authorized physician signature on file [facility] NAME: EMANUEL MCMAHAN [facility] MR#: [id number] [place] [address] : 1960 PHYSICIAN: Latanya Arzola MD VISIT DATE: 09/10/2007 CLINIC PROGRESS NOTE [facility] Name: MUNAEMANUEL NOLVIA CLINIC PROGRESS NOTE Source: [facility] ISJHXDICTAPHONESYS Document Id: [id number] Electronically signed by Conversion, [facility] Printing Table Hand [id number] at 03/26/2017 11:14 AM CDT documented in this encounter Plan of Treatment Not on filedocumented as of this encounter Visit Diagnoses Not on filedocumented in this encounter
--- OUTSIDE RECORDS SUMMARY | 2022-09-27 14:41 | XMS_ITS | Encounter Summary ---
:1960 Author Organization [facility] Address [address] [place] [address] Care Team Providers Name Role Phone Unavailable Primary Care Provider Unavailable Encounter Details Date Type Department Care Team Description 01/15/2009 Hospital Encounter HX NO MAPPING Arjun Gaytan M.D. [address] [place] [address] (Wo rk) Social History Tobacco Use Types [...] or relatives? How often do you attend christianity or Never 2021 alevism services? Do you belong to any clubs or Yes 04/20/2022 organizations such as christianity groups, unions, fraternal or athletic groups, or [...] as of this encounter Progress Notes Arjun Gaytan M.D. - 01/15/2009 12:00 [place] [address] Name: EMANUEL MCMAHAN MR#: [id number] : [birth year] Dictating Provider: Arjun Gaytan MD Serv Date: 01/15/09 CLINIC NOTE S: Emanuel is a 48-year-old gentleman in complaining of three weeks worth of cough and cold and a little bit of chest discomfort with coughing. No temperature elevation, fever or chills. He has had some reactive airway disease in the past, but is not really having trouble with breathing right now. He has tried his inhaler, which did not help. He has had allergy shots in the past. Food has no taste. With sleep he needs to be propped up right now. He has tried some eoyy-kqy-mcraicg cough drops. PAST MEDICAL HISTORY: Reactive airway disease. ALLERGIES: No drug allergies. CURRENT MEDICATIONS: Stephanie D 180 mg, pantoprazole 40 mg, sumatriptan as need be, celecoxib 200 mg daily, VPA (Depakote ER) 500 mg daily, MVI, vitamin E, fish oil, Fenofibrate (Tricor) 145 mg daily, atorvastatin 10, Singulair 10 mg daily. O: Blood pressure 110/82. Pulse 80. Respirations 16. Temperature 36.6. Weight 75.8 kg. Height 172 cm. He is in no acute distress. Pupils equally round. TMs are clear bilaterally. Nose clear with some thin mucoid discharge. Oropharynx clear. Neck without adenopathy. Chest - Clear to auscultation. No wheeze on forced expiration. No E to A changes. A: SINUSITIS. P: Because of the duration will do TMP/SMX (Bactrim DS) one tablet twice daily for ten days with a refill. This was called in to [facility]. Also Robitussin with codeine 240 ml, one or two teaspoons every four hours with no refills. Follow back up if symptoms are persisting or changing. Encouraged aggressive hydration. For his reactive airway disease, it is unclear whether the Singulair has offered any help so I think he is fine coming off of this. If his breathing gets worse, will just need to add that back for him. DRS:loni Doc#: [id number] Authenticated by Arjun Gaytan MD on 01/18/2009 14:31:30 Authorized physician signature on file [facility] NAME: MUNA EMANUEL L [facility] MR#: [id number] [place] [address] : 1960 PHYSICIAN: Arjun Gaytan MD VISIT DATE: 01/15/2009 [facility] PROGRESS NOTE [facility] Name: EMANUEL MCMAHAN [facility] PROGRESS NOTE Source: [facility] ISJHXDICTAPHONESYS Document Id: [id number] Electronically signed by Janell, [facility] It Field Technician [id number] at 03/25/2017 5:33 PM CDT documented in this encounter Plan of Treatment Not on filedocumented as of this encounter Visit Diagnoses Not on filedocumented in this encounter
--- OUTSIDE RECORDS SUMMARY | 2022-09-27 14:41 | XMS_ITS | Encounter Summary ---
:1960 Author Organization [facility] Address [address] [place] [address] Care Team Providers Name Role Phone Unavailable Primary Care Provider Unavailable Encounter Details Date Type Department Care Team Description 10/08/2006 Hospital Encounter HX [facility] Henry Damon M.D. [address] [place] [address] (Wo rk) Social History Tobacco Use Types [...] or relatives? How often do you attend scientology or Never 2021 rastafarian services? Do you belong to any clubs or Yes 04/20/2022 organizations such as scientology groups, unions, fraternal or athletic groups, or [...]
--- OUTSIDE RECORDS SUMMARY | 2022-09-27 14:41 | XMS_ITS | Encounter Summary ---
:1960 Author Organization [facility] Address [address] [place] [address] Care Team Providers Name Role Phone Unavailable Primary Care Provider Unavailable Encounter Details Date Type Department Care Team Description 09/06/2006 Hospital Encounter HX [facility] Keila Grigsby M.D. Social History Tobacco Use Types Packs/Day Years [...] or relatives? How often do you attend synagogue or Never 2021 bahai services? Do you belong to any clubs or Yes 04/20/2022 organizations such as synagogue groups, unions, fraternal or athletic groups, or [...]
--- OUTSIDE RECORDS SUMMARY | 2022-09-27 14:41 | XMS_ITS | Encounter Summary ---
:1960 Author Organization [facility] Address [address] [place] [address] Care Team Providers Name Role Phone Unavailable Primary Care Provider Unavailable Encounter Details Date Type Department Care Team Description 03/21/2011 Hospital En[facility] Brett Gaytan M.D. [address] [place] [address] (Wo rk) Social History Tobacco Use Types [...] do you attend sabianist or Never 2021 tenriism services? Do you [...]
--- OUTSIDE RECORDS SUMMARY | 2022-09-27 14:41 | XMS_ITS | Encounter Summary ---
:1960 Author Organization [facility] Address [address] [place] [address] Care Team Providers Name Role Phone Unavailable Primary Care Provider Unavailable Encounter Details Date Type Department Care Team Description 12/27/2009 Hospital Encounter HX [facility] Satinder Rizo M.D. [address] [place] [address] (Wo rk) Social History Tobacco [...] do you attend yazidism or Never 2021 anglican services? Do you [...]
--- OUTSIDE RECORDS SUMMARY | 2022-09-27 14:41 | XMS_ITS | Encounter Summary ---
:1960 Author Organization [facility] Address [address] [place] [address] Care Team Providers Name Role Phone Unavailable Primary Care Provider Unavailable Encounter Details Date Type Department Care Team Description 02/21/2011 Hospital Encounter [facility]X [facility] Satinder Rizo M.D. [address] [place] [address] (Wo rk) Social History Tobacco [...] do you attend denominational or Never 2021 zoroastrian services? Do you belong to any clubs [...] place to sleep or slept in a long-term (including now)? Sex Assigned at Date Recorded [...]
--- OUTSIDE RECORDS SUMMARY | 2022-09-27 14:41 | XMS_ITS | Encounter Summary ---
:1960 Author Organization [facility] Address [address] [place] [address] Care Team Providers Name Role Phone Unavailable Primary Care Provider Unavailable Encounter Details Date Type Department Care Team Description 09/18/2006 Hospital Encounter [facility]X [facility] Satinder Rizo M.D. [address] [place] [address] (Wo rk) Social History Tobacco [...] many times do you More than three tear es a week 04/20/2022 talk on the phone with family, friends, or neighbors? How often do you get together with friends Twice a week 04/20/2022 or relatives? How often do you attend hoahaoism or Never 2021 zoroastrianism services? Do you belong to any clubs [...]
--- OUTSIDE RECORDS SUMMARY | 2022-09-27 14:41 | XMS_ITS | Encounter Summary ---
:1960 Author Organization [facility] Address [address] [place] [address] Care Team Providers Name Role Phone Unavailable Primary Care Provider Unavailable Encounter Details Date Type Department Care Team Description 03/13/2008 Hospital Encounter HX NO MAPPING Arjun Gaytan M.D. [address] [place] [address] (Wo rk) Social History Tobacco Use Types [...] or relatives? How often do you attend shinto or Never 2021 hinduism services? Do you belong to any clubs or Yes 04/20/2022 organizations such as shinto groups, unions, fraternal or athletic groups, or [...] encounter Progress Notes Arjun Gaytan M.D. - 03/13/2008 12:00 [place] [address] Name: EMANUEL MCMAHAN MR#: [id number] : [birth year] Dictating Provider: Arjun Gaytan MD Serv Date: 03/13/08 CLINIC NOTE S: This 47-year-old gentleman in for followup on his routine issues. He has been battling hypertriglyceridemia with Dr. Murphy for a couple years. Also has some migraines, followed by neurology, dizziness, and then some allergies that he was seen by Dr. Mejia for in the past. He has been on a proton pump inhibitor and Stephanie-D with minimal improvement. Lots of shortness of breath. Some wheezing periodically. Hoarse voice, coughing. He has failed allergy shots. He is also followed by Dr. Rizo for elevated PSA and prostate issues. CURRENT MEDICATIONS: Stephanie-D 180 mg daily; pantoprazole 40 mg; sumatriptan 4-5 times month; celecoxib 200 mg daily; MVI; Vitamin E; fish oil; fenofibrate (TriCor) 145 mg daily; atorvastatin 10 mg; VPA (Depakote) 500 mg daily. Preventative maintenance was discussed. His PSA has been followed by Dr. Rizo. Gun safety, smoke detectors, seat belts were all discussed. He does not wear a helmet while motorcycle riding. He does try to protect his skin. He gets dental visits on a regular basis. REVIEW OF SYSTEMS: He gets some back pain. Does well with massage. O: Blood pressure 110/74. Pulse 76. Respirations 16. Temperature 36.8. Weight 75.6 kg. He is in no acute distress. Chest - Clear to auscultation. Neck without adenopathy. Cardiovascular - Regular rate and rhythm. Abdomen - Soft, nontender. Extremities - Without pretibial edema. Pulse present in all 4 extremities. Neurologic - Grossly intact. Skin - Hint of scale on the left arm. More of a pinkish-type papule. Rectal was deferred as Dr. Rizo has been following his prostate. Chest - Clear to auscultation without wheezes on forced expiration. A: 1. SEASONAL ALLERGIES. 2. HYPERLIPIDEMIA. P: Will have him follow up for fasting lipid panel today. Will also look at giving a trial of montelukast 10 mg daily. This was called in to [facility], 30 tablets with a refill. Also refilled his Celebrex 200 mg daily with p.r.n. refills. If the Singulair offers improvement, will probably come off the Stephanie D and see how he does. Have him put some triamcinolone on this pink patch on the left arm. If not having improvement will need to consider biopsy. Arjun Gaytan MD /gilberts Authenticated by Arjun Gaytan MD on 03/20/2008 18:04:30 Authorized physician signature on file Doc#: [id number] [facility] NAME: EMANUEL MCMAHAN [facility] MR#: [id number] [place] [address] : 1960 PHYSICIAN: Arjun Gaytan MD VISIT DATE: 03/13/2008 CLINIC PROGRESS NOTE [facility] Name: EMANUEL MCMAHAN [facility] PROGRESS NOTE Source: [facility] ISJHXDICTAPHONESYS Document Id: [id number] Electronically signed by Janell, [facility] Vacuum Cleaner Assembler [id number] at 03/26/2017 6:13 AM CDT documented in this encounter Plan of Treatment Not on filedocumented as of this encounter Visit Diagnoses Not on filedocumented in this encounter
--- OUTSIDE RECORDS SUMMARY | 2022-09-27 14:41 | XMS_ITS | Encounter Summary ---
:1960 Author Organization [facility] Address [address] [place] [address] Care Team Providers Name Role Phone Unavailable Primary Care Provider Unavailable Encounter Details Date Type Department Care Team Description 01/17/2011 Hospital Encounter HX [facility] Jorge L Sotelo M.D . Social History Tobacco Use Types Packs/Day Years [...] do you attend confucianist or Never 2021 taoist services? Do you [...] PM CDT documented as of this encounter Discharge Summaries Conversion, Historical Provider Ser - 01/17/2011 12:33 PM CDT Discharge Medication List [facility] [address] [place] [address] Discharge Medication List Name: EMANUEL TORO Current Date: 01/17/2011 12:33:47 : 1960 12:00 PM Patient Address: [address] [place] [address] [place] [id number] Patient Primary Care Provider: Name: ARJUN GAYTAN MD Discharge Diagnosis: [facility] would like to thank you for allowing us to assist you with your healthcare needs. The following includes patient education materials and information regarding your injury/illness. Medications Medication/Strength Dose Route Frequency Indications/Special Instructions/Comments atorvastatin (Lipitor 20 mg oral tablet) 10 mg Oral once a day fenofibrate (TriCor 145 mg oral tablet) 145 mg Oral once a day polyethylene glycol 3350 with electrolytes (Golytely (1 day prep) - [facility]) 1 each Oral as directed On the day before colonoscopy 1:00 to 4:00 PM: Drink (8) ounces every 20 minutes until half of the solution is consumed. Then from 7:00 to 10:00PM: Drink (8) ounces every 20 minutes until the solution is completely finished. montelukast (Singulair 10 mg oral tablet) 1 tab(s) Oral every evening fexofenadine (fexofenadine 180 mg oral tablet) 180 mg Oral once a day hcl celecoxib (Celebrex 200 mg oral capsule) 200 mg Oral once a day pantoprazole (Protonix 40 mg oral enteric coated tablet) 40 mg Oral once a day vitamin E [...] home that are not on this list, please contact your provider for clarification. Electronically Signed By: Signed On: Source: [employer] Document Id: [id number] Conversion, Historical Provider Ser - 01/17/2011 12:33 PM CDT Inpatient Discharge Instructions [address] [address] Patient Discharge Instructions Name: EMANUEL TORO Current Date: 01/17/2011 12:33:47 : 1960 12:00 PM Patient Address: [address] [place] [phone] Patient Primary Care Provider: Name: ARJUN GAYTAN MD Discharge Diagnosis: [facility] would like to thank you for allowing us to assist you with your healthcare needs. The following includes patient education materials and information regarding your injury/illness. Comment: EMANUEL TORO has been given the following list of follow-up instructions, prescriptions, and patient education materials: Follow-up Instructions I, EMANUEL TORO , have received the attached patient education materials/instructions and have verbalized understanding: Patient Signature Date/Time Provider Signature Date/Time Source: [employer] Document Id: [id number] Conversion, Historical Provider Ser - 01/17/2011 12:33 PM CDT Discharge Summary Discharge Summary Entered On: 01/17/2011 12:33 CDT Performed On: 01/17/2011 12:33 CDT by LIZ CHAMORRO DC Information Discharged to: Home independently Current Home Treatments: None Home Equipment: None Professional Skilled Services: None Special Services and Community Resources: None Mode of Discharge: Wheelchair Discharge Transportation: Private vehicle Accompanied By: Nurse aide Date/Time of Discharge: 01/17/2011 12:40 CDT LIZ CHAMORRO - 01/17/2011 12:33 CDT Source: [facility] Document Id: [id number] CDT!11 documented in this encounter Medications at Time [...] mouth daily. documented as of this encounter Procedure Notes Conversion, Historical Provider Ser - 01/17/2011 12:33 PM CDT Peripheral IV Peripheral IV Entered On: 01/17/2011 12:33 CDT Performed On: 01/17/2011 12:33 CDT by LIZ CHAMORRO Peripheral IV Peripheral IV Assess/Intervention Grid Peripheral IV #1 IV Activity: Discontinue, Assessment Number of Attempts: 1 Date of Insertion: 01/17/2011 CDT IV Site: Hand Laterality: Right Catheter Size: 20 Catheter Type: Over the needle Site Condition: No complications Drainage Description: None Infiltration Score: 0 Phlebitis Score: 0 Dressing/ Activity: Dry, Intact, Gauze Flow/ Patency: No complications LIZ CHAMORRO - 01/17/2011 12:33 CDT Source: [employer] Document Id: [id number] CDT!17 Conversion, Historical Provider Ser - 01/17/2011 10:00 AM CDT Peripheral IV Peripheral IV Entered On: 01/17/2011 10:06 CDT Performed On: 01/17/2011 10:00 CDT by LIZ CHAMORRO Peripheral IV Peripheral IV Assess/Intervention Grid Peripheral IV #1 IV Activity: Start, Assessment Number of Attempts: 1 Date of Insertion: 01/17/2011 CDT IV Site: Hand Laterality: Right Catheter Size: 20 Catheter Type: Over the needle Site Condition: No complications Drainage Description: None Dressing/ Activity: Dry, Intact, Gauze Flow/ Patency: No complications LIZ CHAMORRO - 01/17/2011 10:05 CDT Source: [employer] Document Id: [id number] CDT!15 Conversion, Historical Provider Ser - 01/17/2011 9:30 AM CDT Preprocedure Checklist Preprocedure Checklist Entered On: 01/17/2011 9:32 CDT Performed On: 01/17/2011 9:30 CDT by LIZ CHAMORRO Checklist Last Fluid Intake: 01/16/2011 22:00 CDT Last Food Intake: 01/16/2011 17:00 CDT LIZ CHAMORRO - 01/17/2011 10:06 CDT Last Void: 01/17/2011 9:31 CDT LIZ CHAMORRO - 01/17/2011 9:30 CDT Surgery Prep Grid Contacts/Glasses Removed: Yes (Comment: will remove before leaving for procedure [LIZ CHAMORRO - 01/17/2011 10:06 CDT] ) Dentures Removed: NA Hairpins/Hairpiecies Removed: NA Hearing Aid Removed: NA (Comment: did not wear today [LIZ CHAMORRO 01/17/2011 10:06 CDT] ) Home Prep Complete: Yes Makeup/Nail Ghanaian Removed: NA Oral Hygiene: Yes Preop Scrub AM of Surgery: NA Preop Scrub Night Prior to Surgery: NA Prosthesis Removed: NA Surgical Prep Verified: Yes Tampon Removed: NA Wearing Patient Gown: Yes LIZ CHAMORRO 01/17/2011 9:30 CDT Patient Rights Grid Blood Consent Signed: GILBERTO Surgical/Procedure Consent Signed: GILBERTO (Comment: will sign with MD [LIZ CHAMORRO Aleksandra 01/17/2011 10:06 CDT] ) LIZ CHAMORRO 01/17/2011 9:30 CDT Family Location: friend present-Carmelina LAOALISLIZ Aleksandra 01/17/2011 9:30 CDT Checklist II Patient Safety Grid Allergy Band on and Verified: NA Band on for Limb Alert: NA Blood Band on and Verified: NA Current ECG in Medical Record: NA Current H&P in Medical Record: Yes Implants Verified: NA Medication Reconciliation on Chart: Yes Pacemaker/AICD Verified: NA ID Band on and Verified: Yes Preop Medications Sent With Patient: NA Relevant Images in Medical Record: NA Review of Labs: NA Procedure/Site Verified by Patient/Family: Yes Procedure/Site Verified by RN: Yes LIZ CHAMORRO 01/17/2011 10:06 CDT Valuables/Belongings Valuables/Belongings Grid Valuables at Bedside Clothes, Patient Valuables: Jacket, Pants, Shirt, Shoes, Undergarments LIZ CHAMORRO 01/17/2011 9:30 CDT Room Orientation/Facility Policy Reviewed: Yes Home Medication Disposition: None brought in with patient LIZ CHAMORRO Aleksandra 01/17/2011 9:30 CDT Preop Holding Mode of Arrival: Ambulatory Preoperative Orders Complete: Yes LIZ CHAMORRO 01/17/2011 9:30 CDT Advance Directive Advanced Directives: Yes Advance Directive Type: Living will Advance Directive Location: Copy placed on paper chart LIZ CHAMORRO Aleksandra 01/17/2011 9:30 CDT Vital Signs Temperature Core: 36.7C(Converted to: 98.1DegF) BP Location: Left upper extremity Oxygen Therapy: Room air LIZ CHAMORRO Aleksandra 01/17/2011 9:30 CDT Allergy Allergies (Active) NKA Estimated Onset Date: Unspecified ; Created By: HOMERO GAN LPN; Reaction Status: Active ; Category: Drug ; Substance: NKA ; Type: Allergy ; Updated By: HOMERO GAN LPN; Reviewed Date: 12/19/2010 14:34 TRAFFIC REPRESENTATIVE Preprocedural Pause Correct Patient Identity: Patient verbalizes self, Patient wristband ID Correct Procedure Site and Side: colonoscopy Site Marking: N/A LIZ CHAMORRO Aleksandra - 01/17/2011 9:30 CDT [facility] Document Id: [id number] CDT!60 Jorge L Harvey M.D. - 01/17/2011 6:06 AM CDT [facility] DATE OF OPERATION: 01/17/2011 REFERRING PROVIDER Arjun Gaytan M.D. PREOPERATIVE DIAGNOSIS Age related colon cancer screening. POSTOPERATIVE DIAGNOSIS A 3 mm descending colon polyp removed by cold biopsy. SURGEON JASON Harding OPERATION Colonoscopy with biopsy and terminal ileal examination. ANESTHESIA Versed 6 mg; fentanyl 150 mcg. TIME TO CECUM 3 minutes. WITHDRAWAL TIME 14 minutes. PREPARATION QUALITY Good. PREPROCEDURE FOCUSED HISTORY AND PHYSICAL This is the patients first colonoscopy. Maternal grandmother did pass away from colon cancer at the age of 72. Age of diagnosis not known. Patient has no preceding GI symptoms. INFORMED CONSENT Informed consent including risks, benefits, alternatives, and missed rate discussed. The patient agreed to proceed. A preprocedure pause was done. Titrated sedation while monitoring blood pressure, pulse, respirations, and oxygenation was initiated. PROCEDURE The patient was in the left lateral decubitus position. After digital rectal examination the variable stiffness pediatric Olympus 180 colonoscope was advanced under direct vision to the cecum. Cecum identified by appendiceal orifice and ileocecal valve. Terminal ileum intubated for 3 centimeters, mucosa appeared normal. Careful examination of visualized colonic mucosa is done upon withdrawal. Preparation quality was good. Mucosa of the cecum, ascending and transverse colon appeared normal. In the descending colon a diminutive 3 mm polyp was identified, removed by cold biopsy and placed in bottle #1. Mucosa of the sigmoid appeared normal. Mucosa of the rectum appeared normal in forward and retroflexed views. The endoscope was straightened, rectum deflated, endoscope withdrawn. Patient tolerated the procedure well. IMPRESSION A 3 mm small descending colon polyp removed by cold biopsy. RECOMMENDATIONS 1. Await histopathology of colon polyp. If it is adenoma patient should have a repeat colonoscopy in5 years. If it is hyperplastic or distal mucosa polyp then patient can go 10 years without a repeat colonoscopy by current screening guidelines. COLON, DESCENDING POLYP: --- COLONIC MUCOSA WITHOUT DIAGNOSTIC ABNORMALITY. FINAL SUMMARY RECOMMENADTIONS: No real polyps on pathology. Repeat colonoscopy in 10 years. MKR:sarah Doc#: [id number] cc: MD Emanuel Oscar, [id number] [place] [id number] Electronically Signed By: JORGE L HARVEY On: 02/14/2011 12:40 Modified by and Electronically Signed by: JORGE L HARVEY On: 02/14/2011 12:40 pm Source: [facility] Document Id: [id number] documented in this encounter Miscellaneous Notes Miscellaneous - Conversion, Historical Provider Ser - 01/17/2011 12:33 PM CDT Inpatient Patient Education The following Patient Education Materials have been given to the patient: Patient Education Materials: No instructions were provided. No instructions were provided. Source: [facility] Document Id: [id number] Miscellaneous - Conversion, Historical Provider Ser - 01/17/2011 11:44 AM CDT Valuables/Belongings Valuables/Belongings Entered On: 01/17/2011 11:44 CDT Performed On: 01/17/2011 11:44 CDT by LIZ CHAMORRO Valuables/Belongings Valuables/Belongings Grid Valuables at Bedside Clothes, Patient Valuables: Jacket, Pants, Shirt, Shoes, Undergarments LIZ CHAMORRO - 01/17/2011 11:44 CDT Room Orientation/Facility Policy Reviewed: Yes Belongings Sent Home With: patient Home Medication Disposition: None brought in with patient LIZ CHAMORRO - 01/17/2011 11:44 CDT Source: [facility] Document Id: [id number] CDT!8 Miscellaneous - Conversion, Historical Provider Ser - 01/17/2011 11:29 AM CDT Adult Postprocedure Assessment Adult Postprocedure Assessment Entered On: 01/17/2011 11:42 CDT Performed On: 01/17/2011 11:29 CDT by LIZ CHAMORRO Vital Signs Temperature Core: 37.0C(Converted to: 98.6DegF) Peripheral Pulse Rate: 83/min Respiratory Rate: 18/min Systolic Blood Pressure: 135mmHg Diastolic Blood Pressure: 80mmHg NIBP Mean: 98mmHg BP Location: Left upper extremity SpO2: 92% (LOW) Oxygen Therapy: Room air LIZ CHAMORRO - 01/17/2011 11:39 CDT General Level of Consciousness: Alert Orientation: Oriented x 3 Skin Color: Normal for ethnicity Skin Description: Dry Skin Temperature: Warm Pain Symptoms: No LIZ CHAMORRO - 01/17/2011 11:39 CDT FLACC Face FLACC: No particular expression or smile Legs FLACC: Normal position or relaxed Activity FLACC: Lying quietly, normal position, moves easily Cry FLACC: No cry, awake or asleep Consolabillity FLACC: Content, relaxed FLACC Pain Scale Score: 0 LIZ CHAMORRO - 01/17/2011 11:39 CDT Cardiovascular Heart Rhythm: Regular Nail Bed Color: [place] Edema: None Capillary Refill: Less than 2 seconds LIZ CHAMORRO - 01/17/2011 11:39 CDT GI/ Nausea Symptoms: No LIZ CHAMORRO 01/17/2011 11:39 CDT Peripheral IV Peripheral IV Assess/Intervention Grid Peripheral IV #1 IV Activity: Start, Assessment Number of Attempts: 1 Date of Insertion: 01/17/2011 CDT IV Site: Hand Laterality: Right Catheter Size: 20 Catheter Type: Over the needle Site Condition: No complications Drainage Description: None Dressing/ Activity: Dry, Intact, Gauze Flow/ Patency: No complications LIZ CHAMORRO - 01/17/2011 11:39 CDT Modified Kassi Activity: Moves 4 extremities voluntarily or on command Respiratory: Able to deep breathe and cough freely Circulation: BP +/- 20% of preprocedural level or not unusually high or low Consciousness: Fully awake O2 Saturation: O2 SAT at preprocedural level Kassi l Score: 10 LIZ CHAMORRO - 01/17/2011 11:39 CDT PARSAP Activity Status: Moves 4 extremities voluntarily or on command Dressing: None Respiratory Component: Able to deep breathe and cough freely Pain: Pain free Circulation Component: BP 20% of preanesthetic level Ambulation: Able to stand up and walk straight Consciousness: Fully awake Fasting and Feeding: Able to drink fluids Oxygen Saturation - Sedation: Can maintain > 92% on room air Urine Output, PARSAP: Not assessed PARSAP Score: 20 LIZ CHAMORRO - 01/17/2011 11:39 CDT [place] Hyde Agitation Sedation Scale (RASS): Alert and calm RASS Score: 0 LIZ CHAMORRO - 01/17/2011 11:39 CDT Education General Patient Education [employer] Topics: Discharge instructions/Medication list, Plan of care, Postoperative instructions Individuals Taught: Patient Barriers to Learning: None evident Teaching Method: Explanation, Printed materials Teaching Evaluation: Verbalizes understanding LIZ CHAMORRO - 01/17/2011 11:39 CDT [facility] Document Id: [id number] CDT!76 Miscellaneous - Conversion, Historical Provider Ser - 01/17/2011 9:28 AM CDT Adult Admission Assessment Adult Admission Assessment Entered On: 01/17/2011 9:30 CDT Performed On: 01/17/2011 9:28 CDT by LIZ CHAMORRO Respiratory Respiratory Patient Stated Symptoms: None Respirations: Unlabored Respiratory Pattern: Regular All Lobes Breath Sounds: Clear Cough and Deep Breathe: Done Cough: None Sputum Amount: None Suction: None LIZ CHAMORRO 01/17/2011 9:28 CDT Cardiovascular CV Patient Stated Symptoms: None Heart Rhythm: Regular Nail Bed Color: [place] Capillary Refill: Less than 2 seconds Edema: None LIZ CHAMORRO 01/17/2011 9:28 CDT Neurological Neuro Patient Stated Symptoms: None Orientation: Oriented x 3 Level of Consciousness: Alert Gait: Steady Swallowing Difficulty/Aspiration Risk: None LIZ CHAMORRO 01/17/2011 9:28 CDT [place] Coma Eye Opening Response [place]: Spontaneously Best Verbal Response [place]: Oriented Best Motor Response Vick: Obeys simple commands Vick Coma Score: 15 LIZ CHAMORRO 01/17/2011 9:28 CDT Psycho/Emotional Affect/Behavior: Calm, Cooperative, Appropriate Pain Symptoms: Yes LIZ CHAMORRO 01/17/2011 9:28 CDT Coping Grid Identifies effective strategies: Yes Uses effective strategies: Yes Reports increase in psychological comfort: Yes Indicates sense of control: Yes Stressors perceived within control: Yes Stable mood with appropriate affect: Yes Behaviors indicate use of coping mechanism: Yes Family supportive and involved in care: Yes Values/Beliefs incorporated appropriately: Yes LIZ CHAMORRO 01/17/2011 9:28 CDT Safety Grid Vision, Hearing, Mobility Adequate to Meet Safety Needs: Yes LIZ CHAMORRO 01/17/2011 9:28 CDT FLACC Face FLACC: Occasional grimace or frown, withdrawn, disinterested Legs FLACC: Normal position or relaxed Activity FLACC: Lying quietly, normal position, moves easily Cry FLACC: No cry, awake or asleep Consolabillity FLACC: Content, relaxed FLACC Pain Scale Score: 1 LIZ CHAMORRO 01/17/2011 9:28 CDT Pain Pain Assessment Grid Pain 1 Location: Head Laterality: Bilateral Quality: Aching, Pressure Interventions: Other: dimmed lights LIZ CHAMORRO 01/17/2011 9:28 CDT Gastrointestinal GI Patient Stated Symptoms: None Abdomen Description: Rounded Abdomen Palpation: Non-Tender, Soft Bowel Movement Last Date: 01/16/2011 CDT LIZ CHAMORRO 01/17/2011 9:28 CDT Genitourinary Patient Stated Symptoms: None Urinary Elimination: Voiding, no difficulties LIZ CHAMORRO 01/17/2011 9:28 CDT Integumentary Integumentary Patient Stated Symptoms: None Skin Turgor: Elastic Skin Integrity: Intact Mucous Membrane Color: [place] Mucous Membrane Description: Moist LIZ CHAMORRO 01/17/2011 9:28 CDT Hitesh Sensory Perception Hitesh: No impairment Moisture Hitesh: Rarely moist Activity Hitesh: Walks frequently Mobility Hitesh: No limitations Nutrition Hitesh: Excellent Friction and Shear Hitesh: No apparent problem Hitesh Score: 23 LIZ CHAMORRO - 01/17/2011 9:28 CDT Hendrich II Fall Risk Confusion/Disorientation Hendrich: No Depression Fall Risk Hendrich: No Altered Elimination Fall Risk Hendrich: No Dizziness/Vertigo Fall Risk Hendrich: No Gender, Male Fall Risk Hendrich: Yes Prescribed Antiepileptics Hendrich: No Prescribed Benzodiazepines Hendrich: No Rising From Chair Fall Risk Hendrich: Able to rise in a single movement, no loss of balance with steps Fall Risk Score Hendrich II: 1 LIZ CHAMORRO 01/17/2011 9:28 CDT Education General Patient Education [employer] Topics: Plan of care, Preoperative instructions Individuals Taught: Patient Barriers to Learning: None evident Teaching Method: Explanation Teaching Evaluation: Verbalizes understanding LIZ CHAMORRO - 01/17/2011 9:28 CDT Source: [employer] Document Id: [id number] CDT!96 Miscellaneous - Conversion, Historical Provider Ser - 01/17/2011 9:27 AM CDT Adult Pain Assessment Adult Pain Assessment Entered On: 01/17/2011 9:28 CDT Performed On: 01/17/2011 9:27 CDT by LIZ CHAMORRO Pain Pain Assessment Grid Pain 1 Location: Head Laterality: Bilateral Quality: Aching, Pressure (Comment: migraine [ASHTYN LIZ A - 01/17/2011 9:27 CDT] ) Interventions: Other: dimmed lights LIZ CHAMORRO - 01/17/2011 9:27 CDT Source: [employer] Document Id: [id number] CDT!8 Miscellaneous - Conversion, Historical Provider Ser - 01/09/2011 2:37 PM CDT Adult Admission History Adult Admission History Entered On: 01/09/2011 14:39 CDT Performed On: 01/09/2011 14:37 CDT by ANGELINA VARGAS RN General Info Preferred Name: 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, 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 in front of her Mode of Arrival: Ambulatory Accompanied By: Friend Preferred Communication Mode: Verbal Information Given By: Patient Languages: Nepali Have you received chemotherapy in last 48 hours?: ANGELINA Howard RN - 01/09/2011 14:37 CDT Allergy Latex Screening: No ANGELINA VARGAS RN - 01/09/2011 14:37 CDT Allergies (Active) NKA Estimated Onset Date: Unspecified ; Created By: HOMERO GAN LPN; Reaction Status: Active ; Category: Drug ; Substance: NKA ; Type: Allergy ; Updated By: HOMERO GAN LPN; Reviewed Date: 12/19/2010 14:34 TRAFFIC REPRESENTATIVE Problem List/Diagnoses Anesth/Transfusion Anesthesia/Transfusions: Prior anesthesia ANGELINA VARGAS RN - 01/09/2011 14:37 CDT ID Screen TB Symptoms Grid Bloody Sputum: No Fatigue: No Fever: No Loss of Appetite: No Night Sweats: No Persistent Cough Greater Than 3 Weeks: No Weight Loss: No ANGELINA VARGAS RN - 01/09/2011 14:37 CDT Alcohol and Drug Use: No Employee of Institutional Living Environment: No Health Care Employee: No History of Exposure to TB: No History of Positive Chest X-Ray for TB: No History of Positive TB Skin Test: No Homeless: No Known Immunosuppression: No Recent Immigrant: No Resident of Institutional Living Environment: No ANGELINA VARGAS RN - 01/09/2011 14:37 CDT Syndrome Surveillance Symptoms Grid Headache: No Illness With Generalized Rash: No Muscle Pain: No New or Worsening Cough: No Shortness of Breath: No Recent Exposure to Communicable Disease: No ANGELINA VARGAS RN - 01/09/2011 14:37 CDT Drug Resistant Organism: No Travel Within Last 14 Days: No ANGELINA VARGAS RN - 01/09/2011 14:37 CDT Nutrition Nutrition Risk Factors by History Adult: None Home Diet: Regular Feeding Ability: Complete independence Eating Difficulties: None Appetite: Good ANGELINA VARGAS RN - 01/09/2011 14:37 CDT Home Environment Living Situation: Home independently Current Home Treatments: None Home Equipment: None Professional Skilled Services: None Special Services and Community Resources: None Sensory Deficits: None Mobility Assistance Prior to Admission: Independent Current Daily Living Assistance: None ANGELINA VARGAS RN - 01/09/2011 14:37 CDT Dependent Habits Tobacco Use/Currently Using: No Tobacco Use/Last 12 months: No Alcohol Use: No ANGELINA VARGAS RN - 01/09/2011 14:37 CDT Caffeine Use Grid Caffeine Use: Current Type: Soft drinks ANGELINA VARGAS RN - 01/09/2011 14:37 CDT Psychosocial Adult Domestic Concerns: None Concerns About Family Members at Home: No Emotional Support Available: Yes Financial Concerns Regarding Hospitalization/Discharge: No Coping: Effective ANGELINA VARGAS RN - 01/09/2011 14:37 CDT Advance Directive Advanced Directives: Yes Advance Directive Location: Family to bring in copy from home ANGELINA VARGAS RN - 01/09/2011 14:37 CDT Educ Needs Patient/Family Education Needs: Medications, Nutrition/Diet, Preoperative instructions, Treatments/Procedures/Tests ANGELINA VARGAS RN - 01/09/2011 14:37 CDT Learning Style Preference Adult Grid Patient: Verbal explanation Family: None ANGELINA VARGAS RN - 01/09/2011 14:37 CDT DC Needs Anticipated Discharge Date: 01/17/2011 CDT Discharge To, Anticipated: Home independently Home Treatments, Anticipated: None Home Equipment, Anticipated: None Professional Skilled Services, Anticipated: None Special Serv & Comm Res, Anticipated: None LIZ CHAMORRO - 01/17/2011 9:40 CDT Health History I HEENT Peds Health History Grid Other: Self, takes kindra chan for allergies LIZ CHAMORRO - 01/17/2011 9:40 CDT Hay Fever: Self ANGELINA VARGAS RN - 01/09/2011 14:37 CDT Gastrointestinal Past Medical Hx Grid Reflux Disease: Self ANGELINA VARGAS RN - 01/09/2011 14:37 CDT Genitourinary Past Medical Hx Grid Enlarged Prostate: Self, had 3 procedures about 5 years, no problems since ANGELINA VARGAS RANDI RN - 01/09/2011 14:37 CDT Health History II Musculoskeletal Past Medical Hx Grid Back Pain: Self ANGELINA VARGAS RANDI RN - 01/09/2011 14:37 CDT Neurological Past Medical History Grid Migraines: Self, imitrex and depakote to control ANGELINA VARGAS RANDI RN - 01/09/2011 14:37 CDT Oncologic Past Medical History Grid Lung/Bronchus Cancer: Mother Skin Cancer: Mother LIZ CHAMORRO - 01/17/2011 9:40 CDT Colon/Rectum Cancer: Grandparents ANGELINA VARGAS RANDI RN - 01/09/2011 14:37 CDT Source: [facility] [employer] Document Id: [id number] CDT!103 documented in this encounter Plan of Treatment Not on filedocumented as of this encounter Procedures Procedure Name Priority Date/Time Associated Diagnosis Comme [facility] SURGICAL PATHOLOGY Routine 01/17/2011 10:22 AM Re sults for this CDT procedure are i n the results section. documented in this encounter Results Pathology Surgical Pathology (01/17/2011 10:22 AM CDT) Specimen (Source) Anatomical Collection Method Collection Time Re ceived Time Location / / Volume Laterality 01/17/2011 10:22 AM CDT Narrative [facility] - 01/20/20 11 8:43 AM CDT [facility] [address] [place] [address] Patient: EMANUEL TORO [address] [place], [place] ??[address] Soc. Sec. #: [id number] /Age/Sex: 1960 (Age: 50)M Collected: ? 01/17/2011 Received: ?01/18/2011 Reported: ?01/19/2011 Physician(s): MD DR JOHN NUÑEZ MD Copy To: [facility] ??[id number] [facility], ??[place] ??[address] SURGICAL PATHOLOGY REPORT FINAL DIAGNOSIS: COLON, DESCENDING POLYP: --- COLONIC MUCOSA WITHOUT DIAGNOSTIC AB NORMALITY. Signed Copy in Chart rashida/01/19/2011 MARIA DE JESUS LERNER M.D. SPECIMEN(S) RECEIVED: DESCENDING COLON POLYP (3 MM) GROSS DESCRIPTION: Submitted as descending colon polyp is a thin 0.3 cm white biopsy. ESB, one cassette. ([id number]) EAE/RASHIDA/01/18/2011 MICROSCOPIC DESCRIPTION: Reviewed by Maria De Jesus Lerner M.D., Patholog ist RASHIDA/01/19/2011 Historical Provider LAB SURG PATH ORDERABLES Performing Organization Address City/State/ZIP Code Phon e Number [facility] documented in this encounter Visit Diagnoses Not on filedocumented in this encounter
--- OUTSIDE RECORDS SUMMARY | 2022-09-27 14:41 | XMS_ITS | Encounter Summary ---
:1960 Author Organization [facility] Address [address] [place] [address] Care Team Providers Name Role Phone Unavailable Primary Care Provider Unavailable Encounter Details Date Type Department Care Team Description 12/20/2011 Hospital Encounter HX [facility] Arjun Rice M.D. [address] [place] [address] (Wo rk) Social History Tobacco Use Types [...] do you attend evangelical or Never 2021 rastafarian services? Do you [...] Sign Reading Time Taken Comments Blood Pressure 112/72 12/20/2011 2:01 PM PRODUCT BUILDER Pulse 64 12/20/2011 2:01 PM PRODUCT BUILDER Temperature - - Respiratory Rate 18 12/20/2011 2:01 PM PRODUCT BUILDER Oxygen Saturation - - Inhaled Oxygen Concentration - - Weight 76.4 kg (168 lb 6.9 oz) 12/20/2011 2:01 PM PRODUCT BUILDER Height 170 cm (5' 6.93) 12/20/2011 2:01 PM PRODUCT BUILDER Body Mass Index 26.44 12/20/2011 2:01 PM PRODUCT BUILDER documented in this encounter Medications at Time [...] documented as of this encounter Progress Notes Ariadna Astorga D.O. - 12/20/2011 1:57 PM CST FAMILY PRACTICE DATE: 12/20/2011 PRECEPTOR: Dr. So REASON FOR VISIT Yearly check and needing medication refills. HISTORY OF PRESENT ILLNESS This is a 51-year-old who presents today needing his medication refilled and a yearly check. He states things have been going fairly well. He is really having no problems. He is concerned about the cost of his Singulair as he recently changed insurances and it is costing him $150 to $160 per month andhe is wondering if there is something over the counter he can change to. He still has minimal exercise. He denies any shortness of breath, chest pain, abdominal pain. He does note if he does miss his Protonix he does develop some abdominal pain following that miss. He does have some chronic low back and leg pain but it is controlled. He states his diet has improved since his last visit. He also report s his migraines, which he sees neurology for, have also improved. PAST MEDICAL, FAMILY, AND SOCIAL HISTORY Medical: 1. Migraines which have improved. Seen by neurology. 2. GERD which is controlled. 3. BPH which he sees Dr. Rizo. 4. Hyperlipidemia. 5. Seasonal allergies. Surgical: Colonoscopy done last year and does not need another one for 10 years. Family: His Dad had a heart attack at the age of 65, but denies any family history of diabetes or hypertension. Social: The patient denies any tobacco, alcohol or drug use. 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 MEDICATIONS 1. Singulair 10 mg daily. 2. Protonix 40 mg daily. 3. Lipitor 10 mg daily. 4. Imitrex 100 mg as needed. 5. Fexofenadine 180 mg daily. 6. Depakote 500 mg daily. 7. Celebrex 200 mg daily. 8. TriCor daily. 9. Vitamin E. 10. Multivitamin. 11. Fish oil. ALLERGIES No known drug allergies. EXAMINATION VITAL SIGNS: Blood pressure 112/72. Pulse 64. Respiratory rate 18. Temperature 36.4. Height 170 cm. Weight 76.4 kg. BMI 26.4. GENERAL: The patient is a 51-year-old who is alert, cooperative, in no apparently distress. HEENT: The patient is normocephalic. TMs are visualized. Cone of light is present. External auditorycanals are clear. Nares are patent. Mucous membranes are moist. No erythema or exudate is noted in the posterior pharynx. NECK: Supple with no cervical lymphadenopathy. CARDIOVASCULAR: Regular rate and rhythm without murmur. LUNGS: Clear to auscultation bilaterally. ABDOMEN: He has got positive bowel sounds throughout. Soft. Nontender. EXTREMITIES: His peripheral pulses are equal and appropriate both radial and posterior tibial. NEUROLOGICAL: Strength is 5 out of 5 in upper and lower extremities. Deep tendon reflexes are equal and appropriate. IMPRESSION/REPORT/PLAN 1. Hyperlipidemia. 2. Screening for diabetes mellitus. 3. Seasonal allergies. 4. Gastroesophageal reflux disease (GERD). At this time we did refill his Singulair, atorvastatin and Protonix. I did tell him he could stop his TriCor. With that in mind we are going to wait another 6 weeks to check his Lipid panel, ALT and a fasting glucose to see if stopping his TriCor is an okay plan. I did also tell him he could stop taking Niacin if he would like. With regards to the expense of Singulair really that is the only medicinein that class. I did tell him he could try to stop taking that. We did refill it though today but ifhe is still having problems when he stops taking it we could have him see Dr. Pyle, the print decorator, up in [place]. Otherwise we will call him with the results after his Lipid panel, ALT and fasting glucose in 6 weeks. KRN:sst Doc#: [id number] cc: Electronically Signed By: ARIADNA ASTORGA DO On: 01/21/2012 02:26 PM Modified by and Electronically Signed by: ARIADNA ASTORGA DO On: 01/21/2012 02:26 PM Source: [facility] ISJDICTAPHONESYS Document Id: [id number] Arjun So M.D. - 12/20/2011 1:57 PM CST FAMILY MEDICINE DATE: 12/20/2011 REASON FOR VISIT This 51-year-old gentleman in for followup on his routine issues. HISTORY OF PRESENT ILLNESS It has been about a year since he was last seen. PAST MEDICAL, FAMILY, AND SOCIAL HISTORY Medical: 1. Migraine headaches. 2. Reflux disease. 3. Benign prostatic hypertrophy, followed by Dr. Rizo. 4. Hyperlipidemia. 5. Seasonal allergies. He is having an issue with his Singulair as the cost has now become prohibitive because his insurance changed. Has not really had any wheezing or coughing or asthma, but mainly allergies. Please see Ariadna Neri dictation for more specifics. MEDICATIONS 1. Montelukast 10 mg daily. 2. Atorvastatin 10 mg daily. 3. Fexofenadine 180 mg daily. 4. Celecoxib 200 mg daily. 5. Pantoprazole 40 mg daily. 6. Fenofibrate 145 mg daily. 7. Niacin. 8. Vitamin E. 9. Fish oil. 10. Multivitamin. 11. Sumatriptan. 12. Depakote. ALLERGIES No drug allergies. EXAMINATION VITAL SIGNS: Blood pressure 112/72. Pulse 54. Respirations 18. Temperature 36.4. Weight 76.4 kg. Height 170 cm. GENERAL: He is in no acute distress. CHEST: Clear to auscultation. CARDIOVASCULAR: Regular rate and rhythm, no murmur. Radial pulse present and strong bilaterally. IMPRESSION/REPORT/PLAN 1. Reflux disease, stable. 2. Hyperlipidemia. 3. Benign prostatic hypertrophy. 4. Seasonal allergies. He is currently fasting today. I think we can take him off the fenofibrate daily and relook at his lipid panel in about 6-8 weeks. Have a lipid panel request in the system along with an ALT and a fasting blood sugar. Will contact him with results when these become due. Will give a trial off the Singulair and see how his allergy symptoms progress. If he is noticing symptoms coming back again, he may have to c ontinue with the cost of the Singulair. The other option would be to talk with Dr. Pyle of allergy to see if there are other options to help him out. Please see Ariadna Neri note for more specifics, otherwise follow back up in 6 months to a year. DRS:wil Doc#: [id number] cc: Electronically Signed By: ARJUN SO MD On: 12/25/2011 04:19 PM Source: [facility] ISJDICTAPHONESYS Document Id: [id number] UCT BUILDER documented in this encounter Miscellaneous Notes Miscellaneous - Evaristo Bowman, R.N. - 06/12/2013 9:06 AM CDT Protonix refill Document Contains Addenda Addendum by MARTY RICHARDS MD on 12 June 2013 17:30:29 CDT From: MARTY RICHARDS MD To: EVARISTO BOWMAN; Sent: 06/12/2013 17:30:29 CDT Subject: RE:Protonix refill Approved Order:pantoprazole (Protonix 40 mg oral enteric coated tablet) 1 tab(s) PO Daily NOTHING FURTHER UNTIL SEEN Qty: 30 tab(s) Duration: 30 day(s) Refills: 0 Route To Pharmacy - [facility] #[id number] Signed by MARTY RICHARDS MD 06/12/2013 17:30:25 From: EVARISTO BOWMAN To: MARTY RICHARDS MD; Sent: 06/12/2013 09:06:13 CDT Subject: Protonix refill On hold pending signature Order:pantoprazole (Protonix 40 mg oral enteric coated tablet) 1 tab(s) PO Daily NOTHING FURTHER UNTIL SEEN Qty: 30 tab(s) Duration: 30 day(s) Refills: [address] [facility] #727 ROHINI Nov 2011, orders are in for RV med check Last filled 04/11/13 Source: [facility] POWERCHART Document Id: [id number] Electronically signed by Conversion, [facility] Senior Receptionist [id number] at 03/24/2017 12:46 PM CDT Miscellaneous - Anny Khoury RJake. - 04/09/2013 4:23 PM CDT Protonix Document Contains Addenda Addendum by LISBETH ALARCON RN on 10 April 2013 11:38:26 CDT From: LISBETH ALARCON RN (HI Bri Nurse) To: MARCOS Gregory Patient Access; Sent: 04/10/2013 11:38:26 CDT Subject: FW: Protonix Please see message below. Dr. So would like to see patient and do fasting lab work. Thanks, Kelly Alarcon RN Addendum by ANNY AHMADI RN on 10 April 2013 11:31:00 CDT From: ANNY AHMADI RN ([facility] Pres[facility]) To: MARCOS Medeiroseca Nurse; Sent: 04/10/2013 11:31:00 CDT Subject: FW: Protonix Addendum by ARJUN SO MD on 10 April 2013 10:48:03 CDT From: ARJUN SO MD To: MARCOS Joaquín/Erik Prescription Nurse; Cc: JOSE ALFREDO BURTON RN; Sent: 04/10/2013 10:48:03 CDT Subject: RE: Protonix Please have Emanuel follow up for fasting blood work then office visit. Requests are in the arun so Addendum by ARJUN SO MD on 10 April 2013 10:47:19 CDT Approved Order:pantoprazole (Protonix 40 mg oral enteric coated tablet) 1 tab(s) PO Daily NOTHING FURTHER UNTIL SEEN Qty: 30 tab(s) Duration: 30 day(s) Refills: 0 Route To Pharmacy - [facility] Signed by ARJUN SO MD 04/10/2013 10:47:16 From: ANNY AHMADI RN ([facility]/Candace Prescription Nurse) To: ARJUN SO MD; Sent: 04/09/2013 16:23:58 CDT Subject: Protonix On hold pending signature Order:pantoprazole (Protonix 40 mg oral enteric coated tablet) 1 tab(s) PO Daily NOTHING FURTHER UNTIL SEEN Qty: 30 tab(s) Duration: 30 day(s) Refills: [address] [facility] #727 Source: [facility] POWERCHART Document Id: [id number] Electronically signed by [facility] Senior Receptionist [id number] at 03/24/2017 12:46 PM CDT Anny Jacinto, R.N. - 04/09/2013 4:22 PM CDT Lipitor Document Contains Addenda Addendum by ARJUN SO MD on 10 April 2013 10:48:20 CDT From: ARJUN SO MD To: MARCOS Reveles/Candace Prescription Nurse; Sent: 04/10/2013 10:48:19 CDT Subject: RE:Lipitor Approved Order:atorvastatin (Lipitor 20 mg oral tablet) 0.5 tab(s) PO Daily NO FURTHER MEDICATION UNTIL SEEN Qty: 45 tab(s) Refills: 0 Route To [facility] #727 Signed by ARJUN SO MD 04/10/2013 10:48:16 From: ANNY AHMADI RN ([facility] Prescription Nurse) To: ARJUN SO MD; Sent: 04/09/2013 16:22:51 CDT Subject: Lipitor On hold pending signature Order:atorvastatin (Lipitor 20 mg oral tablet) 0.5 tab(s) PO Daily NO FURTHER MEDICATION UNTIL SEEN Qty: 45 tab(s) Refills: 0 Route To [facility] #727 last ov 2.29.12, last rx 3.28.13 Source: [facility] POWERCHART Document Id: [id number] Electronically signed by [facility] Senior Receptionist [id number] at 03/24/2017 12:46 PM CDT Anny Jacinto, R.N. - 04/09/2013 4:21 PM CDT singulair Document Contains Addenda Addendum by ARJUN SO MD on 10 April 2013 10:48:34 CDT From: ARJUN SO MD To: MARCOS Reveles/Erik Prescription Nurse; Sent: 04/10/2013 10:48:33 CDT Subject: RE:singulair Approved Order:montelukast (Singulair 10 mg oral tablet) 1 tab(s) PO Daily PM MUST BE SEEN FOR FURTHER MEDICATION Qty: 30 tab(s) Duration: 30 day(s) Refills: 0 Route To Pharmacy - [facility] Signed by ARJUN SO MD 04/10/2013 10:48:30 From: ANNY AHMADI RN (MARCOS Reveles/Erik Prescription Nurse) To: ARJUN SO MD; Sent: 04/09/2013 16:21:44 CDT Subject: singulair On hold pending signature Order:montelukast (Singulair 10 mg oral tablet) 1 tab(s) PO Daily PM MUST BE SEEN FOR FURTHER MEDICATION Qty: 30 tab(s) Duration: 30 day(s) Refills: 0 Route To Pharmacy - [facility] last ov 2.29.12, last fill 5.21.13, no appt scheduled. Source: [facility] POWERCHART Document Id: [id number] Electronically signed by Janell, [facility] Senior Receptionist [id number] at 03/24/2017 12:46 PM CDT Miscellaneous - Ariadna Astorga, DMikO. - 12/20/2011 2:48 PM CST Ambulatory Patient Summary [address] [address] Visit Information Name: EMANUEL TORO Current Date: 12/20/2011 14:48:12 Physicians Attending Provider: ARJUN SO MD Primary Care Provider: ARJUN SO MD Your Medications Here is a list of your medications. It is important to take your medications as directed. Use a pillbox or chart to help remind you to take your medications. Please let your doctor or nurse know if you have problems taking your medications. Medication/Strength Dose Route Frequency Indications/Special Instructions/Comments montelukast (Singulair 10 mg oral tablet) 1 tab(s) Oral every evening pantoprazole (Protonix 40 mg oral enteric coated tablet) 40 mg Oral once a day atorvastatin (Lipitor 20 mg oral tablet) 10 mg Oral once a day celecoxib (Celebrex 200 mg oral capsule) 200 mg Oral once a day fexofenadine (fexofenadine 180 mg oral tablet) 180 [...] Test/Treatment Last Done Next Due Additional Information Health Assessment every 1 year 12/20/2011 12/19/2012 Screening Colonoscopy or Flex Sig or Occult Blood 01/17/2011 01/14/2021 Checks for signs of cancer of the colon. Vaccine: Flu every 1 year 12/20/2011 06/17/2012 Immunization to help prevent you from getting the flu strain expected to be a problem for that year's flu season. Vaccine: Tetanus every 10 years 06/15/2003 06/12/2013 Immunization to help prevent you from getting the serious disease Tetanus (Lockjaw). Your Upcoming Appointments Date Time Location Reason Provider No Appointments found Your Goals/Additional instructions: -Will get Lipid panel, ALT, and fasting glucose in 6 weeks and will call or send a letter with results. Can stop Tricor and Singulair. If still struggling with allergies/asthma following stopping the singulair may consider seeing Dr. Armijo print decorator. Source: [facility] POWERCHART Document Id: [id number] UCT BUILDER Miscellaneous - Ariadna Astorga D.O. - 12/20/2011 2:48 PM CST Ambulatory Depart Summary [address] [address] Visit Information Name: LOE TOROUS NOLVIA Visit Date: 12/20/2011 14:48:12 Attending Provider: ARJUN SO MD Primary Care Provider: ARJUN SO MD MUNAEMANUEL has been given the following list of [...] oral tablet) 1 tab(s) Oral every evening pantoprazole (Protonix 40 mg oral enteric coated tablet) 40 mg Oral once a day atorvastatin (Lipitor 20 mg oral tablet) 10 mg Oral once a day celecoxib (Celebrex 200 mg oral capsule) 200 mg Oral once a day fexofenadine (fexofenadine 180 mg oral tablet) 180 [...] your provider for clarification. Additional Information: Source: [facility] POWERCHART Document Id: [id number] UCT BUILDER Miscellaneous - Desiree Calderon L.P.N. - 12/20/2011 2:06 PM CST Health Assessment Health Assessment Entered On: 12/20/2011 14:06 PRODUCT BUILDER Performed On: 12/20/2011 14:06 PRODUCT BUILDER by DESIREE CALDERON ROLLOFF DRIVER Health Assessment Complete Health Assessment Complete or Modified : Annual Health Assessment Annual Health Assessment Completed : Yes DESIREE CALDERON LPN - 12/20/2011 14:06 PRODUCT BUILDER Nutrition Nutrition Risk Factors by History Adult : None DESIREE CALDERON LPN - 12/20/2011 14:06 PRODUCT BUILDER Functional Current Daily Living Assistance : None DESIREE CALDERON LPN - 12/20/2011 14:06 PRODUCT BUILDER Dependent Habits Tobacco Use/Currently Using : No Smoking Status : Never smoker DESIREE CALDERON LPN - 12/20/2011 14:06 PRODUCT BUILDER Caffeine Use Grid Caffeine Use : Current Type : Soft drinks DESIREE CALDERON LPN - 12/20/2011 14:06 PRODUCT BUILDER Psychosocial Domestic Abuse Concerns : None DESIREE CALDERON LPN - 12/20/2011 14:06 PRODUCT BUILDER Advance Directive Advanced Directives : Yes Advance Directive Type : Living will Advance Directive Location : Copy placed on paper chart DESIREE CALDERON LPN - 12/20/2011 14:06 PRODUCT BUILDER Educ Needs Learning Style Preference Adult Grid Patient : Printed materials Family : Printed materials DESIREE CALDERON LPN - 12/20/2011 14:06 PRODUCT BUILDER Source: [facility] Emergent ViewsCHART Document Id: [id number] PRODUCT BUILDER!25 UCT BUILDER Naldo - Desiree Calderon L.P.NMik - 12/20/2011 2:01 PM CST Adult Junior Accountant Bookkeeper Intake/History Adult Junior Accountant Bookkeeper Intake/History Entered On: 12/20/2011 14:06 PRODUCT BUILDER Performed On: 12/20/2011 14:01 PRODUCT BUILDER by DESIREE CALDERON LPN Intake Chief Complaint : needs medication refills is fasting in case you want labs would like to get off medications Temperature Core : 36.4C(Converted to: 97.5DegF) (LOW) Peripheral Pulse Rate : 64/min Respiratory Rate : 18/min Heart Rhythm : Regular Systolic Blood Pressure : 112mmHg Diastolic Blood Pressure : 72mmHg NIBP Mean : 85mmHg BP Location : Left upper extremity Blood Pressure Cuff Size : Regular Oxygen Therapy : Room air Height : 170.0cm(Converted to: 5ft 7inch(es), 66.93inch(es)) Actual Weight : 76.4kg(Converted to: 168lb 7oz) Weight Source : Standing scale Dosing Weight Clinic : 76.40kg Clinic BSA : 1.90 Body Mass Index : 26.44kg/m2 DESIREE CALDERON LPN - 12/20/2011 14:01 PRODUCT BUILDER Subjective Pain Symptoms : Yes DESIREE CALDERON LPN - 12/20/2011 14:01 PRODUCT BUILDER Pain Pain Assessment Grid Pain 1 Location : Lower back Laterality : Bilateral Intensity : 4 DESIREE CALDERON LPN - 12/20/2011 14:01 PRODUCT BUILDER Dependent Habits Tobacco Use/Currently Using : No Smoking Status : Never smoker DESIREE CALDERON LPN - 12/20/2011 14:01 PRODUCT BUILDER Caffeine Use Grid Caffeine Use : Current Type : Soft drinks DESIREE CALDERON LPN - 12/20/2011 14:01 PRODUCT BUILDER Allergy Allergies (Active) NKA Estimated Onset Date: Unspecified ; Created By: HOMERO GAN LPN; Reaction Status: Active ; Category: Drug ; Substance: NKA ; Type: Allergy ; Updated By: HOMERO GAN LPN; Reviewed Date: 12/20/2011 13:59 PRODUCT BUILDER Source: [facility] POWERCHART Document Id: [id number] PRODUCT BUILDER!34 UCT BUILDER documented in this encounter Plan of Treatment Not on filedocumented as of this encounter Visit Diagnoses Not on filedocumented in this encounter
--- OUTSIDE RECORDS SUMMARY | 2022-09-27 14:41 | XMS_ITS | Encounter Summary ---
:1960 Author Organization [facility] Address [address] [place] [address] Care Team Providers Name Role Phone Unavailable Primary Care Provider Unavailable Encounter Details Date Type Department Care Team Description 12/16/2007 Hospital Encounter HX NO MAPPING Jenna Taylor M.D. Social History Tobacco Use Types Packs/Day [...] or relatives? How often do you attend anabaptism or Never 2021 congregational services? Do you belong to any clubs or Yes 04/20/2022 organizations such as anabaptism groups, unions, fraternal or athletic groups, or [...] documented as of this encounter Progress Notes Jenna Taylor M.D. - 12/16/2007 12:00 [place] [address] Name: EMANUEL MCMAHAN MR#: [id number] : [birth year] Dictating Provider: Jenna Taylor MD Serv Date: 12/16/07 CLINIC NOTE S: Emanuel is here today with cough and shortness of breath. Emanuel is a 47-year-old male who describes 2-1/2 weeks of cough and difficulty breathing. He reports a history of seasonal allergies for which he takes Stephanie year round. He is a nonsmoker. He also describes a history of migraines and has recently had a flare of these particularly on the left side of his forehead. He takes Imitrex which seems to alleviate his migraine symptoms. However, he also has had some nausea and drainage from his sinuses, congestion, and postnasal drip. He denies tobacco initially, but then admits he does smoke a pipe on occasion and is exposed to second-hand smoke on a regular basis. When asked about ear symptoms, he admits to a fullness sensation and occasionally pain in his left ear. O: Emanuel is well developed and well nourished. He has a hacky cough which is difficult for him at times to speak as a result of this. Otherwise, easy respirations and is able to complete sentences. His blood pressure is 116/70. Pulse 72. Respiratory rate 20. Temperature 36.7 C. Weight 78.1 kg. Height 172 cm. HEENT - He does have some decreased aeration through the nostrils with loose mucus heard on alternate occlusion of the nostrils. Sinuses are nontender to palpation. Throat appears clear. There is fluid in the middle ear on the left with dullness of the tympanic membrane. Neck - Supple without adenopathy. Lungs - Clear with full breath sounds. A: 1. LEFT ACUTE SEROUS OTITIS MEDIA. 2. SINUSITIS - LIKELY VIRAL. 3. ACUTE BRONCHITIS. 4. MIGRAINES. P: I am prescribing a Z-Evin as well as Phenergan with codeine cough syrup to take 2 teaspoons every 4 hours as needed, dispensing a 4 ounce bottle. We also are administering a flu vaccine today. Jenna Taylor MD /rks Authenticated by Jenna Taylor MD on 12/25/2007 13:41:43 Authorized physician signature on file [facility] NAME: EMANUEL MCMAHAN [facility] MR#: [id number] [place] [address] : 1960 PHYSICIAN: Jenna Taylor MD VISIT DATE: 12/16/2007 CLINIC PROGRESS NOTE [facility] Name: EMANUEL MCMAHAN [facility] PROGRESS NOTE Source: [facility] ISJHXDICTAPHONESYS Document Id: [id number] documented in this encounter Miscellaneous Notes Miscellaneous - Arjun Gaytan M.D. - 12/16/2007 12:00 AM CST [facility] [place] [address] Name: MUNAEMANUEL LEE MR#: [id number] Dictating Provider: Arjun Gaytan MD LETTER March 13, 2008 EMANUEL MCMAHAN [address] [place] [address] [facility] Patient Number: [id number] Dear Mr. Mcmahan: I have received your laboratory studies showing that your cholesterol is 187 with an LDL of 123. These are consistent with where you have been. The triglycerides are at 169, which is probably the best number we have ever seen on you. I will be interested to see how the Singulair is working for you. Give me a call next week when you get this letter. Sincerely, Arjun Gaytan MD [facility] Authenticated by Arjun Gaytan MD on 03/17/2008 11:56:12 Authorized physician signature on file tjl Doc#: [id number] RE: EMANUEL MCMAHAN Page: [address] [address] [facility] Fax: [facility] [address] [address] [facility] Fax: [facility] Name: EMANUEL MCMAHAN LETTER Source: [facility] ISJHXDICTAPHONESYS Document Id: [id number] documented in this encounter Plan of Treatment Not on filedocumented as of this encounter Visit Diagnoses Not on filedocumented in this encounter
--- OUTSIDE RECORDS SUMMARY | 2022-09-27 14:41 | XMS_ITS | Encounter Summary ---
:1960 Author Organization [facility] Address [address] [place] [address] Care Team Providers Name Role Phone Unavailable Primary Care Provider Unavailable Encounter Details Date Type Department Care Team Description 11/12/2007 Hospital Encounter HX [facility] Satinder Rizo M.D. [address] [place] [address] (Wo rk) Social History Tobacco [...] do you attend temple or Never 2021 hinduism services? Do you [...]
--- OUTSIDE RECORDS SUMMARY | 2022-09-27 14:41 | XMS_ITS | Encounter Summary ---
:1960 Author Organization [facility] Address [address] [place] [address] Care Team Providers Name Role Phone Unavailable Primary Care Provider Unavailable Encounter Details Date Type Department Care Team Description 03/07/2012 Hospital Encounter HX [facility] Satinder Rizo M.D. [address] [place] [address] (Wo rk) Social History Tobacco [...] or relatives? How often do you attend yazdanism or Never 2021 alevism services? Do you belong to any clubs or Yes 04/20/2022 organizations such as yazdanism groups, unions, fraternal or athletic groups, or [...] Date/Time Associated Diagnosis Comme nts PROSTATE-SPECIFIC Routine 03/07/2012 4:20 PM Resu lts for this AG (PSA) SCRN, S CDT procedure a re in the results section. documented in this encounter Results PSA (Prostate-Specific Antigen) Screen (03/07/2012 4:20 PM CDT) P athologist Signature Prostate-Specif 1.25 0.00 - 3.50 POWERCHART ic Ag NGML Specimen (Source) Anatomical Collection Method Collection Time Re ceived Time Location / / Volume Laterality Blood 03/07/2012 4:20 PM CDT Tanner Rizo M.D. LAB BLOOD ADD-ON Performing Organization Address City/State/ZIP Code Phon e Number POWERCHART documented in this encounter Visit Diagnoses Not on filedocumented in this encounter
--- OUTSIDE RECORDS SUMMARY | 2022-09-27 14:41 | XMS_ITS | Encounter Summary ---
:1960 Author Organization [facility] Address [address] [place] [address] Care Team Providers Name Role Phone Unavailable Primary Care Provider Unavailable Encounter Details Date Type Department Care Team Description 07/04/2006 Hospital Encounter HX NO MAPPING Elsa Murphy ra, M.D. [address] [place] [address] (Wo rk) Social History Tobacco Use Types [...] or relatives? How often do you attend jewish or Never 2021 congregational services? Do you belong to any clubs or Yes 04/20/2022 organizations such as jewish groups, unions, fraternal or athletic groups, or [...]
--- OUTSIDE RECORDS SUMMARY | 2022-09-27 14:41 | XMS_ITS | Encounter Summary ---
:1960 Author Organization [facility] Address [address] [place] [address] Care Team Providers Name Role Phone Unavailable Primary Care Provider Unavailable Encounter Details Date Type Department Care Team Description 06/03/2007 - Hospital Encounter HX [facility] Dianna Ramsay PT, 05/01/2009 N.P., R.N. [address] [place], [place] [address] (Wo rk) Social History Tobacco [...] or relatives? How often do you attend caodaism or Never 2021 confucianism services? Do you belong to any clubs or Yes 04/20/2022 organizations such as caodaism groups, unions, fraternal or athletic groups, or [...] place to sleep or slept in a snf (including now)? Sex Assigned at Date Recorded Male 06/24/2018 5:24 PM CDT documented as of this encounter Plan of Treatment Not on filedocumented as of this encounter Visit Diagnoses Not on filedocumented in this encounter
--- OUTSIDE RECORDS SUMMARY | 2022-09-27 14:41 | XMS_ITS | Encounter Summary ---
:1960 Author Organization [facility] Address [address] [place] [address] Care Team Providers Name Role Phone Unavailable Primary Care Provider Unavailable Encounter Details Date Type Department Care Team Description 01/03/2006 Hospital Encounter HX NO MAPPING Elsa Murphy ra, M.D. [address] [place] [address] (Wo rk) Social History Tobacco Use Types [...] or relatives? How often do you attend islam or Never 2021 congregational services? Do you belong to any clubs or Yes 04/20/2022 organizations such as islam groups, unions, fraternal or athletic groups, or [...]
--- OUTSIDE RECORDS SUMMARY | 2022-09-27 14:41 | XMS_ITS | Encounter Summary ---
:1960 Author Organization [facility] Address [address] [place] [address] Care Team Providers Name Role Phone Unavailable Primary Care Provider Unavailable Encounter Details Date Type Department Care Team Description 07/30/2007 Hospital Encounter HX NO MAPPING Elsa Murphy ra, M.D. [address] [place] [address] (Wo rk) Social History Tobacco Use Types [...] do you attend yarsanism or Never 2021 denominational services? Do you [...] place to sleep or slept in a [place] [facility] (including now)? Sex Assigned at Date Recorded Male 06/24/2018 5:24 PM CDT documented as of this encounter Progress Notes oNlvia Murphy M.D. - 07/30/2007 12:00 [place] [address] Name: EMANUEL MCMAHAN MR#: [id number] : [birth year] Dictating Provider: Nolvia Murphy MD Serv Date: 07/30/07 CLINIC NOTE S: Emanuel is in today to renew his Lipitor and Tricor. He is taking 10 mg of Lipitor and 145 mg of Tricor. He is fasting today for lab work. Dr. Miller had been prescribing Protonix 40 mg daily and Stephanie 180 daily for him. Since he has left the area, the patient is asking me to prescribe those medications. He does see Dr. Rizo for his PSA and that will be coming up in the next couple of months. He thinks he has lost a little weight and has been exercising. He has no chest pains or palpitations. Dr. Kelly has cut back his Depakote a little bit and that seems to be working out well also. O: Weight 79.6. Height not recorded. Temperature 36.3. Pulse 68. Respirations 20. BP 106/84. He is in no acute distress. Heart - Regular. Normal heart sounds. No murmurs, gallops, rubs or extra sounds. Lungs clear. A: 1. HYPERLIPIDEMIA. 2. ALLERGIES. P: He will get a linn break if he breaks the 20 mg Lipitor tablets in half. I told him that would be a good idea. Will check his lipid-II and AST, and renew his meds for six months. Nolvia Murphy MD /justine/laura Authenticated by Nolvia Murphy MD on 08/12/2007 11:27:34 Authorized physician signature on file [facility] NAME: EMANUEL MCMAHAN [facility] MR#: [id number] [place] [address] : 1960 PHYSICIAN: Nolvia Murphy MD VISIT DATE: 07/30/2007 CLINIC PROGRESS NOTE [facility] Name: EMANUEL MCMAHAN [facility] PROGRESS NOTE Source: [facility] ISJHXDICTAPHONESYS Document Id: [id number] Electronically signed by Conversion, [facility] Formal Wear Rental Clerk [id number] at 03/26/2017 1:18 PM CDT documented in this encounter Plan of Treatment Not on filedocumented as of this encounter Visit Diagnoses Not on filedocumented in this encounter
--- OUTSIDE RECORDS SUMMARY | 2022-09-27 14:41 | XMS_ITS | Encounter Summary ---
:1960 Author Organization [facility] Address [address] [place] [address] Care Team Providers Name Role Phone Unavailable Primary Care Provider Unavailable Encounter Details Date Type Department Care Team Description 04/04/2013 Hospital Encounter HX [facility] Satinder Rizo M.D. [address] [place] [address] (Wo rk) Social History Tobacco [...] do you attend scientologist or Never 2021 pentecostal services? Do you belong to any clubs [...] Date/Time Associated Diagnosis Comme nts PROSTATE-SPECIFIC Routine 04/04/2013 4:34 PM Resu lts for this AG (PSA) SCRN, S CDT procedure a re in the results section. TESTOSTERONE, TOTAL Routine 04/04/2013 4:34 PM Re sults for this BY MASS CDT procedure are i n SPECROMETRY, S the results section. documented in this encounter Results PSA (Prostate-Specific Antigen) Screen (04/04/2013 4:34 PM CDT) athologist Signature Prostate-Specif 1.2 0.0 - 3.5 POWERCHART ic Ag NGML Specimen (Source) Anatomical Collection Method Collection Time Re ceived Time Location / / Volume Laterality Blood 04/04/2013 4:34 PM CDT Tanner Rizo M.D. LAB BLOOD ADD-ON Performing Organization Address City/State/ZIP Code Phon e Number POWERCHART Testosterone, Total (04/04/2013 4:34 PM CDT) athologist Signature Testosterone, 354 240 - 950 POWERCHART Total NGDL Comment: Testing performed by Liquid Chromatograp hy-Tandem Mass Spectrometry (LC-MS/MS). Test Performed by: [place] [address] [place] Ring Coverer: Jake martinez III, M.D. Specimen (Source) Anatomical Collection Method Collection Time Re ceived Time Location / / Volume Laterality Blood 04/04/2013 4:34 PM CDT Tanner Rizo M.D. LAB BLOOD NON ADD-ON Performing Organization Address City/State/ZIP Code Phon e Number POWERCHART documented in this encounter Visit Diagnoses Not on filedocumented in this encounter
--- OUTSIDE RECORDS SUMMARY | 2022-09-27 14:41 | XMS_ITS | Encounter Summary ---
:1960 Author Organization [facility] Address [address] [place] [address] Care Team Providers Name Role Phone Unavailable Primary Care Provider Unavailable Encounter Details Date Type Department Care Team Description 11/17/2008 Hospital Encounter HX [facility] Satinder Rizo M.D. [address] [place] [address] (Wo rk) Social History Tobacco [...] do you attend scientology or Never 2021 jainism services? Do you belong to any clubs [...] or slept in a residential (including now)? Sex Assigned at Date Recorded Male 06/24/2018 5:24 PM CDT documented as of this encounter Plan of Treatment Not on filedocumented as of this encounter Visit Diagnoses Not on filedocumented in this encounter
--- OUTSIDE RECORDS SUMMARY | 2022-09-27 14:41 | XMS_ITS | Encounter Summary ---
:1960 Author Organization [facility] Address [address] [place] [address] Care Team Providers Name Role Phone Unavailable Primary Care Provider Unavailable Encounter Details Date Type Department Care Team Description 01/21/2007 Hospital Encounter HX NO MAPPING Elsa Murphy ra, M.D. [address] [place] [address] (Wo rk) Social History Tobacco Use Types [...] do you attend catholic or Never 2021 hindu services? Do you [...] documented as of this encounter Progress Notes Nolvia Murphy M.D. - 01/21/2007 12:00 AM [place] [address] Name: EMANUEL MCMAHAN MR#: [id number] : 56 Dictating Provider: Nolvia Murphy MD Serv Date: 01/21/07 CLINIC NOTE S: Mr. Mcmahan is in to follow up on his hyperlipidemia. He is taking Lipitor 10 mg daily; Tricor 145 mg daily. The last time we visited, he mentioned that he was hoping to get off the Lipitor entirely depending on how his chemistries come out today. He does not need his other medications refilled at this time. He is fasting at the moment because he works nights. He does have a new insurance plan which requires either a 90-day mail in prescription or 30-day local prescription. He has decided to stay with the 30-day for now. He is still having 7-[address] Kelly is working on that. He is a nonsmoker with no allergies. O: Weight 81.2. Height 170. Temperature 36.5. Pulse 68. Respirations 20. Blood pressure 118/80. Physical examination was not performed other than vitals. A: HYPERLIPIDEMIA. P: We will check his Lipid-II and AST today and adjust his medications as indicated. He will need a prescription at [facility]. Nolvia Murphy MD /[facility] Authenticated by Nolvia Murphy MD on 01/22/2007 13:24:36 Authorized physician signature on file [facility] NAME: EMANUEL MCMAHAN [facility] MR#: [id number] [place] [address] : 1960 PHYSICIAN: Nolvia Murphy MD VISIT DATE: 01/21/2007 CLINIC PROGRESS NOTE [facility] Name: EMANUEL MCMAHAN [facility] PROGRESS NOTE Source: [facility] ISJHXDICTAPHONESYS Document Id: [id number] Electronically signed by Janell, [facility] Center[facility]is Siding Mechanic [id number] at 03/26/2017 9:50 AM CDT documented in this encounter Plan of Treatment Not on filedocumented as of this encounter Visit Diagnoses Not on filedocumented in this encounter
--- OUTSIDE RECORDS SUMMARY | 2022-09-27 14:41 | XMS_ITS | Encounter Summary ---
:1960 Author Organization [facility] Address [address] [place] [address] Care Team Providers Name Role Phone Unavailable Primary Care Provider Unavailable Encounter Details Date Type Department Care Team Description 07/17/2012 - Hospital Encounter HX [facility] Dianna Ramsay PT, 12/02/2012 N.P., R.N. [address] [place], [place] [address] (Wo rk) Social History Tobacco [...] do you attend yazdanism or Never 2021 shinto services? Do you belong to any clubs [...]
--- OUTSIDE RECORDS SUMMARY | 2022-09-27 14:41 | XMS_ITS | Encounter Summary ---
:1960 Author Organization [facility] Address [address] [place] [address] Care Team Providers Name Role Phone Unavailable Primary Care Provider Unavailable Encounter Details Date Type Department Care Team Description 05/19/2013 Hospital Encounter HX [facility] ED Lacie Solorzano on, Lalitha Nayak P.A.-C. Social History Tobacco Use Types Packs/Day Years [...] or relatives? How often do you attend holiness or Never 2021 restorationist services? Do you belong to any clubs or Yes 04/20/2022 organizations such as holiness groups, unions, fraternal or athletic groups, or [...] Sign Reading Time Taken Comments Blood Pressure 127/83 05/19/2013 6:14 AM CDT Pulse 86 05/19/2013 6:14 AM CDT Temperature - - Respiratory Rate 20 05/19/2013 6:14 AM CDT Oxygen Saturation - - Inhaled Oxygen Concentration - - Weight - - Height - - Body Mass Index - - documented in this encounter Discharge Summaries Lela Smith R.N. - 05/19/2013 7:30 AM CDT ED Discharge Instructions [address] [address] Name: EMANUEL MCMAHAN Date of : 1960 12:00 AM Visit Date: 05/19/2013 6:02 AM [facility] Number: [id number] Address: [address] [place] [phone] Primary Care Provider: GOOD LOPEZ MD IMPORTANT:[facility] in [place] would like to thank you for allowing us to assist you with your healthcare needs. The following includes patient education materials and information regarding your injury/illness. Chief Complaint: Abdominal pain; SOB Follow-Up Instructions: With: Address: When: GOOD LOPEZ [address] [place] [id number] Business (1) Within As Needed Comments: Patient Education Materials: [id number] CONSTIPATION (Adult) Constipation is bowel movements that are less frequent than usual. Stools often become very hard anddifficult to pass. This may lead to abdominal pain and bloating. It may also cause painful bowel movements. Constipation may be due to a diet thats low in fiber. Some medications, especially pain medications, can also cause it. Constipation may be treated with enemas, suppositories, laxatives or stoolsofteners. Your doctor will advise you which will work best for you. Follow the advice below to helpavoid this problem in the future. HOME CARE Medication: Take any medicines as directed. Some laxatives are safe only for occasional use. Others can be taken on a regular basis. Talk to your doctor or pharmacist if you have questions. General Care: ?? Prescription pain medications can cause constipation. If you are prescribed pain medications, askthe doctor whether you should also take a stool softener. ?? A diet high in fiber with plenty of fluids helps to maintain regular, soft bowel movements. The following foods are good sources of dietary fiber: f23o Cereals and breads: Whole grain cereal with bran, oatmeal, rolled oats, whole grain breads o Fruits: All fruits (fresh and dried), raisins, prunes, apricots, berries, figs o Vegetables: Any fresh vegetables, especially peas, broccoli, brussels sprouts, winter squash, green beans, cauliflower, junior beans, carrots o Other: Popcorn, brown rice Drink plenty of water when you increase the amount of fiber you eat. FOLLOW UP with your doctor or return to this facility if symptoms do not improve in the next few days. You may require further tests or a referral to a specialist. GET PROMPT MEDICAL ATTENTION if any of the following occur: ?? Fever over 100.4??F (38??C) ?? Failure to resume normal bowel movements ?? Increasing abdominal or back pain ?? Nausea or vomiting ?? Abdominal swelling ?? Blood in the stool ?? Weakness, dizziness or fainting Unexpected vaginal bleeding ?? [id number] [place] [address]. All rights reserved. This information is not intended as a substitute for professional medical care. Always follow your healthcare professional's instructions. ED Tests and Procedures: Order Status Discharge Prescriptions & Home Medications: Medication/Strength Dose Route Frequency Indications/Special Instructions/Comments/Notes polyethylene glycol 3350 (MiraLax oral powder for reconstitution) 17 gm Oral once a day 17gm(about one heaping tablespoon) dissolved in 4-8oz of water, juice, soda, coffee, or tea docusate (Colace 100 mg oral capsule) 100 mg Oral two times a day celecoxib (Celebrex 200 mg oral capsule) 200 mg Oral once a day atorvastatin (Lipitor 20 mg oral tablet) 10 mg Oral once a day Hyperlipidemia. NO FURTHER MEDICATIONUNTIL SEEN montelukast (Singulair 10 mg oral tablet) 1 tab(s) Oral every evening Asthma. MUST BE SEEN FOR FURTHER MEDICATION pantoprazole (Protonix 40 mg oral enteric coated tablet) 40 mg Oral once a day NOTHING FURTHER UNTILSEEN fexofenadine (fexofenadine 180 mg oral tablet) 180 [...] Oral once a day taken at bedtime Comment: Attention: If you have any medications at home not on this list, DO NOT take them until you contact your provider for clarification. Medication Reconciliation: Reconciliation is a process of identifying the most accurate list of all medications a patient is taking - including name, dosage, frequency, and route - and using this list to provide to the patient information about how to take those medications. EMANUEL MCMAHAN or haider has reviewed the home med ications you have listed with us. Review the following instructions: You have NOT received any prescriptions and you have told us you are not currently taking any home medications You have NOT received any prescriptions. You have been provided a discharge medications list and you may CONTINUE taking your medications as previously prescribed by your regular providers. You have received the listed prescriptions and BEGIN all listed prescriptions as directed. Since you have listed no home medications, please check with your family doctor if you are taking any other medications. You have received the listed prescriptions and BEGIN all listed prescriptions as directed. Youhave been provided a discharge medications list and you may CONTINUE all home medications as previously prescribed by your regular providers. You have received the listed prescriptions and BEGIN all listed prescriptions as directed. Youhave been provided a discharge medications list. The following CHANGES have been made to your medication list; Otherwise, CONTINUE all home medications as previously prescribed by your regular provider. IMPORTANT: We examined and treated you today on an emergency basis only. This was not a substitute for, or an effort to provide, complete medical care. In most cases, you must let your doctor check youagain. Tell your doctor about any new or lasting problems. We cannot recognize and treat all injuries or illnesses in one Emergency Department visit. If you had special tests, such as EKG's or X- rays, we will review them again within 24 hours. We will call you if there are any new suggestions. Please follow the instructions above carefully. If you are being transferred to another facility your followup plan of care will be determined by the receiving facility. If you are a patient that is being discharged from the Emergency Department after receiving narcotics or other medications that may impair your judgment you may be a risk to yourself or others if you operate a motor vehicle. We recommend that you arrange a ride home with a responsible alliance party. MUNA Martínez MARCUS LEE , or responsible alliance party have received this information and my questions have been answered. I have discussed any challenges I see with this plan with the nurse or physician. Patient Signature or Responsible Constitution Party/Relationship Date Time Provider Signature Date Time Medication Reconciliation: Reconciliation is a process of identifying the most accurate list of all medications a patient is taking - including name, dosage, frequency, and route - and using this list to provide to the patient information about how to take those medications. EMANUEL MCMAHAN or designee has reviewed the home med ications you have listed with us. Review the following instructions: You have NOT received any prescriptions and you have told us you are not currently taking any home medications You have NOT received any prescriptions. You have been provided a discharge medications list and you may CONTINUE taking your medications as previously prescribed by your regular providers. You have received the listed prescriptions and BEGIN all listed prescriptions as directed. Since you have listed no home medications, please check with your family doctor if you are taking any other medications. You have received the listed prescriptions and BEGIN all listed prescriptions as directed. Youhave been provided a discharge medications list and you may CONTINUE all home medications as previously prescribed by your regular providers. You have received the listed prescriptions and BEGIN all listed prescriptions as directed. Youhave been provided a discharge medications list. The following CHANGES have been made to your medication list; Otherwise, CONTINUE all home medications as previously prescribed by your regular provider. IMPORTANT: We examined and treated you today on an emergency basis only. This was not a substitute for, or an effort to provide, complete medical care. In most cases, you must let your doctor check youagain. Tell your doctor about any new or lasting problems. We cannot recognize and treat all injuries or illnesses in one Emergency Department visit. If you had special tests, such as EKG's or X- rays, we will review them again within 24 hours. We will call you if there are any new suggestions. Please follow the instructions above carefully. If you are being transferred to another facility your followup plan of care will be determined by the receiving facility. If you are a patient that is being discharged from the Emergency Department after receiving narcotics or other medications that may impair your judgment you may be a risk to yourself or others if you operate a motor vehicle. We recommend that you arrange a ride home with a responsible alliance party. Mauricio, EMANUEL MCMAHAN , or responsible alliance party have received this information and my questions have been answered. I have discussed any challenges I see with this plan with the nurse or physician. Patient Signature or Responsible Constitution Party/Relationship Date Time Provider Signature Date Time This document has images extracted. Please consider using [employer] for all your patient education needs. Source: [facility] POWERCHART Document Id: [id number] Lela Smith R.N. - 05/19/2013 7:30 AM CDT ED Depart Summary [facility] Emergency Department Clinical Discharge Summary PERSON INFORMATION Name EMANUEL MCMAHAN Age 52 Years 1960 12:00 AM Sex Male Language Arabic PCP GOOD LOPEZ MD Marital Status Single N [id number] Visit Id Visit Reason Abdominal pain; SOB Specialty Enc Type Emergency Med Service Emergency Medicine Referred by Track Group [facility] ED/UC Discharge 05/19/2013 7:26 AM Tracking Id [id number] Checkout 05/19/2013 7:26 AM Checkin 05/19/2013 6:02 AM Acuity 2 -Emergent Dispo Type * Discharged to Home or Self Care Arrival 05/19/2013 6:02 AM Reg Status Complete LOS 000 01:24 Address: [address] [place] [phone] Comment: PROVIDER INFORMATION Provider Role Assigned Unassigned KAL GREENE PA-C ED Provider 05/19/2013 6:09 AM YONNY VIGIL PURCHASING AND FISCAL CLERK Nurse 05/19/2013 6:14 AM 05/19/2013 6:14 AM YONNY VIGIL PURCHASING AND FISCAL CLERK Nurse 05/19/2013 6:14 AM DIAGNOSIS Constipation 564.00 Comment: PATIENT EDUCATION INFORMATION Instructions: CONSTIPATION (Adult) Follow up: With: Address: When: GOOD LOPEZ [address] [place] [address] [id number] [facility] () Within As Needed Comments: Source: [facility] POWERCHART Document Id: [id number] documented in this encounter Medications at Time [...] mouth daily. documented as of this encounter ED Notes Lela Smith R.N. - 05/19/2013 7:29 AM CDT ED Disposition Summary ED Disposition Summary Entered On: 05/19/2013 7:29 CDT Performed On: 05/19/2013 7:29 CDT by LELA ALCAZAR RN ED Disposition Summary Accompanied By : Alone Mode of Discharge : Ambulatory Transportation : Private vehicle Discharge From ED With : Home Med List Printed Discharge Instructions Given to Patient : Yes Patient Status at Discharge from ED : Improved LELA ALCAZAR RN - 05/19/2013 7:29 CDT Source: [facility] Document Id: [id number] CDT!8 Lela Smith R.N. - 05/19/2013 7:29 AM CDT ED Pain Assessment ED Pain Assessment Entered On: 05/19/2013 7:29 CDT Performed On: 05/19/2013 7:29 CDT by LELA ALCAZAR RN Pain Assessment Pain Symptoms : No LELA ALCAZAR RN - 05/19/2013 7:29 CDT Source: [facility] Document Id: [id number] CDT!3 Yonny Vigil M.S.N., R.N. - 05/19/2013 7:15 AM CDT ED Nurse Reassess ED Nurse Reassess Entered On: 05/19/2013 7:20 CDT Performed On: 05/19/2013 7:15 CDT by YONNY VIGIL RN Pain Assessment Pain Symptoms : No YONNY VIGIL RN - 05/19/2013 7:19 CDT Resp Reassess Respiratory Patient Stated Symptoms : None Distress : None Airway : Patent Respiratory Pattern : Regular Respirations : Unlabored YONNY VIGIL RN - 05/19/2013 7:19 CDT Breath Sounds Assessment Grid BUL : Clear BLL : Clear MECHELLE : Clear RUL : Clear RML : Clear LLL : Clear RLL : Clear YONNY VIGIL RN - 05/19/2013 7:19 CDT CV Reassess CV Patient Stated Symptoms : None Skin Color : Normal for ethnicity Skin Description : Normal Skin Temperature : Warm Heart Rhythm : Regular YONNY VIGIL RN - 05/19/2013 7:19 CDT Neuro Reassess Last Well Time Known : Not applicable Orientation : Oriented x 3 Characteristics of Speech : Clear Level of Consciousness : Alert YONNY VIGIL RN - 05/19/2013 7:19 CDT Vick Coma Eye Opening Response Vick : Spontaneously Best Verbal Response [place] : Oriented Best Motor Response [place] : Obeys simple commands Vick Coma Score : 15 YONNY VIGIL RN - 05/19/2013 7:19 CDT Behavioral Health Screen/Safety Reassmt Affect/Behavior : Calm, Cooperative, Appropriate YONNY VIGIL RN - 05/19/2013 7:19 CDT GI Reassess GI Patient Stated Symptoms : None YONNY VIGIL RN - 05/19/2013 7:19 CDT Integumentary Integumentary Patient Stated Symptoms : None Skin Integrity : Intact YONNY VIGIL RN - 05/19/2013 7:19 CDT Musculoskeletal Reassess Musculoskeletal Patient Stated Symptoms : None YONNY VIGIL RN - 05/19/2013 7:19 CDT Source: [facility] Document Id: [id number] CDT!42 Yonny Vigil M.S.N., R.N. - 05/19/2013 6:59 AM CDT ED Treatments and Procedures ED Treatments and Procedures Entered On: 05/19/2013 6:59 CDT Performed On: 05/19/2013 6:59 CDT by YONNY VIGIL RN Enema Admin Enema Results : Moderate amount of stool Stool Color : Brown YONNY VIGIL RN - 05/19/2013 7:18 CDT Enema Type : Fleets Amount Enema Fluid Administered : 133 mL Enema Procedure Tolerance : Good Enema Procedure Response : Expected YONNY VIGIL RN - 05/19/2013 6:59 CDT Source: [facility] SHIFT Document Id: [id number] CDT!8 Yonny Vigil M.S.N., R.N. - 05/19/2013 6:14 AM CDT ED Primary Assessment Document Has Been Updated ED Primary Assessment Entered On: 05/19/2013 6:14 CDT Performed On: 05/19/2013 6:14 CDT by YONNY VIGIL RN Reason For Visit (As Of: 05/19/2013 06:58:36 CDT) Diagnoses(Active) Abdominal pain Date: 05/19/2013 ; Diagnosis Type: Reason For Visit ; Confirmation: Confirmed ; Clinical Dx: Abdominal pain ; Classification: Medical ; Clinical Service: Emergency medicine ; Code: PNED ; Probability: 0 ; Diagnosis Code: [id number] Triage Chief Complaint Description : Pt C/O abd pain; gaurding abd and states he woke up nauseated this am.Pt stated it has been a couple days since last BM and he feels bloated and backed up. Information Given By : Patient Accompanied By : Alone Mode of Arrival ED : Private vehicle Track : Medical Languages : Arabic Vital Signs Assessed : Yes GCS Assessed : Yes YONNY VIGIL RN - 05/19/2013 6:55 CDT Vital Signs Temperature Core : 37.0 DegC(Converted to: 98.6 DegF) Peripheral Pulse Rate : 86 /min Respiratory Rate : 20 /min Systolic Blood Pressure : 127 mmHg Diastolic Blood Pressure : 83 mmHg NIBP Mean : 98 mmHg SpO2 : 99 % Oxygen Therapy : Room air YONNY VIGIL RN - 05/19/2013 6:55 CDT [place] Coma Eye Opening Response [place] : Spontaneously Best Verbal Response [place] : Oriented Best Motor Response [place] : Obeys simple commands Vick Coma Score : 15 YONNY VIGIL RN - 05/19/2013 6:55 CDT Pain Assessment Pain Symptoms : Yes YONNY VIGIL REA - 05/19/2013 6:55 CDT Pain Pain Assessment Grid Pain 1 Location : Abdomen Laterality : Bilateral Intensity : 7 Time Pattern : Constant YONNY VIGIL RN - 05/19/2013 6:55 CDT FLACC Pain Scale : Yes YONNY VIGIL REA - 05/19/2013 6:55 CDT FLACC Face FLACC : Frequent to constant quivering chin, clenched jaw Legs FLACC : Kicking or legs drawn up Activity FLACC : Arched, rigid or jerking Cry FLACC : Moans or whimpers, occasional complaint Consolabillity FLACC : Reassured by occasional touching, hugging or being talked to, distractable FLACC Pain Scale Score : 8 YONNY VIGIL RN - 05/19/2013 6:55 CDT ED Physician Notification Time ED Physician Notification Time : 05/19/2013 6:00 CDT YONNY VIGIL REA - 05/19/2013 6:14 CDT KATALINA KATALINA Level 1 : No KATALINA Level 2 : Yes YONNY VIGIL RN - 05/19/2013 6:14 CDT DCP GENERIC CODE Tracking Group : [facility] ED/UC Tracking Acuity : 2 -Emergent YONNY VIGIL Kylee RN - 05/19/2013 6:14 CDT Allergy (As Of: 05/19/2013 06:58:36 CDT) Allergies (Active) NKA Estimated Onset Date: Unspecified ; Created By: HOMERO GAN LPN; Reaction Status: Active ; Category: Drug ; Substance: NKA ; Type: Allergy ; Updated By: HOMERO GAN LPN; Reviewed Date: 05/19/2013 6:09 CDT Respiratory Airway : Patent Respirations : Unlabored Respiratory Pattern : Regular YONNY VIGIL Kylee LUCIA - 05/19/2013 6:55 CDT Cardiovascular Heart Rhythm : Regular Skin Color : Normal for ethnicity Skin Description : Normal Skin Temperature : Warm YONNY VIGIL Kylee RN - 05/19/2013 6:55 CDT Neurological Last Well Time Known : Not applicable Level of Consciousness : Alert Orientation : Oriented x 3 Characteristics of Speech : Clear YONNY VIGIL Kylee RN - 05/19/2013 6:55 CDT ED Psychosocial Affect/Behavior : Cooperative, Appropriate Domestic Abuse Concerns : None YONNY VIGIL Kylee LUCIA - 05/19/2013 6:55 CDT Gastrointestinal Nutrition ED : Adequate GI Detailed Assessment : Yes YONNY VIGIL RN - 05/19/2013 6:55 CDT GI Detailed GI Patient Stated Symptoms : Abdominal pain, Constipation, Cramping, Nausea Bowel Movement Last Date : 05/17/2013 CDT Abdomen Description : Symmetric Abdomen Palpation : Firm, Tender Tenderness : Left lower quadrant, Right lower quadrant YONNY VIGIL RN - 05/19/2013 6:55 CDT Bowel Sounds Grid LUQ : Hypoactive RUQ : Hypoactive LLQ : Hypoactive RLQ : Hypoactive YONNY VIGIL RN - 05/19/2013 6:55 CDT Musculoskeletal Fall Prevention Education Provided : Yes YONNY VIGIL RN - 05/19/2013 6:55 CDT Social Habits Tobacco Use/Currently Using : No Smoking Status : Unknown if ever smoke YONNY VIGIL Kylee LUCIA - 05/19/2013 6:55 CDT Source: [facility] Document Id: [id number] CDT!85 Lalitha Caicedo P.A.-C. - 05/19/2013 6:09 AM CDT Constipation Patient: EMANUEL MCMAHAN Age: 52 years Sex: Male : 1960 Author: KAL GREENE PA-C Attachments: None Associated Diagnosis: Constipation 564.00 Basic Information Time seen: Date & time 05/19/2013 06:09:00, Immediately upon arrival. History source: Patient. Arrival mode: Private vehicle, walking. History limitation: None. History of Present Illness The patient presents with abdominal pain andand feels like he is unable to have BM and that being bloated is keeping him from getting a good deep breath.. The onset was 2 days ago. The course/duration of symptoms is worsening. The character of symptoms is crampy. The Location of pain at onset was abdominal. The exacerbating factor is lying down makes him feel more short of breath.. He states that he has this same issue once before and that it resolved completely with a bowel movement.. Review of Systems Constitutional symptoms: Negative except as documented in HPI. Skin symptoms: Negative except as documented in HPI. Eye symptoms: Negative except as documented in HPI. ENMT symptoms: Negative except as documented in HPI. Respiratory symptoms: feels SOB when he gets constipated. . Cardiovascular symptoms: Negative except as documented in HPI. Gastrointestinal symptoms: Abdominal pain, diffuse, cramping and constipation. Genitourinary symptoms: Negative except as documented in HPI. Musculoskeletal symptoms: Negative except as documented in HPI. Neurologic symptoms: Negative except as documented in HPI. Psychiatric symptoms: Negative except as documented in HPI. Endocrine symptoms: Negative except as documented in HPI. Hematologic/Lymphatic symptoms: Negative except as documented in HPI. Allergy/immunologic symptoms: Negative except as documented in HPI. Health Status Allergies: . Allergic Reactions (Selected) NKA Past Medical/ Family/ Social History Medical history: . No active or resolved past medical history items have been selected or recorded. Surgical history: . Colonoscopy ([id number]) in 2010 at 50 Years. Family history: . No family history items have been selected or recorded. Physical Examination General: Alert. Skin: Warm, dry, pink and intact. Head: Normocephalic and atraumatic. Eye: Normal conjunctiva. Cardiovascular: Regular rate and rhythm. Respiratory: Lungs are clear to auscultation. Gastrointestinal: Abdominal distention, Tenderness: Mild, generalized, Guarding: Negative, Rebound: Negative and Bowel sounds: Quiet. Neurological: Normal speech observed and normal coordination observed. Psychiatric: Cooperative and appropriate mood & affect. Medical Decision Making Differential Diagnosis:Abdominal pain, constipation. OrdersLaunch Orders, Pharmacy: magnesium citrate (Order Processing): 240 mL, PO, OnceLaunch Orders. Pharmacy: [facility] Enema (Order Processing): 133 mL, Rectal, Once Reexamination/ Reevaluation 07:15 Now has had a medium sized BM here. Brown and hard. He feels better. On exam his abdomen is much softer, nontender and has better bowel sounds. Impression and Plan Diagnosis Constipation 564.00 (Discharge, Emergency medicine, Medical) Plan Condition: Improved, Stable. Disposition: Discharged: to home. Prescriptions: Prescription Cheese Cutter, Pharmacy: Colace 100 mg oral capsule (Prescribe): 100 mg, 1 cap(s), PO, 2xDay, 60 cap(s)Prescription Cheese Cutter. Pharmacy: MiraLax oral powder for reconstitution (Prescribe): 17 gm, PO, Daily, 17gm(about one heaping tablespoon) dissolved in 4-8oz of water, juice, soda, coffee, or tea, 1,530 gm Patient was given the following educational materials: CONSTIPATION (Adult). Follow up with: Primary Care Physician, In: as needed. Counseled: Patient, Regarding treatment plan, Patient indicated understanding of instructions. Talked about staying hydrated today and the fact that the magcitrate will continue to work today. Talked about adding Colace and Miralax to his meds for a while since this is the second episode of severe constipation in just over a month. He agrees to plan. Electronically Signed By: KAL GREENE PA-C On: 05/19/2013 07:30 AM Modified by and Electronically Signed by: KAL GREENE PA-C On: 05/19/2013 07:30 AM Source: [facility] [employer]ART Document Id: [id number] documented in this encounter Miscellaneous Notes Miscellaneous - Lela Smith R.N. - 05/19/2013 7:29 AM CDT Valuables/Belongings Valuables/Belongings Entered On: 05/19/2013 7:29 CDT Performed On: 05/19/2013 7:29 CDT by LELA ALCAZAR RN Valuables/Belongings Room Orientation/Facility Policy Reviewed : Yes Home Medication Disposition : None brought in with patient LELA ALCAZAR RN - 05/19/2013 7:29 CDT Source: [facility] SHIFT Document Id: [id number] CDT!4 Miscellaneous - Lela Smith R.N. - 05/19/2013 6:02 AM CDT Facility Charge Ticket Facility Charge Ticket Entered On: 05/19/2013 7:29 CDT Performed On: 05/19/2013 6:02 CDT by LELA ALCAZAR RN Facility Charge [facility]x Mode of Arrival Interpreted : Standard Lynx Total Points with Diagnosis Control : 7 Lynx Visit Level : 45855 Level 3 BON PAUL - 05/23/2013 15:13 CDT TVL Level Translated RTF : Abdominal pain TVL:4 TVL Level for Facility Charge Ticket : Level 4 Mode of Arrival ED : Private vehicle Lynx Process Management : None Lynx Order Management : None 30 Minutes Critical Care : No Nursing Notes RTF : Nursing Notes ED Primary Assessment,05/19/13 06:14,YONNY VIGIL PURCHASING AND FISCAL CLERK Nurse Reassess,05/19/13 07:15,YONNY VIGIL RN ED Pain Assessment,05/19/13 07:29,LELA ALCAZAR RN [facility]x Nursing Assessment : Triage and 1-2 nursing assessments Disposition RTF : discharge Lynx Disposition : Discharge LELA ALCAZAR RN - 05/19/2013 7:29 CDT Source: [place] Document Id: [id number] CDT!5 documented in this encounter Plan of Treatment Not on filedocumented as of this encounter Visit Diagnoses Not on filedocumented in this encounter
--- OUTSIDE RECORDS SUMMARY | 2022-09-27 14:41 | XMS_ITS | Encounter Summary ---
:1960 Author Organization [facility] Address [address] [place] [address] Care Team Providers Name Role Phone Unavailable Primary Care Provider Unavailable Encounter Details Date Type Department Care Team Description 01/24/2006 Hospital Encounter HX [facility] Dianna Umanzor, N.P., R.N. [address] [place], [place] [address] (Wo rk) Social History Tobacco [...] or relatives? How often do you attend restorationist or Never 2021 mu-ism services? Do you belong to any clubs or Yes 04/20/2022 organizations such as restorationist groups, unions, fraternal or athletic groups, or [...]
--- OUTSIDE RECORDS SUMMARY | 2022-09-27 14:41 | XMS_ITS | Encounter Summary ---
:1960 Author Organization [facility] Address [address] [place] [address] Care Team Providers Name Role Phone Unavailable Primary Care Provider Unavailable Encounter Details Date Type Department Care Team Description 12/14/2010 Hospital Encounter HX [facility] Brett Gaytan M.D. [address] [place] [address] (Wo rk) Social History Tobacco Use Types [...] do you attend episcopalian or Never 2021 presybeterian services? Do you belong to any clubs [...]
--- OUTSIDE RECORDS SUMMARY | 2022-09-27 14:41 | XMS_ITS | Encounter Summary ---
:[address] [facility] Address [address] [place] [address] Care Team Providers Name Role Phone Unavailable Primary Care Provider Unavailable Encounter Details Date Type Department Care Team Description 05/06/2010 Hospital Encounter HX [facility] Arjun Rice M.D. [address] [place] [address] (Wo rk) Social History Tobacco Use Types [...] or relatives? How often do you attend amish or Never 2021 oriental orthodox services? Do you belong to any clubs or Yes 04/20/2022 organizations such as amish groups, unions, fraternal or athletic groups, or [...] encounter Progress Notes Arjun Lopez M.D. - 05/06/2010 3:07 PM CDT FAMILY MEDICINE DATE OF SERVICE: 05/06/2010 REASON FOR VISIT A 49-year-old gentleman in complaining of 2 weeks worth of difficulty with urination. HISTORY OF PRESENT ILLNESS He has had some pain in the midshaft of his penis with urination. He feels fine when he is not urinating. Notes some urgency as well. His flow has been fine, no blood. He has had bladder infection in the past as well as BPH, followed by Dr. Rizo on a yearly basis. At that point he was on amoxicillin and then changed to Cipro, had done well. He denies sexual relationships outside of his current monogamous relationship. PAST, FAMILY, AND SOCIAL HISTORY Medical: Migraine headaches followed by neurology, GERD, BPH followed by Dr. Rizo, hyperlipidemia, hypertriglyceridemia, seasonal allergies. MEDICATIONS Pantoprazole 40 mg daily; montelukast 10 mg daily; atorvastatin 20 mg one-half tablet daily; fenofibrate 145 mg daily; vitamin E; fish oil; multivitamin; meclizine as need be; sumatriptan 100 mg as need be; Depakote 250 mg two of these daily; fexofenadine 180 mg daily; celecoxib 200 mg daily. ALLERGIES No drug allergies. EXAMINATION Blood pressure 124/82. Pulse 76. Respirations 18. Weight 78.7 kg. He is in no acute distress. Abdomen is soft, nontender. Back is nontender. Testes are descended, he is circumcised, no inguinal hernias. Rectal exam shows a flat, soft, nontender prostate, good sphincter tone, nontender. DIAGNOSTIC DATA Urinalysis shows a specific gravity greater than 1.03, trace leukocyte esterase, 20-30 white cells, 5-10 red cells. Culture is pending. IMPRESSION/REPORT/PLAN Dysuria. It is unclear to the specific cause. Will culture the urine. Will treat with ciprofloxacin 500 mg twice daily for 10 days, this was sent over to [facility]. If he is not having any good improvement will follow back up with Dr. Rizo, otherwise he will visit with Dr. Rizo in November 2010. DRS:sarah Doc#: [id number] Cc: Tanner Rizo MD Electronically Signed By:ARJUN LOPEZ MD On 05/12/2010 11:47 PM Source: [facility] ISJDICTAPHONESYS Document Id: [id number] documented in this encounter Miscellaneous Notes Miscellaneous - Arjun Lopez M.D. - 05/06/2010 3:54 PM CDT Ambulatory Depart Summary [facility] - [address] [address] Visit Information Name: EMANUEL MCMAHAN Current Date: 05/06/2010 15:54:05 Primary Care Provider: ARJUN LOPEZ MD EMANUEL MCMAHAN has been given the following list of medications: Your Medications It is important to take your medications as directed. Use a pill box or chart to help remind you to take your medications. Please let your doctor or nurse know if you have problems taking your medications. Medication/Strength Dose Route Frequency Indications/Special Instructions/Comments ciprofloxacin (ciprofloxacin 500 mg oral tablet) 500 mg Oral two times a day pantoprazole (Protonix 40 mg oral enteric coated tablet) 40 mg Oral once a day montelukast (Singulair 10 mg oral [...] times a day as needed for Dizziness sumatriptan (Imitrex 100 mg oral tablet) 1 [...] mg Oral once a day Additional Information: -Take the Cipro for the 10 days. I will send a note to Dr. Rizo with the results from today. Yes - Current list of reconciled medications is provided and explained to the patient and/or family, guardian/caregiver. Source: [facility] [employer] Document Id: [id number] Miscellaneous - Conversion, Historical Provider Ser - 05/06/2010 3:34 PM CDT Ambulatory Vitals Height Weight Ambulatory Vitals Height Weight Entered On: 05/06/2010 15:35 CDT Performed On: 05/06/2010 15:34 CDT by BON SEVERINO LPN Vital Signs Systolic Blood Pressure: 124mmHg Diastolic Blood Pressure: 82mmHg NIBP Mean: 96mmHg BP Location: Left upper extremity BON SEVERINO LPN - 05/06/2010 15:34 CDT Source: [facility] POWERCHART Document Id: [id number] CDT!6 Miscellaneous - Conversion, Historical Provider Ser - 05/06/2010 3:30 PM CDT Adult Gi Asst Intake/History Adult Gi Asst Intake/History Entered On: 05/06/2010 15:34 CDT Performed On: 05/06/2010 15:30 CDT by BON SEVERINO LPN Intake Chief Complaint: problem urinating Peripheral Pulse Rate: 76bpm Heart Rhythm: Regular Respiratory Rate: 18br/min Oxygen Therapy: Room air Systolic Blood Pressure: 124mmHg Diastolic Blood Pressure: 82mmHg NIBP Mean: 96mmHg BP Location: Left upper extremity Actual Weight: 78.700kg(Converted to: 173.504lb) Dosing Weight Clinic: 78.70kg BON SEVERINO LPN - 05/06/2010 15:30 CDT Subjective Pain Symptoms: No BON SEVERINO LPN - 05/06/2010 15:30 CDT Dependent Habits Tobacco Use/Currently Using: No Alcohol Use: No BON SEVERINO LPN - 05/06/2010 15:30 CDT Caffeine Use Grid Caffeine Use: Current Type: Soft drinks BON SEVERINO LPN - 05/06/2010 15:30 CDT Allergies Allergies (Active) NKA Estimated Onset Date: Unspecified ; Created By: HOMERO GAN LPN; Reaction Status: Active ; Category: Drug ; Substance: NKA ; Type: Allergy ; Updated By: HOMERO GAN LPN; Reviewed Date: 05/06/2010 15:28 CDT Source: [facility] POWERCHART Document Id: [id number] CDT!22 documented in this encounter Plan of Treatment Not on filedocumented as of this encounter Visit Diagnoses Not on filedocumented in this encounter
--- OUTSIDE RECORDS SUMMARY | 2022-09-27 14:41 | XMS_ITS | Encounter Summary ---
:1960 Author Organization [facility] Address [address] [place] [address] Care Team Providers Name Role Phone Unavailable Primary Care Provider Unavailable Encounter Details Date Type Department Care Team Description 09/02/2008 Hospital Encounter HX NO MAPPING Darrius Dash M .D. [address] [place] [address] Social History Tobacco Use Types Packs/Day Years [...] you attend oriental orthodox or Never 2021 jehovah's witness services? Do [...] documented as of this encounter Progress Notes Darrius Dash M.D. - 09/02/2008 12:00 [place] [address] Name: EMANUEL MCMAHAN MR#: [id number] : [birth year] Dictating Provider: Darrius Dash MD Serv Date: 09/02/08 CLINIC NOTE S: The patient presents as a pleasant 48-year-old white male with a history of a dry cough for about the last 3 weeks. He states that occasionally he does bring something up, but swallows it so he has not looked at it. There is some nasal discharge as well. Initially, he had a sore throat, but that is all resolved. He denies any definite fever. He states the cough really has not improved any over the last week, and he is concerned because of its persistence and the medications that he is taking. PMH: ALLERGIES: None. He is not a tobacco user. MEDICATIONS: Stephanie D 180 mg daily; Protonix 40 mg per day; Imitrex 100 mg p.r.n.; Celebrex 200 mg daily; Depakote ER 500 mg daily; MVI daily; Vitamin E once daily; fish oil tablet once a day; TriCor 145 mg daily; Lipitor 10 mg daily; Singulair 10 mg daily. O: Blood pressure 110/68. Pulse 82. Respirations 18. Temperature 36.8. Weight 76.7. Height 172. Heart - Normal sinus rhythm without murmur, rub, gallop, click, or arrhythmia. Lungs - Clear. ENT - Essentially negative. No significant oropharyngeal redness with normal TMs. Neck - No significant adenopathy. A: BRONCHITIS. P: Elect to cover with Z-Evin/azithromycin 500 mg today and then 250 mg daily times 4 days. Followup in 2-3 weeks if symptoms persist to visit with Dr. Gaytan. Darrius Dash MD /wil Authenticated by Darrius Dash MD on 09/04/2008 20:02:36 Authorized physician signature on file Doc#: [id number] [facility] NAME: EMANUEL MCMAHAN [facility] MR#: [id number] [place] [address] : 1960 PHYSICIAN: Darrius Dash MD VISIT DATE: 09/02/2008 [facility] PROGRESS NOTE [facility] Name: EMANUEL MCMAHAN [facility] PROGRESS NOTE Source: [facility] ISJHXDICTAPHONESYS Document Id: [id number] documented in this encounter Plan of Treatment Not on filedocumented as of this encounter Visit Diagnoses Not on filedocumented in this encounter
--- OUTSIDE RECORDS SUMMARY | 2022-09-27 14:42 | XMS_ITS | Encounter Summary ---
:1960 Author Organization [facility] Address [address] [place] [address] Care Team Providers Name Role Phone Unavailable Primary Care Provider Unavailable Encounter Details Date Type Department Care Team Description 11/09/2005 Hospital Encounter HX [facility] Chan Eagle III, [facility].D. [address] [facility] [address] [place] [address] (Wo rk) Social History Tobacco Use Types [...] or relatives? How often do you attend orthodox or Never 2021 sabianist services? Do you belong to any clubs or Yes 04/20/2022 organizations such as orthodox groups, unions, fraternal or athletic groups, [...]
--- OUTSIDE RECORDS SUMMARY | 2022-09-27 14:42 | XMS_ITS | Encounter Summary ---
:1960 Author Organization [facility] Address [address] [place] [address] Care Team Providers Name Role Phone Unavailable Primary Care Provider Unavailable Encounter Details Date Type Department Care Team Description 10/30/2005 Hospital Encounter HX [facility] Dianna Umanzor, N.P., R.N. [address] [place], [place] [address] (Wo rk) Social History Tobacco [...] do you attend worship or Never 2021 amish services? Do you belong to any clubs [...]
== END 2022-09-26 08:37 | disposition home or self-care (01) ==
LOC: LKVREF 09-27 14:32
PROVIDERS: PCP Family Medicine; Visit Provider Family Medicine
DX: R31.9 Hematuria, unspecified (principal); E11.9 Type 2 diabetes mellitus without complications
CPT/HCPCS: 87086

== ENCOUNTER 2022-09-28 16:14 | Outpatient (CLI) | payer BC, SELFPAY ==
--- OUTSIDE RECORDS SUMMARY | 2022-09-28 16:19 | XMS_ITS | Encounter Summary ---
:1960 Author Organization [facility] Address [address] [place] [address] Care Team Providers Name Role Phone Unavailable Primary Care Provider Unavailable Encounter Details Date Type Department Care Team Description 06/25/2018 Orders Only Division of Endocrinology in Jennifer Matthews [place], [place] [address] [place] [address] Social History Tobacco Use Types Packs/Day [...] do you attend hoahaoism or Never 2021 latter-day services? Do you belong to any clubs [...]
--- OUTSIDE RECORDS SUMMARY | 2022-09-28 16:19 | XMS_ITS | Encounter Summary ---
:1960 Author Organization [facility] Address [address] [place] [address] Care Team Providers Name Role Phone Unavailable Primary Care Provider Unavailable Encounter Details Date Type Department Care Team Description 02/21/2022 Clinical Communication Department of Neurology Fernando Camargo, in [facility] maria elena Sharma, M.P.H. [address] [place] [address] [address] [phone] Social History Tobacco Use Types Packs/Day [...] or relatives? How often do you attend taoism or Never 2021 presybeterian services? Do you belong to any clubs or Yes 04/20/2022 organizations such as taoism groups, unions, fraternal or athletic groups, or [...] patient that I would place call to [facility] Medical records for more information from Dr. Law. Received referral only for imbalance. Telephone Encounter - Lindsey Martinez - 02/21/2022 11:06 AM CDT Reason for Communication: Patient called cause he said he dropped off a referral from Dr. Law [facility] on Sunday to see Dr. Camargo [...]
--- OUTSIDE RECORDS SUMMARY | 2022-09-28 16:19 | XMS_ITS | Encounter Summary ---
:1960 Author Organization [facility] Address [address] [place] [address] Care Team Providers Name Role Phone Unavailable Primary Care Provider Unavailable Reason for Referral MRI/CAT/PET Scan (Routine) - Closed Specialty Diagnoses / Procedures Referred By Contact Refer red To Contact Radiology Diagnoses Pain Low Back Unspecified Adelina Olivares M.D. [facility] Procedures CT Lumbar Spine without IV Contrast IA CT LUMBAR SPINE WO CNTRST HC CT LUMBAR SPINE WO CNTRST IA CT LUMBAR SPINE WO CNTRST [address] [place], [place] [phone] Referral ID Status Reason Start Date Expiration Date Visits Requ ested Visits Authorized [id number] Closed 06/12/2018 06/12/2019 1 1 Reason for Visit MRI/CAT/PET Scan (Routine) - Closed Specialty Diagnoses / Procedures Referred By Contact Refer red To Contact Radiology Diagnoses Pain Low Back Unspecified Adelina Olivares M.D. [facility] Procedures CT Lumbar Spine without IV Contrast IA CT LUMBAR SPINE WO CNTRST HC CT LUMBAR SPINE WO CNTRST IA CT LUMBAR SPINE WO CNTRST [address] [place] [address] Referral ID Status Reason Start Date Expiration Date Visits Requ ested Visits Authorized [id number] Closed 06/12/2018 06/12/2019 1 1 Encounter Details Date Type Department Care Team Description 06/26/2018 Hospital Encounter Department of Radiology, Kristi Olivares, Pain Low Back Shakir Rucker in [place], [place] [address] [facility] [address] [place] [phone] Social History Tobacco Use Types Packs/Day Years [...] or relatives? How often do you attend taoist or Never 2021 yazidism services? Do you belong to any clubs or Yes 04/20/2022 organizations such as taoist groups, unions, fraternal or athletic groups, or [...]
--- OUTSIDE RECORDS SUMMARY | 2022-09-28 16:19 | XMS_ITS | Encounter Summary ---
:1960 Author Organization [facility] Address [address] [place] [address] Care Team Providers Name Role Phone Unavailable Primary Care Provider Unavailable Encounter Details Date Type Department Care Team Description 08/01/2018 Hospital Encounter Department of Serjio Morel Os teoporosis Laboratory Medicine M.B., B.Ch., B.A.O. and Pathology, [address] [address] [address] [place] [address] Social History Tobacco Use Types [...] or relatives? How often do you attend gnosticist or Never 2021 baptism services? Do you belong to any clubs or Yes 04/20/2022 organizations such as gnosticist groups, unions, fraternal or athletic groups, or [...] Signature Calcium, 9.7 8.8 - 10.2 08/15/2018 [facility] Total, S mg/dL 11:54 AM CDT LABORATORIES - [facility] Specimen Anatomical Collection Method Collection Time Receive d Time (Source) Location / / Volume Laterality Blood (Blood, 08/13/2018 3:35 PM 08/15/20 18 Venous) CDT 10:35 AM CDT Resulting Agency Comment Mailed In Specimen Serjio Currie, B.Gustabo., B.A.O. LAB BLOOD ADD-ON Performing Organization Address City/State/ZIP Code Phon e Number [facility] - [address] [place], [place] [address] [facility] documented in this encounter Visit Diagnoses Diagnosis Osteoporosis documented in this encounter
--- OUTSIDE RECORDS SUMMARY | 2022-09-28 16:19 | XMS_ITS | Encounter Summary ---
:1960 Author Organization [facility] Address [address] [place] [address] Care Team Providers Name Role Phone Unavailable Primary Care Provider Unavailable Encounter Details Date Type Department Care Team Description 06/26/2018 Orders Only Division of Endocrinology in [facility] Madhu rosas M.D. [place], [place] [address] [facility] [address] [place] [phone] [phone] (Wo rk) Social History Tobacco Use Types [...] do you attend taoist or Never 2021 mu-ism services? Do you [...]
--- OUTSIDE RECORDS SUMMARY | 2022-09-28 16:19 | XMS_ITS | Encounter Summary ---
:1960 Author Organization [facility] Address [address] [place] [address] Care Team Providers Name Role Phone Unavailable Primary Care Provider Unavailable Reason for Visit Reason Onset Date Comments [facility] pharmacies 07/05/2018 Encounter Details Date Type Department Care Team Description 07/05/2018 Clinical Communication Division of Madhu Vyas Endocrinology in [facility] [place], [place] [address] [facility] [phone] [place] [phone] Social History Tobacco Use Types Packs/Day Years [...] or relatives? How often do you attend jain or Never 2021 amish services? Do you belong to any clubs or Yes 04/20/2022 organizations such as jain groups, unions, fraternal or athletic groups, or [...] place to sleep or slept in a group home (including now)? Sex Assigned at Date [...] request was coming) Name of the pharmacy: [facility], [address] [place], [place] [id number] Preferred Pharmacy Correct in EPIC (yes or [...] all specialty pharmacy medications be sent to [facility]. Patient had been in contact with [facility] to transfer the prescription, but [facility] wants a new script sent directly to them. Thank you, Melodie (real estate legal secretary float) documented in this encounter Plan of Treatment Not on filedocumented as of this encounter Visit Diagnoses Not on filedocumented in this encounter
--- OUTSIDE RECORDS SUMMARY | 2022-09-28 16:19 | XMS_ITS | Encounter Summary ---
:1960 Author Organization [facility] Address [address] [place] [address] Care Team Providers Name Role Phone Unavailable Primary Care Provider Unavailable Reason for Visit Outpatient (Routine) - Closed Specialty Diagnoses / Referred By Contact Referred To Contact Procedures Reproductive Diagnoses Osteoporosis Adelina Olivares M.D. [facility] Endocrinology and [address] [place] [address] Infertility / [place], [place] Endocrinology [phone] Referral ID Status Reason Start Date Expiration Date Visits Requ ested Visits Authorized [id number] Closed 06/12/2018 06/12/2019 1 1 Encounter Details Date Type Department Care Team Description 06/26/2018 Comprehensive Visit Division of Adelina Olivares M.D. [address] [place] [phone] Osteoporosis Endocrinology in Madhu Vyas M.D. [address] [place] [phone] [place], [place] Serjio Morel M.B., B.Ch., B.A.O. [address] [place] [address] [place] [phone] Social History Tobacco Use Types Packs/Day Years [...] do you attend scientologist or Never 2021 baptist services? Do you [...] visit. SOCIAL HISTORY Mr. Mcmahan lives in [place], [place]. He is a current smoker of cigars daily. He doesn't drink any alcohol. He works in [employer]. FAMILY HISTORY Family History Problem Relation Age [...] mass appropriate for age and gender. 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 Neuro: Balance normal. Able to walk [...] image stored in the BMD study in [employer]), the calculated ten year probability of fracture [...] Endocrinology office visit (clinic) Rosey Cerna, B.Ch., [facility] Endocrinology Fellow Madhu Vyas M.D. [...] day for up to two years. A [facility] prescription is sent this afternoon [...] findings and recommendations. CT CT Job ID: [id number] documented in this encounter Plan of Treatment Not on filedocumented as of this encounter Results Calcium, Total (08/13/2018 3:35 PM CDT) athologist Signature Calcium, 9.7 8.8 - 10.2 08/15/2018 [facility] Total, S mg/dL 11:54 AM CDT LABORATORIES - [facility] Specimen Anatomical Collection Method Collection Time Receive d Time (Source) Location / / Volume Laterality Blood (Blood, 08/13/2018 3:35 PM 08/15/20 18 Venous) CDT 10:35 AM CDT Resulting Agency Comment Mailed In Specimen Wendy DukesCh., B.A.O. LAB BLOOD ADD-ON Performing Organization Address City/[facility] Phon e Number [facility]ORATORIES - [address] [place], [place] [address] [facility] Parathyroid Hormone (PTH) (06/26/2018 3:13 PM CDT) Patholo gist Method Time Signature Parathyroid 40 15 - 65 06/26/2018 [facility] Hormone (PTH), S pg/mL 4:18 PM CDT LABORATORIE S - [facility] Specimen Anatomical Collection Method Collection Time Receive d Time (Source) Location / / Volume Laterality Blood (Blood, 06/26/2018 3:13 PM 06/26/20 18 3:35 Venous) CDT PM CDT Wendy DukesCh., B.A.O. LAB BLOOD ADD-ON Performing Organization Address City/State/[facility] Code Phon e Number [facility] LABORATORIES - [address] [place], [place] [address] [facility] documented in this encounter Visit Diagnoses Diagnosis Osteoporosis documented in this encounter
--- OUTSIDE RECORDS SUMMARY | 2022-09-28 16:19 | XMS_ITS | Encounter Summary ---
:1960 Author Organization [facility] Address [address] [place] [address] Care Team Providers Name Role Phone Unavailable Primary Care Provider Unavailable Reason for Referral Outpatient (Routine) - Closed Specialty Diagnoses / Procedures Referred By Contact Refer red To Contact Orthopedic Surgery Diagnoses Radiculopathy Lumbar Pradeep Culver M.D. [facility] [address] [facility] [address] [place], [place] [address] Referral ID Status Reason Start Date Expiration Date Visits Requ ested Visits Authorized [id number] Closed 12/24/2017 06/22/2018 1 1 Scheduling Instructions Please schedule with Dr. Olivares. ICIST NUCLEAR Encounter Details Date Type Department Care Team Description 12/04/2017 Orders Only Department of Physical Pradeep Culver, Radiculopathy Lumbar Medicine and [place] (Primary Dx) Rehabilitation in [address] [place] [address] [address] [place] [phone] Social History Tobacco Use Types Packs/Day Years [...] do you attend moravian or Never 2021 rastafari services? Do you belong to any clubs [...] Mcmahan voiced agreement this plan. Job ID: [id number] ICIST NUCLEAR documented in this encounter Plan of Treatment Not on filedocumented as of this encounter Visit Diagnoses Diagnosis Radiculopathy Lumbar - Primary documented in this encounter
--- OUTSIDE RECORDS SUMMARY | 2022-09-28 16:19 | XMS_ITS | Encounter Summary ---
:1960 Author Organization [facility] Address [address] [place] [address] Care Team Providers Name Role Phone Unavailable Primary Care Provider Unavailable Reason for Visit Reason Comments Ref. for P.T. Encounter Details Date Type Department Care Team Description 07/19/2022 Clinical Communication Department of Fernando Camargo Ref. for P.T. Neurology in [place], [place] M.P.H. [address] [facility] [address] [place] [phone] Social History Tobacco Use Types Packs/Day Years [...] or relatives? How often do you attend latter day or Never 2021 orthodoxy services? Do you belong to any clubs or Yes 04/20/2022 organizations such as latter day groups, unions, fraternal or athletic groups, or [...] or slept in a correction (including now)? Education Answer Date Recorded What [...]
--- OUTSIDE RECORDS SUMMARY | 2022-09-28 16:19 | XMS_ITS | Encounter Summary ---
:1960 Author Organization [facility] Address [address] [place] [address] Care Team Providers Name Role Phone Unavailable Primary Care Provider Unavailable Reason for Referral MRI/CAT/PET Scan (Routine) - Closed Specialty Diagnoses / Procedures Referred By Contact Refer red To Contact Radiology Diagnoses Pain Low Back Unspecified Adelina Olivares M.D. [facility] Procedures CT Lumbar Spine without IV Contrast [place] CT LUMBAR SPINE WO CNTRST HC CT LUMBAR SPINE WO CNTRST [place] CT LUMBAR SPINE WO CNTRST [address] [place] [address] Referral ID Status Reason Start Date Expiration Date Visits Requ ested Visits Authorized [id number] Closed 06/12/2018 06/12/2019 1 1 utpatient (Routine) - Closed Specialty Diagnoses / Referred By Contact Referred To Contact Procedures Reproductive Diagnoses Osteoporosis Adelina Olivares M.D. [facility] Endocrinology and [address] [facility] Infertility / [place], [place] Endocrinology [phone] Referral ID Status Reason Start Date Expiration Date Visits Requ ested Visits Authorized [id number] Closed 06/12/2018 06/12/2019 1 1 Encounter Details Date Type Department Care Team Description 06/12/2018 Orders Only Department of Joe Cuenca Osteoporosis (Primary Dx); Orthopedic Surgery in [place] Caballero Pain L ow Back [place], [place] [address] [place] [phone] Social History Tobacco Use Types Packs/Day Years [...] do you attend worship or Never 2021 shinto services? Do you [...] Albumin, S 4.7 3.5 - 5.0 06/26/2018 [facility] g/dL 11:59 AM CDT LABORATORIES - [facility] Specimen Anatomical Collection Method Collection Time Receive d Time (Source) Location / / Volume Laterality Blood (Blood, 06/26/2018 10:40 06/26/2018 Venous) AM CDT 11:18 AM CDT Adelina Olivares M.D. LAB BLOOD ADD-ON Performing Organization Address City/[facility] Phon e Number [facility] [address] [address] 05 [facility] 25-Hydroxyvitamin D2 and D3 (06/26/2018 10:40 AM CDT) athologist Signature 25-Hydroxy D2 <4.0 ng/mL 06/28/2018 [facility] 10:29 AM CDT [facility] 25-Hydroxy D3 31 ng/mL 06/28/2018 [facility] 10:29 AM CDT [facility] 25-Hydroxy D 31 ng/mL 06/28/2018 [facility] Total 10:29 AM CDT [facility] Comment: ----REFERENCE VALUE---- 25-HYDROXY D TOTAL (D2+D3) Optimum level s in the healthy population are 20-50, patients with bone disease may benefit from higher levels within this r cindy. ----ADDITIONAL INFORMATION---- This test was developed and its performa nce characteristics determined by [facility] in a manner consistent with CLIA [...] Organization Address City/State/ZIP Code Phon e Number [facility] [address] [place], [place] [address] [facility] Calcium, Total (06/26/2018 10:40 AM CDT) P athologist Signature Calcium, 9.4 8.8 - 10.2 06/26/2018 [facility] Total, S mg/dL 11:59 AM CDT LABORATORIES [facility] Specimen Anatomical Collection Method Collection Time Receive d Time (Source) Location / / Volume Laterality Blood (Blood, 06/26/2018 10:40 06/26/2018 Venous) AM CDT 11:18 AM CDT Ahmad Nassr M.D. LAB BLOOD ADD-ON Performing Organization Address City/[facility]/ZIP Code Phon e Number [facility] LABORATORIES - [address] Phosphorus Inorganic (06/26/2018 10:40 AM CDT) Analysis Performed At Path logis Time Signature Phosphorus 3.8 2.5 - 4.5 06/26/2018 [facility] (Inorganic), S mg/dL 11:59 AM CDT LABORATORIES [facility] Specimen Anatomical Collection Method Collection Time Receive d Time (Source) Location / / Volume Laterality Blood (Blood, 06/26/2018 10:40 06/26/2018 Venous) AM CDT 11:18 AM CDT Adelina Olivares M.D. LAB BLOOD ADD-ON Performing Organization Address [facility] Phon e Number [facility] LABORATORIES - [address] Creatinine with Estimated GFR (06/26/2018 10:40 AM CDT) Analysis Performed At [facility] Time Signature Creatinine 0.92 0.74 - 06/26/2018 [facility] 1.35 mg/dL 11:59 AM CDT LABORATORIES [facility] eGFR-Non >90 >=60 06/26/2018 [facility] Black/ mL/min/BSA 11:59 AM CDT LABORATORIES [facility] Comment: ----ADDITIONAL INFORMATION---- Estimated GFR calculated using the 2009 CKD_EPI creatinine equation. eGFR-Black/ >90 >=60 mL/min/BSA 06/26/2018 11:5 9 [facility] Prydeinig AM CDT LABORATORIES [facility] Comment: ----ADDITIONAL INFORMATION---- Estimated GFR calculated using the 2009 CKD_EPI creatinine equation. Specimen Anatomical Collection Method Collection Time Receive d Time (Source) Location / / Volume Laterality Blood (Blood, 06/26/2018 10:40 06/26/2018 Venous) AM CDT 11:18 AM CDT Adelina Olivares M.D. LAB BLOOD ADD-ON Performing Organization Address City/[facility] Phon e Number [facility] LABORATORIES - [address] Lumbar Spine without IV Contrast [...]
--- OUTSIDE RECORDS SUMMARY | 2022-09-28 16:19 | XMS_ITS | Encounter Summary ---
:1960 Author Organization [facility] Address [address] [place] [address] Care Team Providers Name Role Phone Unavailable Primary Care Provider Unavailable Encounter Details Date Type Department Care Team Description 05/07/2018 Hospital Encounter Department of Tanner Rizo History Of Laboratory Medicine Edith Sheriff Other Diseases Of in [address] Male Genital Organs [place], [place] [address] [address] [place], [place] [phone] [address] (Work) [phone] Social History Tobacco Use Types Packs/Day Years [...] or relatives? How often do you attend jehovah's witness or Never 2021 jainism services? Do you belong to any clubs or Yes 04/20/2022 organizations such as jehovah's witness groups, unions, fraternal or athletic groups, or [...] place to sleep or slept in a half-way (including now)? Sex Assigned at Date Recorded [...] Signature Testosterone, 419 240 - 950 05/08/2018 [facility] Total by Mass ng/dL 11:08 PM CDT [facility] Spectrometry, [facility] Serum Comment: ----ADDITIONAL INFORMATION---- Testing performed by Liquid Chromatograp hy-Tandem Mass Spectrometry (LC-MS/MS). This test was developed and its performa nce characteristics determined by [facility] in a manner consistent with CLIA requirements. [...] Organization Address City/State/ZIP Code Phon e Number [facility] [address] [place] [address] [place], [place] [address] [facility] PSA (Prostate-Specific Antigen), Diagnostic (05/07/2018 3:59 PM CDT) P athologist Signature Prostate-Specif 3.5 <=3.5 05/07/2018 [facility] ic Ag ng/mL 5:29 PM CDT [facility] Comment: Biotin has been identified by the harish gaston as a potential interfering substance. ??Higher concentr ations of biotin may be found in multivitamins, hair/nail supple ments, and workout supplements. ??If the result does not [facility] clinical observations, repeat testing after patient refrains [...] Organization Address City/State/ZIP Code Phon e Number [facility] [address] [place] [address] LAB documented in this encounter Visit Diagnoses Diagnosis Personal History Of Other Diseases Of Ma le Genital Organs documented in this encounter
--- OUTSIDE RECORDS SUMMARY | 2022-09-28 16:19 | XMS_ITS | Encounter Summary ---
:1960 Author Organization [facility] Address [address] [place] [address] Care Team Providers Name Role Phone Unavailable Primary Care Provider Unavailable Encounter Details Date Type Department Care Team Description 06/26/2018 Hospital Encounter Department of Serjio Morel Os teoporosis Laboratory Medicine M.B., B.Ch., B.A.O. and Pathology, [address] [address] [address] [facility] [address] Social History Tobacco Use Types [...] do you attend spiritism or Never 2021 quaker services? Do you [...] Parathyroid Hormone (PTH) (06/26/2018 3:13 PM CDT) [facility] gist Method Time Signature Parathyroid 40 15 - 65 06/26/2018 [facility] Hormone (PTH), S pg/mL 4:18 PM CDT LABORATORIE S - [facility] Specimen Anatomical Collection Method Collection Time Receive d Time (Source) Location / / Volume Laterality Blood (Blood, 06/26/2018 3:13 PM 06/26/20 18 3:35 Venous) CDT PM CDT Serjio Currie, B.Ch., B.A.O. LAB BLOOD ADD-ON Performing Organization Address City/State/ZIP Code Phon e Number [facility] LABORATORIES - [address] [place], [place] [address] [facility] documented in this encounter Visit Diagnoses Diagnosis Osteoporosis documented in this encounter
--- OUTSIDE RECORDS SUMMARY | 2022-09-28 16:19 | XMS_ITS | Encounter Summary ---
:1960 Author Organization [facility] Address [address] [place] [address] Care Team Providers Name Role Phone Unavailable [...] do you attend scientology or Never 2021 mormonism services? Do you [...] or slept in a penitentiary (including now)? Education Answer Date Recorded What [...]
--- OUTSIDE RECORDS SUMMARY | 2022-09-28 16:19 | XMS_ITS | Encounter Summary ---
:1960 Author Organization [facility] Address [address] [place] [address] Care Team Providers Name Role Phone Unavailable Primary Care Provider Unavailable Encounter Details Date Type Department Care Team Description 06/12/2018 Documentation Department of Orthopedic [facility] Cuenca[facility] [place] [address] [place] [address] Social History Tobacco Use [...] or relatives? How often do you attend mandaeism or Never 2021 taoism services? Do you belong to any clubs or Yes 04/20/2022 organizations such as mandaeism groups, unions, fraternal or athletic groups, or [...]
--- OUTSIDE RECORDS SUMMARY | 2022-09-28 16:19 | XMS_ITS | Encounter Summary ---
:1960 Author Organization [facility] Address [address] [place] [address] Care Team Providers Name Role Phone Unavailable Primary Care Provider Unavailable Reason for Visit Reason Comments Med Refill Encounter Details Date Type Department Care Team Description 12/28/2017 Refill Department of Physical Medicine Pradeep Culver M.D. Med Refill and Rehabilitation in [address] [place], [place] [address] [place] [address] [place] [address] [phone] Social History Tobacco Use Types Packs/Day Years [...] or relatives? How often do you attend yazidi or Never 2021 cheondoism services? Do you belong to any clubs or Yes 04/20/2022 organizations such as yazidi groups, unions, fraternal or athletic groups, or [...]
--- OUTSIDE RECORDS SUMMARY | 2022-09-28 16:19 | XMS_ITS | Clinical Summary ---
:1960 Author Organization [facility] Address [address] [place] [address] Care Team Providers Name Role Phone Unavailable Primary Care Provider Unavailable Source Comments Patient records contain information from all sites at [facility]. For routine questions regarding patient records, call [phone] during business hours, M-F 8:00 AM - 5:00 PM Central Time. Record requests for emergency care only can be directed to [phone] at any time.[facility] Allergies Active Allergy Reactions Severity Noted [...] D PRN 0 020 Active tablet omega 5-rjg-uhr-fish oil Take 1 capsule by mouth 0 [...] do you attend episcopal or Never 2021 quaker services? Do you [...] slept in a group home (including now)? Education Answer Date Recorded What [...] Addre ss Type Group [employer] [place] [id number] 2016-Husam [phone] [id number] [facility] [address] [place] [address] Advance Directives For more information, please contact: [phone] Documents on File Type Date Recorded Patient Bioinformatics Analyst Explanati on Advance Directives 01/20/2011 12:00 AM Legacy docu ment. See document viewer.
--- OUTSIDE RECORDS SUMMARY | 2022-09-28 16:19 | XMS_ITS | Encounter Summary ---
:1960 Author Organization [facility] Address [address] [place] [address] Care Team Providers Name Role Phone Unavailable Primary Care Provider Unavailable Reason for Referral Physical Therapy (Routine) - Authorized Specialty Diagnoses / Procedures Referred By Contact Refer red To Contact Diagnoses Abnormal Gait Non Orthopedic Fernando Camargo M.D., External, Referring M.P.H. Provider [address] [place] [address] Referral ID Status Reason Start Expiration Visits Visits Date Date Requested Authorized [id number] Authorized Service not 07/18/2022 07/18/2023 1 1 available at any [facility] site Reason for Visit Reason Comments Peripheral Neuropathy Follow up Outpatient (Routine) - Closed Specialty Diagnoses / Procedures Referred By Contact Refer red To Contact Neurology Fernando Camargo M.D ., [facility] Region [address] [place] [address] Referral ID Status Reason Start Date Expiration Date Visits Requ ested Visits Authorized [id number] Closed 04/20/2022 04/20/2023 1 1 Encounter Details Date Type Department Care Team Description 07/18/2022 Office Visit Department of Fernando Camargo Abnormal G ait Non Neurology in [place], M.P.H. Orthopedic (Primary Dx) [place], [place] [address] [place] [address] [phone] Social History Tobacco Use Types Packs/Day Years [...] do you attend jew or Never 2021 scientology services? Do you belong to any clubs [...] Electromyography Final Report Study Number: 2 EMG Polisher Apprentice: Dell May Referred by: Fernando CAMARGO (127 or [phone]) Referred for: rule out PN Referral Code: [...] Alert and oriented x 4. CRANIAL NERVES: wood block artist II-XII intact and symmetric. GAIT: While walking in and out. ASSESSMENT / PLAN #1 Abnormal Gait Non Orthopedic I have recommended gait and balance therapy for this patient and we will arrange for this. I do not think a chronic L5 radiculopathy explains his gait difficulties. I shared that with him. - External referral PT (non-Christine) Other orders - Neurology office visit (clinic) [...]
--- OUTSIDE RECORDS SUMMARY | 2022-09-28 16:19 | XMS_ITS | Encounter Summary ---
:1960 Author Organization [facility] Address [address] [place] [address] Care Team Providers Name Role Phone Unavailable Primary Care Provider Unavailable Encounter Details Date Type Department Care Team Description 07/08/2018 Orders Only Division of Endocrinology in [facility] Madhu rosas M.D. [place], [place] [address] [facility] [address] [place] [address] [phone] (Wo rk) Social History Tobacco Use Types [...] do you attend islam or Never 2021 baptist services? Do you [...]
--- OUTSIDE RECORDS SUMMARY | 2022-09-28 16:19 | XMS_ITS | Encounter Summary ---
:1960 Author Organization [facility] Address [address] [place] [address] Care Team Providers Name Role Phone Unavailable Primary Care Provider Unavailable Reason for Visit Reason Comments Emg Peripheral Neuropathy Right leg Outpatient (Routine) - Closed Specialty Diagnoses / Procedures Referred By Contact Refer red To Contact Diagnoses Neuropathy Fernando Camargo M.D., [facility] Region Procedures EMG [address] [place] [address] Referral ID Status Reason Start Date Expiration Date Visits Requ ested Visits Authorized [id number] Closed 04/20/2022 04/20/2023 1 1 Encounter Details Date Type Department Care Team Description 06/21/2022 Diagnostic Department of Neurology in [facility] tejal Pichardo, Neuropathy [place], [place] Edith [address] [place] [address] [place] [address] [phone] (Wo rk) Social History Tobacco Use Types [...] do you attend episcopalian or Never 2021 christian services? Do you [...] or slept in a mcc (including now)? Education Answer Date Recorded What [...] ? Final Report Study Number: 2 EMG Daytime Babysitter: Dell May Referred by: Fernando CAMARGO (127 or [phone]) Referred for: rule out PN Referral Code: [...]
--- OUTSIDE RECORDS SUMMARY | 2022-09-28 16:19 | XMS_ITS | Encounter Summary ---
:1960 Author Organization [facility] Address [address] [place] [address] Care Team Providers Name Role Phone Unavailable Primary Care Provider Unavailable Reason for Visit Reason Comments Med Refill Encounter Details Date Type Department Care Team Description 02/05/2018 Refill Department of Physical Medicine Pradeep Culver M.D. Med Refill and Rehabilitation in [address] [place], [place] [address] [place] [address] [place] [address] [phone] Social History Tobacco Use Types Packs/Day Years [...] do you attend anabaptist or Never 2021 druze services? Do you belong to any clubs [...]
--- OUTSIDE RECORDS SUMMARY | 2022-09-28 16:19 | XMS_ITS | Encounter Summary ---
:1960 Author Organization [facility] Address [address] [place] [address] Care Team Providers Name Role Phone Unavailable Primary Care Provider Unavailable Reason for Referral Outpatient (Routine) - Closed Specialty Diagnoses / Procedures Referred By Contact Refer red To Contact Neurology Fernando Camargo M.D ., [facility] Region [address], [place] [address] Referral ID Status Reason Start Date Expiration Date Visits Requ ested Visits Authorized [id number] Closed 04/20/2022 04/20/2023 1 1 Outpatient (Routine) - Closed Specialty Diagnoses / Procedures Referred By Contact Refer red To Contact Diagnoses Neuropathy Fernando Camargo M.D., M.P.[facility] Region Procedures EMG [address], [place] [address] Referral ID Status Reason Start Date Expiration Date Visits Requ ested Visits Authorized [id number] Closed 04/20/2022 04/20/2023 1 1 Reason for Visit Reason Comments Imbalance Ref. [facility] Appointment Request (Routine) - Closed Specialty Diagnoses / Procedures Referred By Contact Refer red To Contact Neurology Referral ID Status Reason Start Date Expiration Date Visits Requ ested Visits Authorized [id number] Closed 02/28/2022 02/28/2023 1 Encounter Details Date Type Department Care Team Description 04/20/2022 Office Visit Department of Fernando Camargo, Neuropathy (Primary Dx); Neurology in Edith M.PLupe Oswaldo Walker [place], [place] [address] [place] [address] [place] [phone] Social History Tobacco Use Types Packs/Day [...] do you attend lutheran or Never 2021 methodist services? Do you belong to any clubs [...] or slept in a fci (including now)? Education Answer Date Recorded What [...] evaluation of Imbalance (Ref. Dakota Law MD- [facility]). HISTORY OF PRESENT ILLNESS Patient [...] veers to the left when walking. EMG Machine Staker: Tamia Carpenter [phone] or [phone] Referred by: Susan Anton ([phone]) Referred for: Radiculopathy Lumbar 5 R~Pain Low [...] left L5 radiculopathy. Mitchell Carpenter ([phone] or [phone])/[facility] NERVE CONDUCTIONS Temperature: upper: 33.1, lower: 29.4 [...] mouth daily., Disp: , Rfl: ??? omega 2-iha-atq-fish oil 1,000 mg (120 mg-180 mg) capsule, [...] and Family: Twice a week ??? Attends Gnosticism Services: Never ??? Active Member of Clubs [...] Alert and oriented x 4. CRANIAL NERVES: engine buildup mechanic II-XII intact and symmetric. MOTOR: Full strength [...] Name Type Priority Associated Diagnoses Order S [facility] Neurology office Outpatient Referral Routine Expe cted: [...] ? Final Report Study Number: 2 EMG Machine Staker: Dell May Referred by: Fernando CAMARGO ([phone] or [phone]) Referred for: rule out PN Referral Code: [...]
--- OUTSIDE RECORDS SUMMARY | 2022-09-28 16:20 | XMS_ITS | Encounter Summary ---
:1960 Author Organization [facility] Address [address] [place] [address] Care Team Providers Name Role Phone Unavailable Primary Care Provider Unavailable Encounter Details Date Type Department Care Team Description 10/02/2017 Abstract Department of Family Medicine, Provider, Historical [facility], in [place], [place] [address] [place] [address] [facility] [phone] Social History Tobacco Use Types Packs/Day Years [...] do you attend samaritan or Never 2021 druze services? Do you [...]
--- OUTSIDE RECORDS SUMMARY | 2022-09-28 16:20 | XMS_ITS | Encounter Summary ---
:1960 Author Organization [facility] Address [address] [place] [address] Care Team Providers Name Role Phone Unavailable Primary Care Provider Unavailable Reason for Visit Reason Onset Date Comments Prior Auth 11/09/2017 Encounter Details Date Type Department Care Team Description 11/09/2017 Clinical [facility], [facility], in [address] [phone] Social History Tobacco Use Types Packs/Day Years [...] or relatives? How often do you attend adventist or Never 2021 denominational services? Do you belong to any clubs or Yes 04/20/2022 organizations such as adventist groups, unions, fraternal or athletic groups, or [...] - 11/11/2017 8:34 AM CST Referral sent ETIC EDUCATOR documented in this encounter Plan of Treatment Not on filedocumented as of this encounter Visit Diagnoses Not on filedocumented in this encounter
--- OUTSIDE RECORDS SUMMARY | 2022-09-28 16:20 | XMS_ITS | Encounter Summary ---
:1960 Author Organization [facility] Address [address] [place] [address] Care Team Providers Name Role Phone Unavailable Primary Care Provider Unavailable Reason for Visit Reason Comments Communication Encounter Details Date Type Department Care Team Description 11/13/2017 Clinical Communication Department of Pradeep Culver, Communication Internal Medicine in [place], [place] [address] [facility] [address] [place] [address] [phone] Social History Tobacco Use Types Packs/Day Years [...] do you attend yarsani or Never 2021 samaritan services? Do you [...] Halie Blackburn L.PMikN. - 11/13/2017 10:42 AM SOFTBALL CORE MOLDER Left message to notify patient that waiting on insurance approval. BALL CORE MOLDER Telephone Encounter - Anny Bishop - 11/13/2017 10:07 AM CST Amaris nixon from [facility]. States patient showed up today for an MRI, but they have not yet received the order for this. Please fax to [phone] BALL CORE MOLDER documented in this encounter Plan of Treatment Not on filedocumented as of this encounter Visit Diagnoses Not on filedocumented in this encounter
--- OUTSIDE RECORDS SUMMARY | 2022-09-28 16:20 | XMS_ITS | Encounter Summary ---
:1960 Author Organization [facility] Address [address] [place] [address] Care Team Providers Name Role Phone Unavailable Primary Care Provider Unavailable Encounter Details Date Type Department Care Team Description 02/21/2017 Hospital Encounter [facility]X [facility] PMTR Earl Culver M.D. [address] [place] [address], [address] [place] [address] (Wo rk) Social History Tobacco [...] do you attend yarsani or Never 2021 confucianism services? Do you [...] Culver M.D. - 02/21/2017 3:29 PM CDT [id number] CHIEF COMPLAINT/REASON FOR VISIT Follow up low [...] CULVER MD On: 03/06/2017 11:35 AM Source: [facility] MHSDOLBEYNONRADSYS Document Id: [id number] documented in this encounter Miscellaneous Notes Miscellaneous - Edison Cuvler M.D. - 02/21/2017 5:20 PM CDT Ambulatory Patient Summary [address] [id number] Visit Information Name: MUNAEMANUEL [facility] Number: [id number] Current Date: 02/21/2017 17:20:40 Physicians [...] if you dont have one. Go to [email or web address] and click on Create Your Account. Then, follow the directions to complete the online form. Youll be asked for your [facility] number which you can find at the top of this document. Your Goals/Additional instructions: Source: [facility] POWERCHART Document Id: [id number] Miscellaneous - Edison Culver M.D. - 02/21/2017 5:20 PM CDT Ambulatory Discharge Medication List [address] [id number] Visit Information Name: EMANUEL MCMAHAN [facility] Number: [id number] Current Date: 02/21/2017 17:20:39 Attending [...] MD Signed On:21-FEB-2017 17:20:23 Additional Information: Source: [facility] POWERCHART Document Id: [id number] Miscellaneous - Halie Baker L.P.N. - 02/21/2017 5:[address] Culver Document Contains Addenda Addendum by HALIE BAKER LPN on February 22, 2017 11:59:58 CDT Order faxed Addendum by ASTER NOBLE on February 22, 2017 09:22:19 CDT From: ASTER NOBLE ([facility] Maintenance Engineer [facility]/Radiology [facility]) To: Physical Medicine and Rehabilitation Staff; Sent: 02/22/2017 09:22:19 CDT Subject: RE: Dr. Culver No auth needed for outpatient From: HALIE BAKER LPN ( Physical Medicine and Rehabilitation Staff) To: [facility] Maintenance Engineer [facility]/Radiology [facility]; Sent: 02/21/2017 17:10:32 CDT Subject: Dr. Culver [...] date and type of injury: _ Source: [facility] POWERCHART Document Id: [id number] Electronically signed by Conversion, [facility] Bookbinding Machine Operator [id number] at 04/03/2017 4:22 AM CDT Miscellaneous - Halie Baker L.PMikNMik - 02/21/2017 4:41 PM CDT Adult Guidance Services Coordinator Intake/History Adult Guidance Services Coordinator Intake/History Entered On: 02/21/2017 16:42 CDT Performed [...] Information Given By : Patient Languages : Serbian Is Patient Female and 13-50 no hysterectomy [...] BAKER LPN - 02/21/2017 16:41 CDT Source: [facility] Document Id: [id number] CDT!30 documented in this encounter Plan of Treatment Not on filedocumented as of this encounter Visit Diagnoses Not on filedocumented in this encounter
--- OUTSIDE RECORDS SUMMARY | 2022-09-28 16:20 | XMS_ITS | Encounter Summary ---
:1960 Author Organization [facility] Address [address] [place] [address] Care Team Providers Name Role Phone Unavailable Primary Care Provider Unavailable Encounter Details Date Type Department Care Team Description 06/12/2017 Hospital Encounter HX [facility] PMTR Earl Culver M.D. [address] [place] [address], [address] [place] [address] (Wo rk) Social History Tobacco [...] do you attend confucianism or Never 2021 sabianism services? Do you belong to any clubs [...] Culver M.D. - 06/12/2017 3:58 PM CDT [id number] CHIEF COMPLAINT/REASON FOR VISIT Follow up low [...] able to ride his motorcycle up to [place] as well as take a trip to [place] without an exacerbation of his symptoms, which [...] CULVER MD On: 06/13/2017 11:19 AM Source: [facility] MHSDOLBEYNONRADSYS Document Id: [id number] documented in this encounter Miscellaneous Notes Miscellaneous - Edison Culver M.D. - 06/12/2017 4:40 PM CDT Ambulatory Patient Summary [address] [id number] Visit Information Name: MUNAEMANUEL [facility] Number: [id number] Current Date: 06/12/2017 16:40:39 [...] day This is a CHANGE Routed to [address] [place] [address] fexofenadine (fexofenadine 180 mg oral tablet) [...] if you dont have one. Go to [email or web address] and click on Create Your Account. Then, follow the directions to complete the online form. Youll be asked for your [facility] number which you can find at the top of this document. Your Goals/Additional instructions: Source: [facility] POWERCHART Document Id: [id number] Miscellaneous - Edison Culver M.D. - 06/12/2017 4:40 PM CDT Ambulatory Discharge Medication List [address] [id number] Visit Information Name: EMANUEL MCMAHAN [facility] Number: [id number] Current Date: 06/12/2017 16:40:37 [...] day This is a CHANGE Routed to [address] [address] fexofenadine (fexofenadine 180 mg oral [...] MD Signed On:12-JUN-2017 16:40:02 Additional Information: Source: [facility] [employer] Document Id: [id number] Miscellaneous - Halie Baker L.P.N. - 06/12/2017 4:15 PM CDT Adult Penology Professor Intake/History Adult Penology Professor Intake/History Entered On: 06/12/2017 16:16 CDT Performed [...] and 13-50 no hysterectomy : No HALIE ABKER LPN - 06/12/2017 16:15 CDT Subjective Pain [...] BAKER LPN - 06/12/2017 16:15 CDT Source: [facility] Document Id: [id number] CDT!30 documented in this encounter Plan of Treatment Not on filedocumented as of this encounter Visit Diagnoses Not on filedocumented in this encounter
--- OUTSIDE RECORDS SUMMARY | 2022-09-28 16:20 | XMS_ITS | Encounter Summary ---
:1960 Author Organization [facility] Address [address] [place] [address] Care Team Providers Name Role Phone Unavailable Primary Care Provider Unavailable Reason for Visit Reason Onset Date Comments Prior Auth 11/13/2017 [facility] is wondering if they needed a prior authorization for th e patient? Please call and let them know. [phone] Encounter Details Date Type Department Care Team Description 11/13/2017 Clinical Communication [facility], Pcp ([facility], is wonderi ng if they in [place], needed a prior [place] authorization for the [address] patient? Please call [place], [place] and let them k now. [phone] Social History Tobacco Use Types Packs/Day Years [...] do you attend uatsdin or Never 2021 tenriism services? Do you [...] - Karen Ocampo - 11/13/2017 1:33 PM SECTION 8 PROPERTY MANAGER [facility] is wondering if they needed a prior authorization for the patient? Please call and let them know. [phone] ION 8 PROPERTY MANAGER documented in this encounter Plan of Treatment Not on filedocumented as of this encounter Visit Diagnoses Not on filedocumented in this encounter
--- OUTSIDE RECORDS SUMMARY | 2022-09-28 16:20 | XMS_ITS | Encounter Summary ---
:1960 Author Organization [facility] Address [address] [place] [address] Care Team Providers Name Role Phone Unavailable Primary Care Provider Unavailable Reason for Visit Reason Comments Communication Encounter Details Date Type Department Care Team Description 11/22/2017 Clinical Communication Department of [facility] Shayan Cluver, Communication Medicine, [facility], in [address] [place] [phone] Social History Tobacco Use Types Packs/Day Years [...] or relatives? How often do you attend hindu or Never 2021 caodaism services? Do you belong to any clubs or Yes 04/20/2022 organizations such as hindu groups, unions, fraternal or athletic groups, or [...] encounter Miscellaneous Notes Telephone Encounter - Halie Blackburn, L.P.N. - 11/22/2017 4:51 PM CST MRI results. TH DIRECTOR Telephone Encounter - Susan Del Toro - 11/22/2017 3:44 PM CST Pt calling to speak with nurse, regarding MRI results. Please call back TH DIRECTOR documented in this encounter Plan of Treatment Not on filedocumented as of this encounter Visit Diagnoses Not on filedocumented in this encounter
--- OUTSIDE RECORDS SUMMARY | 2022-09-28 16:20 | XMS_ITS | Encounter Summary ---
:1960 Author Organization [facility] Address [address] [place] [address] Care Team Providers Name Role Phone Unavailable Primary Care Provider Unavailable Encounter Details Date Type Department Care Team Description 04/03/2017 Hospital Encounter HX [facility] PMTR Earl Culver M.D. [address] [place] [address], [address] [place] [address] (Wo rk) Social History Tobacco [...] do you attend congregational or Never 2021 congregation services? Do you [...] Culver M.D. - 04/03/2017 3:27 PM CDT [id number] CHIEF COMPLAINT/REASON FOR VISIT Follow up low [...] CULVER MD On: 04/10/2017 04:42 PM Source: [facility] MHSDOLBEYNONRADSYS Document Id: [id number] documented in this encounter Miscellaneous Notes Miscellaneous - Edison Culver M.D. - 04/03/2017 4:04 PM CDT Ambulatory Patient Summary [address] [id number] Visit Information Name: MUNAEMANUEL [facility] Number: [id number] Current Date: 04/03/2017 16:04:58 Physicians [...] Oral, once a day New Routed to [address] [id number] fexofenadine (fexofenadine 180 mg oral tablet) 1 [...] if you dont have one. Go to [email or web address] and click on Create Your Account. Then, follow the directions to complete the online form. Youll be asked for your [facility] number which you can find at the top of this document. Your Goals/Additional instructions: Source: [facility] POWERCHART Document Id: [id number] Miscellaneous - Edison Culver M.D. - 04/03/2017 4:04 PM CDT Ambulatory Discharge Medication List [address] [id number] Visit Information Name: EMANUEL MCMAHAN [facility] Number: [id number] Current Date: 04/03/2017 16:04:57 Attending [...] Oral, once a day New Routed to [address] [id number] fexofenadine (fexofenadine 180 mg oral tablet) 1 [...] MD Signed On:03-APR-2017 16:04:20 Additional Information: Source: [facility] [employer] Document Id: [id number] Miscellaneous - Halie Baker L.PMikN. - 04/03/2017 3:44 PM CDT Adult Family Mediator Intake/History Adult Family Mediator Intake/History Entered On: 04/03/2017 15:45 CDT Performed [...] Information Given By : Patient Languages : Nepali Is Patient Female and 13-50 no hysterectomy [...] BAKER LPN - 04/03/2017 15:44 CDT Source: [facility] [employer] Document Id: [id number] CDT!30 documented in this encounter Plan of Treatment Not on filedocumented as of this encounter Visit Diagnoses Not on filedocumented in this encounter
--- OUTSIDE RECORDS SUMMARY | 2022-09-28 16:20 | XMS_ITS | Encounter Summary ---
:[address] [facility] Address [address] [place] [address] Care Team Providers Name Role Phone Unavailable Primary Care Provider Unavailable Reason for Visit Reason Comments Back Pain follow up Encounter Details Date Type Department Care Team Description 11/08/2017 Office Visit Department of Physical Pradeep Culver, Radiculopathy Lumbar Fifth Right (Primary Dx); Medicine and M.D. Pain Low Back; Rehabilitation in [address] [facility], Steno sis Spinal Lumbar With Neurogenic Claudication [place], [place] [address] [place] [phone] Social History Tobacco Use Types Packs/Day Years [...] do you attend baptism or Never 2021 holiness services? Do you belong to any clubs [...] Comments Blood Pressure 138/88 11/08/2017 4:40 PM PERSONAL ASSISTANT Pulse - - Temperature - - Respiratory Rate - - Oxygen Saturation - - Inhaled Oxygen Concentration - - Weight 82.8 kg (182 lb 8.7 oz) 11/08/2017 4:40 PM PERSONAL ASSISTANT Height - - Body Mass Index 28.65 [...] and understanding with this plan. Job ID: [id number] ONAL ASSISTANT documented in this encounter Plan of Treatment Not on filedocumented as of this encounter Visit Diagnoses Diagnosis Radiculopathy Lumbar Fifth Right - Prima ry Pain Low Back Unspecified Stenosis Spinal Lumbar With Neurogenic C laudication documented in this encounter
--- OUTSIDE RECORDS SUMMARY | 2022-09-28 16:20 | XMS_ITS | Encounter Summary ---
:1960 Author Organization [facility] Address [address] [place] [address] Care Team Providers Name Role Phone Unavailable Primary Care Provider Unavailable Encounter Details Date Type Department Care Team Description 12/26/2016 Hospital Encounter HX [facility] PMTR Earl Culver M.D. [address] [place] [address], [address] [place] [address] (Wo rk) Social History Tobacco [...] do you attend jain or Never 2021 restorationist services? Do you [...] Comments Blood Pressure 124/72 12/26/2016 8:34 AM SYNTHETIC CHEMIST Pulse - - Temperature - - Respiratory Rate - - Oxygen Saturation - - Inhaled Oxygen Concentration - - Weight 83 kg (182 lb 14 oz) 12/26/2016 8:34 AM SYNTHETIC CHEMIST Height 170 cm (5' 6.93) 12/26/2016 8:34 AM SYNTHETIC CHEMIST Body Mass Index 28.7 12/26/2016 8:34 AM SYNTHETIC CHEMIST documented in this encounter Medications at Time [...] Culver M.D. 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 - 12/26/2016 9:06 AM CST Ambulatory Patient Summary [facility] [address] [place] [id number] Visit Information Name: MUNA EMANUEL DE SOUZA [facility] Number: [id number] Current Date: 12/26/2016 09:06:24 Physicians [...] three times a day New Routed to [place] [address] [place], [place] [id number] montelukast (Singulair 10 mg oral tablet) 1 [...] if you dont have one. Go to [email or web address] and click on Create Your Account. Then, follow the directions to complete the online form. Youll be asked for your [facility] number which you can find at the top of this document. Your Goals/Additional instructions: Source: [facility] POWERCHART Document Id: [id number] HETIC CHEMIST Miscellaneous - Edison Culver M.D. - 12/26/2016 9:06 AM CST Ambulatory Discharge Medication List [address] [id number] Visit Information Name: EMANUEL MCMAHAN [facility] Number: [id number] Current Date: 12/26/2016 09:06:23 Attending [...] three times a day New Routed to [place] [address] [place], [place] [id number] montelukast (Singulair 10 mg oral tablet) 1 [...] MD Signed On:26-DEC-2016 09:05:54 Additional Information: Source: [facility] POWERCHART Document Id: [id number] HETIC CHEMIST Miscellaneous - Damaris Umana L.P.N. - 12/26/2016 8:34 AM CST Adult Chief Port Director Intake/History Adult Chief Port Director Intake/History Entered On: 12/26/2016 8:37 SYNTHETIC CHEMIST Performed On: 12/26/2016 8:34 SYNTHETIC CHEMIST by DAMARIS UMANA LPN Intake Systolic Blood [...] kg/m2 DAMARIS UMANA LPN - 12/26/2016 8:34 SYNTHETIC CHEMIST General Info Information Given By : Patient Languages : Albanian Is Patient Female and 13-50 no hysterectomy : DAMARIS Fernandez LPN - 12/26/2016 8:34 SYNTHETIC CHEMIST Subjective Pain Symptoms : DAMARIS Fernandez LPN - 12/26/2016 8:34 SYNTHETIC CHEMIST Dependent Habits Exposure to Tobacco Smoke : Other: never Smoking Status : Never smoker Tobacco 2A : No Tobacco Use/Currently Using : No Tobacco Use/Last 30 Days : No Tobacco Use/Last 12 months : No Tobacco Last Use/Year : 1981 DAMARIS UMANA LPN - 12/26/2016 8:34 SYNTHETIC CHEMIST Caffeine Use Grid Caffeine Use : Current Type : Soft drinks DAMARIS UMANA LPN - 12/26/2016 8:34 SYNTHETIC CHEMIST Source: [facility] POWERCHART Document Id: [id number] SYNTHETIC CHEMIST!30 HETIC CHEMIST documented in this encounter Plan of Treatment Not on filedocumented as of this encounter Visit Diagnoses Not on filedocumented in this encounter
--- OUTSIDE RECORDS SUMMARY | 2022-09-28 16:21 | XMS_ITS | Encounter Summary ---
:1960 Author Organization [facility] Address [address] [place] [address] Care Team Providers Name Role Phone Unavailable Primary Care Provider Unavailable Encounter Details Date Type Department Care Team Description 10/30/2016 Hospital Encounter [facility]X [facility] Earl Culver M.D. [address] [place] [address], [address] [place] [address] (Wo rk) Social History Tobacco [...] do you attend scientologist or Never 2021 restorationism services? Do you belong to any clubs [...] Comments Blood Pressure 138/94 10/30/2016 9:03 AM BONE WORKER Pulse - - Temperature - - Respiratory Rate - - Oxygen Saturation - - Inhaled Oxygen Concentration - - Weight 81.4 kg (179 lb 9 oz) 10/30/2016 8:17 AM BONE WORKER Height 170 cm (5' 6.93) 10/30/2016 9:03 AM BONE WORKER Body Mass Index 28.18 10/30/2016 8:17 AM BONE WORKER documented in this encounter Medications at Time [...] Culver M.D. - 10/30/2016 8:02 AM CST [id number] CHIEF COMPLAINT/REASON FOR VISIT Low back and [...] has had imaging studies performed previously in [place] which I do not have for review. He has also had 2 EMGs performed. I do have Dr. Camargo's report of those EMGs which show bilateral L4-L5 radiculopathies, although I do not have the actual EMG to review. Mr. Mcmahan has been involved in physical therapy most recently approximately 1 year ago in [place], which he did find to be helpful. He still uses a lumbar traction unit at home that provides him short-term benefit. He has also tried heat as well as massage therapy and morning caregiver. He typically takes a hot shower which [...] 10/30/2016. SOCIAL HISTORY Mr. Mcmahan lives in [place]. 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 He does not use any tobacco products [...] Edison Culver M.D./gama cc: Darrius Camargo M.D. [facility] in [address] [address] Electronically Signed By: EDISON CULVER MD On: 10/31/2016 08:41 AM Modified by and Electronically Signed by: EDISON CULVER MD On: 10/31/2016 08:41 AM Source: [facility] MHSDOLBEYNONRADSYS Document Id: [id number] WORKER documented in this encounter Miscellaneous Notes Miscellaneous - Daron Baker L.P.N. - 10/30/2016 9:04 AM CST *General Message Document Contains Addenda Addendum by DARON BAKER LPN on November 02, 2016 11:01:53 BONE WORKER Order faxed Addendum by ASTER NOBLE on November 02, 2016 10:41:46 BONE WORKER From: ASTER NOBLE ([facility] [employer] Teacher/Radiology Outside [facility]) To: Physical Medicine and Rehabilitation Staff; Sent: 11/02/2016 10:41:46 BONE WORKER Subject: RE: *General Message No auth needed for MRI of L-spine From: DARON BAKER LPN ( Physical Medicine and Rehabilitation Staff) To: [facility] [employer] Teacher/Radiology [facility]; Sent: 10/30/2016 09:04:06 BONE WORKER Subject: *General Message Patient Referred to Provider or Facility: _[employer] Ordering Provider: Emmanuel AppointmentDate (if known): _ [...] date and type of injury: _ Source: [facility] [employer] Document Id: [id number] Miscellaneous - Daron Baker L.P.N. - 10/30/2016 9:03 AM CST Ambulatory Vitals Height Weight Ambulatory Vitals Height Weight Entered On: 10/30/2016 9:03 BONE WORKER Performed On: 10/30/2016 9:03 BONE WORKER by DARON BAKER LPN Vitals/Ht/Wt Systolic Blood Pressure : 138 mmHg Diastolic Blood Pressure : 94 mmHg (>HHI) NIBP Mean : 109 mmHg BP Location : Left upper extremity Blood Pressure Cuff Size : Regular Height : 170 cm(Converted to: 5 ft 7 inch(es), 67 inch(es)) DARON BAKER LPN - 10/30/2016 9:03 BONE WORKER Source: [facility] [employer] Document Id: [id number] BONE WORKER!8 WORKER Miscellaneous - Edison Culver M.D. - 10/30/2016 8:46 AM CST Ambulatory Patient Summary [facility] [address] [place] [id number] Visit Information Name: MUNA EMANUEL NOLVIA [facility] Number: [id number] Current Date: 10/30/2016 08:46:26 [...] if you dont have one. Go to [email or web address] and click on Create Your Account. Then, follow the directions to complete the online form. Youll be asked for your [facility] number which you can find at the top of this document. Your Goals/Additional instructions: Source: [facility] POWERCHART Document Id: [id number] WORKER Miscellaneous - Edison Culver M.D. - 10/30/2016 8:46 AM CST Ambulatory Discharge Medication List [address] [id number] Visit Information Name: EMANUEL MCMAHAN [facility] Number: [id number] Current Date: 10/30/2016 08:46:25 [...] MD Signed On:30-OCT-2016 08:46:07 Additional Information: Source: [facility] POWERCHART Document Id: [id number] WORKER Miscellaneous - Daron Baker LMikP.N. - 10/30/2016 8:17 AM CST Adult Funeral Director And Embalmer Intake/History Adult Funeral Director And Embalmer Intake/History Entered On: 10/30/2016 8:19 BONE WORKER Performed On: 10/30/2016 8:17 BONE WORKER by DARON BAKER LPN Intake Systolic Blood [...] kg/m2 DARON BAKER WAQAS - 10/30/2016 8:17 BONE WORKER General Info Information Given By : Patient Languages : Trinidadian Is Patient Female and 13-50 no hysterectomy : No DARON BAKERЮлия ALAN - 10/30/2016 8:17 BONE WORKER Subjective Pain Symptoms : No DARON BAKER WAQAS - 10/30/2016 8:17 BONE WORKER Dependent Habits Exposure to Tobacco Smoke : Other: never Smoking Status : Former smoker Tobacco 2A : Yes Tobacco Use/Currently Using : No Tobacco Use/Last 30 Days : No Tobacco Use/Last 12 months : No Tobacco Last Use/Year : 1979 DARON BAKERЮлия ALAN - 10/30/2016 8:17 BONE WORKER Caffeine Use Grid Caffeine Use : Current Type : Soft drinks DARON BAKERЮлия ALAN - 10/30/2016 8:17 BONE WORKER Source: [employer] Document Id: [id number] BONE WORKER!30 WORKER documented in this encounter Plan of Treatment Not on filedocumented as of this encounter Procedures Procedure Name Priority Date/Time Associated Diagnosis Comme nts DX LUMBAR SPINE 2-3 Routine 10/30/2016 8:57 AM Re sults for this VIEWS BONE WORKER procedure are i n the results section. documented in this encounter Results DX Lumbar Spine 2-3 Views (10/30/2016 8:57 AM BONE WORKER) Anatomical Region Laterality Modality Lumbar Spine N/A Radiographic Imaging Specimen (Source) Anatomical Collection Method Collection Time Re ceived Time Location / / Volume Laterality 10/30/2016 8:57 AM BONE WORKER Addenda Addendum by Provider, Edith Pakrer 10/30/2016 8:57 AM BONE WORKER RAD^^^OW XR Lumbar Spine 2 or 3 views 10/30/2016 08:57:29 Impressions 10/30/2016 9:17 AM BONE WORKER 1. ??Scattered degenerative changes of t he lumbar spine, both hips. Narrative 10/30/2016 9:17 AM BONE WORKER EXAM: ??XR Lumbar Spine 2 or 3 [...]
--- OUTSIDE RECORDS SUMMARY | 2022-09-28 16:21 | XMS_ITS | Encounter Summary ---
:1960 Author Organization [facility] Address [address] [place] [address] Care Team Providers Name Role Phone Unavailable Primary Care Provider Unavailable Encounter Details Date Type Department Care Team Description 12/07/2015 Hospital Encounter HX [facility] Anabel Loredo P.AMik-C. [address] [place], [place] [phone] (Wo rk) Social History [...] you attend latter day or Never 2021 yarsani services? Do you belong to any clubs [...] - Respiratory Rate 13 12/07/2015 2:41 PM LICENSING ENGINEER Oxygen Saturation - - Inhaled Oxygen Concentration - - Weight 79.4 kg (175 lb 0.7 oz) 12/07/2015 2:41 PM LICENSING ENGINEER Height 170 cm (5' 6.93) 12/07/2015 2:41 PM LICENSING ENGINEER Body Mass Index 27.47 12/07/2015 2:41 PM LICENSING ENGINEER documented in this encounter Medications at [...] Yonny Calderon, CMikMMikA. - 12/08/2015 1:24 PM LICENSING ENGINEER Work Comp Approval - Ortho Consult Document Contains Addenda Addendum by YONNY CALDERON CMA on 09 December 2015 11:08:49 LICENSING ENGINEER Patient has scheduled an appointment with Ortho Addendum by YONNY CALDERON CMA on 09 December 2015 10:40:16 LICENSING ENGINEER Left message for patient to call back From: YONNY CALDERON CMA ( Orthopedic Nurse) To: OW Orthopedic Nurse; ERMIAS ALARCON; Sent: 12/08/2015 13:24:14 LICENSING ENGINEER Subject: Work Comp Approval - Ortho Consult Work comp approval received via fax today from Jayshree Bey at [place] for an orthopedics consult forthe knee. A message has been left for the patient to call back. Source: [facility] POWERCHART Document Id: [id number] Electronically signed by Janell [facility] Anchorer [id number] at 03/17/2017 8:40 AM CDT Miscellaneous - Yonny Calderon, C.M.A. - 12/07/2015 2:41 PM CST Adult Outside Laborer Intake/History Adult Outside Laborer Intake/History Entered On: 12/07/2015 14:45 LICENSING ENGINEER Performed On: 12/07/2015 14:41 LICENSING ENGINEER by YONNY CALDERON CMA Intake Chief Complaint [...] kg/m2 YONNY CALDERON CMA - 12/07/2015 14:41 LICENSING ENGINEER General Info Information Given By : Patient Preferred Communication Mode : Verbal Languages : Yi Is Patient Female and 13-50 no hysterectomy : No YONNY CALDERON CMA - 12/07/2015 14:41 LICENSING ENGINEER Subjective Pain Symptoms : Yes YONNY CALDERON CMA - 12/07/2015 14:41 LICENSING ENGINEER Pain Scale Pain Scale Verbal 0-10 : Open YONNY CALDERON CMA - 12/07/2015 14:41 LICENSING ENGINEER Pain Pain Assessment Grid Pain 1 Location : Knee Laterality : Left Intensity : 2 YONNY CALDERON CMA - 12/07/2015 14:41 LICENSING ENGINEER Dependent Habits Exposure to Tobacco Smoke : Other: never Smoking Status : Never smoker Tobacco 2A : No Tobacco Use/Currently Using : No Tobacco Use/Last 30 Days : No Tobacco Use/Last 12 months : No YONNY CALDERON [facility] - 12/07/2015 14:41 LICENSING ENGINEER Caffeine Use Grid Caffeine Use : Current Type : Soft drinks YONNY CALDERON [facility] - 12/07/2015 14:41 LICENSING ENGINEER Source: [facility] [employer] Document Id: [id number] LICENSING ENGINEER!35 NSING ENGINEER documented in this encounter Plan of Treatment Not on filedocumented as of this encounter Visit Diagnoses Not on filedocumented in this encounter
--- OUTSIDE RECORDS SUMMARY | 2022-09-28 16:21 | XMS_ITS | Encounter Summary ---
:1960 Author Organization [facility] Address [address] [place] [address] Care Team Providers Name Role Phone Unavailable Primary Care Provider Unavailable Encounter Details Date Type Department Care Team Description 04/19/2016 Hospital Encounter HX [facility] Satinder Rizo M.D. [address] [place] [address] (Wo rk) Social History Tobacco [...] do you attend yazidi or Never 2021 uatsdin services? Do you belong to any clubs [...] Summary-Paper Based CODING DATE: 04/25/2016 FINAL [facility] STATUS: * Discharged to Home or [...] L Date Saved: 04/25/2016 03:04 pm Source: [facility] POWERCHART Document Id: [id number] documented in this encounter Plan of Treatment [...] hy-Tandem Mass Spectrometry (LC-MS/MS). Test Performed by: [place] [address] Hand I Cutter: Joni Vasques II, M.D., Ph.D. Specimen (Source) Anatomical Collection Method Collection Time Re ceived Time Location / / Volume Laterality Blood 04/19/2016 4:15 PM CDT Tanner Rizo M.D. LAB BLOOD NON ADD-ON Performing Organization Address City/State/[facility] Code Phon e Number POWERCHART PSA (Prostate-Specific Antigen), Diagnostic (04/19/2016 4:15 PM CDT) athologist Signature Prostate-Specif 1.0 <=3.5 NGML POWERCHART ic Ag Specimen (Source) Anatomical Collection Method Collection Time Re ceived Time Location / / Volume Laterality Blood 04/19/2016 4:15 PM CDT Tanner Rizo M.D. LAB BLOOD ADD-ON Performing Organization Address City/[facility]/ZIP Code Phon e Number POWERCHART documented in this encounter Visit Diagnoses Not on filedocumented in this encounter
--- OUTSIDE RECORDS SUMMARY | 2022-09-28 16:21 | XMS_ITS | Encounter Summary ---
:1960 Author Organization [facility] Address [address] [place] [address] Care Team Providers Name Role Phone Unavailable Primary Care Provider Unavailable Encounter Details Date Type Department Care Team Description 10/01/2015 Hospital Encounter HX [facility] Arjun Rice M.D. [address] [place] [address] (Wo rk) Social History Tobacco Use Types [...] do you attend anabaptism or Never 2021 methodist services? Do you [...] Comments Blood Pressure 132/88 10/01/2015 3:53 PM AUTOMOTIVE SALES MANAGER Pulse 80 10/01/2015 3:48 PM AUTOMOTIVE SALES MANAGER Temperature - - Respiratory Rate 16 10/01/2015 3:48 PM AUTOMOTIVE SALES MANAGER Oxygen Saturation - - Inhaled Oxygen Concentration - - Weight 78.5 kg (173 lb 1 oz) 10/01/2015 3:48 PM AUTOMOTIVE SALES MANAGER Height 170 cm (5' 6.93) 10/01/2015 3:48 PM AUTOMOTIVE SALES MANAGER Body Mass Index 27.16 10/01/2015 3:48 PM AUTOMOTIVE SALES MANAGER documented in this encounter Medications at Time [...] Lopez M.D. - 10/01/2015 3:42 PM CST [id number] CHIEF COMPLAINT/REASON FOR VISIT This 55-year-old gentleman [...] significant other. Enjoys riding motorcycle. Works for [employer]. Nonsmoker. He gets minimal exercise due to [...] should make sure he is getting less brkc1313 mg of sodium in his diet on a daily basis. This end of anticipated 7. Seasonal allergies. We will continue with the montelukast. Arjun Lopez M.D., M.P.H./pos Electronically Signed By: ARJUN LOPEZ MD On: 10/06/2015 09:19 AM Source: [facility] MHSDOLBEYNONRADSYS Document Id: [id number] MOTIVE SALES MANAGER documented in this encounter Miscellaneous Notes Miscellaneous - Arjun Lopez M.D. - 10/01/2015 4:26 PM CST Ambulatory Patient Summary [address] [place] [id number] Visit Information Name: EMANUEL MCMAHAN [facility] Number: [id number] Current Date: 10/01/2015 16:26:06 Physicians [...] Hyperlipidemia. This is a CHANGE Routed to [address] [address] celecoxib (Celebrex 200 mg oral capsule) 1 cap, Oral, once a day Osteoarthritis Routed to [address] [address] divalproex sodium (Depakote 250 mg oral delayed release tablet) 1 Tablet(s), Oral, once a day Migraine Headaches. Taken at bedtime fexofenadine (fexofenadine 180 mg oral tablet) 1 Tablet(s), Oral, once a day hcl montelukast (Singulair 10 mg oral tablet) 1 Tablet(s), Oral, every evening Asthma, seasonal allergies This is a CHANGE Routed to [address] [address] multivitamin (multivitamin) 1 cap, Oral, once a day omega-3 polyunsaturated fatty acids (Fish Oil oral capsule) 1 cap, Oral, once a day pantoprazole (Protonix 40 mg oral enteric coated tablet) 1 Tablet(s), Oral, once a day GERD Routed to [address] [address] sumatriptan (Imitrex 100 mg oral [...] if you dont have one. Go to [email or web address] and click on Create Your Account. Then, [...] is the power that is needed. Source: [facility] POWERCHART Document Id: [id number] MOTIVE SALES MANAGER Miscellaneous - Arjun Lopez M.D. - 10/01/2015 4:26 PM CST Ambulatory Discharge Medication List [facility] [address] [place] [address] Bri MD [id number] Visit Information Name: EMANUEL MCMAHAN [facility] Number: [id number] Visit Date: 10/01/2015 16:26:04 Attending [...] Hyperlipidemia. This is a CHANGE Routed to [address] [address] celecoxib (Celebrex 200 mg oral capsule) 1 cap, Oral, once a day Osteoarthritis Routed to [address] [address] divalproex sodium (Depakote 250 mg oral delayed release tablet) 1 Tablet(s), Oral, once a day Migraine Headaches. Taken at bedtime fexofenadine (fexofenadine 180 mg oral tablet) 1 Tablet(s), Oral, once a day hcl montelukast (Singulair 10 mg oral tablet) 1 Tablet(s), Oral, every evening Asthma, seasonal allergies This is a CHANGE Routed to [address] [address] multivitamin (multivitamin) 1 cap, Oral, once a day omega-3 polyunsaturated fatty acids (Fish Oil oral capsule) 1 cap, Oral, once a day pantoprazole (Protonix 40 mg oral enteric coated tablet) 1 Tablet(s), Oral, once a day GERD Routed to [address] [address] sumatriptan (Imitrex 100 mg oral [...] MD Signed On:01-OCT-2015 16:13:32 Additional Information: Source: [facility] [employer] Document Id: [id number] MOTIVE SALES MANAGER Miscellaneous - Maricruz Fernandez, L.P.N. - 10/01/2015 3:53 PM CST Quality Measures Quality Measures Entered On: 10/01/2015 15:55 AUTOMOTIVE SALES MANAGER Performed On: 10/01/2015 15:53 AUTOMOTIVE SALES MANAGER by MARICRUZ FERNANDEZ LPN BP/Tobacco/Misc Systolic Blood Pressure : 132 mmHg Diastolic Blood Pressure : 88 mmHg MARICRUZ FERNANDEZ LPN - 10/01/2015 15:53 AUTOMOTIVE SALES MANAGER Source: [facility] [employer] Document Id: [id number] AUTOMOTIVE SALES MANAGER!4 MOTIVE SALES MANAGER Miscellaneous - Maricruz Fernandez L.P.N. - 10/01/2015 3:48 PM CST Adult Integration Specialist Intake/History Adult Integration Specialist Intake/History Entered On: 10/01/2015 15:53 AUTOMOTIVE SALES MANAGER Performed On: 10/01/2015 15:48 AUTOMOTIVE SALES MANAGER by MARICRUZ FERNANDEZ LPN Intake Chief Complaint [...] Mass Index : 27.16 kg/m2 MARICRUZ FERNANDEZ [facility] 10/01/2015 15:48 AUTOMOTIVE SALES MANAGER General Info Information Given By : Patient Preferred Communication Mode : Verbal Languages : Moldovan Is Patient Female and 13-50 no hysterectomy : No MARICRUZ FERNANDEZ [facility] 10/01/2015 15:48 AUTOMOTIVE SALES MANAGER Subjective Pain Symptoms : Yes MARICRUZ FERNANDEZ [facility] - 10/01/2015 15:48 AUTOMOTIVE SALES MANAGER Pain Scale Pain Scale Verbal 0-10 : Open MARICRUZ FERNANDEZ [facility] 10/01/2015 15:48 AUTOMOTIVE SALES MANAGER Pain Pain Assessment Grid Pain 1 Pain 2 Pain 3 Location : Shoulder Lower back Hip Laterality : Left Bilateral Right Intensity : 3 4 5 MARICRUZ FERNANDEZ [facility] - 10/01/2015 15:48 AUTOMOTIVE SALES MANAGER MARICRUZ FERNANDEZ [facility] 10/01/2015 15:48 AUTOMOTIVE SALES MANAGER MARICRUZ FERNANDEZ [facility] 10/01/2015 15:48 AUTOMOTIVE SALES MANAGER Dependent Habits Exposure to Tobacco Smoke : Other: never Smoking Status : Never smoker Tobacco 2A : No Alcohol Use : No MARICRUZ FERNANDEZ [facility] 10/01/2015 15:48 AUTOMOTIVE SALES MANAGER Caffeine Use Grid Caffeine Use : Current Type : Soft drinks MARICRUZ FERNANDEZ [facility] 10/01/2015 15:48 AUTOMOTIVE SALES MANAGER Source: [employer] POWERCHART Document Id: [id number] AUTOMOTIVE SALES MANAGER!52 MOTIVE SALES MANAGER documented in this encounter Plan of Treatment Not on filedocumented as of this encounter Visit Diagnoses Not on filedocumented in this encounter
--- OUTSIDE RECORDS SUMMARY | 2022-09-28 16:21 | XMS_ITS | Encounter Summary ---
:1960 Author Organization [facility] Address [address] [place] [address] Care Team Providers Name Role Phone Unavailable Primary Care Provider Unavailable Encounter Details Date Type Department Care Team Description 03/08/2016 Hospital Encounter HX [facility] Luigi Cummings P.ALiaCMik [address] [place], [place] [phone] (Wo rk) Social History [...] or relatives? How often do you attend jainism or Never 2021 latter day services? Do you belong to any clubs or Yes 04/20/2022 organizations such as jainism groups, unions, fraternal or athletic groups, or [...] Luigi Anders - 03/08/2016 2:28 PM CDT [id number] WORKER'S COMPENSATION VISIT Employer: [employer] Date of [...] to be riding a motorcycle out to [place] this weekend and is concerned that with [...] coordination of care. Luigi Anders P.A.-C./gama cc: Ajrun Lopez M.D., M.P.H. [facility] [address] Electronically Signed By: LUIGI ANDERS On: 03/13/2016 02:33 PM Source: [facility] MHSDOLBEYNJOSUERADSYS Document Id: [id number] documented in this encounter Miscellaneous Notes Telephone [...] Please call him at work direct line [phone] or try his cell at [phone]. Addendum by DADA HILL LPN on March 09, 2016 16:47:03 CDT Called and spoke with Armani Vigil in work comp office. She will fax records as noted below tomorrowto Krystal at [facility]. From: DADA ORTEGA ([address] Micrographics Services Supervisor) To: Orthopedic Nurse; Sent: 03/09/2016 12:05:36 CDT Subject: *Phone Message / Martita Caller is: ( ) Patient ( ) Mother ( ) Father ( ) Spouse ( ) Daughter ( ) Son ( ) Pharmacy ( x - Krystal with [facility] ) Other: Physician: Martita Patient MRN #: Reason for Call: Message: Krystal Tapia called in with [facility] re: pt getting a cortisone injection. She would like medical records and also gave verbal approval for the injection. Krystal can be reached at [phone]. - that is her direct line. She would also like the medical records faxed form 03/08/2016apt. - Her fax number is [phone].- reference # [id number] Advice/Action: Source used: ( ) Verbalizes understanding [...] back cell phone number ( ) Source: [facility] [email or web address] Document Id: [id number] Miscellaneous - Luigi Anders - 03/08/2016 3:58 PM CDT Ambulatory Patient Summary [address] [id number] Visit Information Name: EMANUEL MCMAHAN [facility] Number: [id number] Current Date: 03/08/2016 15:58:29 Physicians [...] online form. Youll be asked for your [facility] number which you can find at the top of this document. Your Goals/Additional instructions: Source: [facility] POWERCHART Document Id: [id number] Miscellaneous - Luigi Anders - 03/08/2016 3:58 PM CDT Ambulatory Discharge Medication List [address] [id number] Visit Information Name: EMANUEL MCMAHAN [facility] Number: [id number] Visit Date: 03/08/2016 15:58:28 Attending [...] PA Signed On:08-MAR-2016 15:58:25 Additional Information: Source: [facility] POWERCHART Document Id: [id number] Miscellaneous - Gissel Bello, L.P.N. - 03/08/2016 2:37 PM CDT Adult Milk Tester Intake/History Adult Milk Tester Intake/History Entered On: 03/08/2016 14:42 CDT Performed [...] Information Given By : Patient Languages : Urdu Is Patient Female and 13-50 no hysterectomy [...] GISSEL BELLO - 03/08/2016 14:37 CDT Source: [employer] Document Id: [id number] CDT!39 documented in this encounter Plan of Treatment Not on filedocumented as of this encounter Visit Diagnoses Not on filedocumented in this encounter
--- OUTSIDE RECORDS SUMMARY | 2022-09-28 16:21 | XMS_ITS | Encounter Summary ---
:1960 Author Organization [facility] Address [address] [place] [address] Care Team Providers Name Role Phone Unavailable Primary Care Provider Unavailable Encounter Details Date Type Department Care Team Description 11/18/2015 Hospital Encounter [facility]X [facility] Arjun Riec M.D. [address] [place] [address] (Wo rk) Social History Tobacco Use Types [...] or relatives? How often do you attend sikh or Never 2021 quaker services? Do you belong to any clubs or Yes 04/20/2022 organizations such as sikh groups, unions, fraternal or athletic groups, or [...] Comments Blood Pressure 130/80 11/18/2015 3:36 PM GLACIOLOGIST Pulse 72 11/18/2015 3:36 PM GLACIOLOGIST Temperature - - Respiratory Rate 20 11/18/2015 3:36 PM GLACIOLOGIST Oxygen Saturation - - Inhaled Oxygen Concentration - - Weight 79.2 kg (174 lb 9.7 oz) 11/18/2015 3:36 PM GLACIOLOGIST Height 170 cm (5' 6.93) 11/18/2015 3:36 PM GLACIOLOGIST Body Mass Index 27.4 11/18/2015 3:36 PM GLACIOLOGIST documented in this encounter Medications at Time [...] Lopez M.D. - 11/18/2015 3:27 PM CST [id number] CHIEF COMPLAINT/REASON FOR VISIT This is a 55-year-old gentleman for followup on his knee pain. HISTORY OF PRESENT ILLNESS At work on November 01, had a valgus stress injury to the left knee. Sudden pain at that time. He wasseen the next day over in [place]. At that time, he had negative radiographs. [...] in some walking. 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 [...] LOPEZ MD On: 11/26/2015 09:37 AM Source: [facility] Document Id: [id number] IOLOGIST documented in this encounter Miscellaneous Notes Miscellaneous - Jocelynn Alexander L.P.NMik - 11/18/2015 4:10 PM CST MRI Screening Questionnaire MRI Screening Questionnaire Entered On: 11/18/2015 16:12 GLACIOLOGIST Performed On: 11/18/2015 16:10 GLACIOLOGIST by JOCELYNN ALEXANDER LPN MRI Questionnaire Previous MRI, CT, or X-rays Done : Yes JOCELYNN ALEXANDER LPN - 11/18/2015 16:10 GLACIOLOGIST MRI Cannot be Done Grid Automated Internal Cardiac Defibrillator : No Brain aneurysm clips : No Cochlear implant : No History of pacemaker : No Implants with a magnet : No Internal electrodes/wires : No Neurostimulator/Biostimulator : No Willows makenna catheter : No JOCELYNN ALEXANDER LPN - 11/18/2015 16:10 GLACIOLOGIST Patient Weight > 350 lbs : No JOCELYNN ALEXANDER LPN - 11/18/2015 16:10 GLACIOLOGIST MRI Risk Factors Grid Patient is greater than 69 years old : No Diabetes (document medication) : No History of Kidney/Liver Transplant : No History of Renal Disease : No Hypertension : No Receiving Dialysis : No JOCELYNN ALEXANDER LPN - 11/18/2015 16:10 GLACIOLOGIST Creatinine/GFR Results Completed : No JOCELYNN ALEXANDER LPN - 11/18/2015 16:10 GLACIOLOGIST MRI Implants, Devices, Conditions Grid Aneurysm clip : No Control Implants (IUD, diaphragm) : No Intravascular Coil, Filter or Stent : No Drug Infusion Pump : No External Pain Control Device : No Intravascular Catheter/Port : No Magnetic/Elec/Mech Activated Implant : No Prosthesis/Metal Implanted Surgical : Yes (Comment: gallbladder 2014 [JOCELYNN ALEXANDER LPN - 11/18/2015 16:10 GLACIOLOGIST] ) Metal Fragments in Body : No Bullets/BB's/Shrapnel in Body : No Tattoos/Perm Make-Up/Body Jewelry : Yes Hearing Aids/Dentures/Partial Plates : No History of cancer : No Eye Surgery/Implant : No Inner Ear Surgery/Implant : No Transdermal Med or EKG Patches : No Shunt : No Penile Implant : No Breast Tissue Marketing Traffic Coordinator/Implant : No : No (document number of weeks in Comment) : No Surgery : No JOCELYNN ALEXANDER LPN - 11/18/2015 16:10 GLACIOLOGIST Claustrophobic : No Pain/Unable to Lay Still : Yes Metal In or Removed from Eyes Ever : No Form Completed : Yes Education Materials Provided : Yes JOCELYNN ALEXANDER LPN - 11/18/2015 16:10 GLACIOLOGIST Source: [facility] [employer] Document Id: [id number] GLACIOLOGIST!49 IOLOGIST Arjun Quezada M.D. - 11/18/2015 4:08 PM CST Work Excuse 18 November 2015 EMANUEL MCMAHAN [id number] [id number] Dear EMANUEL MCMAHAN, You were examined in [...] date: 19 November 2015 Sincerely, ARJUN LOPEZ [address] [place] [address] Electronic Signature Electronically Signed By: ARJUN LOPEZ MD On: 18 November 2015 This document has images extracted. Source: [facility] [employer] Document Id: [id number] Arjun Quezada M.D. - 11/18/2015 4:03 PM CST Ambulatory Patient Summary [address] [place] [phone] Visit Information Name: EMANUEL MCMAHAN [facility] Number: [id number] Current Date: 11/18/2015 16:03:56 Physicians [...] you dont have one. Go to [email or web address] and click on Create Your Account. Then, follow the directions to complete the online form. Youll be asked for your [facility] number which you can find at the top of this document. Your Goals/Additional instructions: Source: [facility] POWERCHART Document Id: [id number] IOLOGIST Miscellaneous - Arjun Lopez M.D. - 11/18/2015 4:03 PM CST Ambulatory Discharge Medication List [facility] [address] [place] [id number] Visit Information Name: EMANUEL MCMAHAN [facility] Number: [id number] Visit Date: 11/18/2015 16:03:55 Attending [...] MD Signed On:18-NOV-2015 16:03:44 Additional Information: Source: [facility] POWERCHART Document Id: [id number] IOLOGIST Miscellaneous - Jocelynn Alexander L.P.N. - 11/18/2015 3:36 PM CST Adult Game Preserve Manager Intake/History Adult Game Preserve Manager Intake/History Entered On: 11/18/2015 15:38 GLACIOLOGIST Performed On: 11/18/2015 15:36 GLACIOLOGIST by JOCELYNN ALEXANDER LPN Intake Chief Complaint [...] kg/m2 JOCELYNN ALEXANDER LPN - 11/18/2015 15:36 GLACIOLOGIST General Info Languages : Vietnamese Is Patient Female and 13-50 no hysterectomy : No JOCELYNN ALEXANDER LPN - 11/18/2015 15:36 GLACIOLOGIST Subjective Pain Symptoms : Yes Injury : Work related JOCELYNN ALEXANDER LPN - 11/18/2015 15:36 GLACIOLOGIST Pain Scale Pain Scale Verbal 0-10 : Open JOCELYNN ALEXANDER LPN - 11/18/2015 15:36 GLACIOLOGIST Pain Pain Assessment Grid Pain 1 Location : Knee Laterality : Left Intensity : 4 JOCELYNN ALEXANDER LPN - 11/18/2015 15:36 GLACIOLOGIST Dependent Habits Exposure to Tobacco Smoke : Other: never Smoking Status : Never smoker Tobacco 2A : No Tobacco Use/Currently Using : No Tobacco Use/Last 30 Days : No Tobacco Use/Last 12 months : No JOCELYNN ALEXANDER LPN - 11/18/2015 15:36 GLACIOLOGIST Caffeine Use Grid Caffeine Use : Current Type : Soft drinks JOCELYNN ALEXANDER LPN - 11/18/2015 15:36 GLACIOLOGIST Source: [employer] POWERCHART Document Id: [id number] GLACIOLOGIST!39 IOLOGIST Miscellaneous - Jocelynn Alexander L.P.N. - 11/18/2015 3:34 PM CST Health Assessment Health Assessment Entered On: 11/18/2015 15:35 GLACIOLOGIST Performed On: 11/18/2015 15:34 GLACIOLOGIST by JOCELYNN ALEXANDER LPN Health Assessment Complete Health Assessment Complete or Modified : Annual Health Assessment Annual Health Assessment Completed : Yes JOCELYNN ALEXANDER [facility] - 11/18/2015 15:34 GLACIOLOGIST Nutrition Nutrition Risk Factors by History Adult : None JOCELYNN ALEXANDER [facility] 11/18/2015 15:34 GLACIOLOGIST Functional Current Daily Living Assistance : None JOCELYNN ALEXANDER [facility] 11/18/2015 15:34 GLACIOLOGIST Dependent Habits Exposure to Tobacco Smoke : Other: never Smoking Status : Never smoker Tobacco 2A : No Tobacco Use/Currently Using : No Tobacco Use/Last 30 Days : No Tobacco Use/Last 12 months : No JOCELYNN ALEXANDER [facility] 11/18/2015 15:34 GLACIOLOGIST Caffeine Use Grid Caffeine Use : Current Type : Soft drinks JOCELYNN ALEXANDER [facility] 11/18/2015 15:34 GLACIOLOGIST Alcohol Use : No JOCELYNN ALEXANDER [facility] 11/18/2015 15:34 GLACIOLOGIST Psychosocial Domestic Abuse Concerns : None Behavioral Health Screen/Safety Assmt : No Spiritism Preference : Unknown JOCELYNN ALEXANDER [facility] - 11/18/2015 15:34 GLACIOLOGIST Advance Directive Advanced Directives : No Advance Directive Additional Information : No JOCELYNN ALEXANDER [facility] 11/18/2015 15:34 GLACIOLOGIST Educ Needs Learning Style Preference Adult Grid Patient : None Family : None JOCELYNN ALEXANDER [facility] - 11/18/2015 15:34 GLACIOLOGIST Source: [facility] POWERCHART Document Id: [id number] GLACIOLOGIST!31 IOLOGIST documented in this encounter Plan of Treatment Not on filedocumented as of this encounter Visit Diagnoses Not on filedocumented in this encounter
--- OUTSIDE RECORDS SUMMARY | 2022-09-28 16:21 | XMS_ITS | Encounter Summary ---
:1960 Author Organization [facility] Address [address] [place] [address] Care Team Providers Name Role Phone Unavailable Primary Care Provider Unavailable Encounter Details Date Type Department Care Team Description 03/15/2016 Hospital Encounter [facility]X [facility] Luigi Cummings P.ALiaCMik [address] [place], [place] [phone] (Wo rk) Social History [...] Luigi Anders - 03/15/2016 1:29 PM CDT [id number] WORKER'S COMPENSATION VISIT Employer: [employer] Date of [...] Anders P.A.-C./gama cc: Arjun Lopez M.D., M.P.H. [facility] [place] [address] Electronically Signed By: LUIGI ANDERS PA On: 03/27/2016 08:13 AM Source: [facility] MHSDOLBEYNONRADSYS Document Id: [id number] documented in this encounter Miscellaneous Notes Miscellaneous - Cindy Rosas L.P.N. - 03/22/2016 3:26 PM CDT *General Message From: CINDY ROSAS LPN ( Orthopedic Nurse) To: Orthopedic Nurse; Sent: 03/22/2016 15:26:11 CDT Subject: *General Message s Courtsey call Left knee cortisone injection B Left knee cortison injection 03/15/2016 A Courtsey call R Left message to call back. Source: [facility] POWERCHART Document Id: [id number] Electronically signed by Janell [facility] Specialty Finishing Utility Person [id number] at 03/17/2017 2:34 PM CDT Miscellaneous - Luigi Anders - 03/15/2016 4:19 PM CDT Ambulatory Patient Summary [facility] [address] [place], [place] [phone] Visit Information Name: EMANUEL MCMAHAN [facility] Number: [id number] Current Date: 03/15/2016 16:19:36 Physicians [...] if you dont have one. Go to [email or web address] and click on Create Your Account. Then, follow the directions to complete the online form. Youll be asked for your [facility] number which you can find at the top of this document. Your Goals/Additional instructions: Source: [facility] POWERCHART Document Id: [id number] Miscellaneous - Luigi Anders - 03/15/2016 4:19 PM CDT Ambulatory Discharge Medication List [facility] [address] [place], [place] [address] [place] [id number] Visit Information Name: EMANUEL MCMAHAN [facility] Number: [id number] Visit Date: 03/15/2016 16:19:35 Attending [...] PA Signed On:15-MAR-2016 16:19:32 Additional Information: Source: [facility] POWERCHART Document Id: [id number] Miscellaneous - Gissel Bello L.PMikNMik - 03/15/2016 2:13 PM CDT Adult Refrigerating Engineer Head Intake/History Adult Refrigerating Engineer Head Intake/History Entered On: 03/15/2016 14:17 CDT Performed [...] Information Given By : Patient Languages : Amharic Is Patient Female and 13-50 no hysterectomy [...] GISSEL BELLO - 03/15/2016 14:13 CDT Source: [employer] Document Id: [id number] CDT!39 documented in this encounter Plan of Treatment Not on filedocumented as of this encounter Visit Diagnoses Not on filedocumented in this encounter
--- OUTSIDE RECORDS SUMMARY | 2022-09-28 16:21 | XMS_ITS | Encounter Summary ---
:1960 Author Organization [facility] Address [address] [place] [address] Care Team Providers Name Role Phone Unavailable Primary Care Provider Unavailable Encounter Details Date Type Department Care Team Description 11/29/2015 Hospital Encounter HX [facility] MRI Brett Lopez M.D. [address] [place] [address] (Wo rk) Social History Tobacco Use Types [...] do you attend protestant or Never 2021 sikhism services? Do you belong to any clubs [...] 170 cm (5' 6.93) 11/29/2015 7:17 AM CUPBOARD BUILDER Body Mass Index - - documented in [...] Results Letter 02 December 2015 EMANUEL MCMAHAN [address] [facility] [id number] Dear EMANUEL MCMAHAN, I was not successful contacting you by phone. The MRI shows some changes to the Inner supporting knee ligament. The meniscus looks good. THe next step is to follow up with the inclusion specialist andsee if any further intervention is needed besides Physical Therapy. If you have questions or concerns, please do not hesitate to call our office. Result Name Current Result MR Knee Left w/o contrast 11/29/2015 Sincerely, ARJUN LOPEZ [address] [place] [address] Electronic Signature Electronically Signed By: ARJUN LOPEZ MD On: 02 December 2015 This document has images extracted. [facility] Document Id: [id number] Miscellaneous - Conversion, Historical Provider Ser - 11/30/2015 7:43 AM CUPBOARD BUILDER Coding Summary-Paper Based CODING DATE: 11/30/2015 FINAL MA [place] [facility] STATUS: * [...] HULL Date Saved: 11/30/2015 07:43 am Source: [employer] Document Id: [id number] Miscellaneous - Conversion, Historical Provider Ser - 11/26/2015 10:45 AM CUPBOARD BUILDER *General Message From: TIFFANY MCKEON (MA Prior Auth) Sent: 11/26/2015 10:45:15 CUPBOARD BUILDER Subject: *General Message MRI has been APPROVED by [facility] Document Id: [id number] documented in this encounter Plan of Treatment Not on filedocumented as of this encounter Procedures Procedure Name Priority Date/Time Associated Diagnosis Comme nts MR KNEE LEFT Routine 11/29/2015 7:30 AM Results f or this WITHOUT IV CONTRAST CUPBOARD BUILDER procedur e are in the results section. documented in this encounter Results MR Knee Left without IV Contrast (11/29/2015 7:30 AM CUPBOARD BUILDER) Anatomical Region Laterality Modality Lower Extremity, Knee Left Magnetic Resonance Specimen (Source) Anatomical Collection Method Collection Time Re ceived Time Location / / Volume Laterality 11/29/2015 7:30 AM CUPBOARD BUILDER Addenda Addendum by Provider, Elena, Edith o n 11/29/2015 7:30 AM CUPBOARD BUILDER RAD^^^MA MR Knee Left w/o contrast 11/29/2015 07:30:00 Addendum by Provider, Elena, Edith o n 11/29/2015 7:34 AM CUPBOARD BUILDER RAD^^^MA MR Knee Left w/o contrast 11/29/2015 07:34:44 Impressions 11/29/2015 9:06 AM CUPBOARD BUILDER 1. Partial tear of the medial collateral ligament with regional periligamentous edema. 2. No evidence of meniscal tear or cruci ate ligament tear. 3. Multilobulated posteromedial ganglion cyst. No joint effusion. 4. No osseous or articular pathology jim ntified. Narrative 11/29/2015 9:06 AM CUPBOARD BUILDER COMPARISON: None. Technique: Long-TR axial and sagittal, [...]
--- OUTSIDE RECORDS SUMMARY | 2022-09-28 16:21 | XMS_ITS | Encounter Summary ---
:1960 Author Organization [facility] Address [address] [place] [address] Care Team Providers Name Role Phone Unavailable Primary Care Provider Unavailable Encounter Details Date Type Department Care Team Description 04/20/2015 Hospital Encounter HX [facility] Satinder Rizo M.D. [address] [place] [address] (Wo rk) Social History Tobacco [...] do you attend cheondoism or Never 2021 faith services? Do you [...] Summary-Paper Based CODING DATE: 04/21/2015 FINAL MA [place] [facility] STATUS: * Discharged to Home or Self [...] WORTHY Date Saved: 04/21/2015 12:42 pm [facility] Document Id: [id number] documented in this encounter Plan of Treatment [...] hy-Tandem Mass Spectrometry (LC-MS/MS). Test Performed by: [place] [address] Cook'S Assistant: Joni Vasques II, M.D., Ph.D. Specimen (Source) Anatomical Collection Method Collection Time Re ceived Time Location / / Volume Laterality Blood 04/20/2015 4:12 PM CDT Tanner Rizo M.D. LAB BLOOD NON ADD-ON Performing Organization Address City/[facility] Code Phon e Number POWERCHART PSA (Prostate-Specific Antigen) Screen (04/20/2015 4:12 PM CDT) athologist Signature Prostate-Specif 1.2 <=3.5 NGML POWERCHART ic Ag Specimen (Source) Anatomical Collection Method Collection Time Re ceived Time Location / / Volume Laterality Blood 04/20/2015 4:12 PM CDT Tanner Rizo M.D. LAB BLOOD ADD-ON Performing Organization Address City/[facility]/ZIP Code Phon e Number POWERCHART documented in this encounter Visit Diagnoses Not on filedocumented in this encounter
--- OUTSIDE RECORDS SUMMARY | 2022-09-28 16:21 | XMS_ITS | Encounter Summary ---
:1960 Author Organization [facility] Address [address] [place] [address] Care Team Providers Name Role Phone Unavailable Primary Care Provider Unavailable Encounter Details Date Type Department Care Team Description 11/13/2016 Hospital Encounter HX [facility] Earl Culver M.D. [address] [place] [address], [address] [place] [address] (Wo rk) Social History Tobacco [...] do you attend anabaptist or Never 2021 church services? Do you belong to any clubs [...] Comments Blood Pressure 144/92 11/13/2016 10:01 AM WELDING SYSTEMS AND EQUIPMENT REPAIRER Pulse - - Temperature - - Respiratory Rate - - Oxygen Saturation - - Inhaled Oxygen Concentration - - Weight 81.4 kg (179 lb 9 oz) 11/13/2016 9:13 AM WELDING SYSTEMS AND EQUIPMENT REPAIRER Height 170 cm (5' 6.93) 11/13/2016 10:01 AM WELDING SYSTEMS AND EQUIPMENT REPAIRER Body Mass Index 28.18 11/13/2016 9:13 AM WELDING SYSTEMS AND EQUIPMENT REPAIRER documented in this encounter Medications at Time [...] Culver M.D. - 11/13/2016 9:04 AM CST [id number] CHIEF COMPLAINT/REASON FOR VISIT Follow up low [...] lumbar spine on November 08, 2016, in [place] and I reviewed the images with him [...] past several months. He has moved to [place] and will be seeing a primary care physician there soon and so will be addressing that with them at that time. Total time 25 minutes, counseling and coordination of care time greater than 15 minutes. Edison Culver M.D./gama Electronically Signed By: EDISON CULVER MD On: 11/14/2016 10:26 AM Modified by and Electronically Signed by: EDISON CULVER MD On: 11/14/2016 10:26 AM Source: [facility] MHSDOLBEYNONRADSYS Document Id: [id number] ING SYSTEMS AND EQUIPMENT REPAIRER documented in this encounter Miscellaneous Notes Miscellaneous - Daron Baker L.P.N. - 11/13/2016 10:01 AM CST Ambulatory Vitals Height Weight Ambulatory Vitals Height Weight Entered On: 11/13/2016 10:01 WELDING SYSTEMS AND EQUIPMENT REPAIRER Performed On: 11/13/2016 10:01 WELDING SYSTEMS AND EQUIPMENT REPAIRER by DARON BAKER LPN Vitals/Ht/Wt Systolic Blood Pressure : 144 mmHg (HI) Diastolic Blood Pressure : 92 mmHg (>HHI) NIBP Mean : 109 mmHg BP Location : Left upper extremity Blood Pressure Cuff Size : Regular Height : 170 cm(Converted to: 5 ft 7 inch(es), 67 inch(es)) DARON BAKER LPN - 11/13/2016 10:01 WELDING SYSTEMS AND EQUIPMENT REPAIRER Source: [facility] POWERCHART Document Id: [id number] WELDING SYSTEMS AND EQUIPMENT REPAIRER!8 ING SYSTEMS AND EQUIPMENT REPAIRER Miscellaneous - Edison Culver M.D. - 11/13/2016 9:53 AM CST Ambulatory Patient Summary [facility] [address] [place] [phone] Visit Information Name: EMANUEL MCMAHAN [facility] Number: [id number] Current Date: 11/13/2016 09:53:42 Physicians [...] 600 mg po tid New Routed to [place] [address] [place], [place] [phone] montelukast (Singulair 10 mg oral tablet) 1 [...] if you dont have one. Go to [email or web address] and click on Create Your Account. Then, follow the directions to complete the online form. Youll be asked for your [facility] number which you can find at the top of this document. Your Goals/Additional instructions: Source: [facility] POWERCHART Document Id: [id number] ING SYSTEMS AND EQUIPMENT REPAIRER Miscellaneous - Edison Culver M.D. - 11/13/2016 9:53 AM CST Ambulatory Discharge Medication List [address] [phone] Visit Information Name: EMANUEL MCMAHAN [facility] Number: [id number] Current Date: 11/13/2016 09:53:41 Attending [...] 600 mg po tid New Routed to [address] [id number] montelukast (Singulair 10 mg oral tablet) 1 [...] MD Signed On:13-NOV-2016 09:53:07 Additional Information: Source: [facility] POWERCHART Document Id: [id number] ING SYSTEMS AND EQUIPMENT REPAIRER Miscellaneous - Daron Baker L.P.N. - 11/13/2016 9:13 AM CST Adult Computer Clerk Intake/History Adult Computer Clerk Intake/History Entered On: 11/13/2016 9:14 WELDING SYSTEMS AND EQUIPMENT REPAIRER Performed On: 11/13/2016 9:13 WELDING SYSTEMS AND EQUIPMENT REPAIRER by DARON BAKER LPN Intake Systolic Blood [...] kg/m2 DARON BAKER LPN - 11/13/2016 9:13 WELDING SYSTEMS AND EQUIPMENT REPAIRER General Info Information Given By : Patient Languages : Greenlandic Is Patient Female and 13-50 no hysterectomy : No DRAON BAKER LPN - 11/13/2016 9:13 WELDING SYSTEMS AND EQUIPMENT REPAIRER Subjective Pain Symptoms : No DARON BAKER LPN - 11/13/2016 9:13 WELDING SYSTEMS AND EQUIPMENT REPAIRER Dependent Habits Exposure to Tobacco Smoke : Other: never Smoking Status : Never smoker Tobacco 2A : No Tobacco Use/Currently Using : No Tobacco Use/Last 30 Days : No Tobacco Use/Last 12 months : No Tobacco Last Use/Year : 1981 DARON BAKRE WAQAS - 11/13/2016 9:13 WELDING SYSTEMS AND EQUIPMENT REPAIRER Caffeine Use Grid Caffeine Use : Current Type : Soft drinks DARON BAKER WAQAS - 11/13/2016 9:13 WELDING SYSTEMS AND EQUIPMENT REPAIRER Source: [facility] [employer] Document Id: [id number] WELDING SYSTEMS AND EQUIPMENT REPAIRER!30 ING SYSTEMS AND EQUIPMENT REPAIRER Miscellaneous - Gissel Boyd C.M.A. - 11/09/2016 11:31 AM CST Lucila - re route rxs Document Contains Addenda Addendum by SUMANTH MANLEY RN on November 09, 2016 12:31:28 WELDING SYSTEMS AND EQUIPMENT REPAIRER Resent to ES. Message sent to [facility] asking them to cancel scripts they had. From: GISSEL BOYD ([facility] Nurse) To: SUMANTH MANLEY RN; Sent: 11/09/2016 11:31:55 WELDING SYSTEMS AND EQUIPMENT REPAIRER Subject: Lucila - re route rxs Protonix and Celebrex need to be sent to [facility] not [facility]. Please re-route when able. THanks! Source: [facility] [employer] Document Id: [id number] Electronically signed by Janell [facility] Clinical Education Consultant [id number] at 04/03/2017 3:07 AM CDT documented in this encounter Plan of Treatment Not on filedocumented as of this encounter Visit Diagnoses Not on filedocumented in this encounter
--- OUTSIDE RECORDS SUMMARY | 2022-09-28 16:21 | XMS_ITS | Encounter Summary ---
:1960 Author Organization [facility] Address [address] [place] [address] Care Team Providers Name Role Phone Unavailable Primary Care Provider Unavailable Encounter Details Date Type Department Care Team Description 04/19/2016 Hospital Encounter HX [facility] Luigi Cummings P.ALiaCMik [address] [place], [place] [phone] (Wo rk) Social History [...] do you attend jain or Never 2021 jew services? Do you [...] Luigi Anders - 04/19/2016 1:30 PM CDT [id number] WORKER'S COMPENSATION VISIT Employer: [employer] Date of [...] on counseling and coordination of care. Luigi nAders P.A.-C./gama cc: Arjun Lopez M.D., M.P.H. [facility] [place] [place] [address] Electronically Signed By: LUIGI ANDERS PA On: 05/03/2016 01:42 PM Source: [facility] MHSDOLBEYNONRADSYS Document Id: [id number] documented in this encounter Miscellaneous Notes Telephone Encounter - Conversion, Historical Provider Ser - 07/02/2017 1:45 PM CDT *Phone Message- Dr. Culver Document Contains Addenda Addendum by DARON BAKER LPN on July 02, 2017 16:14:25 CDT Called in to [facility] Addendum by ADRON BAKER LPN on July 02, 2017 14:15:22 [...] Brown A: R: Please call pt at [phone] Advice/Action: Source used: ( ) Verbalizes understanding [...] back cell phone number ( ) Source: [facility] POWERCHART Document Id: [id number] Telephone Encounter - Conversion, Historical Provider Ser [...] See form. When completed please fax to [phone] attn Shameka Miller at [facility]. Addendum by BETTE GREGORY on May 25, 2016 11:20:36 CDT Patient called back, please call Addendum by RAY ROSAS LPN on May 25, 2016 11:17:36 CDT Left message to call back. From: BETTE GREGORY ([address] Chocolate Packer) To: Orthopedic Nurse; Sent: 05/25/2016 11:10:55 CDT Subject: *Phone Message/ Martita Caller is: ( ) Patient ( ) Mother ( ) Father ( ) Spouse ( ) Daughter ( ) Son ( ) Pharmacy ( ) Other: Physician: Patient MRN #: Reason for Call: Message: Work restrictions form is not complete and needs more information. Please call back at [phone] or [phone] Advice/Action: Source used: ( ) Verbalizes understanding [...] back cell phone number ( ) Source: [facility] POWERCHART Document Id: [id number] Miscellaneous - Luigi Anders - 04/19/2016 2:12 PM CDT Ambulatory Discharge Medication List [facility] [address] [place], [place] [address], [place] [id number] Visit Information Name: EMANUEL MCMAHAN [facility] Number: [id number] Visit Date: 04/19/2016 14:12:33 Attending [...] ANDERS Signed On:19-APR-2016 14:12:31 Additional Information: Source: [facility] POWERCHART Document Id: [id number] Miscellaneous - Luigi Anders - 04/19/2016 2:12 PM CDT Ambulatory Patient Summary [facility] [address] [place] [id number] Visit Information Name: EMANUEL MCMAHAN [facility] Number: [id number] Current Date: 04/19/2016 14:12:34 Physicians [...] dont have one. Go to [email or web address] and click on Create Your Account. Then, follow the directions to complete the online form. Youll be asked for your [facility] number which you can find at the top of this document. Your Goals/Additional instructions: Source: [facility] POWERCHART Document Id: [id number] Miscellaneous - Danielle Rojas LMikP.NMik - 04/19/2016 1:36 PM CDT Adult Deck Worker Intake/History Adult Deck Worker Intake/History Entered On: 04/19/2016 13:38 CDT Performed On: 04/19/2016 13:36 CDT by DANIELLE ROJAS COUNSELING CASE MANAGER Intake Systolic Blood Pressure : 138 mmHg Diastolic Blood Pressure : 82 mmHg NIBP Mean : 101 mmHg BP Location : Right upper extremity Blood Pressure Cuff Size : Regular DANIELLE ROJ[facility] - 04/19/2016 13:40 CDT Chief Complaint : WC: sprained MCL DOI:11/01/15, 14 weeks post injury, injection on 03/15/2016, helpedfor a little bit but is it achy now Height : 170 cm(Converted to: 5 ft 7 inch(es), 67 inch(es)) DANIELLE ROJAS [facility] - 04/19/2016 13:36 CDT General Info Information Given By : Patient Languages : Japanese Is Patient Female and 13-50 no hysterectomy : No DANIELLE ROJ[facility] - 04/19/2016 13:36 CDT Subjective Pain Symptoms : Yes DANIELLE ROJ[facility] - 04/19/2016 13:36 CDT Pain Scale Pain Scale Verbal 0-10 : Open DANIELLE ROJ[facility] - 04/19/2016 13:36 CDT Pain Pain Assessment Grid Pain 1 Location : Knee Laterality : Left Intensity : [address] [facility] - 04/19/2016 13:36 CDT Dependent Habits Exposure to Tobacco Smoke : Other: never Smoking Status : Never smoker Tobacco 2A : No Tobacco Use/Currently Using : No Tobacco Use/Last 30 Days : No Tobacco Use/Last 12 months : No DANIELLE ROJ[facility] - 04/19/2016 13:36 CDT Caffeine Use Grid Caffeine Use : Current Type : Soft drinks DANIELLE ROJAS [facility] - 04/19/2016 13:36 CDT Source: [employer] Document Id: [id number] CDT!7 documented in this encounter Plan of Treatment Not on filedocumented as of this encounter Visit Diagnoses Not on filedocumented in this encounter
--- OUTSIDE RECORDS SUMMARY | 2022-09-28 16:21 | XMS_ITS | Encounter Summary ---
:[address] [facility] Address [address] [place] [address] Care Team Providers Name Role Phone Unavailable Primary Care Provider Unavailable Encounter Details Date Type Department Care Team Description 09/30/2015 Hospital Encounter HX [facility] Brett Gaytan M.D. [address] [place] [address] (Wo rk) Social History Tobacco Use Types [...] do you attend presybeterian or Never 2021 druze services? Do you [...] place to sleep or slept in a fpc (including now)? Sex Assigned at Date Recorded Male 06/24/2018 5:24 PM CDT documented as of this encounter Last Filed Vital Signs Vital Sign Reading Time Taken Comments Blood Pressure - - Pulse - - Temperature - - Respiratory Rate - - Oxygen Saturation - - Inhaled Oxygen Concentration - - Weight - - Height 170 cm (5' 6.93) 09/30/2015 4:00 PM DEBURRING TECHNICIAN Body Mass Index - - documented in [...] Historical Provider Ser - 10/01/2015 6:04 AM DEBURRING TECHNICIAN Coding Summary-Paper Based CODING DATE: 10/01/2015 FINAL MA [facility] STATUS: * Discharged to Home or [...] 06:04 am Source: [facility] POWERCHART Document Id: [id number] documented in this encounter Plan of Treatment Not on filedocumented as of this encounter Procedures Procedure Name Priority Date/Time Associated Comments Diagnosis LIPID PANEL, S Routine 09/30/2015 4:05 Results fo r this PM DEBURRING TECHNICIAN procedure are i n the results section. ALANINE AMINOTRANSFERASE Routine 09/30/2015 4:05 Results for this (ALT), S/P PM DEBURRING TECHNICIAN procedure are i n the results section. BASIC METABOLIC PANEL, Routine 09/30/2015 4:05 Re sults for this S/P PM DEBURRING TECHNICIAN procedure are i n the results section. documented in this encounter Results ALT (Alanine Aminotransferase) (09/30/2015 4:05 PM DEBURRING TECHNICIAN) athologist Signature Alanine 46 7 - 55 UL POWERCHART Amniotransferas e, LD Specimen (Source) Anatomical Collection Method Collection Time Re ceived Time Location / / Volume Laterality Blood 09/30/2015 4:05 PM DEBURRING TECHNICIAN Arjun Gaytan M.D. LAB BLOOD ADD-ON Performing Organization Address City/State/ZIP Code Phon e Number POWERCHART (ABNORMAL) Lipid Panel (09/30/2015 4:05 PM DEBURRING TECHNICIAN) athologist Signature Cholesterol, 174 <=199 MGDL POWERCHART [...] for FH and FDB is available quocu [facility] Laboratories: FH/ADH Genetic Reflex [place]lett el (test ADHP). Acquired (non-genetic) causes of markedly increased LDL cholesterol include cholestatic liver disease due to the presence of LpX. If a genetic form of hypercholesterolemia is suspected, family studies including biochemical testing fo r lipids (total cholesterol,triglycerides, LDL cholesterol and HDL cholesterol) are recommended. ??Please contact the laboratory at or the on-line test catalog at [employer] for information about how to order these tricia ts or to speak with a genetic counselor. Further interpretation would require clinical information. Specimen (Source) Anatomical Collection Method Collection Time Re ceived Time Location / / Volume Laterality Blood 09/30/2015 4:05 PM DEBURRING TECHNICIAN Arjun Gaytan M.D. LAB BLOOD ADD-ON Performing Organization Address City/State/ZIP Code Phon e Number POWERCHART BMP (Basic Metabolic Panel) (09/30/2015 4:05 PM DEBURRING TECHNICIAN) P athologist Signature Sodium, S 142 135 [...] / Volume Laterality Blood 09/30/2015 4:05 PM DEBURRING TECHNICIAN Arjun Gaytan M.D. LAB BLOOD ADD-ON Performing Organization Address City/State/ZIP Code Phon e Number POWERCHART documented in this encounter Visit Diagnoses Not on filedocumented in this encounter
--- OUTSIDE RECORDS SUMMARY | 2022-09-28 16:21 | XMS_ITS | Encounter Summary ---
:1960 Author Organization [facility] Address [address] [place] [address] Care Team Providers Name Role Phone Unavailable Primary Care Provider Unavailable Encounter Details Date Type Department Care Team Description 05/24/2016 Hospital Encounter HX [facility] Luigi Cummings P.ALiaCMik [address] [place], [place] [phone] (Wo rk) Social History [...] do you attend buddhist or Never 2021 baptism services? Do you [...] Luigi Anders - 05/24/2016 1:41 PM CDT [id number] WORKER'S COMPENSATION VISIT Employer: [employer] Date of Injury: 11/01/2015 PRIMARY CARE PROVIDER [...] Anders P.A.-C./gama cc: Arjun Lopez M.D., M.P.H. [facility] in [address] [address] Electronically Signed By: LUIGI ANDERS On: 06/07/2016 04:49 PM Source: [facility] MHSDOLBEYNONRADSYS Document Id: [id number] documented in this encounter Miscellaneous Notes Miscellaneous - Dada Levin L.P.N. - 08/28/2016 10:28 AM CST *General Message Document Contains Addenda Addendum by ERMIAS ALARCON on August 28, 2016 15:06:17 SUSTAINABILITY PURCHASING AGENT Patient scheduled to see Luigi on 09/04 - will talk about getting his knee brace at that time Addendum by DADA LEVIN LPN on August 28, 2016 14:51:05 SUSTAINABILITY PURCHASING AGENT Left message to call clinic back. Addendum by KELLY VOGEL on August 28, 2016 14:10:00 SUSTAINABILITY PURCHASING AGENT Called back. Call Emanuel at [phone] Addendum by DADA LEVIN LPN on August 28, 2016 10:45:18 SUSTAINABILITY PURCHASING AGENT Left message to call clinic back. Patient may be fitted with a hinged knee brace this week but needs to make a final appointment next week with provider for MMI rating. Addendum by LUIGI ANDERS on August 28, 2016 10:32:05 SUSTAINABILITY PURCHASING AGENT From: LUIGI ANDERS To: Orthopedic Nurse; Sent: 08/28/2016 10:32:05 SUSTAINABILITY PURCHASING AGENT Subject: RE: *General Message Pt can be seen for a nurse-only visit for a hinged knee brace fitting. Luigi From: DADA LEVIN LPN ( Orthopedic Nurse) To: LUIGI ANDERS; Sent: 08/28/2016 10:28:05 SUSTAINABILITY PURCHASING AGENT Subject: *General Message s- update from physical therapist raj Ferris from [facility] called to inform provider Emanuel has completed his 12 visits ofPT. Has good ROM and strength as far as the MCL injury is concerned. Patient does have some neuro deficits which he is following up with neurologist in regards to back issues. Patient is requesting a hinged knee brace for work. This is a work comp injury through [employer] with a date of injury of 11/01/15.Last seen 05/24/16. Therapist states patient does not need any further PT and they do not have a knee brace for the patient at their facility. a- patient is requesting a knee brace r- Message forwarded to provider. Source: [facility] UserEvents Document Id: [id number] Electronically signed by Conversion, [facility] Forensics Analyst [id number] at 03/18/2017 2:50 AM CDT Telephone Encounter [...] patient to call back From: BETTE GREGORY ([address] Lamp Replacer) To: OCTAVIA Orthopedic Nurse; Sent: 06/06/2016 09:22:43 CDT Subject: *Phone Message/ Martita Caller is: ( X ) Patient ( ) Mother ( ) Father ( ) Spouse ( ) Daughter ( ) Son ( ) Pharmacy ( ) Other: Physician: Patient MRN #: Reason for Call: Message: Patient would like PT order sent to [facility]. Please call back at [phone] with any questions. Advice/Action: Source used: ( [...] back cell phone number ( ) Source: [facility] UserEvents Document Id: [id number] Miscellaneous - Luigi Anders - 05/24/2016 3:41 PM CDT Ambulatory Patient Summary [address] [id number] Visit Information Name: EMANUEL MCMAHAN [facility] Number: [id number] Current Date: 05/24/2016 15:41:10 Physicians [...] if you dont have one. Go to [email or web address] and click on Create Your Account. Then, follow the directions to complete the online form. Youll be asked for your [facility] number which you can find at the top of this document. Your Goals/Additional instructions: Source: [facility] POWERCHART Document Id: [id number] Miscellaneous - Luigi Anders - 05/24/2016 3:41 PM CDT Ambulatory Discharge Medication List [address] [id number] Visit Information Name: EMANUEL MCMAHAN [facility] Number: [id number] Visit Date: 05/24/2016 15:41:09 Attending [...] PA Signed On:24-MAY-2016 15:41:07 Additional Information: Source: [facility] POWERCHART Document Id: [id number] Miscellaneous - Judy Fatima, C.M.A. - 05/24/2016 2:08 PM CDT Adult Interlocker Maintainer Intake/History Adult Interlocker Maintainer Intake/History Entered On: 05/24/2016 14:11 CDT Performed [...] Preferred Communication Mode : Verbal Languages : French Is Patient Female and 13-50 no hysterectomy [...] FATIMA C.M.A. - 05/24/2016 14:08 CDT Source: [employer] Document Id: [id number] CDT!37 documented in this encounter Plan of Treatment Not on filedocumented as of this encounter Visit Diagnoses Not on filedocumented in this encounter
--- OUTSIDE RECORDS SUMMARY | 2022-09-28 16:21 | XMS_ITS | Encounter Summary ---
:1960 Author Organization [facility] Address [address] [place] [address] Care Team Providers Name Role Phone Unavailable Primary Care Provider Unavailable Encounter Details Date Type Department Care Team Description 09/04/2016 Hospital Encounter HX [facility] Luigi Cummings P.ALiaCMik [address] [place], [place] [phone] (Wo rk) Social History [...] do you attend lutheran or Never 2021 anabaptist services? Do you [...] 170 cm (5' 6.93) 09/04/2016 3:35 PM MACHINE LONG GOODS HELPER Body Mass Index - - documented in [...] Luigi Anders - 09/04/2016 3:29 PM CST [id number] WORKER'S COMPENSATION VISIT Employer: [employer] Date of [...] were answered to his satisfaction. He may black pickler a knee brace on his own if he feels that this would be beneficial. Total time of the visit 25 minutes, 20 minutes spent on counseling and coordination of care. Luigi Anders P.A.-C./gama Electronically Signed By: LUIGI ANDERS On: 09/06/2016 08:04 AM Source: [facility] MHSDOLBEYNONRADSYS Document Id: [id number] INE LONG GOODS HELPER documented in this encounter Miscellaneous Notes Miscellaneous - Luigi Anders - 09/04/2016 4:45 PM CST Ambulatory Patient Summary [facility] [address] [place], [place] [address] [id number] Visit Information Name: EMANUEL MCMAHAN [facility] Number: [id number] Current Date: 09/04/2016 16:45:26 Physicians [...] if you dont have one. Go to [email or web address] and click on Create Your Account. Then, follow the directions to complete the online form. Youll be asked for your [facility] number which you can find at the top of this document. Your Goals/Additional instructions: Source: [facility] POWERCHART Document Id: [id number] INE LONG GOODS HELPER Miscellaneous - Luigi Anders - 09/04/2016 4:45 PM CST Ambulatory Discharge Medication List [facility] [address] [place] [id number] Visit Information Name: EMANUEL MCMAHAN [facility] Number: [id number] Current Date: 09/04/2016 16:45:26 Attending [...] Electronically Signed By: LUIGI ANDERS PA Signed On:04-SEP-2016 16:45:16 Additional Information: Source: [employer] Document Id: [id number] INE LONG GOODS HELPER Miscellaneous - Roula Gibson L.P.N. - 09/04/2016 3:35 PM CST Adult Swatch Clerk Intake/History Adult Swatch Clerk Intake/History Entered On: 09/04/2016 15:39 MACHINE LONG GOODS HELPER Performed On: 09/04/2016 15:35 MACHINE LONG GOODS HELPER by ROULA GIBSON LPN Intake Chief Complaint [...] inch(es)) ROULA GIBSON LPN - 09/04/2016 15:35 MACHINE LONG GOODS HELPER General Info Information Given By : Patient Preferred Communication Mode : Verbal Languages : Djiboutian Is Patient Female and 13-50 no hysterectomy : No ROULA GIBSON LPN - 09/04/2016 15:35 MACHINE LONG GOODS HELPER Subjective Pain Symptoms : Yes ROULA GIBSON LPN - 09/04/2016 15:35 MACHINE LONG GOODS HELPER Pain Scale Pain Scale Verbal 0-10 : Open ROULA GIBSON LPN - 09/04/2016 15:35 MACHINE LONG GOODS HELPER Pain Pain Assessment Grid Pain 1 Location : Knee Laterality : Left Intensity : 4 Acceptable Intensity : 2 Time Pattern : Intermittent ROULA GIBSON LPN - 09/04/2016 15:35 MACHINE LONG GOODS HELPER Dependent Habits Exposure to Tobacco Smoke : Other: never Smoking Status : Never smoker Tobacco 2A : No Tobacco Use/Currently Using : No Tobacco Use/Last 30 Days : No Tobacco Use/Last 12 months : No ROULA GIBSON LPN - 09/04/2016 15:35 MACHINE LONG GOODS HELPER Caffeine Use Grid Caffeine Use : Current Type : Soft drinks ROULA GIBSON LPN - 09/04/2016 15:35 MACHINE LONG GOODS HELPER Source: [facility] POWERCHART Document Id: [id number] MACHINE LONG GOODS HELPER!32 INE LONG GOODS HELPER documented in this encounter Plan of Treatment Not on filedocumented as of this encounter Visit Diagnoses Not on filedocumented in this encounter
--- OUTSIDE RECORDS SUMMARY | 2022-09-28 16:21 | XMS_ITS | Encounter Summary ---
:1960 Author Organization [facility] Address [address] [place] [address] Care Team Providers Name Role Phone Unavailable Primary Care Provider Unavailable Encounter Details Date Type Department Care Team Description 12/13/2015 Hospital Encounter HX [facility] Luigi Cummings P.ALiaCMik [address] [place], [place] [phone] (Wo rk) Social History [...] do you attend shinto or Never 2021 advent services? Do you [...] Comments Blood Pressure 132/86 12/13/2015 1:24 PM CARE TRANSITION MANAGER Pulse - - Temperature - - Respiratory Rate - - Oxygen Saturation - - Inhaled Oxygen Concentration - - Weight 79.1 kg (174 lb 6.1 oz) 12/13/2015 1:24 PM CARE TRANSITION MANAGER Height 171.9 cm (5' 7.68) 12/13/2015 1:24 PM CARE TRANSITION MANAGER Body Mass Index 26.77 12/13/2015 1:24 PM CARE TRANSITION MANAGER documented in this encounter Medications at [...] Luigi Anders - 12/13/2015 1:19 PM CST [id number] WORKER'S COMPENSATION VISIT Employer: [employer]. Date of [...] Anders P.A.-C./gama cc: Arjun Lopez M.D., M.P.H. [facility] [place] [address] Electronically Signed By: LUIGI ANDERS PA On: 12/15/2015 05:23 PM Source: [facility] MHSDOLBEYNONRADSYS Document Id: [id number] TRANSITION MANAGER documented in this encounter Miscellaneous Notes Miscellaneous - Dada Levin, LMikP.N. - 12/20/2015 12:49 PM CST *General Message Document Contains Addenda Addendum by DADA LEVIN LPN on 20 December 2015 13:40:47 CARE TRANSITION MANAGER Patient returned phone call and notified of message below. From: DADA LEVIN LPN ( Orthopedic Nurse) To: Orthopedic Nurse; Sent: 12/20/2015 12:49:50 CARE TRANSITION MANAGER Subject: *General Message s- work comp approval b- received work comp approval for physical therapy 12 visits. a- work comp approval r- rx faxed to [facility]. Left message for patient to call clinic back. Source: [facility] POWERCHART Document Id: [id number] Miscellaneous - Luigi Anders - 12/13/2015 5:07 PM CST Ambulatory Patient Summary [facility] [address] [place], [place] [id number] Visit Information Name: EMANUEL MCMAHAN [facility] Number: [id number] Current Date: 12/13/2015 17:07:57 Physicians [...] By: LUIGI ANDERS PA Signed On:13-DEC-2015 17:07:47 Your Allergies & [...] dont have one. Go to [email or web address] and click on Create Your Account. Then, follow the directions to complete the online form. Youll be asked for your [facility] number which you can find at the top of this document. Your Goals/Additional instructions: Source: [facility] POWERCHART Document Id: [id number] TRANSITION MANAGER Miscellaneous - Luigi Anders - 12/13/2015 5:07 PM CST Ambulatory Discharge Medication List [address] [id number] Visit Information Name: EMANUEL MCMAHAN [facility] Number: [id number] Visit Date: 12/13/2015 17:07:55 Attending [...] PA Signed On:13-DEC-2015 17:07:47 Additional Information: Source: [facility] POWERCHART Document Id: [id number] TRANSITION MANAGER Miscellaneous - Chica Forte C.M.A. - 12/13/2015 1:24 PM CST Adult Embroidery Assistant Intake/History Adult Embroidery Assistant Intake/History Entered On: 12/13/2015 13:26 CARE TRANSITION MANAGER Performed On: 12/13/2015 13:24 CARE TRANSITION MANAGER by CHICA FORTE [facility] Intake Chief Complaint : W/C [employer] DOI:11/01/15 [...] Mass Index : 26.77 kg/m2 CHICA FORTE [facility] - 12/13/2015 13:24 CARE TRANSITION MANAGER General Info Information Given By : Patient Preferred Communication Mode : Verbal Languages : Tajik Is Patient Female and 13-50 no hysterectomy : No CHICA FORTE [facility] - 12/13/2015 13:24 CARE TRANSITION MANAGER Subjective Pain Symptoms : Yes CHICA FORTE [facility] - 12/13/2015 13:24 CARE TRANSITION MANAGER Pain Scale Pain Scale Verbal 0-10 : Open CHICA FORTE [facility] - 12/13/2015 13:24 CARE TRANSITION MANAGER Pain Pain Assessment Grid Pain 1 Location : Knee Laterality : Left Intensity : 3 CHICA FORTE [facility] - 12/13/2015 13:24 CARE TRANSITION MANAGER Dependent Habits Exposure to Tobacco Smoke : Other: never Smoking Status : Never smoker Tobacco 2A : No Tobacco Use/Currently Using : No Tobacco Use/Last 30 Days : No Tobacco Use/Last 12 months : No CHICA FORTE [facility] - 12/13/2015 13:24 CARE TRANSITION MANAGER Caffeine Use Grid Caffeine Use : Current Type : Soft drinks CHICA FORTE [facility] - 12/13/2015 13:24 CARE TRANSITION MANAGER Source: [facility] Return PathCHART Document Id: [id number] CARE TRANSITION MANAGER!40 TRANSITION MANAGER documented in this encounter Plan of Treatment Not on filedocumented as of this encounter Visit Diagnoses Not on filedocumented in this encounter
--- OUTSIDE RECORDS SUMMARY | 2022-09-28 16:21 | XMS_ITS | Encounter Summary ---
:1960 Author Organization [facility] Address [address] [place] [address] Care Team Providers Name Role Phone Unavailable Primary Care Provider Unavailable Encounter Details Date Type Department Care Team Description 11/02/2015 Hospital Encounter [facility]X [facility] Den Correa M.D. [address] [place] [address] (Wo gilbert) Social History Tobacco [...] do you attend tenriism or Never 2021 baptism services? Do you [...] Comments Blood Pressure 120/88 11/02/2015 10:25 AM WINDOW SHADE ESTIMATOR Pulse 86 11/02/2015 10:25 AM WINDOW SHADE ESTIMATOR Temperature - - Respiratory Rate 15 11/02/2015 10:25 AM WINDOW SHADE ESTIMATOR Oxygen Saturation - - Inhaled Oxygen Concentration - - Weight 79.9 kg (176 lb 2.4 oz) 11/02/2015 10:25 AM WINDOW SHADE ESTIMATOR Height 170 cm (5' 6.93) 11/02/2015 10:25 AM WINDOW SHADE ESTIMATOR Body Mass Index 27.65 11/02/2015 10:25 AM WINDOW SHADE ESTIMATOR documented in this encounter Medications at Time [...] Correa M.D. - 11/02/2015 9:40 AM CST [id number] Patient was at work yesterday moving some [...] CORREA MD On: 11/03/2015 12:22 PM Source: [facility] MHSDOLBEYNONRADSYS Document Id: [id number] OW SHADE ESTIMATOR documented in this encounter Miscellaneous Notes Miscellaneous - Florencio Corera M.D. - 11/02/2015 11:32 AM CST Normal Results Letter 02 November 2015 EMANUEL MCMAHAN [id number] [facility] [id number] Dear EMANUEL MCMAHAN, Seen in clinic today for injury. No repetitive kneeling, squatting, climbing for one week. Sincerely, FLORENCIO CORREA [address] [place] [id number] Electronic Signature Electronically Signed By: FLORENCIO CORREA MD On: 02 November 2015 This document has images extracted. Source: [facility] POWERCHART Document Id: [id number] Electronically signed by Conversion, [facility] Car Repair Supervisor [id number] at 03/17/2017 10:59 AM CDT Miscellaneous - Za Lockett L.P.N. - 11/02/2015 10:25 AM CST Adult Product Safety Expert Intake/History Adult Product Safety Expert Intake/History Entered On: 11/02/2015 10:29 WINDOW SHADE ESTIMATOR Performed On: 11/02/2015 10:25 WINDOW SHADE ESTIMATOR by ZA LOCKETT RELIGIOUS EDUCATOR Intake Chief Complaint : fell at work [...] kg/m2 ZA LOCKETT LPN - 11/02/2015 10:25 WINDOW SHADE ESTIMATOR General Info Information Given By : Patient Preferred Communication Mode : Verbal Languages : Pashto Is Patient Female and 13-50 no hysterectomy : No ZA LOCKETT LPN - 11/02/2015 10:25 WINDOW SHADE ESTIMATOR Subjective Pain Symptoms : Yes ZA LOCKETT LPN - 11/02/2015 10:25 WINDOW SHADE ESTIMATOR Pain Scale Pain Scale Verbal 0-10 : Open ZA LOCKETT LPN - 11/02/2015 10:25 WINDOW SHADE ESTIMATOR Pain Pain Assessment Grid Pain 1 Location : Knee Laterality : Left Intensity : 3 ZA LOCKETT LPN - 11/02/2015 10:25 WINDOW SHADE ESTIMATOR Dependent Habits Exposure to Tobacco Smoke : Other: never Smoking Status : Never smoker Tobacco 2A : No Tobacco Use/Currently Using : No Tobacco Use/Last 30 Days : No Tobacco Use/Last 12 months : No ZA LOCKETT LPN - 11/02/2015 10:25 WINDOW SHADE ESTIMATOR Caffeine Use Grid Caffeine Use : Current Type : Soft drinks ZA LOCKETT RELIGIOUS EDUCATOR - 11/02/2015 10:25 WINDOW SHADE ESTIMATOR [facility] POWER[facility] Document Id: [id number] WINDOW SHADE ESTIMATOR!44 OW SHADE ESTIMATOR documented in this encounter Plan of Treatment Not on filedocumented as of this encounter Procedures Procedure Name Priority Date/Time Associated Diagnosis Comme nts DX KNEE LEFT 3 Routine 11/02/2015 11:09 AM Result s for this VIEWS WINDOW SHADE ESTIMATOR procedure are i n the results section. documented in this encounter Results DX Knee Left 3 Views (11/02/2015 11:09 AM WINDOW SHADE ESTIMATOR) Anatomical Region Laterality Modality Lower Extremity, Knee Left Radiographic Imagi ng Specimen (Source) Anatomical Collection Method Collection Time Re ceived Time Location / / Volume Laterality 11/02/2015 11:09 AM WINDOW SHADE ESTIMATOR Addenda Addendum by Provider, Edith Parker 11/02/2015 11:09 AM WINDOW SHADE ESTIMATOR RAD^^^OW XR Knee Left 3 views 11/02/2015 11:09:32 Impressions 11/02/2015 11:23 AM WINDOW SHADE ESTIMATOR ??Left knee joint effusion. Narrative 11/02/2015 11:23 AM WINDOW SHADE ESTIMATOR EXAM: ??XR Knee Left 3 views AGE: [...]
--- OUTSIDE RECORDS SUMMARY | 2022-09-28 16:21 | XMS_ITS | Encounter Summary ---
:1960 Author Organization [facility] Address [address] [place] [address] Care Team Providers Name Role Phone Unavailable Primary Care Provider Unavailable Encounter Details Date Type Department Care Team Description 01/26/2016 Hospital Encounter HX [facility] Joey Cummings P.ALiaCMik [address] [place], [place] [address] (Wo rk) Social History [...] or relatives? How often do you attend faith or Never 2021 congregational services? Do you belong to any clubs or Yes 04/20/2022 organizations such as faith groups, unions, fraternal or athletic groups, or [...] Joey Anders - 01/26/2016 2:14 PM CDT [id number] WORKER'S COMPENSATION VISIT Employer: [employer] Date of [...] Anders P.A.-C./gama cc: Arjun Lopez M.D., M.P.[facility] in [address] [address] Electronically Signed By: JOEY ANDERS On: 01/28/2016 09:53 AM Source: [facility] MHSDOLBEYNONRADSYS Document Id: [id number] documented in this encounter Miscellaneous Notes Miscellaneous [...] LASHAE BELLO - 01/26/2016 15:07 CDT Source: [facility] POWERCHART Document Id: [id number] CDT!6 Miscellaneous - Joey Anders - 01/26/2016 2:54 PM CDT Ambulatory Patient Summary [facility] [address] [place], [place] [id number] Visit Information Name: EMANUEL MCMAHAN [facility] Number: [id number] Current Date: 01/26/2016 14:54:10 Physicians [...] you dont have one. Go to [email or web address] and click on Create Your Account. Then, follow the directions to complete the online form. Youll be asked for your [facility] number which you can find at the top of this document. Your Goals/Additional instructions: Source: [facility] POWERCHART Document Id: [id number] Miscellaneous - Joey Anders - 01/26/2016 2:54 PM CDT Ambulatory Discharge Medication List [place] [id number] [place] [id number] Visit Information Name: EMANUEL MCMAHAN [facility] Number: [id number] Visit Date: 01/26/2016 14:54:09 Attending [...] PA Signed On:26-JAN-2016 14:54:02 Additional Information: Source: [facility] POWERCHART Document Id: [id number] Miscellaneous - Lashae Bello, L.P.N. - 01/26/2016 2:19 PM CDT Adult Insurance Premium Auditor Intake/History Document Has Been Updated Adult Insurance Premium Auditor Intake/History Entered On: 01/26/2016 14:24 CDT Performed [...] Information Given By : Patient Languages : Slovenian Is Patient Female and 13-50 no hysterectomy [...] LASHAE BELLO - 01/26/2016 14:19 CDT Source: [facility] Document Id: [id number] CDT!8 documented in this encounter Plan of Treatment Not on filedocumented as of this encounter Visit Diagnoses Not on filedocumented in this encounter
--- OUTSIDE RECORDS SUMMARY | 2022-09-28 16:22 | XMS_ITS | Encounter Summary ---
:1960 Author Organization [facility] Address [address] [place] [address] Care Team Providers Name Role Phone Unavailable Primary Care Provider Unavailable Encounter Details Date Type Department Care Team Description 09/28/2014 Hospital Encounter HX [facility] Arjun Rice M.D. [address] [place] [address] (Wo rk) Social History Tobacco Use Types [...] you attend latter day or Never 2021 yazidism services? Do you [...] Comments Blood Pressure 132/84 09/28/2014 3:18 PM HOTEL RESERVATION AGENT Pulse 64 09/28/2014 3:18 PM HOTEL RESERVATION AGENT Temperature - - Respiratory Rate 20 09/28/2014 3:18 PM HOTEL RESERVATION AGENT Oxygen Saturation - - Inhaled Oxygen Concentration - - Weight 78.7 kg (173 lb 8 oz) 09/28/2014 3:18 PM HOTEL RESERVATION AGENT Height 170 cm (5' 6.93) 09/28/2014 3:18 PM HOTEL RESERVATION AGENT Body Mass Index 27.23 09/28/2014 3:18 PM HOTEL RESERVATION AGENT documented in this encounter Medications at Time [...] Lopez M.D. - 09/28/2014 3:12 PM CST [id number] CHIEF COMPLAINT/REASON FOR VISIT This 54-year-old gentleman [...] HISTORY He is staying active working at [employer] in [place]. Enjoys motorcycling. He wishes to feel less [...] LOPEZ MD On: 10/03/2014 08:56 AM Source: [facility] MHSDOLBEYNONRADSYS Document Id: [id number] L RESERVATION AGENT documented in this encounter Miscellaneous Notes Miscellaneous - Arjun Lopez M.D. - 09/28/2014 3:51 PM CST Ambulatory Patient Summary [address] [phone] Visit Information Name: EMANUEL MCMAHAN [facility] Number: [id number] Current Date: 09/28/2014 15:51:33 Physicians [...] Oral, once a day Hyperlipidemia. [facility] [address] celecoxib (Celebrex 200 mg oral capsule) 1 cap, Oral, once a day Osteoarthritis This is a CHANGE Routed to [facility] [address] divalproex sodium (Depakote 250 mg oral delayed release tablet) 1 Tablet(s), Oral, once a day taken at bedtime fexofenadine (fexofenadine 180 mg oral tablet) 1 Tablet(s), Oral, once a day hcl montelukast (Singulair 10 mg oral tablet) 1 Tablet(s), Oral, every evening Asthma, seasonal allergies Routed to [address] [address] multivitamin (multivitamin) 1 cap, Oral, once a day omega-3 polyunsaturated fatty acids (Fish Oil oral capsule) 1 cap, Oral, once a day pantoprazole (Protonix 40 mg oral enteric coated tablet) 1 Tablet(s), Oral, once a day GERD This is a CHANGE Routed to [address] [address] sumatriptan (Imitrex 100 mg [...] for the blood work then visit. Source: [facility] POWERCHART Document Id: [id number] L RESERVATION AGENT Miscellaneous - Arjun Lopez M.D. - 09/28/2014 3:51 PM CST Ambulatory Discharge Medication List [place] - [address] [id number] Visit Information Name: MUNA EMANUEL NOLVIA [facility] Number: [id number] Visit Date: 09/28/2014 15:51:32 Attending [...] Oral, once a day Hyperlipidemia. Routed to [address] [address] celecoxib (Celebrex 200 mg oral capsule) 1 cap, Oral, once a day Osteoarthritis This is a CHANGE Routed to [address] [address] divalproex sodium (Depakote 250 mg oral delayed release tablet) 1 Tablet(s), Oral, once a day taken at bedtime fexofenadine (fexofenadine 180 mg oral tablet) 1 Tablet(s), Oral, once a day hcl montelukast (Singulair 10 mg oral tablet) 1 Tablet(s), Oral, every evening Asthma, seasonal allergies Routed to [address] [address] multivitamin (multivitamin) 1 cap, Oral, once a day omega-3 polyunsaturated fatty acids (Fish Oil oral capsule) 1 cap, Oral, once a day pantoprazole (Protonix 40 mg oral enteric coated tablet) 1 Tablet(s), Oral, once a day GERD This is a CHANGE Routed to [address] [id number] sumatriptan (Imitrex 100 mg oral tablet) 1 [...] MD Signed On:28-SEP-2014 15:42:45 Additional Information: Source: [facility] POWERCHART Document Id: [id number] L RESERVATION AGENT Miscellaneous - Desiree Calderon, JasonPMikN. - 09/28/2014 3:21 PM CST Health Assessment Health Assessment Entered On: 09/28/2014 15:22 HOTEL RESERVATION AGENT Performed On: 09/28/2014 15:21 HOTEL RESERVATION AGENT by DESIREE CALDERON LPN Health Assessment Complete Health Assessment Complete or Modified : Annual Health Assessment Annual Health Assessment Completed : Yes DESIREE CALDERON LPN - 09/28/2014 15:21 HOTEL RESERVATION AGENT Nutrition Nutrition Risk Factors by History Adult : None DESIREE CALDERON LPN - 09/28/2014 15:21 HOTEL RESERVATION AGENT Functional Current Daily Living Assistance : None DESIREE CALDERON LPN - 09/28/2014 15:21 HOTEL RESERVATION AGENT Dependent Habits Tobacco Use/Currently Using : No Exposure to Tobacco Smoke : Other: never Smoking Status : Never smoker DESIREE CALDERON LPN - 09/28/2014 15:21 HOTEL RESERVATION AGENT Tobacco Use Grid Last Use : never DESIREE CALDERON LPN - 09/28/2014 15:21 HOTEL RESERVATION AGENT Caffeine Use Grid Caffeine Use : Current Type : Soft drinks DESIREE CALDERON COMMERCIAL DRIVER - 09/28/2014 15:21 HOTEL RESERVATION AGENT Psychosocial Domestic Abuse Concerns : None Taoism Preference : Unknown DESIREE CALDERON LPN - 09/28/2014 15:21 HOTEL RESERVATION AGENT Advance Directive Advanced Directives : Yes Advance Directive Type : Living will Advance Directive Location : Copy placed on paper chart DESIREE CALDERON LPN - 09/28/2014 15:21 HOTEL RESERVATION AGENT Educ Needs Learning Style Preference Adult Grid Patient : None Family : None DESIREE CALDERON LPN - 09/28/2014 15:21 HOTEL RESERVATION AGENT Source: [facility] [employer] Propane[employer]ART Document Id: [id number] HOTEL RESERVATION AGENT!30 L RESERVATION AGENT Miscellaneous - Desiree Calderon L.P.N. - 09/28/2014 3:18 PM CST Adult Riding Instructor Intake/History Adult Riding Instructor Intake/History Entered On: 09/28/2014 15:21 HOTEL RESERVATION AGENT Performed On: 09/28/2014 15:18 HOTEL RESERVATION AGENT by DESIREE CALDERON COMMERCIAL DRIVER Intake Chief Complaint : patient is here [...] Mass Index : 27.23 kg/m2 DESIREE CALDERON COMMERCIAL DRIVER - 09/28/2014 15:18 HOTEL RESERVATION AGENT General Info Information Given By : Patient Languages : Kyrgyz Is Patient Female and 13-50 no hysterectomy : No DESIREE CALDERON LPN - 09/28/2014 15:18 HOTEL RESERVATION AGENT Subjective Pain Symptoms : Yes DESIREE CALDERON LPN - 09/28/2014 15:18 HOTEL RESERVATION AGENT Pain Pain Assessment Grid Pain 1 Location : Hip Laterality : Right Intensity : 3 DESIREE CALDERON [facility] - 09/28/2014 15:18 HOTEL RESERVATION AGENT Dependent Habits Tobacco Use/Currently Using : No Exposure to Tobacco Smoke : Other: never Smoking Status : Never smoker DESIREE CALDERON [facility] - 09/28/2014 15:18 HOTEL RESERVATION AGENT Tobacco Use Grid Last Use : never DESIREE CALDERON [facility] - 09/28/2014 15:18 HOTEL RESERVATION AGENT Caffeine Use Grid Caffeine Use : Current Type : Soft drinks DESIREE CALDERON [facility] - 09/28/2014 15:18 HOTEL RESERVATION AGENT ID Screen Drug Resistant Organism : No Travel Within Last 21 Days : No DESIREE CALDERON [facility] - 09/28/2014 15:18 HOTEL RESERVATION AGENT [facility] Document Id: [id number] HOTEL RESERVATION AGENT!44 L RESERVATION AGENT documented in this encounter Plan of Treatment Not on filedocumented as of this encounter Visit Diagnoses Not on filedocumented in this encounter
--- OUTSIDE RECORDS SUMMARY | 2022-09-28 16:22 | XMS_ITS | Encounter Summary ---
:1960 Author Organization [facility] Address [address] [place] [address] Care Team Providers Name Role Phone Unavailable Primary Care Provider Unavailable Encounter Details Date Type Department Care Team Description 06/03/2007 - Hospital Encounter [facility]X [facility] Dianna Ramsay PT, 05/01/2009 N.P., R.N. [address] [place], [place] [address] (Wo rk) Social History Tobacco [...] do you attend hindu or Never 2021 hoahaoism services? Do you [...]
--- OUTSIDE RECORDS SUMMARY | 2022-09-28 16:22 | XMS_ITS | Encounter Summary ---
:1960 Author Organization [facility] Address [address] [place] [address] Care Team Providers Name Role Phone Unavailable Primary Care Provider Unavailable Encounter Details Date Type Department Care Team Description 03/07/2012 Hospital Encounter HX [facility] Satinder Rizo M.D. [address] [place] [address] (Wo rk) Social History Tobacco [...] or relatives? How often do you attend latter-day or Never 2021 bahai services? Do you belong to any clubs or Yes 04/20/2022 organizations such as latter-day groups, unions, fraternal or athletic groups, or [...]
--- OUTSIDE RECORDS SUMMARY | 2022-09-28 16:22 | XMS_ITS | Encounter Summary ---
:1960 Author Organization [facility] Address [address] [place] [address] Care Team Providers Name Role Phone Unavailable Primary Care Provider Unavailable Encounter Details Date Type Department Care Team Description 12/20/2011 Hospital Encounter HX [facility] Arjun Rice M.D. [address] [place] [address] (Wo rk) Social History Tobacco Use Types [...] do you attend restorationist or Never 2021 taoism services? Do you [...] Comments Blood Pressure 112/72 12/20/2011 2:01 PM SHEEP HERDER Pulse 64 12/20/2011 2:01 PM SHEEP HERDER Temperature - - Respiratory Rate 18 12/20/2011 2:01 PM SHEEP HERDER Oxygen Saturation - - Inhaled Oxygen Concentration - - Weight 76.4 kg (168 lb 6.9 oz) 12/20/2011 2:01 PM SHEEP HERDER Height 170 cm (5' 6.93) 12/20/2011 2:01 PM SHEEP HERDER Body Mass Index 26.44 12/20/2011 2:01 PM SHEEP HERDER documented in this encounter Medications at Time [...] could have him see Dr. Pyle, the hand reamer, up in [place]. Otherwise we will call him with the results after his Lipid panel, ALT and fasting glucose in 6 weeks. KRN:sst Doc#: [id number] cc: Electronically Signed By: ARIADNA ASTORGA DO On: 01/21/2012 02:26 PM Modified by and Electronically Signed by: ARIADNA ASTORGA DO On: 01/21/2012 02:26 PM Source: [facility] ISJDICTAPHONESYS Document Id: [id number] Arjun So M.D. - 12/20/2011 1:57 PM [...] 6 months to a year. DRS:wil Doc#: [id number] cc: Electronically Signed By: ARJUN SO MD On: 12/25/2011 04:19 PM Source: [facility] ISJDICTAPHONESYS Document Id: [id number] P HERDER documented in this encounter Miscellaneous Notes Miscellaneous [...] day(s) Refills: 0 Route To Pharmacy - [facility] #[id number] Signed by MARTY RICHARDS MD 06/12/2013 17:30:25 From: EVARISTO BOWMAN To: MARTY RICHARDS MD; Sent: 06/12/2013 09:06:13 CDT Subject: Protonix refill On hold pending signature Order:pantoprazole (Protonix 40 mg oral enteric coated tablet) 1 tab(s) PO Daily NOTHING FURTHER UNTIL SEEN Qty: 30 tab(s) Duration: 30 day(s) Refills: 0 Route To Pharmacy [facility] ROHINI Nov 2011, orders are in for RV med check Last filled 04/11/13 Source: [facility] POWERCHART Document Id: [id number] Electronically signed by Conversion, [facility] Medical Transcriber [id number] at 03/24/2017 12:46 PM CDT Miscellaneous - Anny Khoury RJake. - 04/09/2013 4:23 PM CDT Protonix Document Contains Addenda Addendum by LISBETH ALARCON RN on 10 April 2013 11:38:26 CDT From: LISBETH ALARCON RN ([place] Bri Nurse) To: MARCOS Gregory Patient Access; Sent: 04/10/2013 11:38:26 CDT Subject: FW: Protonix Please see message below. Dr. So would like to see patient and do fasting lab work. Thanks, Kelly Alarcon RN Addendum by ANNY AHMADI RN on 10 April 2013 11:31:00 CDT From: ANNY AHMADI RN ([facility] Pres[facility]) To: MARCOS Medeiroseca Nurse; [...] MD 04/10/2013 10:47:16 From: ANNY AHMADI RN ([facility] Prescription Nurse) To: ARJUN SO MD; Sent: 04/09/2013 16:23:58 CDT Subject: Protonix On hold pending signature Order:pantoprazole (Protonix 40 mg oral enteric coated tablet) 1 tab(s) PO Daily NOTHING FURTHER UNTIL SEEN Qty: 30 tab(s) Duration: 30 day(s) Refills: 0 Route To Pharmacy [facility] #727 Source: [facility] POWERCHART Document Id: [id number] Electronically signed by [facility] Medical Transcriber [id number] at 03/24/2017 12:46 PM CDT Anny Jacinto, [...] Qty: 45 tab(s) Refills: 0 Route To [facility] #727 Signed by ARJUN SO MD 04/10/2013 10:48:16 From: ANNY AHMADI RN ([facility] Prescription Nurse) To: ARJUN SO MD; Sent: 04/09/2013 16:22:51 CDT Subject: Lipitor On hold pending signature Order:atorvastatin (Lipitor 20 mg oral tablet) 0.5 tab(s) PO Daily NO FURTHER MEDICATION UNTIL SEEN Qty: 45 tab(s) Refills: 0 Route To [facility] #727 last ov 2.29.12, last rx 3.28.13 Source: [facility] POWERCHART Document Id: [id number] Electronically signed by [facility] Medical Transcriber [id number] at 03/24/2017 12:46 PM CDT Anny Jacinto, [...] day(s) Refills: 0 Route To Pharmacy - [facility] #727 Signed by ARJUN SO MD 04/10/2013 10:48:30 From: ANNY AHMADI RN ([facility]/Erik Prescription Nurse) To: ARJUN SO MD; Sent: 04/09/2013 16:21:44 CDT Subject: singulair On hold pending signature Order:montelukast (Singulair 10 mg oral tablet) 1 tab(s) PO Daily PM MUST BE SEEN FOR FURTHER MEDICATION Qty: 30 tab(s) Duration: 30 day(s) Refills: 0 Route To Pharmacy - [facility] #727 last ov 2.29.12, last fill 5.21.13, no appt scheduled. Source: [facility] POWERCHART Document Id: [id number] Electronically signed by Janell, [facility] Medical Transcriber [id number] at 03/24/2017 12:46 PM CDT Miscellaneous - Ariadna Astorga, DMikO. - 12/20/2011 2:48 PM CST Ambulatory Patient Summary [address] [address] Visit Information Name: EMANUEL TORO Current Date: [...] the singulair may consider seeing Dr. Armijo hand reamer. Source: [facility] POWERCHART Document Id: [id number] P HERDER Miscellaneous - Ariadna Astorga D.O. - 12/20/2011 2:48 PM CST Ambulatory Depart Summary [address] [address] Visit Information Name: OLE TOROUS NOLVIA Visit Date: 12/20/2011 14:48:12 Attending [...] your provider for clarification. Additional Information: Source: [facility] POWERCHART Document Id: [id number] P HERDER Miscellaneous - Desiree Calderon L.P.N. - 12/20/2011 2:06 PM CST Health Assessment Health Assessment Entered On: 12/20/2011 14:06 SHEEP HERDER Performed On: 12/20/2011 14:06 SHEEP HERDER by DESIREE CALDREON SHOP LEAD Health Assessment Complete Health Assessment Complete or Modified : Annual Health Assessment Annual Health Assessment Completed : Yes DESIREE CALDERON LPN - 12/20/2011 14:06 SHEEP HERDER Nutrition Nutrition Risk Factors by History Adult : None DESIREE CALDERON LPN - 12/20/2011 14:06 SHEEP HERDER Functional Current Daily Living Assistance : None DESIREE CALDERON LPN - 12/20/2011 14:06 SHEEP HERDER Dependent Habits Tobacco Use/Currently Using : No Smoking Status : Never smoker DESIREE CALDERON LPN - 12/20/2011 14:06 SHEEP HERDER Caffeine Use Grid Caffeine Use : Current Type : Soft drinks DESIREE CALDERON LPN - 12/20/2011 14:06 SHEEP HERDER Psychosocial Domestic Abuse Concerns : None DESIREE CALDERON LPN - 12/20/2011 14:06 SHEEP HERDER Advance Directive Advanced Directives : Yes Advance Directive Type : Living will Advance Directive Location : Copy placed on paper chart DESIREE CALDERON LPN - 12/20/2011 14:06 SHEEP HERDER Educ Needs Learning Style Preference Adult Grid Patient : Printed materials Family : Printed materials DESIREE CALDERON LPN - 12/20/2011 14:06 SHEEP HERDER Source: [facility] TheraVidaCHART Document Id: [id number] SHEEP HERDER!25 P HERDER Naldo - Desiree Calderon L.P.NMik - 12/20/2011 2:01 PM CST Adult Customs Appraiser Intake/History Adult Customs Appraiser Intake/History Entered On: 12/20/2011 14:06 SHEEP HERDER Performed On: 12/20/2011 14:01 SHEEP HERDER by DESIREE CALDERON LPN Intake Chief Complaint [...] 26.44kg/m2 DESIREE CALDERON LPN - 12/20/2011 14:01 SHEEP HERDER Subjective Pain Symptoms : Yes DESIREE CALDERON LPN - 12/20/2011 14:01 SHEEP HERDER Pain Pain Assessment Grid Pain 1 Location : Lower back Laterality : Bilateral Intensity : 4 DESIREE CALDERON LPN - 12/20/2011 14:01 SHEEP HERDER Dependent Habits Tobacco Use/Currently Using : No Smoking Status : Never smoker DESIREE CALDERON LPN - 12/20/2011 14:01 SHEEP HERDER Caffeine Use Grid Caffeine Use : Current Type : Soft drinks DESIREE CALDERON LPN - 12/20/2011 14:01 SHEEP HERDER Allergy Allergies (Active) NKA Estimated Onset Date: Unspecified ; Created By: HOMERO GAN LPN; Reaction Status: Active ; Category: Drug ; Substance: NKA ; Type: Allergy ; Updated By: HOMERO GAN LPN; Reviewed Date: 12/20/2011 13:59 SHEEP HERDER Source: [facility] POWERCHART Document Id: [id number] SHEEP HERDER!34 P HERDER documented in this encounter Plan of Treatment Not on filedocumented as of this encounter Visit Diagnoses Not on filedocumented in this encounter
--- OUTSIDE RECORDS SUMMARY | 2022-09-28 16:22 | XMS_ITS | Encounter Summary ---
:[address] [facility] Address [address] [place] [address] Care Team Providers Name Role Phone Unavailable Primary Care Provider Unavailable Encounter Details Date Type Department Care Team Description 01/17/2011 Hospital Encounter HX [facility] Jorge L Sotelo M.D . Social History [...] you attend oriental orthodox or Never 2021 shinto services? Do you [...] 01/17/2011 12:33 PM CDT Discharge Medication List [facility] - [facility] [address] [facility] [place] [address] Discharge Medication List Name: EMANUEL TORO Current Date: 01/17/2011 12:33:47 : 1960 12:00 PM Patient Address: [address] [place] [address] [place] [id number] Patient Primary Care Provider: Name: ARJUN GAYTAN MD Discharge Diagnosis: [facility] would like to thank you for allowing [...] with electrolytes (Golytely (1 day prep) - [facility]) 1 each Oral as directed On the [...] clarification. Electronically Signed By: Signed On: Source: [employer] Document Id: [id number] Conversion, Historical Provider Ser - 01/17/2011 12:33 PM CDT Inpatient Discharge Instructions [address] [address] Patient Discharge Instructions Name: EMANUEL TORO Current Date: 01/17/2011 12:33:47 : 1960 12:00 PM Patient Address: [address] [place] [id number] Patient Primary Care Provider: Name: ARJUN GAYTAN MD Discharge Diagnosis: [facility] would like to thank you for allowing [...] Patient Signature Date/Time Provider Signature Date/Time Source: [employer] Document Id: [id number] Conversion, Historical Provider Ser - 01/17/2011 12:33 [...] LIZ CHAMORRO - 01/17/2011 12:33 CDT Source: [facility] POWERCHART Document Id: [id number] CDT!11 documented in this encounter Medications at [...] LIZ CHAMORRO - 01/17/2011 12:33 CDT Source: [employer] Document Id: [id number] CDT!17 Conversion, Historical Provider Ser - 01/17/2011 [...] LIZ CHAMORRO - 01/17/2011 10:05 CDT Source: [employer] Document Id: [id number] CDT!15 Conversion, Historical Provider Ser - 01/17/2011 [...] CDT] ) Home Prep Complete: Yes Makeup/Nail Chinese Removed: NA Oral Hygiene: Yes Preop Scrub AM of Surgery: NA Preop Scrub Night Prior to Surgery: NA Prosthesis Removed: NA Surgical Prep Verified: Yes Tampon Removed: NA Wearing Patient Gown: Yes LIZ CHAMORRO 01/17/2011 9:30 CDT Patient Rights Grid Blood Consent Signed: GILBERTO Surgical/Procedure Consent Signed: GILBERTO (Comment: will sign with MD [LIZ CHAMORRO Aleksandra 01/17/2011 10:06 CDT] ) LZI CHAMORRO 01/17/2011 9:30 CDT Family Location: friend [...] HOMERO GAN LPN; Reviewed Date: 12/19/2010 14:34 WAFER CLEANER Preprocedural Pause Correct Patient Identity: Patient verbalizes self, Patient wristband ID Correct Procedure Site and Side: colonoscopy Site Marking: N/A LIZ CHAMORRO Aleksandra - 01/17/2011 9:30 CDT [facility] Document Id: [id number] CDT!60 Jorge L Harvey M.D. - 01/17/2011 [...] Repeat colonoscopy in 10 years. MKR:sarah Doc#: [id number] cc: MD Emanuel Oscar, [address] [place] [id number] Electronically Signed By: JORGE L HARVEY On: 02/14/2011 12:40 Modified by and Electronically Signed by: JORGE L HARVEY On: 02/14/2011 12:40 pm Source: [facility] ISJDICTAPHONESYS Document Id: [id number] documented in this encounter Miscellaneous Notes Miscellaneous - Conversion, Historical Provider Ser - 01/17/2011 12:33 PM CDT Inpatient Patient Education The following Patient Education Materials have been given to the patient: Patient Education Materials: No instructions were provided. No instructions were provided. Source: [facility] POWERCHART Document Id: [id number] Miscellaneous - Conversion, Historical Provider Ser - [...] LIZ CHAMORRO - 01/17/2011 11:44 CDT Source: [facility] POWERCHART Document Id: [id number] CDT!8 Miscellaneous - Conversion, Historical Provider Ser [...] Cardiovascular Heart Rhythm: Regular Nail Bed Color: Cooper Edema: None Capillary Refill: Less than 2 [...] LIZ CHAMORRO - 01/17/2011 11:39 CDT [facility] Document Id: [id number] CDT!76 Miscellaneous - Conversion, Historical Provider Ser [...] None Heart Rhythm: Regular Nail Bed Color: Cooper Capillary Refill: Less than 2 seconds Edema: None LIZ CHAMORRO 01/17/2011 9:28 CDT Neurological Neuro Patient Stated Symptoms: None Orientation: Oriented x 3 Level of Consciousness: Alert Gait: Steady Swallowing Difficulty/Aspiration Risk: None LIZ CHAMORRO 01/17/2011 9:28 CDT [place] Coma Eye Opening Response [place]: Spontaneously Best Verbal Response [place]: Oriented Best Motor Response Vick: Obeys simple [...] Elastic Skin Integrity: Intact Mucous Membrane Color: Cooper Mucous Membrane Description: Moist LIZ CHAMORRO 01/17/2011 [...] LIZ CHAMORRO - 01/17/2011 9:28 CDT Source: [employer] Document Id: [id number] CDT!96 Miscellaneous - Conversion, Historical Provider Ser [...] LIZ CHAMORRO - 01/17/2011 9:27 CDT Source: [employer] Document Id: [id number] CDT!8 Miscellaneous - Conversion, Historical Provider Ser - 01/09/2011 2:37 PM CDT Adult Admission History Adult Admission History Entered On: 01/09/2011 14:39 CDT Performed On: 01/09/2011 14:37 CDT by ANGELINA VARGAS RN General Info Preferred Name: Emanuel Cosme will be guard driver, 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 in front of her Mode of Arrival: Ambulatory Accompanied By: Friend Preferred Communication Mode: Verbal Information Given By: Patient Languages: Portuguese Have you received chemotherapy in last 48 hours?: ANGELINA Howard RN - 01/09/2011 14:37 CDT Allergy Latex Screening: No ANGELINA VARGAS RN - 01/09/2011 14:37 CDT Allergies (Active) NKA Estimated Onset Date: Unspecified ; Created By: HOMERO GAN LPN; Reaction Status: Active ; Category: Drug ; Substance: NKA ; Type: Allergy ; Updated By: HOMERO GAN LPN; Reviewed Date: 12/19/2010 14:34 WAFER CLEANER Problem List/Diagnoses Anesth/Transfusion Anesthesia/Transfusions: Prior anesthesia ANGELINA [...] RANDI RN - 01/09/2011 14:37 CDT Source: [facility] Socratic Document Id: [id number] CDT!103 documented in this encounter Plan of Treatment Not on filedocumented as of this encounter Procedures Procedure Name Priority Date/Time Associated Diagnosis Comme [facility] SURGICAL PATHOLOGY Routine 01/17/2011 10:22 AM Re sults for this CDT procedure are i n the results section. documented in this encounter Results Pathology Surgical Pathology (01/17/2011 10:22 AM CDT) Specimen (Source) Anatomical Collection Method Collection Time Re ceived Time Location / / Volume Laterality 01/17/2011 10:22 AM CDT Narrative [facility] - 01/20/20 11 8:43 AM CDT [facility] [address] [place] [address] Patient: EMANUEL TORO [address] [place], [place] ??[address] Soc. Sec. #: [id number] /Age/Sex: 1960 (Age: 50)M Collected: ? 01/17/2011 Received: ?01/18/2011 Reported: ?01/19/2011 Physician(s): MD DR JOHN NUÑEZ MD Copy To: [facility] S ??[id number] [address] [facility], ??[place] ??[address] SURGICAL PATHOLOGY REPORT FINAL DIAGNOSIS: COLON, DESCENDING POLYP: --- COLONIC MUCOSA WITHOUT DIAGNOSTIC AB NORMALITY. Signed Copy in Chart rashida/01/19/2011 MARIA DE JESUS LERNER M.D. SPECIMEN(S) RECEIVED: DESCENDING COLON POLYP (3 MM) GROSS DESCRIPTION: Submitted as descending colon polyp is a thin 0.3 cm white biopsy. ESB, one cassette. ([id number]) EAE/RASHIDA/01/18/2011 MICROSCOPIC DESCRIPTION: Reviewed by Maria De Jesus Lerner M.D., Patholog ist RASHIDA/01/19/2011 Historical Provider LAB SURG PATH ORDERABLES Performing Organization Address City/State/ZIP Code Phon e Number [facility] documented in this encounter Visit Diagnoses Not on filedocumented in this encounter
--- OUTSIDE RECORDS SUMMARY | 2022-09-28 16:22 | XMS_ITS | Encounter Summary ---
:1960 Author Organization [facility] Address [address] [place] [address] Care Team Providers Name Role Phone Unavailable Primary Care Provider Unavailable Encounter Details Date Type Department Care Team Description 05/19/2013 Hospital Encounter HX [facility] ED Lacie Solorzano on, Lalitha Nayak [...] do you attend sabianist or Never 2021 presybeterian services? Do you [...] 05/19/2013 7:30 AM CDT ED Discharge Instructions [address] [address] Name: EMANUEL MCMAHAN Date of : 1960 12:00 AM Visit Date: 05/19/2013 6:02 AM [facility] Number: [id number] Address: [address] [place] [phone] Primary Care Provider: GOOD LOPEZ MD IMPORTANT:[facility] in [place] would like to thank you for allowing us to assist you with your healthcare needs. The following includes patient education materials and information regarding your injury/illness. Chief Complaint: Abdominal pain; SOB Follow-Up Instructions: With: Address: When: GOOD LOPEZ [address] [place] [address] Business (1) Within As Needed Comments: Patient Education Materials: [id number] CONSTIPATION (Adult) Constipation is bowel movements that [...] dizziness or fainting Unexpected vaginal bleeding ?? [id number] [place] [address]. All rights reserved. This information is not [...] arrange a ride home with a responsible republican. MUNA Martínez MARCUS LEE , or responsible republican have received this information and my questions have been answered. I have discussed any challenges I see with this plan with the nurse or physician. Patient Signature or Responsible Democrat/Relationship Date Time Provider Signature Date Time Medication [...] arrange a ride home with a responsible republican. Mauricio, EMANUEL MCMAHAN , or responsible republican have received this information and my questions have been answered. I have discussed any challenges I see with this plan with the nurse or physician. Patient Signature or Responsible Democrat/Relationship Date Time Provider Signature Date Time This document has images extracted. Please consider using JagTag for all your patient education needs. Source: [facility] POWERCHART Document Id: [id number] Lela Smith R.N. - 05/19/2013 7:30 AM CDT ED Depart Summary [facility] Emergency Department Clinical Discharge Summary PERSON INFORMATION Name EMANUEL MCMAHAN Age 52 Years 1960 12:00 AM Sex Male Language Urdu PCP GOOD LOPEZ MD Marital Status Single N [id number] Visit Id Visit Reason Abdominal pain; SOB Specialty Enc Type Emergency Med Service Emergency Medicine Referred by Track Group [facility] ED/UC Discharge 05/19/2013 7:26 AM Tracking Id [id number] Checkout 05/19/2013 7:26 AM Checkin 05/19/2013 6:02 AM Acuity 2 -Emergent Dispo Type * Discharged to Home or Self Care Arrival 05/19/2013 6:02 AM Reg Status Complete LOS 000 01:24 Address: [address] [place] [phone] Comment: PROVIDER INFORMATION Provider Role Assigned Unassigned KAL GREENE PA-C ED Provider 05/19/2013 6:09 AM YONNY VIGIL CUSTOMER SUPPORT SPECIALIST Nurse 05/19/2013 6:14 AM 05/19/2013 6:14 AM YONNY VIGIL CUSTOMER SUPPORT SPECIALIST Nurse 05/19/2013 6:14 AM DIAGNOSIS Constipation 564.00 Comment: PATIENT EDUCATION INFORMATION Instructions: CONSTIPATION (Adult) Follow up: With: Address: When: GOOD LOPEZ [address] [place] [address] [facility] () Within As Needed Comments: Source: [facility] POWERCHART Document Id: [id number] documented in this encounter Medications at Time [...] ALCAZAR RN - 05/19/2013 7:29 CDT Source: [employer] Document Id: [id number] CDT!8 Lela Smith R.N. - 05/19/2013 7:29 AM CDT ED Pain Assessment ED Pain Assessment Entered On: 05/19/2013 7:29 CDT Performed On: 05/19/2013 7:29 CDT by LELA ALCAZAR RN Pain Assessment Pain Symptoms : No LELA ALCAZAR RN - 05/19/2013 7:29 CDT Source: [employer] Document Id: [id number] CDT!3 Yonny Vigil M.S.N., R.N. - 05/19/2013 [...] Response Vick : Spontaneously Best Verbal Response Dixon : Oriented Best Motor Response Dixon : Obeys simple commands Vick Coma Score [...] VIGIL RN - 05/19/2013 7:19 CDT Source: [employer] Document Id: [id number] CDT!42 Yonny Vigil M.S.N., R.N. - 05/19/2013 [...] VIGIL RN - 05/19/2013 6:59 CDT Source: [facility] Jetlore Document Id: [id number] CDT!8 Yonny Vigil M.S.N., R.N. - 05/19/2013 [...] PNED ; Probability: 0 ; Diagnosis Code: [id number] Triage Chief Complaint Description : Pt C/O abd pain; gaurding abd and states he woke up nauseated this am.Pt stated it has been a couple days since last BM and he feels bloated and backed up. Information Given By : Patient Accompanied By : Alone Mode of Arrival ED : Private vehicle Track : Medical Languages : Urdu Vital Signs Assessed : Yes GCS Assessed [...] YONNY VIGIL RN - 05/19/2013 6:55 CDT Dixon Coma Eye Opening Response Dixon : Spontaneously Best Verbal Response Dixon : Oriented Best Motor Response Dixon : Obeys simple commands Vick Coma Score : 15 YONNY VGIIL RN - 05/19/2013 6:55 CDT Pain Assessment [...] CDT DCP GENERIC CODE Tracking Group : [facility] ED/UC Tracking Acuity : 2 -Emergent [...] Domestic Abuse Concerns : None YONNY VIGIL Kyele LUCIA - 05/19/2013 6:55 CDT Gastrointestinal Nutrition [...] Kylee LUCIA - 05/19/2013 6:55 CDT Source: [employer] Document Id: [id number] CDT!85 Lalitha Caicedo P.A.-C. - 05/19/2013 6:09 [...] selected or recorded. Surgical history: . Colonoscopy ([id number]) in 2010 at 50 Years. Family history: [...] Stable. Disposition: Discharged: to home. Prescriptions: Prescription Wire Welder, Pharmacy: [facility] 100 mg oral capsule (Prescribe): 100 mg, 1 cap(s), PO, 2xDay, 60 cap(s)Prescription Wire Welder. Pharmacy: MiraLax oral powder for reconstitution (Prescribe): [...] GREENE PA-C On: 05/19/2013 07:30 AM Source: [facility] NewsCraftedCHART Document Id: [id number]} documented in this encounter Miscellaneous Notes Miscellaneous - Lela Smith R.N. - 05/19/2013 7:29 AM CDT Valuables/Belongings Valuables/Belongings Entered On: 05/19/2013 7:29 CDT Performed On: 05/19/2013 7:29 CDT by LELA ALCAZAR RN Valuables/Belongings Room Orientation/Facility Policy Reviewed : Yes Home Medication Disposition : None brought in with patient LELA ALCAZAR RN - 05/19/2013 7:29 CDT Source: [facility] Jetlore Document Id: [id number] CDT!4 Miscellaneous - Lela Smith R.N. - 05/19/2013 6:02 AM CDT Facility Charge Ticket Facility Charge Ticket Entered On: 05/19/2013 7:29 CDT Performed On: 05/19/2013 6:02 CDT by LELA ALCAZAR RN Facility Charge Lynx Mode of Arrival Interpreted : Standard Lynx Total Points with Diagnosis Control : 7 Lynx Visit Level : 18183 Level 3 BON PALU - 05/23/2013 15:13 CDT TVL Level Translated RTF : Abdominal pain TVL:4 TVL Level for Facility Charge Ticket : Level 4 Mode of Arrival ED : Private vehicle Lynx Process Management : None Lynx Order Management : None 30 Minutes Critical Care : No Nursing Notes RTF : Nursing Notes ED Primary Assessment,05/19/13 06:14,YONNY VIGIL CUSTOMER SUPPORT SPECIALIST Nurse Reassess,05/19/13 07:15,YONNY VIGIL RN ED Pain Assessment,05/19/13 07:29,LELA ALCAZAR RN Lynx Nursing Assessment : Triage and 1-2 nursing assessments Disposition RTF : discharge Lynx Disposition : Discharge LELA ALCAZAR RN - 05/19/2013 7:29 CDT Source: [employer] Document Id: [id number] CDT!5 documented in this encounter Plan of Treatment Not on filedocumented as of this encounter Visit Diagnoses Not on filedocumented in this encounter
--- OUTSIDE RECORDS SUMMARY | 2022-09-28 16:22 | XMS_ITS | Encounter Summary ---
:1960 Author Organization [facility] Address [address] [place] [address] Care Team Providers Name Role Phone Unavailable Primary Care Provider Unavailable Encounter Details Date Type Department Care Team Description 12/14/2010 Hospital Encounter HX [facility] Brett Gaytan M.D. [address] [place] [address] (Wo rk) Social History Tobacco Use Types [...] do you attend christian or Never 2021 mormonism services? Do you [...]
--- OUTSIDE RECORDS SUMMARY | 2022-09-28 16:22 | XMS_ITS | Encounter Summary ---
:1960 Author Organization [facility] Address [address] [place] [address] Care Team Providers Name Role Phone Unavailable Primary Care Provider Unavailable Encounter Details Date Type Department Care Team Description 03/21/2011 Hospital Encounter HX [facility] Brett Gaytan M.D. [address] [place] [address] (Wo rk) Social History Tobacco Use Types [...] do you attend yarsani or Never 2021 orthodox services? Do you belong to any [...]
--- OUTSIDE RECORDS SUMMARY | 2022-09-28 16:22 | XMS_ITS | Encounter Summary ---
:1960 Author Organization [facility] Address [address] [place] [address] Care Team Providers Name Role Phone Unavailable Primary Care Provider Unavailable Encounter Details Date Type Department Care Team Description 08/12/2013 Hospital Encounter HX [facility] Renato Tejeda M.D . [address] [place] [phone] (Wo rk) Social History Tobacco Use [...] you attend roman catholic or Never 2021 pentecostal services? Do you [...] GERARD LPN - 08/12/2013 16:34 CDT [facility] POWERCHART Document Id: [id number] CDT!7 Miscellaneous - Homero Gerard L.P.N. - [...] GERARD LPN - 08/12/2013 16:34 CDT Source: [employer] Document Id: [id number] CDT!7 Miscellaneous - Homero Gerard L.P.N. - [...] GERARD LPN - 08/12/2013 16:33 CDT Source: [employer] Document Id: [id number] CDT!7 Miscellaneous - Homero Gerard L.P.N. - [...] GERARD LPN - 08/12/2013 16:32 CDT Source: [employer] Document Id: [id number] CDT!7 documented in this encounter Plan of Treatment Not on filedocumented as of this encounter Visit Diagnoses Not on filedocumented in this encounter
--- OUTSIDE RECORDS SUMMARY | 2022-09-28 16:22 | XMS_ITS | Encounter Summary ---
:[address] [facility] Address [address] [place] [address] Care Team Providers Name Role Phone Unavailable Primary Care Provider Unavailable Encounter Details Date Type Department Care Team Description 03/13/2008 Hospital Encounter HX NO MAPPING Arjun Gaytan M.D. [address] [place] [address] (Wo rk) Social History Tobacco Use Types [...] do you attend mandaeism or Never 2021 church services? Do you [...] Gaytan M.D. - 03/13/2008 12:00 [place] [address] Name: EMANUEL MCMAHAN MR#: [id number] : [birth year] Dictating Provider: Arjun Gaytan MD [...] mg daily. This was called in to [email or web address], 30 tablets with a refill. Also [...] 18:04:30 Authorized physician signature on file Doc#: [id number] [facility] NAME: EMANUEL MCMAHAN [facility] MR#: [id number] [place] [address] : 1960 PHYSICIAN: Arjun Gaytan MD VISIT DATE: 03/13/2008 CLINIC PROGRESS NOTE [facility] Name: EMANULE MCMAHAN [facility] PROGRESS NOTE Source: [facility] ISJHXDICTAPHONESYS Document Id: [id number] documented in this encounter Plan of Treatment Not on filedocumented as of this encounter Visit Diagnoses Not on filedocumented in this encounter
--- OUTSIDE RECORDS SUMMARY | 2022-09-28 16:22 | XMS_ITS | Encounter Summary ---
:1960 Author Organization [facility] Address [address] [place] [address] Care Team Providers Name Role Phone Unavailable Primary Care Provider Unavailable Encounter Details Date Type Department Care Team Description 01/15/2009 Hospital Encounter HX NO MAPPING Arjun Gaytan M.D. [address] [place] [address] (Wo rk) Social History Tobacco Use Types [...] do you attend gnosticist or Never 2021 caodaism services? Do you [...] Gaytan M.D. - 01/15/2009 12:[place] [address] Name: EMANUEL MCMAHAN MR#: [id number] : [birth year] Dictating Provider: Arjun Gaytan MD [...] up right now. He has tried some jzxh-ubx-uitpeti cough drops. PAST MEDICAL HISTORY: Reactive airway [...] a refill. This was called in to [facility]. Also Robitussin with codeine 240 ml, [...] add that back for him. DRS:loni Doc#: [id number] Authenticated by Arjun Gaytan MD on 01/18/2009 14:31:30 Authorized physician signature on file [facility] NAME: MUNA EMANUEL L [facility] MR#: [id number] [place] [address] : 1960 PHYSICIAN: Arjun Gaytna MD VISIT DATE: 01/15/2009 [facility] PROGRESS NOTE [facility] Name: EMANUEL MCMAHAN [facility] PROGRESS NOTE Source: [facility] ISJHXDICTAPHONESYS Document Id: [id number] documented in this encounter Plan of Treatment Not on filedocumented as of this encounter Visit Diagnoses Not on filedocumented in this encounter
--- OUTSIDE RECORDS SUMMARY | 2022-09-28 16:22 | XMS_ITS | Encounter Summary ---
:1960 Author Organization [facility] Address [address] [place] [address] Care Team Providers Name Role Phone Unavailable Primary Care Provider Unavailable Encounter Details Date Type Department Care Team Description 02/01/2012 Hospital Encounter HX [facility] Brett Gaytan M.D. [address] [place] [address] (Wo rk) Social History Tobacco Use Types [...] do you attend anabaptist or Never 2021 sikh services? Do you [...]
--- OUTSIDE RECORDS SUMMARY | 2022-09-28 16:22 | XMS_ITS | Encounter Summary ---
:1960 Author Organization [facility] Address [address] [place] [address] Care Team Providers Name Role Phone Unavailable Primary Care Provider Unavailable Encounter Details Date Type Department Care Team Description 04/15/2014 Hospital Encounter HX [facility] Satinder Rizo M.D. [address] [place] [address] (Wo rk) Social History Tobacco [...] do you attend baptism or Never 2021 taoism services? Do you [...] hy-Tandem Mass Spectrometry (LC-MS/MS). Test Performed by: [address] [address] Slice Cutting Machine Operator Helper: Jake martinez III, M.D. Specimen Anatomical Collection [...]
--- OUTSIDE RECORDS SUMMARY | 2022-09-28 16:22 | XMS_ITS | Encounter Summary ---
:[address] [facility] Address [address] [place] [address] Care Team Providers Name Role Phone Unavailable Primary Care Provider Unavailable Encounter Details Date Type Department Care Team Description 11/12/2007 Hospital Encounter HX [facility] Satinder Rizo M.D. [address] [place] [address] (Wo rk) Social History Tobacco [...] do you attend anabaptist or Never 2021 anabaptist services? Do you [...]
--- OUTSIDE RECORDS SUMMARY | 2022-09-28 16:22 | XMS_ITS | Encounter Summary ---
:1960 Author Organization [facility] Address [address] [place] [address] Care Team Providers Name Role Phone Unavailable Primary Care Provider Unavailable Encounter Details Date Type Department Care Team Description 08/04/2013 Hospital Encounter HX [facility] Arjun Rice M.D. [address] [place] [address] (Wo rk) Social History Tobacco Use Types [...] do you attend episcopalian or Never 2021 baptist services? Do you [...] Lopez M.D. 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 Gets very little exercise. Tries to eat [...] We will continue the montelukast and the bmxx-tfb-hpntebb fexofenadine. He has not had real relief [...] LOPEZ MD On: 08/15/2013 04:56 PM Source: [facility] MHSDOLBEYNONRADSYS Document Id: [id number] documented in this encounter Miscellaneous Notes Miscellaneous - Arjun Lopez M.D. - 08/04/2013 4:24 PM CDT Ambulatory Patient Summary [address] [address] Visit Information Name: EMANUEL MCMAHAN [facility] Number: [id number] Current Date: 08/04/2013 16:24:45 Physicians [...] 140/85. Bring your cuff with you. Source: [facility] POWERCHART Document Id: [id number] Miscellaneous - Arjun Lopez M.D. - 08/04/2013 4:24 PM CDT Ambulatory Depart Summary [address] [address] Visit Information Name: EMANUEL MCMAHAN [facility] Number: [id number] Visit Date: 08/04/2013 16:24:44 Attending [...] your provider for clarification. Additional Information: Source: [facility] POWERCHART Document Id: [id number] Miscellaneous - Pam Gardiner, L.P.N. - 08/04/2013 [...] GARDINER LPN - 08/04/2013 16:19 CDT Source: [employer] Document Id: [id number] CDT!27 Miscellaneous - Pam Gardiner L.P.N. - 08/04/2013 3:55 PM CDT Quality Measures Quality Measures Entered On: 08/04/2013 15:57 CDT Performed On: 08/04/2013 15:55 CDT by PAM GARDINER LPN BP/Tobacco/Misc Systolic Blood Pressure : 132 mmHg Diastolic Blood Pressure : 96 mmHg (>HHI) PAM GARDINER LPN - 08/04/2013 15:55 CDT Source: [employer] Document Id: [id number] CDT!4 Miscellaneous - Pam Gardiner L.P.N. - 08/04/2013 3:50 PM CDT Adult Special Delivery Messenger Intake/History Adult Special Delivery Messenger Intake/History Entered On: 08/04/2013 15:55 CDT Performed [...] Mass Index : 27.58 kg/m2 PAM GARDINER [facility] 08/04/2013 15:50 CDT General Info Information Given By : Patient Languages : Icelandic PAM GARDINER [facility] 08/04/2013 15:50 CDT Subjective Pain Symptoms : Yes PAM GARDINER [facility] 08/04/2013 15:50 CDT Pain Pain Assessment Grid Pain 1 Location : Shoulder (Comment: spasms like [PAM GARDINER [facility] - 08/04/2013 15:50 CDT] ) Laterality : Right PAM GARDINER [facility] 08/04/2013 15:50 CDT Dependent Habits Tobacco Use/Currently Using : No Exposure to Tobacco Smoke : Other: never Smoking Status : Never smoker PAM GARDINER [facility] 08/04/2013 15:50 CDT Tobacco Use Grid Last Use : never PAM GARDINER [facility] 08/04/2013 15:50 CDT Caffeine Use Grid Caffeine Use : Current Type : Soft drinks PAM GARDINER [facility] 08/04/2013 15:50 CDT Source: [employer] Document Id: [id number] CDT!36 documented in this encounter Plan of Treatment Not on filedocumented as of this encounter Visit Diagnoses Not on filedocumented in this encounter
--- OUTSIDE RECORDS SUMMARY | 2022-09-28 16:22 | XMS_ITS | Encounter Summary ---
:1960 Author Organization [facility] Address [address] [place] [address] Care Team Providers Name Role Phone Unavailable Primary Care Provider Unavailable Encounter Details Date Type Department Care Team Description 02/21/2011 Hospital Encounter [facility] Satinder Rizo M.D. [address] [place] [address] (Wo rk) Social History Tobacco [...] do you attend sikh or Never 2021 advent services? Do you [...]
--- OUTSIDE RECORDS SUMMARY | 2022-09-28 16:22 | XMS_ITS | Encounter Summary ---
:1960 Author Organization [facility] Address [address] [place] [address] Care Team Providers Name Role Phone Unavailable Primary Care Provider Unavailable Encounter Details Date Type Department Care Team Description 11/18/2009 Hospital Encounter HX [facility] Arjun Rice M.D. [address] [place] [address] (Wo rk) Social History Tobacco Use Types [...] do you attend yazdanism or Never 2021 temple services? Do you [...] Henna Minaya. Preventative maintenance discussed. DRS:mariaa Doc#: [id number] Electronically Signed By:ARJUN LOPEZ MD On 11/25/2009 12:38 pm Modified by:ARJUN LOPEZ MD On 11/25/2009 12:38 pm Source: [facility] ISJDICTAPHONESYS Document Id: [id number] [facility] documented in this encounter Miscellaneous Notes Miscellaneous - Arjun Lopez M.D. - 11/18/2009 2:31 PM CST Ambulatory Depart Summary [facility] [place] [address] Visit Information Name: EMANUEL MCMAHAN Current Date: [...] medications, and list given to patient. Source: [facility] POWERCHART Document Id: [id number] Electronically signed by Janell [facility] Center[facility] Telemarketing Agent [id number] at 03/25/2017 11:11 PM CDT Miscellaneous - Desiree Calderon, L.P.N. - 11/18/2009 2:04 PM CST Adult Exchange Engineer Intake/History Adult Exchange Engineer Intake/History Entered On: 11/18/2009 14:08 MANAGER HOSPICE Performed On: 11/18/2009 14:04 MANAGER HOSPICE by DESIREE CALDERON SPARK PLUG TESTER Intake Chief Complaint: needs medication refills also [...] DESIREE CALDERON Reba ALAN - 11/18/2009 14:04 MANAGER HOSPICE Subjective Pain Symptoms: Yes CALDERON DESIREE Britton LPN - 11/18/2009 14:04 MANAGER HOSPICE Pain Pain Assessment Grid Pain 1 Location: Lower back (Comment: also legs [DESIREE CALDERON LPN - 11/18/2009 14:04 MANAGER HOSPICE] ) Laterality: Bilateral Intensity: 4 DESIREE CALDERON SPARK PLUG TESTER - 11/18/2009 14:04 MANAGER HOSPICE Dependent Habits Tobacco Use/Currently Using: No DESIREE CALDERON LPN - 11/18/2009 14:04 MANAGER HOSPICE Alcohol Use Grid Alcohol Use: None DESIREE CALDERON LPN - 11/18/2009 14:04 MANAGER HOSPICE Allergies Allergies (Active) NKA Estimated Onset Date: Unspecified ; Created By: HOMERO GAN LPN; Reaction Status: Active ; Category: Drug ; Substance: NKA ; Type: Allergy ; Updated By: HOMERO GAN LPN; Reviewed Date: 11/18/2009 13:56 MANAGER HOSPICE Source: [facility] [employer] PartnersCHART Document Id: [id number] MANAGER HOSPICE!28 [facility] Miscellaneous - Arjun Lopez M.D. - 11/18/2009 1:50 PM CST CL November 18, 2009 EMANUEL Hernandez [address] [place] [address] [facility] Patient Number: [id number] Dear Mr. Mcmahan: I received your laboratory [...] to contact me. Sincerely, Arjun Lopez MD [facility] DRS:juan Doc#: [id number] Source: [facility] ISJDICTAPHONESYS Document Id: [id number] [facility] documented in this encounter Plan of Treatment Not on filedocumented as of this encounter Visit Diagnoses Not on filedocumented in this encounter
--- OUTSIDE RECORDS SUMMARY | 2022-09-28 16:22 | XMS_ITS | Encounter Summary ---
:1960 Author Organization [facility] Address [address] [place] [address] Care Team Providers Name Role Phone Unavailable Primary Care Provider Unavailable Encounter Details Date Type Department Care Team Description 12/19/2010 Hospital Encounter HX [facility] Arjun Rice M.D. [address] [place] [address] (Wo rk) Social History Tobacco Use Types [...] you attend latter day or Never 2021 buddhist services? Do you belong to any clubs [...] orders left in the clinic lab in [facility]. Will also look at ALT at that time. If his cholesterol is coming down and he is tolerating the niacin, will try him back off the TriCor. Currently continuing with atorvastatin for the time being. Will also consider a colonoscopy. This will be sent over to [facility] as he is hoping to have the study done on Sunday. Questionnaire was filled out. DustinEVELINA was sent over to [facility] as well. Tetanus was taken care of in 2002. No interest in a flu shot. DRS:justine/kellen Doc#: [id number] cc: MD Lalitha Li M.D. Electronically Signed By: ARJUN LOPEZ MD On: 12/23/2010 03:53 Source: [facility] ISJDICTAPHONESYS Document Id: [id number] TRICIAN SUPERVISOR documented in this encounter Miscellaneous Notes Miscellaneous - Arjun Lopez M.D. - 12/19/2010 3:16 PM CST Ambulatory Patient Summary [address] [address] Visit Information Name: EMANUEL MCMAHAN Current Date: [...] Appointments found Your Goals/Additional instructions: Source: [facility] POWERCHART Document Id: [id number] Electronically signed by Janell [facility] Financial Systems Manager [id number] at 03/25/2017 11:57 AM CDT Miscellaneous - Arjun Lopez M.D. - 12/19/2010 3:16 PM CST Ambulatory Depart Summary [facility] - [address] [address] Visit Information Name: EMANUEL MCAMHAN Current Date: 12/19/2010 15:16:09 Primary Care Provider: [...] the patient and/or family, guardian/caregiver. Source: [facility] POWERCHART Document Id: [id number] Electronically signed by Janell [facility] Financial Systems Manager [id number] at 03/25/2017 11:57 AM CDT Miscellaneous - Desiree Calderon, L.P.N. - 12/19/2010 2:34 PM CST Adult Blood Collector Intake/History Adult Blood Collector Intake/History Entered On: 12/19/2010 14:37 ELECTRICIAN SUPERVISOR Performed On: 12/19/2010 14:34 ELECTRICIAN SUPERVISOR by DESIREE CALDERON LPN Intake Chief Complaint: [...] 78.20kg DESIREE CALDERON LPN - 12/19/2010 14:34 ELECTRICIAN SUPERVISOR Subjective Pain Symptoms: Yes DESIREE CALDERON LPN - 12/19/2010 14:34 ELECTRICIAN SUPERVISOR Pain Pain Assessment Grid Pain 1 Location: Head Laterality: Bilateral Intensity: 5 DESIREE CALDERON LPN - 12/19/2010 14:34 ELECTRICIAN SUPERVISOR Dependent Habits Tobacco Use/Currently Using: No DESIREE CALDERON LPN - 12/19/2010 14:34 ELECTRICIAN SUPERVISOR Caffeine Use Grid Caffeine Use: Current Type: Soft drinks DESIREE CALDERON LPN - 12/19/2010 14:34 ELECTRICIAN SUPERVISOR Allergies Allergies (Active) NKA Estimated Onset Date: Unspecified ; Created By: HOMERO GAN LPN; Reaction Status: Active ; Category: Drug ; Substance: NKA ; Type: Allergy ; Updated By: HOMERO GAN LPN; Reviewed Date: 12/19/2010 14:34 ELECTRICIAN SUPERVISOR Source: [facility] [employer]CHART Document Id: [id number] ELECTRICIAN SUPERVISOR!26 TRICIAN SUPERVISOR documented in this encounter Plan of Treatment Not on filedocumented as of this encounter Visit Diagnoses Not on filedocumented in this encounter
--- OUTSIDE RECORDS SUMMARY | 2022-09-28 16:22 | XMS_ITS | Encounter Summary ---
:1960 Author Organization [facility] Address [address] [place] [address] Care Team Providers Name Role Phone Unavailable Primary Care Provider Unavailable Encounter Details Date Type Department Care Team Description 07/17/2012 - Hospital Encounter HX [facility] Dianna Ramsay PT, 12/02/2012 N.P., R.N. [address] [place], [place] [address] (Wo rk) Social History Tobacco [...] do you attend worship or Never 2021 anabaptist services? Do you [...]
--- OUTSIDE RECORDS SUMMARY | 2022-09-28 16:22 | XMS_ITS | Encounter Summary ---
:1960 Author Organization [facility] Address [address] [place] [address] Care Team Providers Name Role Phone Unavailable Primary Care Provider Unavailable Encounter Details Date Type Department Care Team Description 05/06/2010 Hospital Encounter HX [facility] Arjun Rice M.D. [address] [place] [address] (Wo rk) Social History Tobacco Use Types [...] do you attend hinduism or Never 2021 mu-ism services? Do you [...] 10 days, this was sent over to [facility]. If he is not having any good improvement will follow back up with Dr. Rizo, otherwise he will visit with Dr. Rizo in November 2010. DRS:sarah Doc#: [id number] Cc: Tanner Rizo MD Electronically Signed By:ARJNU LOPEZ MD On 05/12/2010 11:47 PM Source: [facility] ISJDICTAPHONESYS Document Id: [id number] documented in this encounter Miscellaneous Notes Miscellaneous - Arjun Lopez M.D. - 05/06/2010 3:54 PM CDT Ambulatory Depart Summary [facility] - [address] [address] Visit Information Name: EMANUEL MCMAHAN Current Date: [...] to the patient and/or family, guardian/caregiver. Source: [facility] [email or web address] Document Id: [id number] Electronically signed by Janell, [facility] Special Delivery Mail Carrier [id number] at 03/26/2017 2:40 AM CDT Miscellaneous - Conversion, Historical Provider Ser - 05/06/2010 3:34 PM CDT Ambulatory Vitals Height Weight Ambulatory Vitals Height Weight Entered On: 05/06/2010 15:35 CDT Performed On: 05/06/2010 15:34 CDT by BON SEVERINO LPN Vital Signs Systolic Blood Pressure: 124mmHg Diastolic Blood Pressure: 82mmHg NIBP Mean: 96mmHg BP Location: Left upper extremity BON SEVERINO LPN - 05/06/2010 15:34 CDT Source: [facility] POWERCHART Document Id: [id number] CDT!6 Miscellaneous - Conversion, Historical Provider Ser - 05/06/2010 3:30 PM CDT Adult Rn Document Improvement Intake/History Adult Rn Document Improvement Intake/History Entered On: 05/06/2010 15:34 CDT Performed [...] LPN; Reviewed Date: 05/06/2010 15:28 CDT Source: [facility] POWERCHART Document Id: [id number] CDT!22 documented in this encounter Plan of Treatment Not on filedocumented as of this encounter Visit Diagnoses Not on filedocumented in this encounter
--- OUTSIDE RECORDS SUMMARY | 2022-09-28 16:22 | XMS_ITS | Encounter Summary ---
:1960 Author Organization [facility] Address [address] [place] [address] Care Team Providers Name Role Phone Unavailable Primary Care Provider Unavailable Encounter Details Date Type Department Care Team Description 08/01/2013 Hospital Encounter [facility]X [facility] Brett Gaytan M.D. [address] [place] [address] (Wo rk) Social History Tobacco Use Types [...] do you attend yazidi or Never 2021 confucianist services? Do you belong to any clubs [...] M.D. LAB BLOOD ADD-ON Performing Organization Address City/[facility] Code Phon [...] (ABNORMAL) Lipid Panel (08/01/2013 4:10 PM CDT) [facility] gist Method Time Signature Cholesterol, 223.0 [...]
--- OUTSIDE RECORDS SUMMARY | 2022-09-28 16:22 | XMS_ITS | Encounter Summary ---
:1960 Author Organization [facility] Address [address] [place] [address] Care Team Providers Name Role Phone Unavailable Primary Care Provider Unavailable Encounter Details Date Type Department Care Team Description 12/27/2009 Hospital Encounter HX [facility] Satinder Rizo M.D. [address] [place] [address] (Wo rk) Social History Tobacco [...] do you attend samaritan or Never 2021 zoroastrianism services? Do you [...]
--- OUTSIDE RECORDS SUMMARY | 2022-09-28 16:22 | XMS_ITS | Encounter Summary ---
:[address] [facility] Address [address] [place] [address] Care Team Providers Name Role Phone Unavailable Primary Care Provider Unavailable Encounter Details Date Type Department Care Team Description 09/02/2008 Hospital Encounter HX NO MAPPING Darrius Dash M .D. [address] [place] [address] Social History Tobacco Use Types [...] or relatives? How often do you attend mosque or Never 2021 quaker services? Do you belong to any clubs or Yes 04/20/2022 organizations such as mosque groups, unions, fraternal or athletic groups, or [...] Dash M.D. - 09/02/2008 12:00 [place] [address] Name: EMANUEL MCMAHAN MR#: [id number] : [birth year] Dictating Provider: Darrius Dash MD [...] 20:02:36 Authorized physician signature on file Doc#: [id number] [facility] NAME: EMANUEL MCMAHAN [facility] MR#: [id number] [place] [address] : 1960 PHYSICIAN: Darrius Dash MD VISIT DATE: 09/02/2008 [facility] PROGRESS NOTE [facility] Name: EMANUEL MCMAHAN [facility] PROGRESS NOTE Source: [facility] ISJHXDICTAPHONESYS Document Id: [id number] Electronically signed by Janell [facility] Locker Room Attendant [id number] at 03/26/2017 2:05 AM CDT documented in this encounter Plan of Treatment Not on filedocumented as of this encounter Visit Diagnoses Not on filedocumented in this encounter
--- OUTSIDE RECORDS SUMMARY | 2022-09-28 16:22 | XMS_ITS | Encounter Summary ---
:1960 Author Organization [facility] Address [address] [place] [address] Care Team Providers Name Role Phone Unavailable Primary Care Provider Unavailable Encounter Details Date Type Department Care Team Description 04/04/2013 Hospital Encounter [facility]X [facility] Satinder Rizo M.D. [address] [place], [place] [address] (Wo rk) Social History Tobacco [...] do you attend restorationist or Never 2021 synagogue services? Do you [...] hy-Tandem Mass Spectrometry (LC-MS/MS). Test Performed by: [place] [address] Oil Gas And Pipe Tester: Jake martinez III, M.D. Specimen (Source) Anatomical Collection Method Collection Time Re ceived Time Location / / Volume Laterality Blood 04/04/2013 4:34 PM CDT Tanner Rizo M.D. LAB BLOOD NON ADD-ON Performing Organization Address City/State/ZIP Code Phon e Number POWERCHART documented in this encounter Visit Diagnoses Not on filedocumented in this encounter
--- OUTSIDE RECORDS SUMMARY | 2022-09-28 16:23 | XMS_ITS | Encounter Summary ---
:1960 Author Organization [facility] Address [address] [place] [address] Care Team Providers Name Role Phone Unavailable Primary Care Provider Unavailable Encounter Details Date Type Department Care Team Description 09/18/2006 Hospital Encounter HX [facility] Satinder Rizo M.D. [address] [place] [address] (Wo rk) Social History Tobacco [...] or relatives? How often do you attend sabianism or Never 2021 congregation services? Do you belong to any clubs or Yes 04/20/2022 organizations such as sabianism groups, unions, fraternal or athletic groups, or [...]
--- OUTSIDE RECORDS SUMMARY | 2022-09-28 16:23 | XMS_ITS | Encounter Summary ---
:1960 Author Organization [facility] Address [address] [place] [address] Care Team Providers Name Role Phone Unavailable Primary Care Provider Unavailable Encounter Details Date Type Department Care Team Description 01/24/2006 Hospital Encounter [facility]X [facility] Dianna Umanzor, N.P., R.N. [address] [place], [place] [address] (Wo rk) Social History Tobacco [...] do you attend spiritism or Never 2021 samaritan services? Do you [...]
--- OUTSIDE RECORDS SUMMARY | 2022-09-28 16:23 | XMS_ITS | Encounter Summary ---
:1960 Author Organization [facility] Address [address] [place] [address] Care Team Providers Name Role Phone Unavailable [...] do you attend buddhist or Never 2021 christianity services? Do you belong to any clubs [...]
--- OUTSIDE RECORDS SUMMARY | 2022-09-28 16:23 | XMS_ITS | Encounter Summary ---
:1960 Author Organization [facility] Address [address] [place] [address] Care Team Providers Name Role Phone Unavailable Primary Care Provider Unavailable Encounter Details Date Type Department Care Team Description 07/04/2006 Hospital Encounter HX NO MAPPING Elsa Murphy ra, M.D. [address] [place] [address] (Wo rk) Social History Tobacco Use Types [...] do you attend gnosticism or Never 2021 shinto services? Do you [...]
--- OUTSIDE RECORDS SUMMARY | 2022-09-28 16:23 | XMS_ITS | Encounter Summary ---
:1960 Author Organization [facility] Address [address] [place] [address] Care Team Providers Name Role Phone Unavailable Primary Care Provider Unavailable Encounter Details Date Type Department Care Team Description 10/30/2005 Hospital Encounter [facility] Dianna Umanzor, N.P., R.N. [address] [place], [place] [address] (Wo rk) Social History Tobacco [...] do you attend hoahaoism or Never 2021 gnosticist services? Do you belong to any clubs [...]
--- OUTSIDE RECORDS SUMMARY | 2022-09-28 16:23 | XMS_ITS | Encounter Summary ---
:1960 Author Organization [facility] Address [address] [place] [address] Care Team Providers Name Role Phone Unavailable Primary Care Provider Unavailable Encounter Details Date Type Department Care Team Description 10/08/2006 Hospital Encounter HX [facility] Henry Damon M.D. [address] [place] [address] (Wo rk) Social History Tobacco Use Types [...] do you attend yazdanism or Never 2021 roman catholic services? Do [...]
--- OUTSIDE RECORDS SUMMARY | 2022-09-28 16:23 | XMS_ITS | Encounter Summary ---
:1960 Author Organization [facility] Address [address] [place] [address] Care Team Providers Name Role Phone Unavailable Primary Care Provider Unavailable Encounter Details Date Type Department Care Team Description 01/21/2007 Hospital Encounter HX NO MAPPING Elsa Murphy ra, M.D. [address] [place] [address] (Wo rk) Social History Tobacco Use Types [...] do you attend shinto or Never 2021 jain services? Do you belong to any clubs [...] M.D. - 01/21/2007 12:00 AM CD[place] [address] Name: EMANUEL MCMAHAN MR#: [id number] : [birth year] Dictating Provider: Nolvia Murphy MD [...] indicated. He will need a prescription at [facility]. Nolvia Murphy MD /[facility] Authenticated by Nolvia Murphy MD on 01/22/2007 13:24:36 Authorized physician signature on file [facility] NAME: EMANUEL MCMAHAN [facility] MR#: [id number] [place] [address] : 1960 PHYSICIAN: Nolvia Murphy MD VISIT DATE: 01/21/2007 CLINIC PROGRESS NOTE [facility] Name: EMANUEL MCMAHAN [facility] PROGRESS NOTE Source: [facility] ISJHXDICTAPHONESYS Document Id: [id number] documented in this encounter Plan of Treatment Not on filedocumented as of this encounter Visit Diagnoses Not on filedocumented in this encounter
--- OUTSIDE RECORDS SUMMARY | 2022-09-28 16:23 | XMS_ITS | Encounter Summary ---
:1960 Author Organization [facility] Address [address] [place] [address] Care Team Providers Name Role Phone Unavailable Primary Care Provider Unavailable Encounter Details Date Type Department Care Team Description 07/30/2007 Hospital Encounter HX NO MAPPING Elsa Murphy ra, M.D. [address] [place] [address] (Wo rk) Social History Tobacco Use Types [...] do you attend holiness or Never 2021 faith services? Do you [...] encounter Progress Notes Nolvia Murphy M.D. - 07/30/2007 12:00 [place] [address] Name: EMANUEL MCMAHAN MR#: [id number] : [birth year] Dictating Provider: Nolvia Murphy MD [...] 08/12/2007 11:27:34 Authorized physician signature on file [facility] NAME: EMANUEL MCMAHAN [facility] MR#: [id number] [place] [address] : 1960 PHYSICIAN: Nolvia Murphy MD VISIT DATE: 07/30/2007 CLINIC PROGRESS NOTE [facility] Name: EMANUEL MCMAHAN [facility] PROGRESS NOTE Source: [facility] ISJHXDICTAPHONESYS Document Id: [id number] Electronically signed by Conversion, [facility] Acting Manager [id number] at 03/26/2017 1:18 PM CDT documented in this encounter Plan of Treatment Not on filedocumented as of this encounter Visit Diagnoses Not on filedocumented in this encounter
--- OUTSIDE RECORDS SUMMARY | 2022-09-28 16:23 | XMS_ITS | Encounter Summary ---
:1960 Author Organization [facility] Address [address] [place] [address] Care Team Providers Name Role Phone Unavailable Primary Care Provider Unavailable Encounter Details Date Type Department Care Team Description 09/10/2007 Hospital Encounter HX NO MAPPING Malini Cannon M.D. [address] [address] [place], [place] [address] (Wo rk) Social History [...] do you attend sabianist or Never 2021 protestant services? Do you belong to any clubs [...] M.D. - 09/10/2007 12:00 [place] [address] Name: EMANUEL MCMAHAN MR#: [id number] : [birth year] Dictating Provider: Latanya Arzola MD [...] any history of asthma. He has tried sfwk-put-xdreqpr medications without relief. O: Vital signs - [...] 09/26/2007 07:49:49 Authorized physician signature on file [facility] NAME: EMANUEL MCMAHAN [facility] MR#: [id number] [place] [address] : 1960 PHYSICIAN: Latanya Arzola MD VISIT DATE: 09/10/2007 CLINIC PROGRESS NOTE [facility] Name: MUNAEMANUEL NOLVIA CLINIC PROGRESS NOTE Source: [facility] ISJHXDICTAPHONESYS Document Id: [id number] Electronically signed by Conversion, [facility] Stoneworking Sander [id number] at 03/26/2017 11:14 AM CDT documented in this encounter Plan of Treatment Not on filedocumented as of this encounter Visit Diagnoses Not on filedocumented in this encounter
--- OUTSIDE RECORDS SUMMARY | 2022-09-28 16:23 | XMS_ITS | Encounter Summary ---
:1960 Author Organization [facility] Address [address] [place] [address] Care Team Providers Name Role Phone Unavailable Primary Care Provider Unavailable Encounter Details Date Type Department Care Team Description 01/03/2006 Hospital Encounter HX NO MAPPING Elsa Murphy ra, M.D. [address] [place] [address] (Wo rk) Social History Tobacco Use Types [...] do you attend faith or Never 2021 amish services? Do you [...]
--- NOTE | 2022-09-28 16:30 | CRLHL7_ITS ---
For Patients: As a result of the Century Cures Act, medical imaging exams and procedure reports are released immediately into your electronic medical record. You may view this report before your referring provider. If you have questions, please contact your health care provider. INDICATION: Hematuria. TECHNIQUE: CT abdomen and pelvis urogram without and with 86 cc Isovue 370 contrast. Contrast images were obtained in the nephrographic and delayed phases. COMPARISON: 11/22/2014. FINDINGS: KIDNEYS/URINARY BLADDER: The unenhanced images demonstrate multiple bilateral renal stones. The stones on the right measure 2-3 millimeters. There are 2-3 millimeter stones within the mid portion and upper pole of the left kidney. A large cluster of stones or single larger stone is present within the lower pole of the left kidney measuring 1.1 cm. The left ureter is distended. The right ureter is normal. There is an oblong stone within the bladder adjacent to the right ureterovesical junction measuring 9 millimeters. Normal renal parenchymal enhancement bilaterally without solid renal mass. Subcentimeter cyst in the upper pole of the left kidney. Normal opacification of the ureters. No evidence of suspicious lesion. Mild prominence of the left renal collecting system. URINARY BLADDER: The urinary bladder is normal in caliber and without evidence of mass, wall thickening, or inflammation. No evidence of bladder mass. OTHER: Prostate calcifications are present. There is no bowel obstruction or free air. No free fluid. Incidental duodenal diverticulum. Pancreas normal. Splenic calcifications. Normal adrenal glands. Gallbladder absent. Fatty liver. Lung bases are clear. Postoperative changes lower lumbar spine. IMPRESSION: 1. Bilateral nephrolithiasis. Large stone or cluster of smaller stones within the lower pole collecting system of the left kidney measuring 1.1 cm. Mild prominence of the left renal collecting system and left ureter without ureteral stone. 2. [place] 9 millimeter stone in the right posterior lateral bladder adjacent to the right UVJ without right-sided hydronephrosis. Please note that all CT scans at this facility use dose modulation, iterative reconstruction, and/or weight-based dosing when appropriate to reduce radiation dose to as low as reasonably achievable. Dictated by Nick Crenshaw MD @ 09/30/2022 9:09:26 AM (Electronically Signed)
== END 2022-09-28 16:15 | disposition home or self-care (01) ==
LOC: CT 16:14
PROVIDERS: PCP Family Medicine; Visit Provider Family Medicine
DX: R31.9 Hematuria, unspecified (principal); N20.0 Calculus of kidney; N21.0 Calculus in bladder
CPT/HCPCS: 74178; Q9967

== ENCOUNTER 2022-10-13 12:29 | Outpatient (CLI) | payer BC, SELFPAY ==
--- NOTE | 2022-10-13 13:00 | CRLHL7_ITS ---
For Patients: As a result of the Century Cures Act, medical imaging exams and procedure reports are released immediately into your electronic medical record. You may view this report before your referring provider. If you have questions, please contact your health care provider. INDICATION: Low back pain. Leg pain. COMPARISON: 09/09/2021. TECHNIQUE: Sagittal T1, T2, and STIR sequences. Axial T1 and T2 weighted sequences. FINDINGS: Stable grade 1 anterolisthesis of L4 on L5 measures approximately 4 mm. Otherwise, normal alignment. No fractures. No vertebral body loss of height. No ligamentous injury. No suspicious osseous lesions. Normal conus terminates at L1. Stable postoperative changes of diskectomy and interbody fusion L4-5 with laminectomy and posterior fusion hardware. T12-L1 L1-2: No spinal canal or neural foraminal narrowing. L2-3: Disc degeneration posterior disc bulge. No narrowing of spinal canal. No neural foraminal narrowing. L3-4: Disc degeneration and diffuse disc bulge eccentric to the left. Moderate narrowing of spinal canal. Left subarticular recess narrowing with potential impingement of the traversing left L4 nerve root. Mild narrowing of the bilateral foramina. L4-5: Disc degeneration. Diffuse disc bulge eccentric to the right. Postoperative changes. No narrowing of spinal canal. Allowing for artifact, there may be mild narrowing of the right neural foramen. No narrowing of the left neural foramen. L5-S1: No spinal canal narrowing. No impingement of the traversing S1 nerve roots. No neural foraminal narrowing. Degenerative changes of visualized SI joints. Normal paraspinal soft tissues. IMPRESSION: 1. Stable grade 1 anterolisthesis of L4 on L5. Otherwise normal alignment. No fractures. 2. Stable postoperative changes L4-5. 3. Lumbar spondylosis. 4. At L3-4, moderate narrowing of the spinal canal. Potential impingement of the traversing left L4 nerve root. Mild narrowing of the bilateral foramina 5. At L4-5, disc degeneration diffuse disc bulge. No narrowing of spinal canal. Mild narrowing of the right neuroforamen. 6. No spinal canal or neural foraminal narrowing at the remaining levels Dictated by Joaquín Roman MD @ 10/13/2022 3:25:01 PM (Electronically Signed)
== END 2022-10-13 12:30 | disposition home or self-care (01) ==
LOC: MRI 12:31
PROVIDERS: PCP Family Medicine; Visit Provider Orthopaedic Surgery Orthopaedic Surgery of the Spine
DX: M54.50 Low back pain, unspecified (principal); M47.896 Other spondylosis, lumbar region; M51.36 Other intervertebral disc degeneration, lumbar region
CPT/HCPCS: 72148

== ENCOUNTER 2023-01-05 15:35 | Outpatient (CLI) | payer BC, SELFPAY ==
--- NOTE | 2023-01-05 15:30 | CRLHL7_ITS ---
For Patients: As a result of the Cures Act, medical imaging exams and procedure reports are released immediately into your electronic medical record. You may view this report before your referring provider. If you have questions, please contact your health care provider. Indication: Stenosis, lumbar with neurogenic claudication Technique: Lumbar spine 3 view, including flexion/extension Comparison: MRI 10/13/2022 IMPRESSION: Postoperative changes of interbody and posterior fusion L4-5. Hardware intact. There is no instability with flexion or extension. Vascular calcifications. Gallbladder absent. No fracture. Dictated by Nick Crenshaw MD @ 01/07/2023 9:35:19 AM (Electronically Signed)
== END 2023-01-05 15:36 | disposition home or self-care (01) ==
LOC: RAD 15:35
PROVIDERS: PCP Family Medicine; Visit Provider Orthopaedic Surgery Orthopaedic Surgery of the Spine
DX: Z01.818 Encounter for other preprocedural examination (principal); I10 Essential (primary) hypertension; E78.5 Hyperlipidemia, unspecified; E11.9 Type 2 diabetes mellitus without complications
CPT/HCPCS: 72110; 80048; 80061

== ENCOUNTER 2023-06-26 10:39 | Outpatient (CLI) | payer OTHER, SELFPAY ==
--- OUTSIDE RECORDS SUMMARY | 2023-06-27 06:19 | XMS_ITS | Continuity of Care Document ---
Author Name Unknown Organization [facility] Address [address] [place] [address] Phone Care Team Providers Care Associate Program Manager Name Role Phone Ani LIN, PhD, [place] Unavailable Unavai lable Allergies, Adverse Reactions, Alerts Substance Reaction Status Criticality No Known Allergies Active No Inform ation Medications Medication Instructions Dosage Effective Dates (start - stop) Status Comments CALCIUM CARBONATE/VITAMIN D3 (unknown strength) Not Available - Active SILDENAFIL CITRATE (unknown strength) Not Available - Active METFORMIN HCL (unknown strength) Not Available - Active FEXOFENADINE HCL (unknown strength) Not Available - Active FISH OIL (unknown strength) Not Available - Active MULTIVITAMINS (unknown strength) Not Available - Active PANTOPRAZOLE SODIUM (unknown strength) Not Available - Active ATORVASTATIN CALCIUM (unknown strength) Not Available - Active DIVALPROEX SODIUM (unknown strength) Not Available - Active MONTELUKAST SODIUM (unknown strength) Not Available - Active PROPRANOLOL-HYDROCHLORO THIAZID (unknown strength) Not Available - Active GABAPENTIN (unknown strength) Not Available - Active TIZANIDINE HCL (unknown strength) Not Available - Active SUMATRIPTAN SUCCINATE (unknown strength) Not Available - Active Procedures Procedure Date Postop Followup Visit Postop Followup Visit TLIF - Includes PSF at the same level - PA LAGUERRE FACETC/FRMT ARTHRD LUM 1 PEEK/ Cage/ Implant, For Interbody Fusio n - PA Posterior Instrumentation, 3-6 Segments - PA TLIF - Includes PSF at the same level Ms LAGUERRE FACETC/FRMT ARTHRD LUM 1 PEEK/ Cage/ Implant, For Interbody Fusio n Autograft, From Same Incision 3 Allograft, Morcelized, and/or BMP Posterior Instrumentation, 3-6 Segments Office/Outpatient Visit,Est, Mod 2021 Office/Outpatient Visit,Est, Low 2021 Office/Outpatient Visit,Est, Mod 2021 Office/Outpatient Visit,Est, Mod 2021 Office/Outpatient Visit,Est, Mod 2020 Office/Outpatient Visit,Est, Mod 2019 Office/Outpatient Visit,Est, Low 2018 Postop Followup Visit Pa Arthdsis Post/Posterolatrl/Postinterb cammie Lumbar Pa Assist Insert Spine Fixation, Posteri or PA Assist Insert interbody cage w/fusion Arthdsis Post/Posterolatrl/Postinterbody Lumbar Insert Spine Fixation, Posterior 2018 Insert interbody cage w/fusion 19 Autograft, Spine Surgery, Local 019 Allograft, Spine Surg, Morselized Office/Outpatient Visit,Est, Mod 2018 Office/Outpatient Visit,New, Mod 2017 Advance Directives Directive Yes / No Effective Date File Name No Information Encounters Encounter Description Practice Location Reason(s) For Visit Diagnoses Date Provider Providers Copied on Encounter [facility], [address], [place], [id number], [place] tel:[phone] [facility] Encounter for other specified surgical aftercare Ani Duncan. [facility] [place], [address] [facility] [address] [address] [place]. tel: [phone] Referring Provider: Dakota Law, [facility] [place] [address], [place], [address]. tel:[phone] [facility], [address], [place], [id number], [place] tel:[phone] [facility] Arthrodesis status Ani Duncan. [facility], [address], [place], [address], [place]. tel:[phone] Referring Provider: Dakota aLw, [facility] [address], [place], [address]. tel:[phone] [facility], [address], [place], [id number], [place] tel:[phone] [facility] No Information Navin Mickey. [facility], [address], [place], [place], [id number] , [place]. tel:[phone] Referring Provider: Dakota Law, [facility] [address], [place], [address]. tel:[phone] [facility], [address], [place], [id number], [place] tel:[phone] [facility] No Information Ani Duncan. [facility], [address], [place], [address], [place]. tel:[phone] Referring Provider: Dakota Law, [facility] [address], [place], [address]. tel:[phone] Office/Outpat ient Visit,Est, Mod [facility], [address], [place], [id number], [place] tel:[phone] [facility] Arthrodesis status Ani Duncan. [facility], [address], [place], [address], [place]. [phone] Referring Provider: Dakota Law, [facility] [address], [place], [address]. tel:[phone] Office/Outpat ient Visit,Est, Low [facility], [address], [place], [id number], [place] tel:[phone] [facility] [place] Spinal stenosis, lumbar region with neurogenic claudication Ani Duncan. [facility], [address], [place], [address], [place]. tel: [phone] Referring Provider: Dakota Law, [facility] [address], [place], [address]. tel:[phone] Office/Outpat ient Visit,Est, Mod [facility], [address], [place], [id number], [place] tel:[phone] [facility] [place] Spinal stenosis, lumbar region with neurogenic claudication Ani Duncan. [facility] [place], [address], [place], [address], [place]. tel: [phone] Referring Provider: Dakota Law, [facility] [address], [place], [address]. tel:[phone] Office/Outpat ient Visit,Est, Mod [facility], [address], [place], [id number], [place] tel:[phone] [facility] [place] Spinal stenosis, lumbar region with neurogenic claudication Ani Duncan. [facility] [place], [address], [place], [address], [place]. tel: [phone] Referring Provider: Dakota Law, [facility] [address], [place], [address]. tel:[phone] Office/Outpat ient Visit,Est, Mod [facility], [address], [place], [id number], [place] tel:[phone] [facility] [place] Spinal stenosis, lumbar region with neurogenic claudication Ani Duncan. [facility], [address], [place], [address], [place]. tel: [phone] Referring Provider: Dakota Lwa, [facility] [address], [place], [address]. tel:[phone] Office/Outpat ient Visit,Est, Mod [facility], [address], [place], [id number], [place] tel:[phone] [facility] Arthrodesis status Ani Duncan. [facility], [address], [place], [address], [place]. tel:[phone] Referring Provider: Dakota Law, [facility] [address], [place], [address]. tel:[phone] Office/Outpat ient Visit,Est, Low [facility], [address], [place], [id number], [place] tel:[phone] [facility] Arthrodesis status Ani Duncan. [facility], [address], [place], [address], [place]. tel:[phone] Referring Provider: Dakota Law, [facility] [address], [place], [address]. tel:[phone] [facility], [address], [place], [id number], [place] tel:[phone] [facility] Arthrodesis status Ani Duncan. [facility], [address], [place], [address], [place]. tel:[phone] Referring Provider: Dakota Law, [facility] [address], [place], [address]. tel:[phone] [facility], [address], [place], [id number], [place] tel:[phone] [facility] No Information Navin Arevalo. [facility], [address], [place], [place], [id number] , [place]. [phone] Referring Provider: Dakota Law, [facility] [address], [place], [address]. tel:[phone] [facility], [address], [place], [id number], [place] tel:[phone] [facility] No Information Ani Duncan. [facility], [address], [place], [address], [place]. [phone] Referring Provider: Dakota Law, [facility] [address], [place], [address]. tel:[phone] Office/Outpat ient Visit,Est, Mod [facility], [address], [place], [id number], [place] tel:[phone] [facility] [place] Spondylolisthe sis, lumbar region Ani Duncan. [facility], [address], [place], [address], [place]. [phone] Referring Provider: Dakota Law, [facility] [address], [place], [address]. tel:[phone] Office/Outpat ient Visit,New, Mod [facility], [address], [place], [id number], [place] tel:[phone] [facility] [place] Spondylolisthe sis, lumbar region Ani Duncan. [facility], [address], [place], [address], [place]. [phone] Referring Provider: Dakota Law, [facility] [address], [place], [address]. tel:[phone] [facility], [address], [place], [id number], [place] tel:[phone] [facility] [place] Low back pain Ani Duncan. [facility], [address], [place], [address], [place]. tel:[phone] Family History Family Member Type Diagnosis Age At Onset No Information Payers Payer name Insurance type Covered alliance party ID Raina mayes(s) BCBS [id number] [place] [id number] Social History Type Description Quantity Date Captured Comments Alcohol Use Details Unknown Caffeine Use Details Unknown Tobacco Use Status Cigar Smoker Smoking Status Current some day smoker Smoking Tobacco Use Details Cigar: No Details Available Cigar: No Details Available Sex Male Vital Signs Date / Time: Height Weight BMI Pulse Rate Blood Pressure Temperature Respiratory Rate Body Surface Area Head Circumference Head Circ. Percentile Wt./Aim. Percentile BMI percentile Pulse Ox Inhaled Ox 8:40 AM 66.00 in 73.482 kg (162.00 lbs) 26.1 5 kg/m eter (2) Chief Complaint And Reason For Visit No Information Reason For Referral Reason For Referral No Information History Of Present Illness Encounter Date Complaint History Of Prese nt Illness No Information Functional Status Date Functional Assessmen t No Information Instructions Date Instruction Additional Infor mation No Information Assessments Type Assessment Date No Information Patient Care Teams Name Effective Dates (start - stop) Status Members No Information
== END 2023-06-26 10:40 | disposition home or self-care (01) ==
LOC: NFLDREF 06-27 06:17
PROVIDERS: PCP Family Medicine; Referring Provider Family Medicine; Visit Provider Family Medicine
DX: I10 Essential (primary) hypertension (principal); R79.89 Other specified abnormal findings of blood chemistry; E78.5 Hyperlipidemia, unspecified; E11.9 Type 2 diabetes mellitus without complications; N52.9 Male erectile dysfunction, unspecified; K21.9 Gastro-esophageal reflux disease without esophagitis; J30.2 Other seasonal allergic rhinitis; M54.50 Low back pain, unspecified; G43.909 Migraine, unspecified, not intractable, without status migrainosus; R80.9 Proteinuria, unspecified
CPT/HCPCS: 80053; 80156; 82043; 82570; 84153

== ENCOUNTER 2023-12-05 11:25 | Outpatient (CLI) | payer MEDICARE, SELFPAY ==
--- OUTSIDE RECORDS SUMMARY | 2023-12-05 11:27 | XMS_ITS ---
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 Procedure Estimated Blood Loss Check Surgery Details section. Procedure Findings Check Surgery Details section. Procedure Specimens Taken Check Surgery Details section.
--- OUTSIDE RECORDS SUMMARY | 2023-12-05 11:27 | XMS_ITS | Data Portability ---
Author Name Unknown Address [address] [place] [address] Phone [phone] Organization [facility] Address [address] [place] [address] Assessment No assessment recorded. Plan of Treatment Reminders Order Date Submit Date Provider Last Modified By Organization Details Last Modified Time Details Appointments None recorded. Lab None recorded. Referral None recorded. Procedures None recorded. Surgeries cystoscopy , with ureterosco py, with lithotrips y, with insertion of ureteral stent (SURG) 2021 023 3 Not available 3 13:21:24 Imaging None recorded. Medication Orders Cipro 500 mg tablet 2022 023 [email or web address] [id number], [address] [place], [place], [id number], 3 11:56:54 Patient TargetsNo targets recorded. Patient Instructions Encounter Date Encounter Id Patient Instructions Last Modified By Organization Details Last Modified Time 12/15/2022 [id number] Assessment: - Ri ght distal ureteral stone, passed - Left 1 cm mid ureteral stone with ureteral narrowing distal to the stone status post ureteroscopy, ureteral dilation and stent placement - History of nephrolithiasis Plan: - Ureteral stent was removed today in office, see procedure note - I discussed the differential diagnosis, pathophysiology and nature of urolithiasis and recurrent stone disease. - We also reviewed the recent 2014 [place] [employer] guideline on Medical Management of Kidney Stones and specifically discussed dietary therapies including: Increase fluid intake to achieve urine output of at least 2.5 liters daily, limit sodium intake to no more than 100 mEq (2,300 mg) per day, consume 1,000-1,200 mg of dietary calcium per day, limit oxalate-rich foods (beets, spinach, rhubarb, nuts, chocolate), limit non-dairy animal protein, encouraged to increase fruit and vegetable intake - Patient to make dietary changes - Follow up as needed [email or web address] Not available 12/15/2022 12:33:50 10/17/2022 [id number] Assessment: - Ri ght 9mm distal ureteral stone - Bilateral non-obstructing calculi, left 1cm lower pole, additional 2-3mm b/l NOCs Plan: - I discussed the differential diagnosis, pathophysiology and nature of urolithiasis and recurrent stone disease. - Patient was counseled on available treatment options in the management of their 9mm calculus located within the {{right* left}} {{distal ureter* mid ureter proximal ureter renal pelvis lower pole mid pole upper pole}} and 1cm stone in the left lower pole - Conservative, medical expulsive therapy consisting of alpha-rené therapy, analgesia and directed fluids which is generally reserved for ureteral stones <5 mm without complicating factors (infection, intractable pain/nausea) - The patient was counseled regarding treatment options for urinary calculi including observation, extracorporeal shockwave lithotripsy (ESWL), ureteroscopic extraction/intracor poreal laser lithotripsy, percutaneous nephrolithotomy (PCNL). The risks, advantages, and disadvantages of each were discussed. - The patient understands that the risks include but are not limited to bleeding, infection, damage to adjacent tissues, renal fracture/contusion/ hemorrhage, anesthesia risks, loss of the kidney, steinstrasse, therapeutic failure, possible need for post-operative drains/stents, need for additional procedures. - After further discussion, patient has elected to undergo cystoscopy with bilateral retrograde, ureteroscopy, laser lithotripsy, stone extraction, ureteral stent placement - {{Medical clearance/preoperat meka evaluation & optimization with PCP* Cardiac clearance}}: {{not indicated requested * declined}} - Plan for bilateral ureteroscopy. If unable to reach left stone, will stent and plan for future ESWL - Follow up for procedure A combined total of 45 minutes were spent preparing to see the patient, reviewing previous records, ordering tests/medications/p rocedures, documenting the clinical encounter as well as performing a medically appropriate evaluation and independently interpreting results and communicating them to the patient/family/care taker as specifically outlined above in the impression and plan. ward Not available 10/17/2022 11:21:33 Reason for Referral None Reported. Results Created Date Observation Date Name Description Value Unit Range Abnormal Flag LastModifiedBy Organization Detail LastModifiedTime 10/17/20 22 09/28/2022 CT, urogr am No observ ation record ed. Not Available 10/17/2022 08:54:12 11/17/19 23 11/16/2022 XR, pyelo gram No observ ation record ed. [email or web address] [address] [place], [address], 11/20/2022 08:21:29 Result Notes None recorded. Problems Name Status Onset Date Resolution Date Notes Provider Name and Address Organization Details Recorded Time Ureteric stone Active 2 MELVIN WHITTEN, [address], [address], [facility] 10/17/2022 10:26:02 Kidney stone Active 2 MELVIN WHITTEN [address], [address], [facility] 10/17/2022 10:26:02 Problem Notes None recorded. Procedures Surgical History Date Name Laterality Status Provider Name and Address Organization Details Recorded Time 3 MIR Stent Removal completed MELVIN WHITTEN[address], [address], [facility] 12/14/2022 11:48:02 Imaging Results Imaging Date Name Status LastModified by Organiz ation Details LastModified Time 09/28/2022 CT, urogram completed [email or web address] Information not available 10/17/2022 08:54:12 11/16/2022 XR, pyelogram completed [email or web address] [facility] [address] [place], [address], 11/20/2022 08:21:29 Procedure Notes None recorded. Medical Equipment None Reported. Allergies No known drug allergies Medications Name Sig Start Date Stop Date Status Note LastModified by Organization Details LastModified Time celecoxib 200 mg capsule active Not Available Not Available N ot Available atorvastatin 20 mg tablet active Not Available Not Available No t Available tizanidine 4 mg tablet active Not Available Not Available Not Available sumatriptan 100 mg tablet active Not Available Not Available No t Available hydrocodone 5 mg-acetaminophe n 325 mg tablet active Not Available Not Availa ble Not Available phenazopyridine 200 mg tablet active Not Available Not Availabl e Not Available propranolol ER 60 mg capsule,24 hr,extended release active Not Available Not Available Not Available gabapentin 400 mg capsule TAKE 1 CAPSULE BY MOUTH TWICE DAILY active Not Available Not Available No t Available amlodipine 5 mg tablet active Not Available Not Available Not Available sildenafil 100 mg tablet TAKE 1 TABLET BY MOUTH DAILY NEEDED active Not Available Not Available No t Available ondansetron 8 mg disintegrating tablet active Not Available Not Available Not Available amitriptyline 10 mg tablet TAKE 1 TO 3 TABLETS BY MOUTH AT BEDTIME active Not Available Not Available No t Available pantoprazole 40 mg tablet,delayed release active Not Available Not Available Not Available Cipro 500 mg tablet Take 1 tablet by oral route. 2022 active Not Available Not Available Not Avai lable divalproex ER 500 mg tablet,extended release 24 hr active Not Available Not Availabl e Not Available propranolol ER 80 mg capsule,24 hr,extended release active Not Available Not Available Not Available gabapentin 300 mg capsule active Not Available Not Available N ot Available buspirone 7.5 mg tablet active Not Available Not Available No t Available montelukast 10 mg tablet active Not Available Not Available No t Available oxybutynin chloride 5 mg tablet active Not Available Not Available Not Available metformin ER 500 mg tablet,extended release 24 hr TAKE 1 TABLET BY MOUTH DAILY active Not Available Not Available No t Available divalproex ER 250 mg tablet,extended release 24 hr active Not Available Not Availabl e Not Available tadalafil 20 mg tablet active Not Available Not Available Not Available duloxetine 30 mg capsule,delayed release active Not Available Not Available Not Available Senexon-S 8.6 mg-50 mg tablet active Not Available Not Availa ble Not Available OneTouch Verio test strips active Not Available Not Available Not Available Dexcom G6 Sensor device active Not Available Not Availabl e Not Available Dexcom G6 Soot Blower active Not Available Not Available Not Available Dexcom G6 Transmitter device active Not Available Not Available Not Available Flowflex COVID-19 Antigen Home Test kit active Not Available Not Available Not Available Vitals Date Recorded Respiratory rate Body height Body mass index (BMI) Body weight Provider Name and Address Organization Details Last Updated DateTime 10/17/2022 18 /min 170.18 cm 26.6 kg/m2 60374.7 g Kiara Nascimento [facility] 10/17/2022 09:57:07 Date Recorded Body height Body mass index (BMI) Body weight Provider Name and Address Organization Details Last Updated DateTime 12/15/2022 170.18 cm 26.6 kg/m2 59926.7 g Karthik Flip [facility] 12/15/2022 11:55:04 Social History Question Answer Notes LastModified by Organizat ion Details LastModified Time Tobacco Smoking Status Former Smoker Kiara Nascimento [facility] 10/17/2022 09:58:09 When Did You Quit Smoking? 16+yearssinc elastcigaret te Information not available 10/17/2022 What Was The Date Of Your Most Recent Tobacco Screening? 12/15/2022 [email or web address] Information not available 12/15/2022 Do You Or Have You Ever Used Any Other Forms Of Tobacco Or Nicotine? Yes Information not available 10/17/2022 Sex: Male Functional Status None recorded. Mental Status None recorded. Family History Relationship Description Onset Age of this Age Resolved Age Notes Unspecified Relation Family history of cancer Father Family history of cardiac disorder Medical History Condition Response Sexually Transmitted Infection N Diabetes Y Bleeding Disorder N High Blood Pressure Y Kidney Stones N Cancer N Depression N Lung Disease N High Cholesterol Y GERD/Acid Reflux Y Heart Disease N Past Encounters Encounter ID Performer Location Encounter Start Date Encounter Closed Date Diagnosis/Indication [id number] MELVIN WHITTEN DO [facility] [address] [place] [address] 10/17/2022 09:48:08 10/18/2022 13:55:25 Kidney stone Ureteric stone [id number] MELVIN WHITTEN DO [facility] [address] [place] [address] 12/15/2022 11:34:14 12/20/2022 12:52:29 Kidney stone Ureteric stone Health Concerns Section Related Observation LastModified by Organization Detai ls LastModified Time None Recorded Concern Status LastModified by Organization Details LastModified Time None Recorded Advance Directives Directive None Recorded Payers Encounter Date Sequence Insurance Name Policy Number Policy Lovell Covered Member ID Lovell Member ID Guarantor Name 12/15/2022 1 [place] [id number] Emanuel Mcmahan [id number] Emanuel Mcmahan 10/17/2022 1 [place] [id number] Emanuel Mcmahan [id number] Emanuel Mcmahan Notes Date Note Type Note Provider Name and Address Organization Details Recorded Time 10/17/2022 text/html HPI Notes: Patricia roberts presents in initial consultation for kidney stones Patient seen by primary care 09/26/2022. At that time patient was following up for diabetes. Found to have hematuria. CT urogram ordered. CT scan completed 09/28/2022. Revealed multiple bilateral kidney stones. Stones on the right side measure approximately 2 to 3 mm. There are 2 to 3 mm stones in the midportion and upper pole of the kidney. Large cluster of stones or a single stone is present in the lower pole of the left kidney measuring approximately 1.1 cm. Left ureter is distended. Right ureter is normal. Reports of a stone near the right ureterovesical junction measuring approximately 9 mm. 10/17/22: Patient denies recent visible stone passage. Additionally, they reports gross hematuria, reports intermittent left flank pain, denies dysuria and/or denies increased urinary frequency. Patient has had no nausea or vomiting and denies fevers or chills. Patient reports 1 lifetime stone episode. Potential contributors to increased risk of urolithiasis include: poor fluid intake. Previous stone-directed Urologic surgeries include: observation MELVIN WHITTEN, DO [address], [place], [address], [facility] 10/17/2022 11:21:43 12/15/2022 text/html HPI Notes: Patricia roberts has a history of ureteral stones who presents for follow up. Patient seen by primary care 09/26/2022. At that time patient was following up for diabetes. Found to have hematuria. CT urogram ordered. CT scan completed 09/28/2022. Revealed multiple bilateral kidney stones. Stones on the right side measure approximately 2 to 3 mm. There are 2 to 3 mm stones in the midportion and upper pole of the kidney. Large cluster of stones or a single stone is present in the lower pole of the left kidney measuring approximately 1.1 cm. Left ureter is distended. Right ureter is normal. Reports of a stone near the right ureterovesical junction measuring approximately 9 mm. 10/17/22: Patient denies recent visible stone passage. Additionally, they reports gross hematuria, reports intermittent left flank pain, denies dysuria and/or denies increased urinary frequency. Patient has had no nausea or vomiting and denies fevers or chills. Patient reports 1 lifetime stone episode. Potential contributors to increased risk of urolithiasis include: poor fluid intake. Previous stone-directed Urologic surgeries include: observation 12/15/22: Since last visit patient underwent bilateral ureteroscopy with left ureteral dilation and left ureteral stent placement. Patient passed his right stone. Left mid ureteral stone with some narrowing. Here today for stent removal. MELVIN WHITTEN, DO [address], [place], [address], [facility] 12/15/2022 12:34:01
--- OUTSIDE RECORDS SUMMARY | 2023-12-05 11:27 | XMS_ITS | Referral Summary ---
Author Name Unknown Organization [facility] Address [address] [place] [address] Care Team Providers Care Buffet Attendant Name Role Phone Unavailable Primary Care Provider Unavailabl e Source Comments Patient records contain information from all sites at [facility]. For routine questions regarding patient records, call [phone] during business hours, M-F 8:00 AM - 5:00 PM Central Time. Record requests for emergency care only can be directed to [phone] at any time.[facility] Allergies Active Allergy Reactions Criticality Noted Date Comments Animal Dander Other (see comments) 12/21/2017 House Dust Mite Other (see comments) 12/21/2017 Mold Other (see comments) 12/21/2017 Medications Medication Sig Dispensed Refills Start Date End Date Status atorvastatin (LIPITOR) 20 mg tablet Take 0.5 tablets by mouth daily. 0 10/31/2016 Active BUDESONIDE (RHINOCORT ALLERGY NASAL) Rhinocort 0 02/21/2017 Active celecoxib (CeleBREX) 200 mg capsule Take 1 capsule by mouth daily. 0 11/09/2016 Active divalproex (DEPAKOTE) 250 mg EC tablet Take 1 tablet by mouth at bedtime. Take a bedtime/Migraine headaches 0 11/18/2009 Active fexofenadine (for_ALLEGRA) 180 mg tablet Take 1 tablet by mouth daily. 0 06/30/2010 Active montelukast (SINGULAIR) 10 mg tablet Take 1 tablet by mouth every evening. 0 10/31/2016 Active multivitamin tablet Take 1 capsule by mouth daily. 0 11/18/2009 Active DOCOSAHEXANOIC ACID/EPA (FISH OIL ORAL) Take 1 capsule by mouth daily. 0 11/18/2009 Active pantoprazole (PROTONIX) 40 mg EC tablet Take 1 tablet by mouth daily. 0 11/09/2016 Active SUMAtriptan (IMITREX) 100 mg tablet Take 1 tablet by mouth once as needed. Take 1 tablet once for migraine headache, may repeat in one hour if needed. 0 11/18/2009 Active tiZANidine (for_ZANAFLEX) 4 mg tablet Take 1 tablet by mouth as needed. 0 10/01/2015 Active propranolol (for_INDERAL LA) 80 mg 24 hr capsule 0 10/24/2017 Active CIALIS 20 mg tablet 0 09/25/2017 Active gabapentin (for_NEURONTIN) 600 mg tablet Take 1 tablet (600 mg total) by mouth 3 (three) times a day. 270 tablet 3 12/31/2017 Active Additional Information Patient taking differently:600 mg oral2 times daily, Tablet in half, Reported on 06/26/2018 DULoxetine (CYMBALTA) [address] capsule Take 1 capsule (30 mg total) by mouth daily. 90 capsule 3 02/05/2018 Active clotrimazole-betam ethasone (LOTRISONE) 1-0.05 % lotion 0 05/23/2018 Active amitriptyline (ELAVIL) 10 mg tablet at bedtime. 0 04/19/2022 Active amLODIPine (NORVASC) 5 mg tablet daily. 0 04/19/2022 Active busPIRone (BUSPAR) 7.5 mg tablet Take 7.5 mg by mouth 2 (two) times a day. 0 Active metFORMIN XR (GLUCOPHAGE-XR) 500 mg 24 hr tablet daily. 0 03/15/2022 Active sildenafiL (VIAGRA) 100 mg tablet TK 1 T PO D PRN 0 04/28/2020 Active omega 3-mlk-tda-fish oil 1,000 mg (120 mg-180 mg) capsule Take 1 capsule by mouth 2 (two) times a day. 0 Active gabapentin (NEURONTIN) 400 mg capsule 2 (two) times a day. 0 03/29/2022 Active propranoloL (INDERAL LA) 60 mg 24 hr capsule daily. 0 Active calcium carbonate-vitamin D3 (Calcium 600 with Vitamin D3) 600 mg-10 mcg (400 unit) tablet,chewable Chew daily. 0 Active Active Problems No known active problems Immunizations Name Administration Dates Next Due Influenza, Unspecified 08/05/2015 Tdap 08/04/2013,06/15/2003 Social History Tobacco Use Types Packs/Day Years Used Date Smoking Tobacco: Some Days Pipe Cigars Smokeless Tobacco: Never Tobacco Cessation:Ready to Q uit: Not Asked; Counseling Given: Not Answered Alcohol Use Standard Drinks/Week Comments No 0 (1 standard drink = 0.6 oz pur e alcohol) Humiliation, Afraid, Rape, and Kick questionnair e Answer Date Recorded Within the last year, have y ou been afraid of your partner or ex-partner? No 04/20/2022 Within the last year, have y ou been humiliated or emotionally abused in other ways by your partner or ex-partner? No Within the last year, have y ou been kicked, hit, slapped, or otherwise physically hurt by your partner or ex-partner? No 04/20/2022 Within the last year, have y ou been raped or forced to have any kind of sexual activity by your partner or ex-partner? No 04/20/2022 Social Connection and Isolat ion Panel [NHANES] Answer Date Recorded In a typical week, how many times do you talk on the phone with family, friends, or neighbors? More than three times a week 04/20/2022 How often do you get togethe r with friends or relatives? Twice a week 04/20/2022 How often do you attend chur ch or anabaptism services? Never 04/20/2022 Do you belong to any clubs o r organizations such as judaism groups, unions, fraternal or athletic groups, or school groups? Yes 04/20/2022 How often do you attend meet ings of the clubs or organizations you belong to? More than 4 times per year 04/20/2022 Are you , , di vorced, , never , or living with a partner? 04/20/2022 AUDIT-C Answer Date Recorded Q1: How often do you have a drink containing alc ohol? Never 04/20/2022 Average Number of Drinks Not on file 022 Frequency of Binge Drinking Not on file 03/24 Overall Financial Resource Strain (CARDIA) Answe r Date Recorded How hard is it for you to pa y for the very basics like food, housing, medical care, and heating? Not hard at all 04/20/2022 [facility] [place] [facility] - Occupational Stress Questionnaire Answer Date Recorded Do you feel stress - tense, restless, nervous, or anxious, or unable to sleep at night because your mind is troubled all the time - these days? Only a little 04/20/2022 Exercise Vital Sign Answer Date Recorde d On average, how many days pe r week do you engage in moderate to strenuous exercise (like a brisk walk)? 1 day 04/20/2022 On average, how many minutes do you engage in exercise at this level? 30 min 04/20/2022 Hunger Vital Sign Answer Date Recorded Within the past 12 months, y ou worried that your food would run out before you got the money to buy more. Never true 04/20/20 Within the past 12 months, t he food you bought just didn't last and you didn't have money to get more. Never true 04/20/2022 PRAPARE - Transportation Answer Date Re corded In the past 12 months, has l ack of transportation kept you from medical appointments or from getting medications? No 03/24 In the past 12 months, has l ack of transportation kept you from meetings, work, or from getting things needed for daily living? No 04/20/2022 Housing Stability Vital Sign Answer Ahmet e Recorded In the last 12 months, was t here a time when you were not able to pay the mortgage or rent on time? No 04/20/2022 In the last 12 months, how many places have you lived? 1 04/20/2022 In the last 12 months, was t here a time when you did not have a steady place to sleep or slept in a retirement (including now)? No 04/20/2022 Nutrition Answer Date Recorded Nutrition: EVOO Fat Source No 04/20 On average, how many serving s of fruits and vegetables do you eat per day (serving size is equal to 1 cup or approximately the size of a tennis ball)? 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 Bachelor's degree (e.g., BA, AB, BS) 04/20/2022 Sex and Gender Information Value Date Recorded Sex Assigned at Male 06/24/2018 5:24 PM CDT Gender Identity Male 06/24/2018 5:24 PM CDT Sexual Orientation Straight 06/24/2018 5: 24 PM CDT Last Filed Vital Signs Vital Sign Reading Time Taken Comments Blood Pressure 131/77 07/18/2022 3:13 PM CDT Pulse 59 07/18/2022 3:13 PM CDT Temperature - - Respiratory Rate 20 05/24/2016 2:08 PM CDT Oxygen Saturation - - Inhaled Oxygen Concentration - - Weight 82.2 kg (181 lb 3.5 oz) 07/18/2022 3:13 P M CDT Height 169.5 cm (5' 6.73) 04/20/2022 8:32 AM CD T Body Mass Index 28.61 04/20/2022 8:32 AM CDT Plan of Treatment Not on file Advance Directives For more information, please contact: [phone] Documents on File Type Date Recorded Patient Housekeeping Room Attendant Expl anation Advance Directives 01/20/2011 12:00 AM [place] document. See document viewer.
--- OUTSIDE RECORDS SUMMARY | 2023-12-05 11:27 | XMS_ITS | Clinical Summary ---
Author Name Unknown Organization [facility] Address [address] [place] [address] Care Team Providers Care Systems Test Technician Name Role Phone Clinic, Not Listed Unavailable Unavailable Md, Not Listed Primary Care Provider Unavailabl e Allergies Active Allergy Reactions Criticality Noted Date Comments Animal Dander Itching 11/14/2022 House Dust Mite Hives 11/14/2022 Mold Itching 11/14/2022 Medications Medication Sig Dispensed Refills Start Date End Date Status amLODIPine (NORVASC) 5 mg oral tablet Daily. 04/19/2022 Active buspirone (VANSPAR) 7.5 mg oral tablet Take 1 tablet (7.5 mg) by mouth twice a day. Active Calcium-Cholecalcife rol, D3, 600 mg-10 mcg (400 unit) oral chew tab Chew twice a day. Active divalproex (DEPAKOTE) 500 mg oral delayed released tablet Take 1 tablet (500 mg) by mouth Daily. Active DULoxetine (CYMBALTA) 30 mg oral delayed release capsule Take 1 capsule (30 mg) by mouth Daily. Active fexofenadine (HALLEY) 180 mg oral tablet Take 180 mg by mouth Daily. Active gabapentin (NEURONTIN) 400 mg oral capsule twice a day. 03/29/2022 Active metFORMIN ER (GLUCOPHAGE XR) 500 mg oral extended release tablet 24 HR Daily. 03/15/2022 Acti ve montelukast (SINGULAIR) 10 mg oral tablet Take 1 tablet (10 mg) by mouth Daily. Active Ohapk-5-VHZ-EPA-Fish Oil 1,000 mg (120 mg-180 mg) oral capsule Take 1 capsule by mouth twice a day. Active pantoprazole (PROTONIX) 40 mg oral delayed release tablet Take 1 tablet (40 mg) by mouth Daily. Active propranoloL (INDERAL LA) 60 mg oral extended release capsule 24 HR Take 1 capsule (60 mg) by mouth Daily. Takes before bed Active SUMAtriptan succinate (IMITREX) 100 mg oral tablet Take 1 tablet (100 mg) by mouth twice a day as needed. Active multivitamin (CERTAVITE) 18-400 mg-mcg oral tablet Take 1 tablet by mouth once daily. Active atorvastatin (LIPITOR) 20 mg oral tablet Take 1 tablet (20 mg) by mouth at bedtime. 11/11/2022 Active sildenafiL (VIAGRA) 100 mg oral tablet TAKE 1 TABLET BY MOUTH DAILY NEEDED 11/11/2022 Active HYDROcodone-acetamin ophen (NORCO) 5-325 mg oral tablet Take 1 tablet by mouth every 6 (six) hours as needed for pain. 12 tablet 11/16/2022 Active ondansetron (ZOFRAN) 8 mg oral ODT Dissolve 1 tablet (8 mg) in mouth every 8 (eight) hours as needed. 9 tablet 11/16/2022 Active oxybutynin (DITROPAN) 5 mg oral tablet Take 1 tablet (5 mg) by mouth three times a day as needed (for bladder pain/cramps from stent). 30 tablet 11/16/2022 Active phenazopyridine (PYRIDIUM) 200 mg oral tablet Take 1 tablet (200 mg) by mouth three times a day as needed (burning with urination). 9 tablet 11/16/2022 Active senna-docusate (SENNA-S) 8.6-50 mg oral tablet Take 1 tablet by mouth twice a day. 20 tablet 11/16/2022 Active Social History Tobacco Use Types Packs/Day Years Used Date Smoking Tobacco: Some Days Cigars Smokeless Tobacco: Never Tobacco Cessation:Ready to Q uit: Not Asked; Counseling Given: Not Answered Alcohol Use Standard Drinks/Week Comments Not Currently 0 (1 standard drink = 0.6 oz pur e alcohol) Sex and Gender Information Value Date Recorded Sex Assigned at Not on file Gender Identity Not on file Sexual Orientation Not on file Last Filed Vital Signs Vital Sign Reading Time Taken Comments Blood Pressure 135/85 11/16/2022 9:45 AM CORPORATE SECRETARY Pulse 79 11/16/2022 9:45 AM CORPORATE SECRETARY Temperature 36.9 ??C (98.4 ??F) 11/16/2022 8:56 AM CS T Respiratory Rate 16 11/16/2022 9:45 AM CORPORATE SECRETARY Oxygen Saturation 97% 11/16/2022 9:45 AM CORPORATE SECRETARY Inhaled Oxygen Concentration - - Weight 77.1 kg (170 lb) 11/16/2022 6:31 AM CORPORATE SECRETARY Height 167.6 cm (5' 6) 11/16/2022 6:31 AM CORPORATE SECRETARY Body Mass Index 27.44 11/16/2022 6:31 AM CORPORATE SECRETARY Plan of Treatment Health Maintenance Due Date Last Done Comments AAA Ultrasound Screening 1960 Colonoscopy 1960 Hepatitis C Screening 1960 Depression Assessment (PHQ-2) 1959 Zoster Vaccine (1 of 2) 2008 RSV (1 - 1-dose 60+ series) 2018 Pneumococcal 65+ (2 of 2 - PCV) 01/19/2023 COVID-19 Vaccine ( - season) 2023, 01/07/2021 Influenza Vaccine (#1) 2023 09/26/2022, 2020 Adult Tetanus Booster 08/04/2023 08/04/2013, 003 Yearly Review of HCD 10/20/2023 10/20/2022 Medical Devices Implanted Type Area Annual Giving Director Device Identifier Shelf Expiration Date Model / Serial / Lot Stent Ureteral Inlay [id number] - [id number] Implanted:Qty: 1 on 11/16/2022 by Lefty Lantigua DO at [facility] Stent Left: Ureter [employer] 12/20/2026 [id number] / / [id number] Care Teams Systems Test Technician Relationship Specialty Start Date End Date Clinic, Not Listed PCP - Primary Care Clinic 11/06/22 Md, Not Listed no address PCP - General Internal Medicine 11/06/22
--- OUTSIDE RECORDS SUMMARY | 2023-12-05 11:27 | XMS_ITS | Clinical Summary ---
Author Name Unknown Organization [facility] Address [address] [place] [address] Care Team Providers Care Director Of Strategic Sourcing Name Role Phone Unavailable Primary Care Provider Unavailabl e Source Comments Patient records contain information from all sites at [facility]. For routine questions regarding patient records, call [phone] during business hours, M-F 8:00 AM - 5:00 PM Central Time. Record requests for emergency care only can be directed to [phone] at any time.[facility] Allergies Active Allergy Reactions Criticality Noted Date [...] PO D PRN 0 04/28/2020 Active omega 1-pnz-tsy-fish oil 1,000 mg (120 mg-180 mg) capsule [...] Next Due Influenza, Unspecified 08/05/2015 Tdap 08/04/2013,06/15/2003 Family History Medical History Relation Name Comments [...] often do you attend chur ch or moravian services? Never 04/20/2022 Do you belong to any clubs o r organizations such as christian groups, unions, fraternal [...] and heating? Not hard at all 04/20/2022 [facility] Occupational Stress Questionnaire Answer Date Recorded [...] money to buy more. Never true 04/20/20 22 Within the past 12 months, t he [...] a [place] [facility] [place] facility (including now)? No 04/20/2022 Nutrition Answer Date [...] Health Maintenance Due Date Last Done Comments Abdominal Aortic Aneurysm (A AA) Screen 1958 CT Colonography 1958 Cologuard 1958 FIT 1960 HIV Screening 1960 Hepatitis C Screening 1958 Tobacco Cessation counseling 1958 Zoster Vaccines (1 of 2) 2008 Colonoscopy 01/17/2021 01/17/2011 Colorectal Cancer Screening 01/17/2021 COVID-19 Vaccine (3 - 2022-2 4 season) 2023 02/04/2021, 01/07/2021 Depression Screening (Annual PHQ-2) 10/22/2023 Fall Risk Screen (Annual) 10/22/2023 Fasting Glucose for Diabetes Screening 01/20/2026 01/20/2023, 02/07/2019, 09/30/2015, Additional history exists Pneumococcal vaccine (65+ ye ars) (3 of 3 - PPSV23 or PCV20) 01/19/2027 06/26/2023, 01/19/2022 DTaP,Tdap,and Td Vaccines (4 - Td or Tdap) 11/16/2033 11/16/2023, 08/04/2013, 06/15/2003 Influenza Vaccine Completed 11/16/2023, , 08/29/2021, Additional history exists Advance Directives For more information, please contact: [phone] Documents on File Type Date Recorded Patient Brand Inspector Expl anation Advance Directives 01/20/2011 12:00 AM Lega cy document. See document viewer.
--- OUTSIDE RECORDS SUMMARY | 2023-12-05 11:27 | XMS_ITS | Referral Summary ---
Author Name Unknown Organization [facility] Address [address] [place] [address] Care Team Providers Care Product Coordinator Name Role Phone Clinic, Not Listed Unavailable [...] tablet (10 mg) by mouth Daily. Active Lzifg-7-FNQ-EPA-Fish Oil 1,000 mg (120 mg-180 mg) oral [...] Comments Blood Pressure 135/85 11/16/2022 9:45 AM PROGRAM MANAGER RN Pulse 79 11/16/2022 9:45 AM PROGRAM MANAGER RN Temperature 36.9 ??C (98.4 ??F) 11/16/2022 8:56 AM CS T Respiratory Rate 16 11/16/2022 9:45 AM PROGRAM MANAGER RN Oxygen Saturation 97% 11/16/2022 9:45 AM PROGRAM MANAGER RN Inhaled Oxygen Concentration - - Weight 77.1 kg (170 lb) 11/16/2022 6:31 AM PROGRAM MANAGER RN Height 167.6 cm (5' 6) 11/16/2022 6:31 AM PROGRAM MANAGER RN Body Mass Index 27.44 11/16/2022 6:31 AM PROGRAM MANAGER RN Plan of Treatment Not on file Medical Devices Implanted Type Area Senior Computer Specialist Device Identifier Shelf Expiration Date Model / Serial / Lot Stent Ureteral Inlay [id number] - [id number] Implanted:Qty: 1 on 11/16/2022 by Lefty Lantigua DO at [facility] Stent Left: Ureter [employer] 12/20/2026 [id number] / / [id number] Care Teams Product Coordinator Relationship Specialty Start Date End Date Clinic, Not Listed PCP - Primary Care Clinic 11/06/22 Md, Not Listed no address PCP - General Internal Medicine 11/06/22
--- OUTSIDE RECORDS SUMMARY | 2023-12-05 11:27 | XMS_ITS | Continuity of Care Document ---
Author Name Unknown Organization [facility] Address [address] [place] [address] Phone Care Team Providers Care Green Lumber Grader Name Role Phone Ani LIN, PhD, [place] [...] - Includes PSF at the same level Wy LAGUERRE FACETC/FRMT ARTHRD LUM 1 PEEK/ Cage/ [...] [facility], [address], [place], [id number], [place] tel:[phone] [facility] Encounter for other specified surgical aftercare Ani Duncan. [facility] [place], [address] [facility] [address], [facility] [address], [place]. [phone] Referring Provider: Dakota Law, [facility] [place] [address], [place], [address]. tel:[phone] [facility], [address], [place], [id number], [place] tel:[phone] [facility] Arthrodesis status Ani Duncan. [facility], [address], [place], [address], [place]. tel:[phone] Referring Provider: Dakota Law, [facility] [address], [place], [address]. tel:[phone] [facility], [address], [place], [id number], [place] tel:[phone] [facility] No Information Navin Mickey. [facility], [address], [place], [place], [id number] , [place]. tel:[phone] Referring Provider: Dakota Law, [facility] [address], [place], [address]. tel:[phone] [facility], [address], [place], [id number], [place] tel:[phone] [facility] No Information Ani Duncan. [facility], [address], [place], [address], [place]. tel:[phone] Referring Provider: Dakota Law, [facility] [address], [place], [address]. tel:[phone] Office/Outpat ient Visit,Est, Mod [facility], [address], [place], [id number], [place] tel:[phone] [facility] Arthrodesis status Ani Duncan. [facility], [address], [place], [address], [place]. [phone] Referring Provider: Dakota Law, [facility] [address], [place], [address]. tel:[phone] Office/Outpat ient Visit,Est, Low [facility], [address], [place], [id number], [place] tel:[phone] [facility] [place] Spinal stenosis, lumbar region with neurogenic claudication Ani Duncan. [facility], [address], [place], [address], [place]. tel: [phone] Referring Provider: Dakota Law, [facility] [address], [place], [address]. tel:[phone] Office/Outpat ient Visit,Est, Mod [facility], [address], [place], [id number], [place] tel:[phone] [facility] [place] Spinal stenosis, lumbar region with neurogenic claudication Ani Duncan. [facility] [place], [address], [place], [address], [place]. tel: [phone] Referring Provider: Dakota Law, [facility] [address], [place], [address]. tel:[phone] Office/Outpat ient Visit,Est, Mod [facility], [address], [place], [id number], [place] tel:[phone] [facility] [place] Spinal stenosis, lumbar region with neurogenic claudication Ani Duncan. [facility] [place], [address], [place], [address], [place]. tel: [phone] Referring Provider: Dakota Law, [facility] [address], [place], [address]. tel:[phone] Office/Outpat ient Visit,Est, Mod [facility], [address], [place], [id number], [place] tel:[phone] [facility] [place] Spinal stenosis, lumbar region with neurogenic claudication Ani Duncan. [facility], [address], [place], [address], [place]. tel: [phone] Referring Provider: Dakota Law, [facility] [address], [place], [address]. tel:[phone] Office/Outpat ient Visit,Est, Mod [facility], [address], [place], [id number], [place] tel:[phone] [facility] Arthrodesis status Ani Duncan. [facility], [address], [place], [address], [place]. tel:[phone] Referring Provider: Dakota Law, [facility] [address], [place], [address]. tel:[phone] Office/Outpat ient Visit,Est, Low [facility], [address], [place], [id number], [place] tel:[phone] [facility] Arthrodesis status Ani Duncan. [facility], [address], [place], [address], [place]. tel:[phone] Referring Provider: Dakota Law, [facility] [address], [place], [address]. tel:[phone] [facility], [address], [place], [id number], [place] tel:[phone] [facility] Arthrodesis status Ani Duncan. [facility], [address], [place], [address], [place]. tel:[phone] Referring Provider: Dakota Law, [facility] [address], [place], [address]. tel:[phone] [facility], [address], [place], [id number], [place] tel:[phone] [facility] No Information Navin Arevalo. [facility], [address], [place], [place], [id number] , [place]. [phone] Referring Provider: Dakota Law, [facility] [address], [place], [address]. tel:[phone] [facility], [address], [place], [id number], [place] tel:[phone] [facility] No Information Ani Duncan. [facility], [address], [place], [address], [place]. [phone] Referring Provider: Dakota Law, [facility] [address], [place], [address]. tel:[phone] Office/Outpat ient Visit,Est, Mod [facility], [address], [place], [id number], [place] tel:[phone] [facility] [place] Spondylolisthe sis, lumbar region Ani Duncan. [facility], [address], [place], [address], [place]. [phone] Referring Provider: Dakota Law, [facility] [address], [place], [address]. tel:[phone] Office/Outpat ient Visit,New, Mod [facility], [address], [place], [id number], [place] tel:[phone] [facility] [place] Spondylolisthe sis, lumbar region Ani Duncan. [facility], [address], [place], [address], [place]. tel: [phone] Referring Provider: Dakota Law, [facility] [address], [place], [address]. tel:[phone] [facility], [address], [place], [id number], [place] tel:[phone] [facility] [place] Low back pain Ani Duncan. [facility], [address], [place], [address], [place]. tel:[phone] Family History Family Member Type Diagnosis Age At Onset No Information Payers Payer name Insurance type Covered democrat ID Raina mayes(s) BCBS [id number] Out Of State [id number] Social History Type Description Quantity Date Captured [...] Surface Area Head Circumference Head Circ. Percentile Wt./Iam. Percentile BMI percentile Pulse Ox Inhaled Ox [...]
--- NOTE | 2023-12-05 12:15 | US_ITS ---
INDICATION: ABDOMINAL AORTIC ANEURYSM SCREENING COMPARISON: NONE. TECHNIQUE: ROUTINE GRAYSCALE AND COLOR DOPPLER ULTRASOUND OF THE ABDOMINAL AORTA PERFORMED. FINDINGS: PROXIMAL AORTA MEASURES 1.4 X 1.6 CM. MID AORTA MEASURES 1.6 X 1.3 CM. DISTAL AORTA MEASURES 1.0 X 1.2 CM. RIGHT COMMON ILIAC ARTERY MEASURES 7 X 10 MM. LEFT COMMON ILIAC ARTERY MEASURES 8 X 10 MM. IMPRESSION: NO EVIDENCE OF ABDOMINAL AORTIC ANEURYSM.
== END 2023-12-05 11:26 | disposition home or self-care (01) ==
LOC: US 11:25
PROVIDERS: PCP Family Medicine; Visit Provider Family Medicine
DX: Z13.6 Encounter for screening for cardiovascular disorders (principal)
CPT/HCPCS: 76706

== ENCOUNTER 2024-07-21 11:28 | Outpatient (CLI) | payer MEDICARE, SELFPAY ==
--- OUTSIDE RECORDS SUMMARY | 2024-07-23 11:40 | XMS_ITS | Clinical Summary ---
Author Organization [facility] Address [address] [place] [address] Care Team Providers Care Salvage Engineering Technician Name Role Phone Clinic, Not Listed [...] tablet (10 mg) by mouth Daily. Active Viyue-9-IHN-EPA-Fish Oil 1,000 mg (120 mg-180 mg) oral [...] Comments Blood Pressure 135/85 11/16/2022 9:45 AM DIAMOND DIE DRILLER Pulse 79 11/16/2022 9:45 AM DIAMOND DIE DRILLER Temperature 36.9 ??C (98.4 ??F) 11/16/2022 8:56 AM CS T Respiratory Rate 16 11/16/2022 9:45 AM DIAMOND DIE DRILLER Oxygen Saturation 97% 11/16/2022 9:45 AM DIAMOND DIE DRILLER Inhaled Oxygen Concentration - - Weight 77.1 kg (170 lb) 11/16/2022 6:31 AM DIAMOND DIE DRILLER Height 167.6 cm (5' 6) 11/16/2022 6:31 AM DIAMOND DIE DRILLER Body Mass Index 27.44 11/16/2022 6:31 AM DIAMOND DIE DRILLER Plan of Treatment Health Maintenance Due Date Last Done Comments AAA Ultrasound Screening 1960 Colonoscopy 1960 Hepatitis C Screening 1958 Depression Assessment (PHQ-2) 1959 Zoster Vaccine (1 of 2) 2008 Pneumococcal 65+ (2 of 2 - PCV) 01/19/2023 Adult Tetanus Booster 08/04/2023 08/04/2013, 003 Yearly Review of HCD 10/20/2023 10/20/2022 COVID-19 Vaccine ( - season) 2024, 01/07/2021 Influenza Vaccine (#1) 2024 09/26/2022, 2020 RSV Vaccines (1 - 1-dose 75+ series) 2033 Medical Devices Implanted Type Area Web Designer Developer Device Identifier Shelf Expiration Date Model / Serial / Lot Stent Ureteral Inlay [id number] - [id number] Implanted:Qty: 1 on 11/16/2022 by Lefty Lantigua DO at [facility] Stent Left: Ureter [employer] 12/20/2026 [id number] / / [id number] Care Teams Salvage Engineering Technician Relationship Specialty Start Date End Date Clinic, Not Listed PCP - Primary Care Clinic 11/06/22 Md, Not Listed no address PCP - General Internal Medicine 11/06/22
--- OUTSIDE RECORDS SUMMARY | 2024-07-23 11:40 | XMS_ITS | Continuity of Care Document ---
Author Organization [facility] Address [address] [place] [address] Phone Care Team Providers Care Blood Bank Attendant Name Role Phone Ani LIN, PhD, [place] [...] Diagnoses Date Provider Providers Copied on Encounter [facility], [address], [place], [id number], [place] tel:[phone] [facility] Encounter for other specified surgical aftercare Ani Duncan. [facility] [place], [address], [place], [address], [place]. tel:[phone] Referring Provider: Dakota Law, [facility] [address], [place], [address]. tel:[phone] [facility], [address], [place], [id number], [place] tel:[phone] [facility] Arthrodesis status Ani Duncan. [facility], [address], [place], [address], [place]. [phone] Referring Provider: Dakota Law, [facility] [address], [place], [address]. tel:[phone] [facility], [address], [place], [id number], [place] tel:[phone] [facility] No Information Navin Mickey. [facility], [address], [place], [id number] , [place]. tel:[phone] Referring Provider: Dakota Law, [facility] [address], [place], [address]. tel:[phone] [facility], [address], [place], [id number], [place] tel:[phone] [facility] No Information Ani Duncan. [facility], [address], [place], [address], [place]. tel:[phone] Referring Provider: Dakota Law, [facility] [address], [place], [address]. tel:[phone] Office/Outpat ient Visit,Est, Mod [facility], [address], [place], [id number], [place] tel:[phone] [facility] Arthrodesis status Ani Duncan. [facility], [address], [place], [address], [place]. [phone] Referring Provider: Dakota Law, [facility] [address], [place], [address]. tel:[phone] Office/Outpat ient Visit,Est, Low [facility], [address], [place], [id number], [place] tel:[phone] [facility] Spinal stenosis, lumbar region with neurogenic claudication Ani Duncan. [facility], [address], [place], [address], [place]. tel: [phone] Referring Provider: Dakota Law, [facility] [address], [place], [address]. tel:[phone] Office/Outpat ient Visit,Est, Mod [facility], [address], [place], [id number], [place] tel:[phone] [facility] Spinal stenosis, lumbar region with neurogenic claudication Ani Duncan. [facility] [place], [address], [place], [address], [place]. tel: [phone] Referring Provider: Dakota Law, [facility] [address], [place], [address]. tel:[phone] Office/Outpat ient Visit,Est, Mod [facility], [address], [place], [id number], [place] tel:[phone] [facility] Spinal stenosis, lumbar region with neurogenic claudication Ani Duncan. [facility] [place], [address], [place], [address], [place]. tel: [phone] Referring Provider: Dakota Law, [facility] [address], [place], [address]. tel:[phone] Office/Outpat ient Visit,Est, Mod [facility], [address], [place], [id number], [place] tel:[phone] [facility] Spinal stenosis, lumbar region with neurogenic claudication Ani Duncan. [facility] [place], [address], [place], [address], [place]. tel: [phone] Referring Provider: Dakota Law, [facility] [address], [place], [address]. tel:[phone] Office/Outpat ient Visit,Est, Mod [facility], [address], [place], [id number], [place] tel:[phone] [facility] Arthrodesis status Ani Duncan. [facility], [address], [place], [address], [place]. tel:[phone] Referring Provider: Dakota Law, [facility] [address], [place], [address]. tel:[phone] Office/Outpat ient Visit,Est, Low [facility], [address], [place], [id number], [place] tel:[phone] [facility] Arthrodesis status Ani Duncan. [facility], [address], [place], [address], [place]. tel:[phone] Referring Provider: Dakota Law, [facility] [address], [place], [address]. tel:[phone] [facility], [address], [place], [id number], [place] tel:[phone] [facility] Arthrodesis status Ani Duncan. [facility], [address], [place], [address], [place]. tel:[phone] Referring Provider: Dakota Law, [facility] [address], [place], [address]. tel:[phone] [facility], [address], [place], [id number], [place] tel:[phone] [facility] No Information Navin Arevalo. [facility], [address], [place], [id number] , [place]. [phone] Referring Provider: Dakota Law, [facility] [address], [place], [address]. tel:[phone] [facility], [address], [place], [id number], [place] tel:[phone] [facility] No Information Ani Duncan. [facility], [address], [place], [address], [place]. [phone] Referring Provider: Dakota aLw, [facility] [address], [place], [address]. tel:[phone] Office/Outpat ient Visit,Est, Mod [facility], [address], [place], [id number], [place] tel:[phone] [facility] Spondylolisthe sis, lumbar region Ani Duncan. [facility], [address], [place], [address], [place]. [phone] Referring Provider: Dakota Law, [facility] [address], [place], [address]. tel:[phone] Office/Outpat ient Visit,New, Mod [facility], [address], [place], [id number], [place] tel:[phone] [facility] Spondylolisthe sis, lumbar region Ani Duncan. [facility], [address], [place], [address], [place]. [phone] Referring Provider: Dakota Law, [facility] [address], [place], [address]. tel:[phone] [facility], [address], [place], [id number], [place] tel:[phone] [facility] Low back pain Ani Duncan. [facility], [address], [place], [address], [place]. tel:[phone] Family History Family Member Type Diagnosis Age At Onset No Information Payers Payer name Insurance type Covered green party ID Raina mayes(s) [employer] [id number] Out Of [place] [id number] Social History Type Description Quantity Date Captured [...]
--- OUTSIDE RECORDS SUMMARY | 2024-07-23 11:40 | XMS_ITS | Referral Summary ---
Author Organization [facility] Address [address] [place] [address] Care Team Providers Care Workforce Specialist Name Role Phone Clinic, Not Listed Unavailable [...] tablet (10 mg) by mouth Daily. Active [id number]-[id number]-EPA-Fish Oil 1,000 mg (120 mg-180 mg) oral [...] Comments Blood Pressure 135/85 11/16/2022 9:45 AM AUTOMATIC DIE CUTTING MACHINE OPERATOR Pulse 79 11/16/2022 9:45 AM AUTOMATIC DIE CUTTING MACHINE OPERATOR Temperature 36.9 ??C (98.4 ??F) 11/16/2022 8:56 AM CS T Respiratory Rate 16 11/16/2022 9:45 AM AUTOMATIC DIE CUTTING MACHINE OPERATOR Oxygen Saturation 97% 11/16/2022 9:45 AM AUTOMATIC DIE CUTTING MACHINE OPERATOR Inhaled Oxygen Concentration - - Weight 77.1 kg (170 lb) 11/16/2022 6:31 AM AUTOMATIC DIE CUTTING MACHINE OPERATOR Height 167.6 cm (5' 6) 11/16/2022 6:31 AM AUTOMATIC DIE CUTTING MACHINE OPERATOR Body Mass Index 27.44 11/16/2022 6:31 AM AUTOMATIC DIE CUTTING MACHINE OPERATOR Plan of Treatment Not on file Medical Devices Implanted Type Area Helper/Driver Device Identifier Shelf Expiration Date Model / Serial / Lot Stent Ureteral Inlay [id number] - [id number] Implanted:Qty: 1 on 11/16/2022 by Lefty Lantigua DO at [facility] Stent Left: Ureter [employer] 12/20/2026 [id number] / / [id number] Care Teams Workforce Specialist Relationship Specialty Start Date End Date Clinic, Not Listed PCP - Primary Care Clinic 11/06/22 Md, Not Listed no address PCP - General Internal Medicine 11/06/22
== END 2024-07-21 11:29 | disposition home or self-care (01) ==
LOC: NFLDREF 07-23 11:39
PROVIDERS: PCP Family Medicine; Referring Provider Family Medicine; Visit Provider Family Medicine
DX: E11.9 Type 2 diabetes mellitus without complications (principal); E78.5 Hyperlipidemia, unspecified; Z12.5 Encounter for screening for malignant neoplasm of prostate; I10 Essential (primary) hypertension; N40.1 Benign prostatic hyperplasia with lower urinary tract symptoms; R35.1 Nocturia
CPT/HCPCS: 80053; 80061; 82043; 82570; G0103

== ENCOUNTER 2025-07-22 08:21 | Outpatient (CLI) | payer MEDICARE, SELFPAY | END 2025-07-22 08:22 | disposition home or self-care (01) | LOC: NFLDREF 07-24 14:00 | PROVIDERS: PCP Family Medicine; Referring Provider Family Medicine; Visit Provider Family Medicine | DX: E11.9 Type 2 diabetes mellitus without complications (principal); I10 Essential (primary) hypertension; E78.5 Hyperlipidemia, unspecified; N40.1 Benign prostatic hyperplasia with lower urinary tract symptoms; R35.1 Nocturia | CPT/HCPCS: 80053; 80061; 80164; 80165; 82043; 82570; G0103 ==

== ENCOUNTER 2025-08-21 09:25 | Outpatient (CLI) | payer MEDICARE, SELFPAY | END 2025-08-21 09:26 | disposition home or self-care (01) | LOC: NFLDREF 08-24 18:18 | PROVIDERS: PCP Family Medicine; Referring Provider Family Medicine; Visit Provider Family Medicine | DX: R97.20 Elevated prostate specific antigen [PSA] (principal); R41.3 Other amnesia | CPT/HCPCS: 82607; 84153; 84154; 84443 ==